=== PATIENT | male | born 1970 | race Caucasian/White ===

== ENCOUNTER 2020-03-07 17:42 | Inpatient (IN) | payer MEDICAID, SELFPAY ==
[2020-03-07] VITALS (11 sets, daily range): BP systolic 116–176; BP diastolic 60–116; PULSE 111–128; RESP 13–32; TEMP 36.3–36.9; O2SAT 90–100; BMI 32.5
--- NOTE | 2020-03-07 17:55 | ECG_ITS ---
Test Reason : ASTHMA Blood Pressure : / mmHG Vent. Rate : 113 BPM Atrial Rate : 113 BPM P-R Int : 152 ms QRS Dur : 086 ms QT Int : 358 ms P-R-T Axes : 067 079 066 degrees QTc Int : 491 ms Sinus tachycardia Otherwise normal ECG When compared with ECG of 06-NOV-2019 09:04, Heart rate has increased Referred By: Emily Damico Electronically Signed By:COLLIN GRIMES MD
[2020-03-07 17:58] LABS: Basophils Absolute Auto 0.1 X10*3/uL (0.0-0.2); Basophils Percent Auto 0.4 % (0-2); Eosinophils Absolute Auto 1.9 X10*3/uL (0.0-0.4); Eosinophils Percent Auto 14.1 % (0-4); Hematocrit 40.6 % (42-52); Hemoglobin 13.3 g/dl (14.0-18.0); Imm Gran Abs Auto 0.04 X10*3/uL (0.00-0.03); Imm Gran Pct Auto 0.3 % (0.0-0.4); Lymphocytes Percent Auto 14.6 % (20-40); MANUAL DIFF FLAG NO; Mean Corpuscular HGB Conc 32.8 g/dl (31.0-36.0); Mean Corpuscular Hemoglobin 31.9 pg (27.0-33.0); Mean Corpuscular Volume 97.4 fL (80-98); Mean Platelet Volume 9.5 fL (9.4-12.4); Monocytes Absolute Auto 1.2 X10*3/uL (0.1-1.2); Monocytes Percent Auto 8.9 % (2-11); Neutrophils Absolute Auto 8.4 X10*3/uL (2.0-8.3); Neutrophils Percent Auto 61.7 % (45-73); Platelet Count 237 X10*3/uL (160-400); Red Blood Count 4.17 X10*6/uL (4.60-5.80); Red Cell Distribution Width 12.5 % (11.0-16.0); White Blood Count 13.5 X10*3/uL (4.8-10.8)
--- NOTE | 2020-03-07 18:05 | ED_ITS ---
HPI - General Adult General Chief complaint: Asthma Stated complaint: STATUS ASTHMATICUS Time Seen by Provider: 03/07/20 17:55 Source: patient and EMS Mode of arrival: EMS Limitations: other ( shortness of breath) History of Present Illness HPI narrative: patient comes to the emergency room complaining of severe sh ortness of breath. Patient states he ran out of his medications couple of days ago, he bought [id number] epinephrine inhaler which he has been using over the last 24 hours. Patient states this afternoon he had severe onset of shortness of breath, called EMS, started on CPAP, given Solu-Medrol, magnesium, 0.3 mg IM of epinephrine. On arrival to the emergency room, patient was in severe respiratory distress, his oxygen saturation on CPAP was 90%. Patient was switched to our BiPAP, oxygen improved to 100% with 50 FiO2 MD complaint: asthma exacerbation Related Data Allergies Allergy/AdvReac Type Severity Reaction Status Date / Time codeine [CODEINE] Allergy Unknown STOMACH Unverified 01/15/20 17:25 UPSET ibuprofen [Motrin] Allergy Unknown Unknown Verified 03/07/20 19:28 From FLEXERIL Allergy Severe ALTERED Uncoded 01/15/20 17:25 MENTAL STATUS Flexeril Allergy Unknown Unknown Uncoded 03/07/20 19:28 Review of Systems Review of Systems: Constitutional : No Weight loss, No Fever, No Chills, No Night Sweats, No Fatigue, No Malaise ENT/Mouth : No Hearing loss, No Ear Pain, No Nasal Congestion, No Sinus Pain, No Hoarseness, No sore throat, No Rhinorrhea, No Swallowing Difficulty Eyes: No Eye Pain, No Swelling, No Redness, No Foreign Body, No Discharge, No Vision Changes Cardiovascular : No Chest Pain, No SOB, No Dyspnea on Exertion, No Orthopnea, No Edema, No Palpitations Respiratory : wheezing, severe shortness of breath Gastrointestinal : No Nausea, No Vomiting, No Diarrhea, No Constipation, No abdominal Pain, No Hematochezia, No Melena Genitourinary : no irregular bleeding, No Dysuria, No Urinary Frequency, No Hematuria, No Urinary Incontinence, No Urgency, No Flank Pain, No Urinary Flow Changes, No Hesitancy Musculoskeletal : No joint pain, No Myalgias, No Joint Swelling Skin : No Skin Lesions, No rash Neuro : No Weakness, No Numbness, No Paresthesias, No Loss of Consciousness, No Dizziness, No Headache Psych : No Anxiety/Panic, No Depression, No SI/HI/AH/VH, No Social Issues, Heme/Lymph: No Bruising, No Bleeding,No Lymphadenopathy Endocrine : No Polyuria, No Polydipsia, No Temperature Intolerance PMF Past Medical History Medical History Asthma HTN (hypertension) Surgical History H/O knee surgery Social History Social History Smoked in Last 30 Days: No Use of substances other than those prescribed or required for medical reasons: No Advance Directives: No Advance Directives Information Provided: Yes Physical Exam Vital Signs: Vital Signs: Last Vital Signs Temp 97.4 F 03/07/20 20:00 Pulse 111 H 03/07/20 20:00 Resp 22 H 03/07/20 20:00 BP 176/93 H 03/07/20 20:00 Pulse Ox 98 03/07/20 20:00 Body Mass Index 32.5 Appearance: Alert. Oriented X3. in moderate respiratory distress, diaphoretic Eyes: Pupils equal, round and reactive to light. ENT: Pharynx normal. Neck: Normal inspection. Neck supple. No lymph nodes noted. No crepitus CVS: Normal heart rate and rhythm. Pulses normal. Normal S1 and S2 Respiratory: bilateral minimal wheezing, poor air movement Abdomen: Soft and nontender. No rigidity. No distention. good BS x4 Skin: Skin warm and diaphoretic Extremities: No lower extremity edema. No lower extremity edema. No Laceration s. No Rash Neuro: Oriented X 3. No motor deficit. No sensory deficit. Moving all extermities. Course Course Course Narrative: patient was started on a 1 hour nebulization treatment, patient was put on our CPAP, within 5 minutes, patient started feeling much better, now speaking in full sentences, oxygen saturation 100%, patient states he feels much better. Patient seemed to have a panic attack while he was urinating, patient became very anxious, diaphoretic, he needed 2 mg of Ativan and was placed back on CPAP. His respiratory rate improved immediately. This happened twice, patient does well on a Ventimask, then all of a sudden patient gets a panic attack, gets worked up and needs to be put on CPAP. His oxygen saturation remains above 92%, airway clear, patient continues to wheeze but has fairly good air movement. At this time, patient remains on CPAP, patient will likely end up in the ICU if he has 1 of this panic attacks on the floor. Therefore, I discussed the patient with Dr. South, patient is being admitted to the intensive care unit. Medical Decision Making Lab Data Result diagrams: 03/07/20 17:52 03/07/20 17:52 Labs: Lab Results 03/07/20 03/07/20 03/07/20 Range/Units 17:52 17:52 17:52 WBC 13.5 H (4.8-10.8) X10*3/uL RBC 4.17 L (4.60-5.80) X10*6/uL Hgb 13.3 L (14.0-18.0) g/dl Hct 40.6 L (42-52) % MCV 97.4 (80-98) fL MCH 31.9 (27.0-33.0) pg MCHC 32.8 (31.0-36.0) g/dl RDW 12.5 (11.0-16.0) % Plt Count 237 (160-400) X10*3/uL MPV 9.5 (9.4-12.4) fL Immature Gran % (Auto) 0.3 (0.0-0.4) % Neut % (Auto) 61.7 (45-73) % Lymph % (Auto) 14.6 L (20-40) % [place] % (Auto) 8.9 (2-11) % Eos % (Auto) 14.1 H (0-4) % Baso % (Auto) 0.4 (0-2) % Lymph # (Auto) 2.0 (1.2-4.9) X10*3/uL [place] # (Auto) 1.2 (0.1-1.2) X10*3/uL Eos # (Auto) 1.9 H (0.0-0.4) X10*3/uL Baso # (Auto) 0.1 (0.0-0.2) X10*3/uL Abs Immat Gran (auto) 0.04 H (0.00-0.03) X10*3/uL Absolute Neuts (auto) 8.4 H (2.0-8.3) X10*3/uL Absolute Nucleated RBC 0.000 (0.0-0.012) X10*3/uL Nucleated RBC % (auto) 0.0 (0.0-0.2) /100WBC Hold Blue Top SEE NOTE Sodium (135-145) mmol/L Potassium (3.3-5.1) mmol/l Chloride (96-108) mmol/L Carbon Dioxide (22-29) mmol/L Anion Gap (12-20) BUN (9-16) mg/dL Creatinine (0.5-1.4) mg/dL Estim Creat Clear Calc Estimated GFR Random Glucose (60-115) mg/dL Calcium (8.4-10.2) mg/dL Total Bilirubin (0.0-1.0) mg/dL Direct Bilirubin (0.0-0.5) mg/dL AST (5-37) U/L ALT (0-40) U/L Alkaline Phosphatase (39-117) U/L Troponin I High Sens 8.1 (<3.5-35.0) ng/L Total Protein (6.5-8.0) g/dL Albumin (3.5-5.0) g/dL Lipase (8-78) U/L Coronavirus (PCR) (Negative) 03/07/20 03/07/20 03/07/20 Range/Units 17:52 18:01 19:35 WBC (4.8-10.8) X10*3/uL RBC (4.60-5.80) X10*6/uL Hgb (14.0-18.0) g/dl Hct (42-52) % MCV (80-98) fL MCH (27.0-33.0) pg MCHC (31.0-36.0) g/dl RDW (11.0-16.0) % Plt Count (160-400) X10*3/uL MPV (9.4-12.4) fL Immature Gran % (Auto) (0.0-0.4) % Neut % (Auto) (45-73) % Lymph % (Auto) (20-40) % [place] % (Auto) (2-11) % Eos % (Auto) (0-4) % Baso % (Auto) (0-2) % Lymph # (Auto) (1.2-4.9) X10*3/uL [place] # (Auto) (0.1-1.2) X10*3/uL Eos # (Auto) (0.0-0.4) X10*3/uL Baso # (Auto) (0.0-0.2) X10*3/uL Abs Immat Gran (auto) (0.00-0.03) X10*3/uL Absolute Neuts (auto) (2.0-8.3) X10*3/uL Absolute Nucleated RBC (0.0-0.012) X10*3/uL Nucleated RBC % (auto) (0.0-0.2) /100WBC Hold Blue Top Sodium 138 Cancelled (135-145) mmol/L Potassium 5.0 Cancelled (3.3-5.1) mmol/l Chloride 99 Cancelled (96-108) mmol/L Carbon Dioxide 25 Cancelled (22-29) mmol/L Anion Gap 19 Cancelled (12-20) BUN 33 H Cancelled (9-16) mg/dL Creatinine 1.75 H Cancelled (0.5-1.4) mg/dL Estim Creat Clear Calc 59.4 Cancelled Estimated GFR 42 Cancelled Random Glucose 119 H Cancelled (60-115) mg/dL Calcium 10.3 H Cancelled (8.4-10.2) mg/dL Total Bilirubin 0.4 Cancelled (0.0-1.0) mg/dL Direct Bilirubin 0.2 Cancelled (0.0-0.5) mg/dL AST 23 Cancelled (5-37) U/L ALT 19 Cancelled (0-40) U/L Alkaline Phosphatase 73 Cancelled (39-117) U/L Troponin I High Sens (<3.5-35.0) ng/L Total Protein 8.6 H Cancelled (6.5-8.0) g/dL Albumin 5.2 H Cancelled (3.5-5.0) g/dL Lipase 10 Cancelled (8-78) U/L Coronavirus (PCR) NEGATIVE (Negative) ECG Data Attestation: I personally reviewed and interpreted this ECG as follows: ( Sinus rhythm, heart rate 113, no ST segment depressions or elevations common with inversions.) Discharge Plan Discharge Clinical Impression: Asthma with acute exacerbation, Panic attack Patient Disposition: Admitted As Inpatient
[2020-03-07 18:21] LABS: Anion Gap 19 (12-20); Blood Urea Nitrogen 33 mg/dL (9-16); Calcium 10.3 mg/dL (8.4-10.2); Carbon Dioxide 25 mmol/L (22-29); Chloride 99 mmol/L (96-108); Creatinine Clr Calc Pharmacy 59.4; Estimated Glomerular Filt Rate 42; Glucose Random 119 mg/dL (60-115); Sodium 138 mmol/L (135-145)
[2020-03-07] MEDS: 0.9 % Sodium Chloride 1,000 ML 999 ML IVCONT ×2 (18:26→19:37)
[2020-03-07 18:28] LABS: Troponin-I High Sensitivity 8.1 ng/L (<3.5-35.0)
[2020-03-07] MEDS: Albuterol Sulfate (0.083%) 2.5 MG/3 ML VIAL.NEB 10 MG INHALE ×2 (18:39→19:21)
[2020-03-07 18:59] LABS: SARS COV2 PCR INHOUSE NEGATIVE (Negative)
--- NOTE | 2020-03-07 19:26 | PC.NURSE ---
PATIENT TAKEN OFF OF BIPAP WITH MD AND RESP THERAPIST. PLACED ON AN HOUR LONG BREATHING TREATMENT. LOOKING COMFORTABLE AND BREATHING WELL ON TREATMENT. NO DISTRESS NOTED AT THIS TIME.
--- NOTE | 2020-03-07 19:36 | XR_ITS ---
EXAMINATION: XR CHEST CLINICAL INFORMATION: Shortness of breath COMPARISON: 11/10/2019 TECHNIQUE: Frontal view of the chest was obtained. FINDINGS: No significant abnormality is noted involving the heart, lungs, mediastinum, bony thorax or soft tissues. Again noted is anterior cervical fixation. Mild degenerative changes in the spine. XR/XR chest 1V IMPRESSION: No acute intrathoracic disease.
[2020-03-07 19:49] LABS: Alanine Aminotransferase 19 U/L (0-40); Albumin Level 5.2 g/dL (3.5-5.0); Alkaline Phosphatase 73 U/L (39-117); Aspartate Amino Transferase 23 U/L (5-37); Bilirubin Direct 0.2 mg/dL (0.0-0.5); Bilirubin Total 0.4 mg/dL (0.0-1.0); Lipase 10 U/L (8-78); Total Protein 8.6 g/dL (6.5-8.0)
--- NOTE | 2020-03-07 20:16 | PC.NURSE ---
PATIENT STARTED TO HAVE A PANIC ATTACK, SCREAMING OUT THAT HE CAN'T BREATH, CONTINUES TO YELL IN FULL AND COMPLETE SENTENCES. MD AND NURSE AT BEDSIDE, VERBAL ORDERS FROM MD FOR ATIVAN 2MG IV STAT. PATIENT PLACED BACK ON CPAP FOR PATIENTS COMFORT. PATIENT STARTED TO PANIC WHEN BREATHING TREATMENT THAT HE WAS PREVIOUSLY ON WAS TURNED OFF. PATIENT THINKING THAT THAT O2 WAS BEING TURNED OFF ON THE CPAP AND STARTED TO HYPERVENTILATE, STATING I CAN'T BREATH, TURN IT ON EXPLAINING TO PATIENT THAT IT WAS A DIFFERENT TREATMENT THAT WAS TURNED OFF AND NOT WHAT HE WAS CURRENTLY ON. PATIENT BECOMING MORE COMFORTABLE AFTER MEDICATION ADMINISTRATION AND REASSURANCE.
[2020-03-07] MEDS: Albuterol Sulfate (0.083%) 2.5 MG/3 ML VIAL.NEB 5 MG INHALE (20:20)
[2020-03-07] MEDS: LORazepam 2 MG/ML VIAL IVPUSH (20:29)
--- NOTE | 2020-03-07 20:56 | PM.CCHP ---
History of Present Illness Date of Service: 03/07/20 <GAVIOTA Sharp - Last Filed: 03/08/20 06:20> Chief Complaint: asthma exacerbation <GAVIOTA Sharp - Last Filed: 03/08/20 06:20> 49-year-old male with a past medical history of asthma, anxiety, alcoholic pancreatitis and hypertension BIBA c/o sob. EMS gave 0.3mg epi, 125mg solumedrol and 2mg mag OUTPATIENT CLERK. ED records states the patient ran out of his medications a few days ago and has been using an [id number] inhaler for the past 24 hours, this afternoon his sob became worse. Upon arrival to the ED, his oxygen saturation on CPAP was 90%. Patient was switched to our BiPAP, oxygen improved to 100% with 50 FiO2. Bedside exam revealed pt diaphoretic, tremulous, RR at 25, satting at 96% with CPAP at 12cm and 40%. Pt revealed he hasn't taken his suboxone in 3-4 days, he usually takes 12mg/day, he is this is supposed to be split to be twice a day but he usually takes it once a day because he does not like the taste. states he has taken Suboxone for the last 4 years. patient states his last drink was prior to his admission in August for alcoholic pancreatitis. He tells me he ran out of albuterol inhaler so he bought Primatine mist OTC and has been using it for the last few days. He developed a cough he thinks is due to allergies, thought he was doing too much and suddenly became more short of breath. He states he used to take Advair but stopped as he didn't feel it was helping his breathing. CXR negative, labs unremarkable. Pt to be admitted to the ICU for asthma exaerbation and opioid withdrawal. Once in the ICU, after being asked multiple times (as pt was consistently tachy) he did admit to taking percocet on Sunday but denies drinking alcohol since August. <GAVIOTA Sharp - Last Filed: 03/08/20 06:20> Review of Systems Review of Systems: Constitutional: No Fever, No Chills ENT/Mouth: No Hoarseness, No sore throat, No Rhinorrhea Eyes: No Redness, No Discharge, No Vision Changes Cardiovascular: No Chest Pain, positive SOB, positive Dyspnea on Exertion, No Edema Respiratory: positive Cough, No Sputum, positive Wheezing, Gastrointestinal: No Nausea, No Vomiting, No Diarrhea, No abdominal Pain Genitourinary: No Dysuria, No Hematuria Musculoskeletal: No joint pain, No Myalgias Skin: No rash Neuro: No Weakness, No Numbness, No Headache Psych: +anxiety, depression <GAVIOTA Sharp - Last Filed: 03/08/20 06:20> Yes all other systems are reviewed and are negative <GAVIOTA Sharp - Last Filed: 03/08/20 06:20> [facility] Past Medical History Medical History: Medical History (Updated 03/08/20 @ 10:17 by Chance Kay MD) Asthma HTN (hypertension) <GAVIOTA Sharp - Last Filed: 03/08/20 06:20> Functional capacity: independent ambulation <GAVIOTA Sharp - Last Filed: 03/08/20 06:20> Surgical History Surgical History: Surgical History (Updated 03/07/20 @ 21:12 by GAVIOTA Sharp) H/O knee surgery H/O neck surgery <GAVIOTA Sharp - Last Filed: 03/08/20 06:20> Social History Social History: Social History (Updated 03/07/20 @ 22:43 by GAVIOTA Sharp) Household Members: Friend(s) Housing: Apartment Do you presently have visiting nurse or other home services: No Alcohol intake: former Year quit: 09/16 Smoking Status: Former smoker Tobacco Type: Cigarette Smoked in Last 30 Days: No Use of substances other than those prescribed or required for medical reasons: No Substance Use Type: Painkillers Last Used Substance Other:: 4 years ago, now on 12mg suboxone daily Currently Displaying Signs/Symptoms of Drug Intoxication Withdrawal: No Any prior treatment program specific to substance use: Yes Have you been hit, kicked, punched, or otherwise hurt by someone within the past year? If so, by whom?: No Do you feel safe in your current relationship?: No Is there a partner from a previous relationship who is making you feel unsafe now?: No Are you made to feel afraid or neglected: No Advance Directives: No Advance Directives Information Provided: Yes Advance Directives on File: No Do you have thoughts of harming others: None Do you have a plan to hurt others: No Plan Recently lost weight without trying: No service: No Current occupational status: unemployed <GAVIOTA Sharp Last Filed: 03/08/20 06:20> Meds Allergies/Adverse reactions: Allergies Allergy/AdvReac Type Severity Reaction Status Date / Time codeine [CODEINE] AdvReac Unknown STOMACH Verified 03/07/20 23:03 UPSET From FLEXERIL AdvReac Severe Confusion Uncoded 03/09/20 07:18 <GAVIOTA Sharp Last Filed: 03/08/20 06:20> Home medications: Home Medications Medication Instructions Recorded Confirmed Type acetaminophen [Tylenol] 650 mg PO Q6H PRN 03/07/20 03/07/20 History buprenorphine-naloxone [Suboxone] 1 film BUCCAL Q24H 03/07/20 03/07/20 History ibuprofen [Motrin] 600 mg PO Q8H PRN 03/07/20 03/07/20 History lisinopril 30 mg PO DAILY 03/07/20 03/07/20 History <GAVIOTA Sharp Last Filed: 03/08/20 06:20> Physical Exam Vital Signs: Vital Signs: Last Vital Signs Temp 97.4 F 03/07/20 20:00 Pulse 111 H 03/07/20 20:00 Resp 22 H 03/07/20 20:00 BP 176/93 H 03/07/20 20:00 Pulse Ox 98 03/07/20 20:00 Body Mass Index 32.5 <GAVIOTA Sharp Last Filed: 03/08/20 06:20> Const: General: cooperative, healthy appearing, in distress and anxious <GAVIOTA Sharp Last Filed: 03/08/20 06:20> Orientation/consciousness: patient oriented x3 <GAVIOTA Sharp Last Filed: 03/08/20 06:20> Limitations: no limitations <GAVIOTA Sharp Last Filed: 03/08/20 06:20> HENMT: Head: Yes normal to inspection <Abigail Cazares [facility] Last Filed: 03/08/20 06:20> Eyes: General: appearance normal, both eyes and all related structures <Abigail Cazares [facility] Last Filed: 03/08/20 06:20> Neck: Neck: Yes normal visual inspection and Yes full ROM <Abigail Cazares [facility] Last Filed: 03/08/20 06:20> Resp: Other: moderate air movement <Abigail Cazares [facility] Last Filed: 03/08/20 06:20> Effort & Inspection: not able to speak in complete sentences, no audible wheezes, no grunting, not labored, no nasal flaring, no pursed lip breathing, no retractions, no segmental paradox chest wall movement, tachypneic, no tripod positioning and uses accessory muscles <Abigail Cazares [facility] Last Filed: 03/08/20 06:20> Auscultation: wheezes expiratory wheezes and throughout <Abigail Cazares [facility] Last Filed: 03/08/20 06:20> Cardio: Rate: tachycardic (110-115) <Abigail Cazares [facility] Last Filed: 03/08/20 06:20> Rhythm: regular rhythm <Abigail Cazares [facility] Last Filed: 03/08/20 06:20> Heart sounds: normal S1 and S2 <Abigail Cazares [facility] Last Filed: 03/08/20 06:20> GI: Inspection: Yes normal to inspection <Abigail Cazares [facility] Last Filed: 03/08/20 06:20> Palpation (GI): Soft to palpation and nontender <Abigail Cazares [facility] Last Filed: 03/08/20 06:20> Skin: General skin exam: no rashes or lesions noted <Abigail Cazares [facility] Last Filed: 03/08/20 06:20> Neuro: General: patient oriented x3 <Abigail Cazaers [facility] Last Filed: 03/08/20 06:20> Extrem: General: Yes normal to inspection <Abigail Cazares PA - Last Filed: 03/08/20 06:20> Results Labs CBC and Chem 7: : 03/10/20 05:48 03/10/20 05:48 <GAVIOTA Sharp - Last Filed: 03/08/20 06:20> Labs: Laboratory Results - last 24 hr 03/07/20 03/07/20 03/07/20 17:52 17:52 17:52 MCV 97.4 MCH 31.9 MCHC 32.8 RDW 12.5 Plt Count 237 MPV 9.5 Immature Gran % (Auto) 0.3 Neut % (Auto) 61.7 Lymph % (Auto) 14.6 L [place] % (Auto) 8.9 Eos % (Auto) 14.1 H Baso % (Auto) 0.4 Lymph # (Auto) 2.0 Saline # (Auto) 1.2 Eos # (Auto) 1.9 H Baso # (Auto) 0.1 Abs Immat Gran (auto) 0.04 H Absolute Neuts (auto) 8.4 H Absolute Nucleated RBC 0.000 Nucleated RBC % (auto) 0.0 Hold Blue Top SEE NOTE Anion Gap Estim Creat Clear Calc Estimated GFR Random Glucose Calcium Total Bilirubin Direct Bilirubin AST ALT Alkaline Phosphatase Troponin I High Sens 8.1 Total Protein Albumin Lipase Coronavirus (PCR) 03/07/20 03/07/20 03/07/20 17:52 18:01 19:35 MCV MCH MCHC RDW Plt Count MPV Immature Gran % (Auto) Neut % (Auto) Lymph % (Auto) Saline % (Auto) Eos % (Auto) Baso % (Auto) Lymph # (Auto) Saline # (Auto) Eos # (Auto) Baso # (Auto) Abs Immat Gran (auto) Absolute Neuts (auto) Absolute Nucleated RBC Nucleated RBC % (auto) Hold Blue Top Anion Gap 19 Cancelled Estim Creat Clear Calc 59.4 Cancelled Estimated GFR 42 Cancelled Random Glucose 119 H Cancelled Calcium 10.3 H Cancelled Total Bilirubin 0.4 Cancelled Direct Bilirubin 0.2 Cancelled AST 23 Cancelled ALT 19 Cancelled Alkaline Phosphatase 73 Cancelled Troponin I High Sens Total Protein 8.6 H Cancelled Albumin 5.2 H Cancelled Lipase 10 Cancelled Coronavirus (PCR) NEGATIVE <GAVIOTA Sharp - Last Filed: 03/08/20 06:20> Imaging Radiologist's Impressions: Impressions Chest X-Ray 03/07/20 19:36 IMPRESSION: No acute intrathoracic disease. <GAVIOTA Sharp Last Filed: 03/08/20 06:20> Assessment and Plan (1) Asthma with acute exacerbation: Qualifiers: Asthma persistence: unspecified Asthma severity: unspecified severity Qualified Code(s): J45.901 - Unspecified asthma with (acute) exacerbation <GAVIOTA Sharp Last Filed: 03/08/20 06:20> Status: Acute <GAVIOTA Sharp Last Filed: 03/08/20 06:20> Continue CPAP, wean off overnight. Pt given 125mg solumedrol, epi and 2mg mag by EMS, will repeat solumedrol. Pt consistently tachy (110-130) since arrival to [facility], ddimer negative. <GAVIOTA Sharp Last Filed: 03/08/20 06:20> (2) Opioid withdrawal: Status: Acute <GAVIOTA Sharp Last Filed: 03/08/20 06:20> [place] text with Natalie Roldan, she advised okay to resume patient's normal it dose of Suboxone. Ordered 12mg sublingual suboxone now and continue daily starting tomorrow. she will come see the patient tomorrow if we need her to. 03/08 6am pt admits to using 15mg percocets, 5-6 per day for the last 10 days, hasn't been taking his suboxone, [place] Text to Natalie Roldan for guidance. I will cancel today's dose of suboxone until she calls back as she may change the dose... <GAVIOTA Sharp Last Filed: 03/08/20 06:20> (3) Panic attack: Status: Acute <GAVIOTA Sharp Last Filed: 03/08/20 06:20> Pt rec'd IV ativan in ED, monitor. Will give hydroxyzene as well for anxiety and antihistamine effect. Pt very restless overnight, tremulous, tachy, gave mult doses of IV lorazepam overnight <GAVIOTA Sharp - Last Filed: 03/08/20 06:20> (4) Anxiety: Status: Acute <GAVIOTA Sharp - Last Filed: 03/08/20 06:20> After multiple discussions the patient trying to find out why he is so fidgety, anxious and nervous (thinking it was withdrawal from something else despite being given ativan and suboxone), he states he is fidgety at his baseline and he finally admits that he takes 25 mg of Seroquel daily which is prescribed to him by his PCP at [facility]. I will restart him on this medication now. <GAVIOTA Sharp - Last Filed: 03/08/20 06:20>
[2020-03-07] MEDS: Buprenorphine/Naloxone 12/3 mg FILM 1 FILM SUBLINGUAL (21:16)
[2020-03-07] MEDS: Albuterol Sulfate (0.083%) 2.5 MG/3 ML VIAL.NEB INHALE (22:44)
[2020-03-07] MEDS: Ipratropium Bromide 0.5 MG/2.5 ML SOLUTION INHALE ×2 (23:40→23:54)
[2020-03-07] MEDS: hydrOXYzine HCL 25 MG TABLET PO (23:59)
[2020-03-08] VITALS (32 sets, daily range): BP systolic 61–211; BP diastolic 11–158; PULSE 88–132; RESP 20–34; TEMP 36.3–37.4; O2SAT 90–100; BMI 28.6; BMI 32.5
--- NOTE | 2020-03-08 | CT_ITS ---
EXAMINATION: CT HEAD WITHOUT CONTRAST CLINICAL INFORMATION: Altered mental status COMPARISON: None TECHNIQUE: Contiguous axial imaging was performed from the skull base to vertex without intravenous administration of contrast. Coronal and sagittal reformatted images are performed at CT scanner This CT examination was performed using dose optimization techniques as appropriate, variously including the following: *Automated exposure control *Adjustment of mA and/or kV according to patient size (this includes techniques or standardized protocols for targeted exams where dose is matched to indication/reason for exam; i.e. extremities or head) *Use of iterative reconstruction technique DLP: 985 mGy-cm FINDINGS: There is no evidence of acute intracranial hemorrhage or territorial infarction. No abnormal mass effect or midline shift is seen. Howard to white matter differentiation is well preserved. No extra-axial fluid collections are identified. The ventricles are normal in size. There is no abnormal attenuation within the brain parenchyma. The osseous structures and soft tissues are normal. The mastoid air cells and visualized portions of the paranasal sinuses are well aerated. CT/CT head/brain wo con IMPRESSION: No acute intracranial pathology.
[2020-03-08] MEDS: Ipratropium Bromide 0.5 MG/2.5 ML SOLUTION INHALE (00:19)
[2020-03-08] MEDS: methylPREDNISolone Sod Succ/PF 125 MG/2 ML VIAL IVPUSH (00:19)
[2020-03-08] MEDS: LORazepam 2 MG/ML VIAL IVPUSH ×2 (01:03→06:11)
[2020-03-08] MEDS: 0.9 % Sodium Chloride Flush 3 ML SYRINGE IVFLUSH ×3 (01:03→15:01)
--- NOTE | 2020-03-08 01:23 | PC.NURSE ---
admitted to icu approx 2200: pa and rt at bedside for assessment RR 30's-40's. Accessory muscle use, wheezing throughout. Satting high 80's on RA. 90's on 3L. PRN ativan, hydroxyzine, updrafts given with some effect. on/off cpap. Positive response to reassurance/redirection. Poor activity tolerance, becomes extremely dyspneic after stand/pivot to commode. patient repeatedly questioned re: drugs and etoh use. denied all. approx 0130, tremulous, diaphoretic, pale, hallucinating, disoriented. Again, questioned re: drugs and etoh. Patient admits taking percocet today prior to arrival in ed, where he was given suboxone. PA at bedside and aware of all.
[2020-03-08 01:33] LABS: D Dimer < 200 NG/ML
[2020-03-08] MEDS: Albuterol/Iprat 2.5/0.5MG 3 ML AMPUL.NEB INHALE ×5 (03:55→19:30)
[2020-03-08] MEDS: LORazepam 2 MG/ML VIAL 1 MG IVPUSH (04:11)
[2020-03-08] MEDS: QUEtiapine Fumarate 25 MG TABLET PO (05:06)
[2020-03-08] MEDS: methylPREDNISolone Sod Succ/PF 125 MG/2 ML VIAL 80 MG IVPUSH (06:19)
[2020-03-08] MEDS: Buprenorphine/Naloxone 8/2 mg FILM 1 FILM SUBLINGUAL (07:00)
--- NOTE | 2020-03-08 07:00 | PC.NURSE ---
Shift eval: 3a-
--- NOTE | 2020-03-08 07:15 | PC.NURSE ---
Shift eval 3a-7a: Patient alert and oriented, but talking to himself intermit, anxious. Persistent dry cough, shaking legs, diaphoretic, rolling in bed, getting up at side of bed. ST on monitor, 120's. Dyspnea on exertion, O2sat 91% on room air, increased to mid 90's on 3 liters. Patient frequently redirected to stay in bed, sit and keep monitor on for safety. Lungs - insp & exp wheezing throughout. After speaking to the patient multiple times, with Emilia MEEK, patient reported that he takes 15mg oxycodone, 5 times a day. He denied having this issue ever before regarding withdrawal. Patient denies drinking alcohol or using any other recreational drugs when asked. UA tox screen ordered and sent to lab. Emilia MEEK at bedside. Received IV ativan from prev RN. With increased agitation, Emilia MEEK ordered to give now doses of medications - 1mg IVP ativan given @ 0411, 25mg PO Seroquel given @ 0506, 2mg IVP ativan @ 0611. Updrafts also ordered and given by RT and 80mg IVP solumedrol ordered and given. Patient would sleep for 20 min at a time after receiving the medications, but then go right back to being anxious and rolling in bed. Emilia MEEK contacted pharmacy about what other medications the patient can get while on suboxone. Report given to Nesha Duenas RN, suboxone given to patient, with no effect. At 0715 Dr South came to floor and made aware of patient increasing agitation - orders given to day shift RN's - see continued documentation.
--- NOTE | 2020-03-08 07:21 | P.CDIC_ITS ---
CDI Concurrent Query Service Date: 03/08/20 Documentation Clarification: Please clarify if you are treating a proba ble/suspected/likely or confirmed: Acute respiratory failure POA, resolved Please specify if known Provider Response: Other (Acute respiratory failure present on admission) Other Diagnosis: acute respiratory failure present on admission PLEASE DO NOT DELETE/MODIFY EXISTING CONTENT Additional information is needed in order to code to the highest accuracy and appropriate Severity of Illness (SOI). Please clarify the information noted below in your progress notes and discharge summary. Risk Factors/Clinical Indicators/Treatments Severe respiratory distress, SOB, wheezing, asthma exacerbation placed on CPAP switched to BIPAP with respiratory rate improving. RR 27 30 34 HR 111 121 FI02 40+ 2 liters oxygen. CDS: Clarice Duval CCS, CDIS Contact Number: [phone] Please Review the information above and exercise your independent professional judgment in responding to the query. If you concur, pleas document in the PROGRESS NOTES and DISCHARGE SUMMARY. If you do not agree with the query, please document in the query above. THIS QUERY IS PART OF THE PERMANENT MEDICAL RECORD
[2020-03-08 07:28] LABS: Amphetamine Screen Urine Not Detected (Not Detect); Barbiturates, Urine Not Detected (Not Detect); Benzodiazepines Screen Urine Not Detected (Not Detect); Cannabinoid Screen Urine Not Detected (Not Detect); Cocaine Screen Urine Not Detected (Not Detect); Opiate Screen Urine POSITIVE (Not Detect); Phencyclidine Screen Urine Not Detected (Not Detect)
[2020-03-08] MEDS: HYDROmorphone HCl 1 MG/ML SYRINGE IVPUSH (07:41)
[2020-03-08] MEDS: dexmedeTOMIDidine HCL/NS 400 MCG/100 ML INFUS..BTL 37.42 MCG IVCONT (07:42)
--- NOTE | 2020-03-08 07:43 | PC.NURSE ---
Pt thrashing in the bed. He is yelling help me. Diaphoretic, severe agitation, unable to redirect, pulled off all wires. Dr South at the bedside at 0730, ordered precedex 50mcg ivp and drip strated at 1mcg/kg/hr. Pt continues to thrash and shout. At 0740 Dr Kay contacted. 1mg Dilaudid IVP admin without changes. Pt's restlessness and thrashing is worse. Natalie Jamar called but unable to get in contact in with her. 0750 Dr Kay at the bedside 2mg more Dilaudid admin. Pt continues to kick and trash in bed.
[2020-03-08] MEDS: HYDROmorphone HCl 2 MG/ML VIAL IVPUSH (07:54)
[2020-03-08] MEDS: propofoL 200 MG/20 ML VIAL 100 MG IVPUSH (08:04)
[2020-03-08] MEDS: Etomidate 20 MG/10 ML VIAL IVPUSH (08:04)
[2020-03-08] MEDS: propofoL 200 MG/20 ML VIAL 150 MG IVPUSH (08:10)
[2020-03-08] MEDS: propofoL 1,000 MG/100 ML VIAL 29.94 MG IVCONT ×5 (08:20→21:28)
[2020-03-08] MEDS: fentaNYL citrate/NS 1,000 MCG/100 ML PLAST..BAG 20 MCG IVCONT (08:20)
--- NOTE | 2020-03-08 08:22 | XR_ITS ---
EXAMINATION: XR CHEST CLINICAL INFORMATION: Check tube placement COMPARISON: Previous chest x-rays most recent from yesterday TECHNIQUE: AP portable view of the chest was obtained. FINDINGS: There is an endotracheal tube with tip 4 cm above the ventura. There is a nasogastric tube projects over the proximal stomach, the tip is not seen. The cardiac and mediastinal contours are stable. There is bilateral atelectasis or small infiltrates, greatest in the left upper lobe. There is no pleural effusion or pneumothorax. There are postsurgical changes to the cervical spine. XR/XR chest 1V IMPRESSION: Endotracheal tube 4 cm above the ventura. Nasogastric tube projects over the proximal stomach, tip not seen. Increasing bilateral atelectasis or small infiltrates.
--- NOTE | 2020-03-08 08:25 | W.PM.CCHP ---
Procedures Intubation Consent for Procedure: Emergent-no informed consent obtained Sedative: propofol Paralytic: rocuronium Laryngoscope: fiber optic video scope ET tube size: 8 ET tube uncuffed: No Tube placement confirmation: visualized tube passing through cords, equal breath sounds bilaterally and confirmation by capnometry Patient tolerated procedure: well Intubation complications: none
[2020-03-08] MEDS: Cisatracurium Besylate 20 MG/10 ML VIAL 10 MG IVPUSH (08:40)
[2020-03-08 09:30] LABS: Pt Ventilation O2% 40%
[2020-03-08 09:33] LABS: Base Excess ABG 1.9; HCO3 ABG 31 mmol/l (22-26); PO2 ABG 93 mmhg (83-108); pH ABG 7.26 (7.35-7.45)
[2020-03-08 09:34] LABS: Blood Gas Serial # 5414; Oxygen Saturation ABG 96.4 %
[2020-03-08 09:35] LABS: ABG PCO2 70 mmhg (32-45)
--- NOTE | 2020-03-08 09:39 | XR_ITS ---
EXAMINATION: XR CHEST CLINICAL INFORMATION: Endotracheal tube placement. Atelectasis or small infiltrates. Follow-up. COMPARISON: Portable chest 03/08/2020 at 0835 hours, portable chest 03/07/2020 1935 hours TECHNIQUE: Portable upright AP view of the chest is performed at 0950 hours. FINDINGS: ET tube is 3.9 cm above ventura. NG tube overlies proximal stomach and extends beyond the inferior film [id number]. There is subtle airspace opacity or atelectasis right upper lobe abutting the minor fissure. There is some coarsening of the bronchiolar markings bilateral suprahilar and right infrahilar region without airspace consolidation or groundglass opacity. The costophrenic sulci are clear. The vascularity is normal. The heart is normal in size. The hilar and mediastinal contours and bony structures are stable. XR/XR chest 1V IMPRESSION: 1. ET tube 3.9 cm above ventura. 2. NG tube in abdomen. 3. Subtle airspace opacity versus atelectasis right upper lobe adjacent to minor fissure. Coarsening central bronchiolar markings. Otherwise, no airspace consolidation or groundglass opacities. No effusion.
--- NOTE | 2020-03-08 09:46 | MHC.CLN ---
IF TF NEEDED; RECOMMEND JEVITY AT MAX GOAL RATE 45CC/HR TO PROVIDE 1145KCALS (1935KCALS WITH SEDATION; 23KCALS/KG), 48G PROTEIN (.6G/KG), 902CC FREE WATER FROM FORMULA
--- NOTE | 2020-03-08 10:14 | PM.CCPN ---
Subjective Subjective Date of Service: 03/08/20 Interval History: 49-year-old gentleman with underlying history of opioid dependence on Suboxone neck fusion asthma, anxiety alcohol abuse with underlying alcoholic pancreatitis, hypertension admitted on 03/07/2020 with acute hypoxic respiratory failure and opioid withdrawal Requiring intensive care monitoring. Overnight patient with progressive agitation poorly responsive to parenteral benzodiazepines and opioids eventually requiring intubation for airway protection at approximately 8:15 a.m. on 03/08/2020. Physical Exam Vital Signs: Vital Signs: Last Vital Signs Temp 97.9 F 03/08/20 09:55 Pulse 104 H 03/08/20 09:55 Resp 26 H 03/08/20 09:55 BP 211/97 H 03/08/20 09:55 Pulse Ox 93 03/08/20 09:55 Body Mass Index 32.5 Const: General: no acute distress and other ( sedated on the vent) Nutritional Appearance: obese and other Eyes: Sclerae: sclerae normal EOM: EOMs intact bilaterally Neck: Neck: Yes no lymphadenopathy, Yes trachea midline and Yes supple Resp: Auscultation: clear to auscultation bilaterally Cardio: Rate: tachycardic Rhythm: regular rhythm Heart sounds: no gallops, no murmurs and no rubs GI: Palpation (GI): Soft to palpation and Other GI palpation findings present ( Nontender) Auscultation: normal bowel sounds Extrem: General: Yes no pedal edema, No clubbing and No cyanosis Objective Data Labs CBC & Chem 7: 03/07/20 17:52 03/07/20 17:52 Labs: Laboratory Results - last 24 hr 03/07/20 03/07/20 03/07/20 17:52 17:52 17:52 WBC 13.5 H RBC 4.17 L Hgb 13.3 L Hct 40.6 L MCV 97.4 MCH 31.9 MCHC 32.8 RDW 12.5 Plt Count 237 MPV 9.5 Immature Gran % (Auto) 0.3 Neut % (Auto) 61.7 Lymph % (Auto) 14.6 L [place] % (Auto) 8.9 Eos % (Auto) 14.1 H Baso % (Auto) 0.4 Lymph # (Auto) 2.0 [place] # (Auto) 1.2 Eos # (Auto) 1.9 H Baso # (Auto) 0.1 Abs Immat Gran (auto) 0.04 H Absolute Neuts (auto) 8.4 H Absolute Nucleated RBC 0.000 Nucleated RBC % (auto) 0.0 D-Dimer Hold Blue Top SEE NOTE ABG pH ABG pCO2 ABG pO2 ABG HCO3 ABG O2 Saturation ABG Base Excess Oxygen Given Sodium Potassium Chloride Carbon Dioxide Anion Gap BUN Creatinine Estim Creat Clear Calc Estimated GFR Random Glucose Calcium Total Bilirubin Direct Bilirubin AST ALT Alkaline Phosphatase Troponin I High Sens 8.1 Total Protein Albumin Lipase Urine Opiates Screen Ur Barbiturates Screen Ur Phencyclidine Scrn Ur Amphetamines Screen U Benzodiazepines Scrn Urine Cocaine Screen U Marijuana (THC) Screen Coronavirus (PCR) 03/07/20 03/07/20 03/07/20 17:52 18:01 19:35 WBC RBC Hgb Hct MCV MCH MCHC RDW Plt Count MPV Immature Gran % (Auto) Neut % (Auto) Lymph % (Auto) [place] % (Auto) Eos % (Auto) Baso % (Auto) Lymph # (Auto) [place] # (Auto) Eos # (Auto) Baso # (Auto) Abs Immat Gran (auto) Absolute Neuts (auto) Absolute Nucleated RBC Nucleated RBC % (auto) D-Dimer Hold Blue Top ABG pH ABG pCO2 ABG pO2 ABG HCO3 ABG O2 Saturation ABG Base Excess Oxygen Given Sodium 138 Cancelled Potassium 5.0 Cancelled Chloride 99 Cancelled Carbon Dioxide 25 Cancelled Anion Gap 19 Cancelled BUN 33 H Cancelled Creatinine 1.75 H Cancelled Estim Creat Clear Calc 59.4 Cancelled Estimated GFR 42 Cancelled Random Glucose 119 H Cancelled Calcium 10.3 H Cancelled Total Bilirubin 0.4 Cancelled Direct Bilirubin 0.2 Cancelled AST 23 Cancelled ALT 19 Cancelled Alkaline Phosphatase 73 Cancelled Troponin I High Sens Total Protein 8.6 H Cancelled Albumin 5.2 H Cancelled Lipase 10 Cancelled Urine Opiates Screen Ur Barbiturates Screen Ur Phencyclidine Scrn Ur Amphetamines Screen U Benzodiazepines Scrn Urine Cocaine Screen U Marijuana (THC) Screen Coronavirus (PCR) NEGATIVE 03/08/20 03/08/20 03/08/20 01:04 06:37 09:21 WBC RBC Hgb Hct MCV MCH MCHC RDW Plt Count MPV Immature Gran % (Auto) Neut % (Auto) Lymph % (Auto) [place] % (Auto) Eos % (Auto) Baso % (Auto) Lymph # (Auto) [place] # (Auto) Eos # (Auto) Baso # (Auto) Abs Immat Gran (auto) Absolute Neuts (auto) Absolute Nucleated RBC Nucleated RBC % (auto) D-Dimer < 200 Hold Blue Top ABG pH 7.26 L ABG pCO2 70 H* ABG pO2 93 ABG HCO3 31 H ABG O2 Saturation 96.4 ABG Base Excess 1.9 Oxygen Given 40% Sodium Potassium Chloride Carbon Dioxide Anion Gap BUN Creatinine Estim Creat Clear Calc Estimated GFR Random Glucose Calcium Total Bilirubin Direct Bilirubin AST ALT Alkaline Phosphatase Troponin I High Sens Total Protein Albumin Lipase Urine Opiates Screen POSITIVE H Ur Barbiturates Screen Not Detected Ur Phencyclidine Scrn Not Detected Ur Amphetamines Screen Not Detected U Benzodiazepines Scrn Not Detected Urine Cocaine Screen Not Detected U Marijuana (THC) Screen Not Detected Coronavirus (PCR) Progress Note: A&P Assessment and plan (1) Acute respiratory failure with hypoxia: Status: Acute Assessment and Plan: Assessment: 49-year-old gentleman with underlying history of opioid dependence and asthma admitted with acute hypoxic respiratory failure and opioid withdrawal with increasing agitation component requiring intubation and ventilatory support. Plan: Neuro: Opioid withdrawal. Continue to titrate of sedative drips as tolerated. Cardiac: No acute issues. Pulmonary: Acute hypoxic respiratory failure secondary to a combination of high sedation requirements for underlying opioid withdrawal and asthmatic component requiring intubation and ventilatory support. Continue to titrate off ventilatory support as tolerated. Continue with nebulized bronchodilators. Renal: No acute issues. Endo: No acute issues. GI: No acute issues. ID: No acute issues Heme/Onc: No acute issues. Psych: No acute issues. Miscellaneous: No acute issues. Prophylaxis: Heparin, ppi Diet: nothing by mouth Critical care time spent: 90 minutes excluding separately billable procedures (2) Opioid withdrawal: Status: Acute Time Spent With Patient Time: Total time spent is greater than 50% in coordination of care (as documented) at patient's floor/unit and/or counseling patient: Total time spent with greater than 50% in coordination of care (as documented) at patient's floor/unit and/or counseling patient:: 0 Critical Care Time Critical Care Time (minutes): 90
[2020-03-08] MEDS: fentaNYL citrate/PF 100 MCG/2 ML VIAL IVPUSH (10:30)
[2020-03-08] MEDS: niCARdipine HCL 25 MG in 0.9 % Sodium Chloride 250 ML 52 MG IVCONT (11:07)
[2020-03-08] MEDS: Heparin Sodium,Porcine 5,000 UNIT/ML VIAL 5000 UNIT SUBCUT ×2 (11:09→17:17)
[2020-03-08 11:41] LABS: Pt Ventilation O2% 40%
[2020-03-08 11:49] LABS: ABG PCO2 54 mmhg (32-45); Base Excess ABG 3.7; Blood Gas Serial # 5396; HCO3 ABG 30 mmol/l (22-26); Oxygen Saturation ABG 96.5 %; PO2 ABG 86 mmhg (83-108); pH ABG 7.37 (7.35-7.45)
[2020-03-08] MEDS: fentaNYL citrate/NS 1,000 MCG/100 ML PLAST..BAG 30 MCG IVCONT ×4 (12:24→21:29)
[2020-03-08] MEDS: niCARdipine HCL 25 MG in 0.9 % Sodium Chloride 250 ML 62.4 MG IVCONT (14:11)
[2020-03-08] MEDS: Chlorhexidine Gluc Oral Rinse 15 ML MOUTHWASH BUCCAL ×2 (15:01→20:44)
--- NOTE | 2020-03-08 15:16 | MHC.CM.PN ---
Pt recently intubated and not able to participate in CM assessment: Information obtained from EMR and care team members. Message left for pt's mother to callback for assistance with assessment completion Unknown what pt's care needs will be at this time: CM to await callback from next of kin/contact to assist with d/c planning; of note, pt does not have a PCP on file.
[2020-03-08] MEDS: Lactated Ringers 1,000 ML 999 ML IVCONT (16:51)
--- NOTE | 2020-03-08 17:37 | PC.NURSE ---
Assumed care at 0700 from Duarte Hagan RN. Upon AM assessment patient very agitated, ? hallucinating, yelling make it stop , extremely restless, jumping in and out of bed. Medicated with Suboxone 8mg per Emilia PA. Patient continue to worsen - Dr Kay notified - medicated with Dilaudid 1mg IVP, Dilaudid 2mg IVP, and started on Precedex gtt - Patient had no improvement in symptoms - Propofol 100mg IVP administered by MD with no improvement - Patient intubated at 0815 - medicated with 150mg Propofol and 50mg Etomidate for intubation. ETT #8, 30cm at the lip - ?tube migration - repeat CXR done and tube placement is stable per MD. Vent settings AC 20, PEEP 5, TV 450, 40% FIO2. OGT and mejia placed - initial urine output 550cc. Patient started on propofol and fentanyl gtt - patient continued to ac vent, thrashing around in bed - Patient started on Nimbex gtt, patients train of four is four twitches at level 9. BP up to 217/116 - Cardene gtt ordered and titrated per EMAR. ABGs at 0920 7.26, 70, 93, 31 - vent setting adjusted by MD - AC rate increased to 26 - repeat ABGs at 1120 7.37, 54, 86, 30. 1545 BP 81/39 - Cardene gtt turned off - BP remained soft. 1L LR bolus ordered and administered. Propofol cut in half and Nimbex turned off per MD - BP improved - Patients extremities twitching, bucking vent - Md notified and at bedside. Total urine o/p throughout shift >2L. Patient to be re-sedated for STAT Brain CT. Patients next of kin updated with patients current status and plan of care by this RN and MD. Will continue to monitor.
[2020-03-08 18:09] LABS: Anion Gap 14 (12-20); Blood Urea Nitrogen 20 mg/dL (9-16); Calcium 9.1 mg/dL (8.4-10.2); Carbon Dioxide 28 mmol/L (22-29); Chloride 102 mmol/L (96-108); Estimated Glomerular Filt Rate > 60; Glucose Random 139 mg/dL (60-115); Potassium 4.5 mmol/l (3.3-5.1); Sodium 139 mmol/L (135-145)
[2020-03-08] MEDS: niCARdipine HCL 25 MG in 0.9 % Sodium Chloride 250 ML 78 MG IVCONT (20:35)
--- NOTE | 2020-03-08 23:12 | PC.NURSE ---
upon return from ct scan, pt found to be hypotensive sbp 50-60 mmhg. ecg displays sr with apical hr in the 90s bpm. nicardipine drip immediately terminated. jocelyn braun notified of hypotension 1. legs placed in an upright position, pt flat 2. despite policy for central line in regard to infusion of levophed, jocelyn braun wants to proceed [facility] #18 angio inserted right antecubital/excellent blood return encountered/low dose levophed infusion at 0.05mcg/kg/min implemented. once again concerns over peripheral iv voiced with jocelyn braun but i'm instructed there is a 24 hour period to run levophed prior to establishment of central line. at this time levophed at 0.07mcg/kg/min b/p 139/82
[2020-03-09] VITALS (35 sets, daily range): BP systolic 70–206; BP diastolic 34–118; PULSE 81–126; RESP 18–26; TEMP 36.5–37.2; O2SAT 90–98; BMI 29.2
[2020-03-09] MEDS: Albuterol/Iprat 2.5/0.5MG 3 ML AMPUL.NEB INHALE ×6 (00:04→19:38)
[2020-03-09] MEDS: fentaNYL citrate/NS 1,000 MCG/100 ML PLAST..BAG 30 MCG IVCONT ×2 (00:58→04:27)
[2020-03-09] MEDS: propofoL 1,000 MG/100 ML VIAL 29.94 MG IVCONT ×5 (00:59→21:23)
--- NOTE | 2020-03-09 01:49 | PC.NURSE ---
NIMBEX INFUSION WAS TURNED OFF TO EVALUATE UNDERLYING NEURO STATUS AFTER HEAD CT WHICH WAS NEGATIVE. UNFORTUNATELY, PT EXPERIENCED EMERGENCE WITH EXTREME AGITATION. PT FIGHTING VENTILATOR AND BITING ETT. PT THRASHING HEAD SIDE TO SIDE. ATTEMPTING TO DISLODGE LINES. DESPITE REASSURANCES, PT REMAINS AGITATED AND WILL NOT FOLLOW COMMAND. GAVIOTA MCCONNELL SPOKE TO DR MAYFIELD IN REGARD TO PRECEDEX DRIP BUT THE DECISION IS MADE TO RESTART NIMBEX INFUSION. INITIALLY NIMBEX INFUSION STARTED AT 2MCG/KG/MIN BUT WAS INEFFECTIVE IN VENTILATORY CONTROL. NIMBEX TITRATED UPWARD TO 10 MCG/KG/MIN WITH VENTILATORY HARMONY. 2 DOSES OF PROPOFOL 50 MG IVP GIVEN FOR SEDATION IN ADDITION TO CONTINOUS INFUSIONS OF FENTANYL AND PROPOFOL.
[2020-03-09] MEDS: propofoL 200 MG/20 ML VIAL 50 MG IVPUSH (02:09)
[2020-03-09] MEDS: 0.9 % Sodium Chloride Flush 3 ML SYRINGE IVFLUSH ×4 (02:10→23:55)
[2020-03-09] MEDS: Heparin Sodium,Porcine 5,000 UNIT/ML VIAL 5000 UNIT SUBCUT ×3 (03:03→17:36)
[2020-03-09] MEDS: niCARdipine HCL 25 MG in 0.9 % Sodium Chloride 250 ML 15.6 MG IVCONT (04:04)
[2020-03-09 05:42] LABS: Basophils Percent Auto 0.1 % (0-2); Eosinophils Percent Auto 0.1 % (0-4); Hematocrit 36.4 % (42-52); Hemoglobin 11.9 g/dl (14.0-18.0); Imm Gran Abs Auto 0.07 X10*3/uL (0.00-0.03); Imm Gran Pct Auto 0.4 % (0.0-0.4); Lymphocytes Absolute Auto 0.7 X10*3/uL (1.2-4.9); Lymphocytes Percent Auto 4.4 % (20-40); MANUAL DIFF FLAG SCAN; Mean Corpuscular HGB Conc 32.7 g/dl (31.0-36.0); Mean Corpuscular Volume 97.8 fL (80-98); Mean Platelet Volume 9.9 fL (9.4-12.4); Monocytes Absolute Auto 0.9 X10*3/uL (0.1-1.2); Monocytes Percent Auto 5.9 % (2-11); Neutrophils Percent Auto 89.1 % (45-73); Platelet Count 230 X10*3/uL (160-400); Red Blood Count 3.72 X10*6/uL (4.60-5.80); Red Cell Distribution Width 12.7 % (11.0-16.0); SCAN SMEAR FLAG 1; White Blood Count 15.7 X10*3/uL (4.8-10.8)
[2020-03-09 05:54] LABS: Base Excess VBG 4.2 mmol/L; HCO3 VBG 29 mmol/L; PCO2 VBG 44 mmhg; PO2 VBG 56 mmhg; pH VBG 7.44 (7.32-7.43)
--- NOTE | 2020-03-09 06:12 | PC.NURSE ---
pts b/p has been extremely labile and very sensitive to tx. levophed has been implemented for hypotension with immediate htn. nicardipine also has been running on several occasions for htn with ensuing hypotension. at this juncture low dose levophed is running at .03 mcg/kg/min(5.6 ml/hr) to maintain b/p guidelines. pt is sedated and under the influences of propofol max,fentanyl max dose and nimbex 1mcg/kg/min. with emergence from sedation, pt will thrash head side to side,kick legs and attempt to remove lines. d/t decreasing sao2<90% and etco2 rising into the 50s the following vent changes were made ac increased to 24 from 18 and fio2 50%. u/o 50-150 ml/hr.
[2020-03-09 06:22] LABS: Albumin Level 4.3 g/dL (3.5-5.0); Magnesium 2.3 mg/dL (1.6-2.6); Phosphorus 2.9 mg/dL (2.7-4.5)
[2020-03-09 06:23] LABS: SLIDE REVIEW VERIFIED
[2020-03-09] MEDS: fentaNYL citrate/NS 1,000 MCG/100 ML PLAST..BAG 40 MCG IVCONT (07:55)
[2020-03-09] MEDS: Chlorhexidine Gluc Oral Rinse 15 ML MOUTHWASH BUCCAL ×3 (08:04→20:32)
[2020-03-09] MEDS: methylPREDNISolone Sod Succ/PF 125 MG/2 ML VIAL 60 MG IVPUSH (08:05)
[2020-03-09] MEDS: propofoL 1,000 MG/100 ML VIAL 14.97 MG IVCONT (08:20)
--- NOTE | 2020-03-09 09:41 | MHC.CLN ---
SEDATION DECREASED IF TF NEEDED; RECOMMEND JEVITY AT MAX GOAL RATE 60CC/HR TO PROVIDE 1526KCALS (1921KCALS WITH SEDATION; 23KCALS/KG), 63G PROTEIN (.8G/KG), 1202CC FREE WATER FROM FORMULA MONITOR TOLERANCE, RESIDUALS AND LYTES
[2020-03-09] MEDS: fentaNYL citrate/NS 1,000 MCG/100 ML PLAST..BAG 27.5 MCG IVCONT (11:32)
--- NOTE | 2020-03-09 13:45 | MHC.CM.PN ---
Pt remains in ICU - now intubated and on pressor support. Call placed to next of contact, pt's mother Demi at [phone] to inquire on any advanced directives/HCP as well as information on pt's prior level of functioning. Will await call back from Demi or try pt's secondary contact.
[2020-03-09] MEDS: propofoL 1,000 MG/100 ML VIAL 26.94 MG IVCONT (14:57)
--- NOTE | 2020-03-09 15:24 | PM.CCPN ---
Subjective Subjective Date of Service: 03/09/20 Interval History: 49-year-old gentleman with underlying history of opioid dependence on Suboxone neck fusion asthma, anxiety alcohol abuse with underlying alcoholic pancreatitis, hypertension admitted on 03/07/2020 with acute hypoxic respiratory failure and opioid withdrawal Requiring intensive care monitoring. Hospital course complicated by progressive agitation poorly responsive to parenteral benzodiazepines and opioids eventually requiring intubation for airway protection at approximately 8:15 a.m. on 03/08/2020. Sedation vacation attempted - patient still significantly agitated continuing to require high-dose sedative drips. Physical Exam Vital Signs: Vital Signs: Last Vital Signs Temp 98.6 F 03/09/20 15:00 Pulse 89 03/09/20 15:00 Resp 24 H 03/09/20 15:00 BP 119/71 03/09/20 15:00 Pulse Ox 96 03/09/20 15:00 Body Mass Index 29.2 Const: General: no acute distress and other ( Sedated on the vent) Eyes: Sclerae: sclerae normal EOM: EOMs intact bilaterally Neck: Neck: Yes no lymphadenopathy, Yes trachea midline and Yes supple Resp: Effort & Inspection: normal respiratory effort and no respiratory distress Auscultation: clear to auscultation bilaterally Cardio: Rate: regular rate Rhythm: regular rhythm Heart sounds: no gallops, no murmurs and no rubs GI: Palpation (GI): Soft to palpation and Other GI palpation findings present ( Nontender) Auscultation: normal bowel sounds Extrem: General: Yes no pedal edema, No clubbing and No cyanosis Objective Data Labs CBC & Chem 7: 03/09/20 05:19 03/08/20 17:30 Labs: Laboratory Results - last 24 hr 03/08/20 03/09/20 03/09/20 17:30 05:19 05:19 WBC 15.7 H RBC 3.72 L Hgb 11.9 L Hct 36.4 L MCV 97.8 MCH 32.0 MCHC 32.7 RDW 12.7 Plt Count 230 MPV 9.9 Immature Gran % (Auto) 0.4 Neut % (Auto) 89.1 H Lymph % (Auto) 4.4 L [place] % (Auto) 5.9 Eos % (Auto) 0.1 Baso % (Auto) 0.1 Lymph # (Auto) 0.7 L [place] # (Auto) 0.9 Eos # (Auto) 0.0 Baso # (Auto) 0.0 Abs Immat Gran (auto) 0.07 H Absolute Neuts (auto) 14.0 H Absolute Nucleated RBC 0.000 Nucleated RBC % (auto) 0.0 Smear Tech's Comments VERIFIED VBG pH VBG pCO2 VBG Oxygen Liters/Min VBG pO2 VBG HCO3 VBG O2 Saturation VBG Base Excess Sodium 139 Potassium 4.5 Chloride 102 Carbon Dioxide 28 Anion Gap 14 BUN 20 H Creatinine 0.86 Estim Creat Clear Calc 121.0 Estimated GFR > 60 Random Glucose 139 H Calcium 9.1 D Phosphorus 2.9 Magnesium 2.3 Albumin 4.3 03/09/20 05:19 WBC RBC Hgb Hct MCV MCH MCHC RDW Plt Count MPV Immature Gran % (Auto) Neut % (Auto) Lymph % (Auto) [place] % (Auto) Eos % (Auto) Baso % (Auto) Lymph # (Auto) [place] # (Auto) Eos # (Auto) Baso # (Auto) Abs Immat Gran (auto) Absolute Neuts (auto) Absolute Nucleated RBC Nucleated RBC % (auto) Smear Tech's Comments VBG pH 7.44 H VBG pCO2 44 VBG Oxygen Liters/Min TNP VBG pO2 56 VBG HCO3 29 VBG O2 Saturation 90.0 VBG Base Excess 4.2 Sodium Potassium Chloride Carbon Dioxide Anion Gap BUN Creatinine Estim Creat Clear Calc Estimated GFR Random Glucose Calcium Phosphorus Magnesium Albumin Progress Note: A&P Assessment and plan (1) Acute respiratory failure with hypoxia: Status: Acute Assessment and Plan: Assessment: 49-year-old gentleman with underlying history of opioid dependence and asthma admitted with acute hypoxic respiratory failure and opioid withdrawal with increasing agitation component requiring intubation and ventilatory support. Plan: Neuro: Opioid withdrawal. Continue to titrate of sedative drips as tolerated. Cardiac: No acute issues. Pulmonary: Acute hypoxic respiratory failure secondary to a combination of high sedation requirements for underlying opioid withdrawal and asthmatic component requiring intubation and ventilatory support. Continue to titrate off ventilatory support as tolerated. Continue with nebulized bronchodilators. Renal: No acute issues. Endo: No acute issues. GI: No acute issues. ID: No acute issues Heme/Onc: No acute issues. Psych: No acute issues. Miscellaneous: No acute issues. Prophylaxis: Heparin, ppi Diet: nothing by mouth Critical care time spent: 60 minutes (2) Opioid withdrawal: Status: Acute Time Spent With Patient Time: Total time spent is greater than 50% in coordination of care (as documented) at patient's floor/unit and/or counseling patient: Total time spent with greater than 50% in coordination of care (as documented) at patient's floor/unit and/or counseling patient:: 0 Critical Care Time Critical Care Time (minutes): 60
[2020-03-09] MEDS: fentaNYL citrate/NS 1,000 MCG/100 ML PLAST..BAG 20 MCG IVCONT (15:47)
[2020-03-09 16:53] LABS: Anion Gap 16 (12-20); Blood Urea Nitrogen 33 mg/dL (9-16); Calcium 8.8 mg/dL (8.4-10.2); Carbon Dioxide 28 mmol/L (22-29); Chloride 100 mmol/L (96-108); Creatinine Clr Calc Pharmacy 82.5; Estimated Glomerular Filt Rate > 60; Glucose Random 138 mg/dL (60-115); Potassium 4.8 mmol/l (3.3-5.1); Sodium 139 mmol/L (135-145)
[2020-03-09] MEDS: Midazolam HCl/PF 2 MG/2 ML VIAL 4 MG IVPUSH (17:57)
--- NOTE | 2020-03-09 17:59 | PC.NURSE ---
p- pt remains sedate and intubated throughout day- goals to wean levophed as pt tolerates- pt starting to twitch and become hypertensive and tachycardic- 1744- nimbex shut off by dr carolina- levophed remains on hold- 4 mg iv versed given-propofol gtt remains infusing with fentanyl- d5lr ivf started [facility] [place]
[2020-03-09] MEDS: Dextrose 5 % and Lactated Ring 1,000 ML 100 ML IVCONT (18:01)
[2020-03-09] MEDS: fentaNYL citrate/NS 1,000 MCG/100 ML PLAST..BAG 25 MCG IVCONT (20:31)
[2020-03-10] VITALS (35 sets, daily range): BP systolic 92–206; BP diastolic 48–119; PULSE 73–132; RESP 22–28; TEMP 36.9–37.7; O2SAT 87–100
--- NOTE | 2020-03-10 | XR_ITS ---
EXAMINATION: CHEST 1 VIEW CLINICAL INFORMATION: Wheezing. COMPARISON: 03/08/2020. TECHNIQUE: An AP view of the chest is provided. FINDINGS: The tip of the endotracheal tube is approximately 4 cm above the ventura. There are left greater than right bilateral pleural effusions with associated airspace disease. The enteric tube is in unchanged position. The osseous structures are stable. XR/XR chest 1V IMPRESSION: Left greater than right bilateral pleural effusions with associated airspace disease. Endotracheal tube and enteric tube in place.
--- NOTE | 2020-03-10 | CT_ITS ---
EXAMINATION: CT CHEST WITHOUT CONTRAST CLINICAL INFORMATION: Hypoxia COMPARISON: Previous chest x-rays most recent from earlier the same day TECHNIQUE: Multidetector volumetric CT imaging of the chest was done. Axial MIP volume rendering provided. Sagittal and coronal reformatted images were obtained. This CT examination was performed using dose optimization techniques as appropriate, variously including the following: *Automated exposure control *Adjustment of mA and/or kV according to patient size (this includes techniques or standardized protocols for targeted exams where dose is matched to indication/reason for exam; i.e. extremities or head) *Use of iterative reconstruction technique DLP: 256 mGy-cm FINDINGS: [place] REPRESENTATIVE: Right basilar atelectasis/consolidation. Endotracheal and nasogastric tube. Postsurgical changes to the cervical spine. LUNGS: There is complete left lower lobe atelectasis/consolidation. There is complete right lower lobe atelectasis/consolidation. There is atelectasis and consolidation of the lateral segment of the right middle lobe. There are patchy areas of groundglass attenuation and peripheral infiltrates seen in the right upper and right middle lobe. There is scattered areas of faint increased attenuation seen in the left upper lobe. There is an endotracheal tube with tip 4.5 cm above the ventura. No endobronchial or endotracheal lesion is seen. MEDIASTINUM: There is a nasogastric tube with tip in the stomach. There are small mediastinal lymph nodes. The heart does not appear enlarged. There is minimal coronary artery calcification. There is no pericardial effusion. The thoracic aorta is normal in caliber. PLEURA: There is no pleural effusion. No pleural mass or thickening. AXILLA: No lymphadenopathy. UPPER ABDOMEN: Unremarkable. OSSEOUS STRUCTURES: There are degenerative changes of the thoracic spine. There are postsurgical changes of the lower cervical spine. CT/CT chest wo con IMPRESSION: Complete atelectasis and consolidation of the bilateral lower lobes and lateral segment of the right middle lobe. Patchy peripheral areas of groundglass attenuation and more solid infiltrates in the right upper and right middle lobes.
[2020-03-10] MEDS: propofoL 1,000 MG/100 ML VIAL 29.94 MG IVCONT ×7 (00:47→22:03)
[2020-03-10] MEDS: fentaNYL citrate/NS 1,000 MCG/100 ML PLAST..BAG 35 MCG IVCONT ×4 (00:48→09:37)
[2020-03-10] MEDS: niCARdipine HCL 25 MG in 0.9 % Sodium Chloride 250 ML 20.8 MG IVCONT (01:14)
[2020-03-10] MEDS: Heparin Sodium,Porcine 5,000 UNIT/ML VIAL 5000 UNIT SUBCUT ×3 (01:57→17:31)
--- NOTE | 2020-03-10 02:30 | PM.CCN ---
Critical Care Event Note Summary Code activated: No Narrative: Clinical Precedent to this date: Patient was admitted to the ICU on 03/08/2020 due to hypoxic respiratory failure and opioid withdrawal. Patient required intubation for airway protection. Patient has underlying history of opiate dependence on Suboxone, asthma, alcoholic pancreatitis, anxiety and hypertension. Today pt at 230 am he developed worsening hypoxia while on vent, sedation and paralytic agents. I was prompted by nursing personnel, patient developed hypoxia with O2 sat of 83% while on AC 20, TV 450, peep 5, FiO2 60. In addition, the patient's heart rate went up to 146 beats per minute. It is known that about 7:30 p.m. last night, the patient was hypotensive with blood pressure of 88/50 requiring Levophed. Later on around midnight, the patient developed hypertension in as sudden manner going from 151/97 at 2300 to 206/118 at 11:50 p.m. at that point Levophed was shut off and subsequently depletion was placed on nicardipine drip. Physical Exam VS: 183/90, heart rate 146 and regular, respiratory rate 32, O2 sat 83% while on the vent as described above General: Sedated and intubated Skin: Intact, no lesions or rash HEENT: Normocephalic, atraumatic, neck no lymphadenopathy. Buccal mucosa moist. 1+ JVD Cardiac: Tachycardic 146 beats per minute. No murmurs rubs or gallops. Pulmonary: Diffuse high pitch wheezing throughout the bilateral anterior and lateral welch, most prominent at the apex is with bibasilar crackles right more than left. No rhonchi. Abdomen: Protuberant, positive bowel sounds in all 4 quadrants. Soft Musculoskeletal: No leg asymmetry, no edema. Neurologic: As above, no focal deficits. Vascular: 2+ pulses upper and lower extremities distally. SIGNIFICANT LABORATORY DATA: Laboratories from today were reviewed. REVIEW OF IMAGES: Chest x-ray reviewed by me, shows bilateral pleural effusions and perhaps increased pulmonary markings, in comparison to an x-ray from 03/08 2020 these appear new changes. EKG REVIEW: On the monitor, the patient has sinus tachycardia ventricular rate of 146 beats per minute. ASSESSMENT AND PLAN: 1. Hypoxic respiratory failure and broncho spasticity in the setting of underlying opioid dependence and withdrawal 2. Severe bronchospastic [place] likely due to medication side effect (nimbex) in underlying asthma 3. New bilateral pleural effusion likely due to IV fluid administration and ? left CHF in the setting of uncontrolled HTN. Patient was suffering from significant broncho spasticity likely due to Nimbex side effect and his underlying asthma, DuoNeb was given, nicardipine was placed on hold as this can worsen tachycardia. Given the pleural effusions, Lasix 20 mg IV x1 was given, positive diuresis is noted. Patient received a 2nd dose of Cardizem and, vent settings were adjusted for bronchospastic requirements, currently AC of 28, VT 400, peep 8 (from 5) FiO2 of 100. Patient was placed on Cardizem drip to control the blood pressure as well as heart rate. After all the above-mentioned trials and medications, the patient responded well, currently his vital signs blood pressure 160/99, heart rate 130, respirations 28, O2 sat 92% on the above-mentioned ventilation settings. GI and DVT PROPHYLAXIS: Omeprazole and heparin. Critical care time used for critical evaluation of this patient, diagnosis, treatment and coordination of care, review her records and documentation TOTAL CRITICAL CARE TIME 90 MIN Patient's care was discussed in detail with Dr. Kay. He is aware of all the above as well as the plan of care for this patient. Total time spent with patient is greater 50% in coordination of care and mostly at patient's bedside, patient's floor in unit. Critical Care Time (minutes): 90
[2020-03-10] MEDS: Albuterol/Iprat 2.5/0.5MG 3 ML AMPUL.NEB INHALE ×6 (02:48→23:13)
[2020-03-10] MEDS: Furosemide 20 MG/2 ML VIAL IVPUSH (03:16)
[2020-03-10] MEDS: dilTIAZem HCL 50 MG/10 ML VIAL 10 MG IVPUSH ×2 (03:30→03:51)
[2020-03-10] MEDS: Albuterol/Iprat 2.5/0.5MG 3 ML AMPUL.NEB 12 ML INHALE (03:36)
[2020-03-10] MEDS: dilTIAZem HCL 125 MG in 0.9 % Sodium Chloride 100 ML IVCONT (03:40)
[2020-03-10] MEDS: Acetaminophen 325 MG TABLET 650 MG OG-TUBE (04:49)
[2020-03-10 06:02] LABS: Basophils Percent Auto 0.1 % (0-2); Hematocrit 42.9 % (42-52); Hemoglobin 13.9 g/dl (14.0-18.0); Imm Gran Abs Auto 0.13 X10*3/uL (0.00-0.03); Imm Gran Pct Auto 0.7 % (0.0-0.4); Lymphocytes Absolute Auto 0.5 X10*3/uL (1.2-4.9); Lymphocytes Percent Auto 2.7 % (20-40); MANUAL DIFF FLAG SCAN; Mean Corpuscular HGB Conc 32.4 g/dl (31.0-36.0); Mean Corpuscular Hemoglobin 31.7 pg (27.0-33.0); Mean Corpuscular Volume 97.9 fL (80-98); Mean Platelet Volume 9.7 fL (9.4-12.4); Monocytes Absolute Auto 1.7 X10*3/uL (0.1-1.2); Monocytes Percent Auto 9.2 % (2-11); Neutrophils Absolute Auto 16.6 X10*3/uL (2.0-8.3); Neutrophils Percent Auto 87.3 % (45-73); Platelet Count 289 X10*3/uL (160-400); Red Blood Count 4.38 X10*6/uL (4.60-5.80); Red Cell Distribution Width 12.6 % (11.0-16.0); SCAN SMEAR FLAG 1
[2020-03-10 06:28] LABS: PCO2 VBG 69 mmhg; PO2 VBG 59 mmhg
[2020-03-10 06:29] LABS: Base Excess VBG 5.1 mmol/L; HCO3 VBG 34 mmol/L; Oxygen Saturation VBG 85.9 %
[2020-03-10 06:39] LABS: Alanine Aminotransferase 19 U/L (0-40); Albumin Level 4.5 g/dL (3.5-5.0); Alkaline Phosphatase 74 U/L (39-117); Anion Gap 15 (12-20); Aspartate Amino Transferase 24 U/L (5-37); Bilirubin Total 0.5 mg/dL (0.0-1.0); Blood Urea Nitrogen 31 mg/dL (9-16); Calcium 8.7 mg/dL (8.4-10.2); Carbon Dioxide 30 mmol/L (22-29); Chloride 97 mmol/L (96-108); Creatinine Clr Calc Pharmacy 94.3; Estimated Glomerular Filt Rate > 60; Glucose Random 141 mg/dL (60-115); Magnesium 2.3 mg/dL (1.6-2.6); Potassium 4.3 mmol/l (3.3-5.1); Sodium 138 mmol/L (135-145); Total Protein 7.7 g/dL (6.5-8.0)
[2020-03-10 06:42] LABS: SLIDE REVIEW VERIFIED
--- NOTE | 2020-03-10 07:24 | PC.NURSE ---
SE 11-7: ASSUMED CARE OF PT AT 2300. PT TACHYCARDIC 120'S, SINUS. SBP 200-210. WAS ON LEVOPHED WHICH WAS D/C'D AND STARTED ON NICARDIPINE GTT WHICH WAS TITRATED UP TO 8MG/HR WITH NO VERY LITTLE EFFECT IN HR OR BP SO WAS D/C'D. CARDIZEM 10 MG IV GIVEN X2 AND DRIP STARTED AT 5 MG/HR AND TITRATED UP TO 15 MG/HR WITH GOOD EFFECT ON BP. SBP DOWN TO 130-140'S. HR IMPROVED BUT STILL TACHY 110-120. O2 SAT WAS DECREASING TO 87% AND LUNG SOUNDS VERY DIMINISHED. [place] ALLEN AT BEDSIDE WITH RESP THERAPIST AND VENT CHANGES MADE. HOUR LONG UPDRAFT TREATMENT GIVEN. PCXR DONE AND READ BY TIFFANY. LASIX 20MG IV GIVEN ORDERED WITH GOOD RESULTS, ABOUT 1000ML. IV OF D5LR D/C'D. TEMP LOW GRADE 99.7. TYLENOL GIVEN ORDERED.
[2020-03-10] MEDS: 0.9 % Sodium Chloride Flush 3 ML SYRINGE IVFLUSH ×2 (07:50→15:42)
[2020-03-10] MEDS: levoFLOXacin/D5W 750 MG/150 ML PIGGYBACK 100 MG IV (09:31)
[2020-03-10] MEDS: methylPREDNISolone Sod Succ/PF 125 MG/2 ML VIAL 60 MG IVPUSH (09:31)
[2020-03-10] MEDS: Chlorhexidine Gluc Oral Rinse 15 ML MOUTHWASH BUCCAL ×3 (09:31→20:57)
--- NOTE | 2020-03-10 11:24 | MHC.CLN ---
F/U PT POSSIBLY EXTUBATED TODAY IF TF NEEDED; RECOMMEND JEVITY AT MAX GOAL RATE 45CC/HR TO PROVIDE 1145KCALS (1935KCALS WITH SEDATION; 23KCALS/KG), 48G PROTEIN (.6G/KG), 902CC FREE WATER FROM FORMULA FOLLOWING
[2020-03-10] MEDS: dilTIAZem HCL 125 MG in 0.9 % Sodium Chloride 100 ML 12 MG IVCONT (11:57)
--- NOTE | 2020-03-10 11:58 | P.PNCC_ITS ---
Subjective Subjective Date of Service: 03/10/20 Interval History: 49-year-old gentleman with underlying history of opioid dependence on Suboxone neck fusion asthma, anxiety alcohol abuse with underlying alcoholic pancreatitis, hypertension admitted on 03/07/2020 with acute hypoxic respiratory failure and opioid withdrawal Requiring intensive care monitoring. Hospital course complicated by progressive agitation poorly responsive to parenteral benzodiazepines and opioids eventually requiring intubation for airway protection at approximately 8:15 a.m. on 03/08/2020. Patient with worsening hypoxemia overnight, chest x-ray with new bilateral basilar infiltrates. Also worsening leukocytosis. Likely an aspiration event. Started on Levaquin. Physical Exam Vital Signs: Vital Signs: Last Vital Signs Temp 99.0 F 03/10/20 10:00 Pulse 110 H 03/10/20 10:47 Resp 28 H 03/10/20 10:47 BP 157/92 H 03/10/20 10:47 Pulse Ox 96 03/10/20 10:47 Body Mass Index 30.0 Const: General: no acute distress and other ( Sedated on the vent) Eyes: Sclerae: sclerae normal EOM: EOMs intact bilaterally Neck: Neck: Yes no lymphadenopathy, Yes trachea midline and Yes supple Resp: Auscultation: crackles ( bibasilar) Cardio: Rate: regular rate Rhythm: regular rhythm Heart sounds: no gallops, no murmurs and no rubs GI: Palpation (GI): Soft to palpation and Other GI palpation findings present ( Nontender) Auscultation: normal bowel sounds Extrem: General: Yes no pedal edema, No clubbing and No cyanosis Objective Data Labs CBC & Chem 7: 03/10/20 05:48 03/10/20 05:48 Labs: Laboratory Results - last 24 hr 03/09/20 03/10/20 03/10/20 16:01 05:48 05:48 WBC 19.0 H RBC 4.38 L Hgb 13.9 L Hct 42.9 MCV 97.9 MCH 31.7 MCHC 32.4 RDW 12.6 Plt Count 289 D MPV 9.7 Immature Gran % (Auto) 0.7 H Neut % (Auto) 87.3 H Lymph % (Auto) 2.7 L [place] % (Auto) 9.2 Eos % (Auto) 0.0 Baso % (Auto) 0.1 Lymph # (Auto) 0.5 L [place] # (Auto) 1.7 H Eos # (Auto) 0.0 Baso # (Auto) 0.0 Abs Immat Gran (auto) 0.13 H Absolute Neuts (auto) 16.6 H Absolute Nucleated RBC 0.000 Nucleated RBC % (auto) 0.0 Smear Tech's Comments VERIFIED VBG pH VBG pCO2 VBG Oxygen Liters/Min VBG pO2 VBG HCO3 VBG O2 Saturation VBG Base Excess Sodium 139 138 Potassium 4.8 4.3 Chloride 100 97 Carbon Dioxide 28 30 H Anion Gap 16 15 BUN 33 H D 31 H Creatinine 1.20 1.05 Estim Creat Clear Calc 82.5 94.3 Estimated GFR > 60 > 60 Random Glucose 138 H 141 H Calcium 8.8 8.7 Phosphorus 4.0 Magnesium 2.3 Total Bilirubin 0.5 AST 24 ALT 19 Alkaline Phosphatase 74 Total Protein 7.7 Albumin 4.5 03/10/20 05:48 WBC RBC Hgb Hct MCV MCH MCHC RDW Plt Count MPV Immature Gran % (Auto) Neut % (Auto) Lymph % (Auto) [place] % (Auto) Eos % (Auto) Baso % (Auto) Lymph # (Auto) [place] # (Auto) Eos # (Auto) Baso # (Auto) Abs Immat Gran (auto) Absolute Neuts (auto) Absolute Nucleated RBC Nucleated RBC % (auto) Smear Tech's Comments VBG pH 7.30 L VBG pCO2 69 VBG Oxygen Liters/Min Not Reportable VBG pO2 59 VBG HCO3 34 VBG O2 Saturation 85.9 VBG Base Excess 5.1 Sodium Potassium Chloride Carbon Dioxide Anion Gap BUN Creatinine Estim Creat Clear Calc Estimated GFR Random Glucose Calcium Phosphorus Magnesium Total Bilirubin AST ALT Alkaline Phosphatase Total Protein Albumin Progress Note: A&P Assessment and plan (1) Acute respiratory failure with hypoxia: Status: Acute Assessment and Plan: Assessment: 49-year-old gentleman with underlying history of opioid dependence and asthma admitted with acute hypoxic respiratory failure and opioid withdrawal with increasing agitation component requiring intubation and ventilatory support. Plan: Neuro: Opioid withdrawal. Continue to titrate of sedative drips as tolerated. Cardiac: No acute issues. Pulmonary: Acute hypoxic respiratory failure secondary to a combination of high sedation requirements for underlying opioid withdrawal and asthmatic component requiring intubation and ventilatory support. Continue to titrate off ventilatory support as tolerated. Overnight with worsening hypoxemia - chest x-ray with suspicion for pleural effusion. CT chest with dense bibasilar infiltrates, but no significant effusion. Likely an aspiration event. Started on Levaquin. Renal: No acute issues. Endo: No acute issues. GI: No acute issues. ID: Aspiration pneumonitis, started on Levaquin. Heme/Onc: No acute issues. Psych: No acute issues. Miscellaneous: No acute issues. Prophylaxis: Heparin, ppi Diet: nothing by mouth Critical care time spent: 60 minutes (2) Opioid withdrawal: Status: Acute Time Spent With Patient Time: Total time spent is greater than 50% in coordination of care (as documented) at patient's floor/unit and/or counseling patient: Total time spent with greater than 50% in coordination of care (as documented) at patient's floor/unit and/or counseling patient:: 0 Critical Care Time Critical Care Time (minutes): 90
[2020-03-10] MEDS: fentaNYL citrate/NS 1,000 MCG/100 ML PLAST..BAG 30 MCG IVCONT ×4 (12:40→23:05)
[2020-03-10] MEDS: Dextrose 5 % and Lactated Ring 1,000 ML 50 ML IVCONT (14:09)
[2020-03-10] MEDS: dilTIAZem HCL 125 MG in 0.9 % Sodium Chloride 100 ML 10 MG IVCONT (20:56)
[2020-03-10] MEDS: Albuterol Sulfate (0.083%) 2.5 MG/3 ML VIAL.NEB 10 MG INHALE (23:43)
[2020-03-11] VITALS (29 sets, daily range): BP systolic 85–175; BP diastolic 37–101; PULSE 72–108; RESP 24–30; TEMP 36.9–37.9; O2SAT 89–96; BMI 31.1
[2020-03-11] MEDS: propofoL 1,000 MG/100 ML VIAL 29.94 MG IVCONT ×8 (01:04→22:58)
[2020-03-11] MEDS: fentaNYL citrate/NS 1,000 MCG/100 ML PLAST..BAG 30 MCG IVCONT ×2 (02:56→06:26)
[2020-03-11] MEDS: Heparin Sodium,Porcine 5,000 UNIT/ML VIAL 5000 UNIT SUBCUT ×3 (02:56→16:46)
[2020-03-11] MEDS: Albuterol/Iprat 2.5/0.5MG 3 ML AMPUL.NEB INHALE ×5 (04:18→19:46)
[2020-03-11 04:44] LABS: Influenza A PCR NEGATIVE (Negative); Influenza B PCR NEGATIVE (Negative); Resp Syncy Virus RNA Qual PCR NEGATIVE (Negative); SARS COV2 PCR INHOUSE NEGATIVE (Negative)
[2020-03-11 06:06] LABS: Basophils Percent Auto 0.1 % (0-2); Hematocrit 42.8 % (42-52); Hemoglobin 13.7 g/dl (14.0-18.0); Imm Gran Abs Auto 0.05 X10*3/uL (0.00-0.03); Imm Gran Pct Auto 0.3 % (0.0-0.4); Lymphocytes Absolute Auto 0.5 X10*3/uL (1.2-4.9); Lymphocytes Percent Auto 3.5 % (20-40); MANUAL DIFF FLAG SCAN; Mean Corpuscular Hemoglobin 31.9 pg (27.0-33.0); Mean Corpuscular Volume 99.8 fL (80-98); Mean Platelet Volume 9.8 fL (9.4-12.4); Monocytes Absolute Auto 1.2 X10*3/uL (0.1-1.2); Monocytes Percent Auto 7.8 % (2-11); Neutrophils Percent Auto 88.3 % (45-73); Platelet Count 221 X10*3/uL (160-400); Red Blood Count 4.29 X10*6/uL (4.60-5.80); Red Cell Distribution Width 12.3 % (11.0-16.0); SCAN SMEAR FLAG 1; White Blood Count 14.7 X10*3/uL (4.8-10.8)
[2020-03-11 06:30] LABS: SLIDE REVIEW VERIFIED
[2020-03-11 06:45] LABS: PCO2 VBG 51 mmhg; PO2 VBG 60 mmhg; pH VBG 7.41 (7.32-7.43)
[2020-03-11 06:46] LABS: Base Excess VBG 5.6 mmol/L; HCO3 VBG 32 mmol/L; Oxygen Saturation VBG 92.9 %
[2020-03-11 07:01] LABS: Alanine Aminotransferase 16 U/L (0-40); Alkaline Phosphatase 66 U/L (39-117); Anion Gap 17 (12-20); Aspartate Amino Transferase 17 U/L (5-37); Bilirubin Total 0.3 mg/dL (0.0-1.0); Blood Urea Nitrogen 25 mg/dL (9-16); Calcium 8.4 mg/dL (8.4-10.2); Carbon Dioxide 31 mmol/L (22-29); Chloride 99 mmol/L (96-108); Creatinine Clr Calc Pharmacy 132.3; Estimated Glomerular Filt Rate > 60; Glucose Random 148 mg/dL (60-115); Magnesium 2.7 mg/dL (1.6-2.6); Phosphorus 2.8 mg/dL (2.7-4.5); Potassium 4.8 mmol/l (3.3-5.1); Sodium 142 mmol/L (135-145); Total Protein 7.2 g/dL (6.5-8.0)
[2020-03-11] MEDS: Dextrose 5 % and Lactated Ring 1,000 ML 50 ML IVCONT (07:53)
[2020-03-11] MEDS: 0.9 % Sodium Chloride Flush 3 ML SYRINGE IVFLUSH ×3 (07:53→21:26)
[2020-03-11] MEDS: levoFLOXacin/D5W 750 MG/150 ML PIGGYBACK 100 MG IV (07:53)
[2020-03-11] MEDS: Chlorhexidine Gluc Oral Rinse 15 ML MOUTHWASH BUCCAL ×3 (07:53→21:23)
[2020-03-11] MEDS: methylPREDNISolone Sod Succ/PF 125 MG/2 ML VIAL 60 MG IVPUSH (07:53)
[2020-03-11] MEDS: Midazolam HCl/PF 2 MG/2 ML VIAL IVPUSH (09:55)
[2020-03-11] MEDS: fentaNYL citrate/NS 1,000 MCG/100 ML PLAST..BAG 25 MCG IVCONT ×4 (10:28→22:31)
[2020-03-11] MEDS: Phenylephrine HCL 20 MG in 0.9 % Sodium Chloride 250 ML 36.1 MG IVCONT ×2 (10:36→16:37)
--- NOTE | 2020-03-11 10:45 | P.PNCC_ITS ---
Subjective Subjective Date of Service: 03/11/20 Interval History: 49-year-old gentleman with underlying history of opioid dependence on Suboxone neck fusion asthma, anxiety alcohol abuse with underlying alcoholic pancreatitis, hypertension admitted on 03/07/2020 with acute hypoxic respiratory failure and opioid withdrawal Requiring intensive care monitoring. Hospital course complicated by progressive agitation poorly responsive to parenteral benzodiazepines and opioids eventually requiring intubation for airway protection at approximately 8:15 a.m. on 03/08/2020. No events overnight. More purposeful with sedation vacation today. Physical Exam Vital Signs: Vital Signs: Last Vital Signs Temp 98.8 F 03/11/20 10:00 Pulse 96 03/11/20 10:00 Resp 24 H 03/11/20 10:00 BP 85/37 L 03/11/20 10:00 Pulse Ox 89 L 03/11/20 10:00 Body Mass Index 31.1 Const: General: no acute distress and other ( Sedated on the vent) Eyes: Sclerae: sclerae normal EOM: EOMs intact bilaterally Neck: Neck: Yes no lymphadenopathy, Yes trachea midline and Yes supple Resp: Auscultation: crackles ( bibasilar) Cardio: Rate: regular rate Rhythm: regular rhythm Heart sounds: no gallops, no murmurs and no rubs GI: Palpation (GI): Soft to palpation and Other GI palpation findings present ( Nontender) Auscultation: normal bowel sounds Extrem: General: Yes no pedal edema, No clubbing and No cyanosis Objective Data Labs CBC & Chem 7: 03/11/20 05:25 03/11/20 05:25 Labs: Laboratory Results - last 24 hr 03/11/20 03/11/20 03/11/20 03:39 05:25 05:25 WBC 14.7 H RBC 4.29 L Hgb 13.7 L Hct 42.8 MCV 99.8 H MCH 31.9 MCHC 32.0 RDW 12.3 Plt Count 221 MPV 9.8 Immature Gran % (Auto) 0.3 Neut % (Auto) 88.3 H Lymph % (Auto) 3.5 L [place] % (Auto) 7.8 Eos % (Auto) 0.0 Baso % (Auto) 0.1 Lymph # (Auto) 0.5 L [place] # (Auto) 1.2 Eos # (Auto) 0.0 Baso # (Auto) 0.0 Abs Immat Gran (auto) 0.05 H Absolute Neuts (auto) 13.0 H Absolute Nucleated RBC 0.000 Nucleated RBC % (auto) 0.0 Smear Tech's Comments VERIFIED VBG pH VBG pCO2 VBG Oxygen Liters/Min VBG pO2 VBG HCO3 VBG O2 Saturation VBG Base Excess Sodium 142 Potassium 4.8 Chloride 99 Carbon Dioxide 31 H Anion Gap 17 BUN 25 H Creatinine 0.77 Estim Creat Clear Calc 132.3 Estimated GFR > 60 Random Glucose 148 H Calcium 8.4 Phosphorus 2.8 Magnesium 2.7 H Total Bilirubin 0.3 AST 17 ALT 16 Alkaline Phosphatase 66 Total Protein 7.2 Albumin 4.0 Coronavirus (PCR) NEGATIVE Influenza Type A (PCR) NEGATIVE Influenza Type B (PCR) NEGATIVE RSV RNA Qual (PCR) NEGATIVE 03/11/20 05:25 WBC RBC Hgb Hct MCV MCH MCHC RDW Plt Count MPV Immature Gran % (Auto) Neut % (Auto) Lymph % (Auto) [place] % (Auto) Eos % (Auto) Baso % (Auto) Lymph # (Auto) [place] # (Auto) Eos # (Auto) Baso # (Auto) Abs Immat Gran (auto) Absolute Neuts (auto) Absolute Nucleated RBC Nucleated RBC % (auto) Smear Tech's Comments VBG pH 7.41 VBG pCO2 51 VBG Oxygen Liters/Min Not Reportable VBG pO2 60 VBG HCO3 32 VBG O2 Saturation 92.9 VBG Base Excess 5.6 Sodium Potassium Chloride Carbon Dioxide Anion Gap BUN Creatinine Estim Creat Clear Calc Estimated GFR Random Glucose Calcium Phosphorus Magnesium Total Bilirubin AST ALT Alkaline Phosphatase Total Protein Albumin Coronavirus (PCR) Influenza Type A (PCR) Influenza Type B (PCR) RSV RNA Qual (PCR) Progress Note: A&P Assessment and plan (1) Acute respiratory failure with hypoxia: Status: Acute Assessment and Plan: Assessment: 49-year-old gentleman with underlying history of opioid dependence and asthma admitted with acute hypoxic respiratory failure and opioid withdrawal with increasing agitation component requiring intubation and ventilatory support, further complicated by aspiration pneumonia. Plan: Neuro: Opioid withdrawal. Continue to titrate of sedative drips as tolerated. Improving slowly. Cardiac: No acute issues. Pulmonary: Acute hypoxic respiratory failure secondary to a combination of high sedation requirements for underlying opioid withdrawal and asthmatic component requiring intubation and ventilatory support. Continue to titrate off ventilatory support as tolerated. Further complicated by aspiration pneumonia. Continue on Levaquin. Renal: No acute issues. Endo: No acute issues. GI: No acute issues. ID: Aspiration pneumonitis /pneumonia, continue on Levaquin. Heme/Onc: No acute issues. Psych: No acute issues. Miscellaneous: No acute issues. Prophylaxis: Heparin, ppi Diet: tube feeds Critical care time spent: 60 minutes (2) Aspiration pneumonia: Status: Acute Time Spent With Patient Time: Total time spent is greater than 50% in coordination of care (as documented) at patient's floor/unit and/or counseling patient: Total time spent with greater than 50% in coordination of care (as documented) at patient's floor/unit and/or counseling patient:: 0 Critical Care Time Critical Care Time (minutes): 60
[2020-03-11] MEDS: Midazolam HCl/NS 50 MG/50 ML PLAST..BAG IVCONT (11:42)
--- NOTE | 2020-03-11 14:45 | MHC.CM.PN ---
Pt remains in ICU on ventilatory support with asthma exacerbation and new aspiration pna. Call placed to pt's next of kin, mother Demi. She states pt was independent, drove, had no services lives with a room mate and was otherwise fine prior to admission. Discussed possible post acute needs including STR vs VNA. Informed Demi that CM will follow Jonathan and discuss d/c planning with him once he is medically able. Goal of d/c planning is for home without services: family to transport. CM to remain involved.
--- NOTE | 2020-03-11 18:37 | PC.NURSE ---
About 0900 Nimbex shut off. Around 09:30 patient thrashing his head, bitting ET tube, kicking his legs and opening his eyes but uncooperative. SBP above 190. MD notified and at bedside. Propofol increased to 50 mcg/kg/min. Patient still fighting the vent, thrashing head, and kicking feet. Administered ordered 2 mg IVP Versed with good effect. Patient became agitated again and was placed on Versed drip. Due to sedation medication, map low. Neosynephrine ordered and is on 0.5 mcg/kg/min. Patient has continued to by synchronous with vent and appears comfortable. Tube feed started at 20 ml/hr of [facility], currently at 30 ml/hr due to increase at 1999.
[2020-03-11] MEDS: Phenylephrine HCL 20 MG in 0.9 % Sodium Chloride 250 ML 108.3 MG IVCONT (21:24)
[2020-03-12] VITALS (29 sets, daily range): BP systolic 104–205; BP diastolic 52–108; PULSE 65–122; RESP 4–36; TEMP 37.2–38.8; O2SAT 90–99; BMI 32.1
[2020-03-12] MEDS: Albuterol/Iprat 2.5/0.5MG 3 ML AMPUL.NEB INHALE ×6 (00:13→19:33)
[2020-03-12] MEDS: Midazolam HCl/NS 50 MG/50 ML PLAST..BAG IVCONT (02:13)
[2020-03-12] MEDS: propofoL 1,000 MG/100 ML VIAL 29.94 MG IVCONT ×2 (02:13→05:56)
[2020-03-12] MEDS: fentaNYL citrate/NS 1,000 MCG/100 ML PLAST..BAG 25 MCG IVCONT ×2 (02:14→05:57)
[2020-03-12] MEDS: Heparin Sodium,Porcine 5,000 UNIT/ML VIAL 5000 UNIT SUBCUT ×3 (02:15→17:21)
[2020-03-12] MEDS: Phenylephrine HCL 20 MG in 0.9 % Sodium Chloride 250 ML 36.1 MG IVCONT (02:15)
[2020-03-12] MEDS: Dextrose 5 % and Lactated Ring 1,000 ML 50 ML IVCONT (02:16)
[2020-03-12 06:00] LABS: MANUAL DIFF FLAG NO
[2020-03-12 06:05] LABS: Basophils Percent Auto 0.1 % (0-2); Hematocrit 35.8 % (42-52); Hemoglobin 11.4 g/dl (14.0-18.0); Imm Gran Abs Auto 0.19 X10*3/uL (0.00-0.03); Imm Gran Pct Auto 1.3 % (0.0-0.4); Lymphocytes Absolute Auto 1.3 X10*3/uL (1.2-4.9); Lymphocytes Percent Auto 8.5 % (20-40); Mean Corpuscular HGB Conc 31.8 g/dl (31.0-36.0); Mean Corpuscular Hemoglobin 31.7 pg (27.0-33.0); Mean Corpuscular Volume 99.4 fL (80-98); Mean Platelet Volume 10.1 fL (9.4-12.4); Monocytes Absolute Auto 1.4 X10*3/uL (0.1-1.2); Monocytes Percent Auto 8.9 % (2-11); Neutrophils Absolute Auto 12.3 X10*3/uL (2.0-8.3); Neutrophils Percent Auto 81.2 % (45-73); Platelet Count 271 X10*3/uL (160-400); Red Cell Distribution Width 12.4 % (11.0-16.0); White Blood Count 15.2 X10*3/uL (4.8-10.8)
[2020-03-12 06:32] LABS: PCO2 VBG 51 mmhg; PO2 VBG 63 mmhg; pH VBG 7.44 (7.32-7.43)
[2020-03-12 06:33] LABS: Base Excess VBG 8.7 mmol/L; HCO3 VBG 34 mmol/L; Oxygen Saturation VBG 92.4 %
[2020-03-12 06:49] LABS: Alanine Aminotransferase 24 U/L (0-40); Albumin Level 3.4 g/dL (3.5-5.0); Alkaline Phosphatase 55 U/L (39-117); Anion Gap 9 (12-20); Aspartate Amino Transferase 22 U/L (5-37); Bilirubin Total 0.2 mg/dL (0.0-1.0); Blood Urea Nitrogen 32 mg/dL (9-16); Calcium 8.6 mg/dL (8.4-10.2); Carbon Dioxide 34 mmol/L (22-29); Chloride 104 mmol/L (96-108); Creatinine Clr Calc Pharmacy 143.6; Estimated Glomerular Filt Rate > 60; Glucose Random 141 mg/dL (60-115); Magnesium 2.7 mg/dL (1.6-2.6); Phosphorus 2.3 mg/dL (2.7-4.5); Potassium 4.4 mmol/l (3.3-5.1); Sodium 143 mmol/L (135-145)
[2020-03-12] MEDS: levoFLOXacin/D5W 750 MG/150 ML PIGGYBACK 100 MG IV (08:41)
[2020-03-12] MEDS: Chlorhexidine Gluc Oral Rinse 15 ML MOUTHWASH BUCCAL (08:41)
[2020-03-12] MEDS: methylPREDNISolone Sod Succ/PF 125 MG/2 ML VIAL 60 MG IVPUSH (08:42)
--- NOTE | 2020-03-12 10:06 | MHC.CLN ---
F/U PT EXTUBATED PREVIOUSLY RECEIVED TF JEVITY AT MAX GOAL 45CC/HR IF DIET TO ADVANCE; RECOMMEND REGULAR DIET- [employer] GATE EVAL IF NEEDED FOLLOWING
[2020-03-12] MEDS: Midazolam HCl/PF 2 MG/2 ML VIAL IVPUSH (10:44)
[2020-03-12] MEDS: HYDROmorphone HCl 2 MG/ML VIAL IVPUSH (10:44)
[2020-03-12] MEDS: diphenhydrAMINE HCL 50 MG/ML VIAL IVPUSH ×2 (10:45→13:05)
[2020-03-12] MEDS: Haloperidol Lactate 5 MG/ML VIAL 10 MG IVPUSH ×2 (10:45)
--- NOTE | 2020-03-12 11:44 | PC.NURSE ---
EXTUBATED THIS AM HE TO INITIALLY A NC, HOWEVER HIS O2 REQUIREMENT HAS INCREASED TO A NRM. HIS MENTATION AND ABILITY TO FOLLOWING COMMAND ARE IMPAIRED. HE IS AWAKE THRASHING HIS HEAD MOANING BUT NOT SPEAKING, NOT FOLLOWING COMMANDS. HE IS KICKING HIS FEET AND THROWING HIS LEGS OVER THE SIDES OF THE BED, SITTER AT BEDSIDE. HE HAS RECIEVED 30MG OF HALDOL, 50MG BENADRYL, 2MG VERSED. FENTANYL DRIP OFF. MOTHER UPDATED. PSYCHIATRY CONSULT CALLED.
[2020-03-12] MEDS: dexmedeTOMIDidine HCL/NS 400 MCG/100 ML INFUS..BTL 9.86 MCG IVCONT (12:33)
--- NOTE | 2020-03-12 14:17 | PM.CCPN ---
Subjective Subjective Date of Service: 03/12/20 Interval History: 49-year-old gentleman with underlying history of opioid dependence on Suboxone neck fusion asthma, anxiety alcohol abuse with underlying alcoholic pancreatitis, hypertension admitted on 03/07/2020 with acute hypoxic respiratory failure and opioid withdrawal Requiring intensive care monitoring. Hospital course complicated by progressive agitation poorly responsive to parenteral benzodiazepines and opioids eventually requiring intubation for airway protection at approximately 8:15 a.m. on 03/08/2020. No events overnight. Extubated this a.m.. Post extubation with significant agitation, appears to have a psychotic component. Physical Exam Vital Signs: Vital Signs: Last Vital Signs Temp 99.7 F 03/12/20 12:00 Pulse 106 H 03/12/20 13:59 Resp 30 H 03/12/20 13:59 BP 177/101 H 03/12/20 13:59 Pulse Ox 90 L 03/12/20 13:59 Body Mass Index 32.1 Const: General: anxious; No cooperative, alert or awake Eyes: Sclerae: sclerae normal EOM: EOMs intact bilaterally Neck: Neck: Yes no lymphadenopathy, Yes trachea midline and Yes supple Resp: Effort & Inspection: normal respiratory effort and no respiratory distress Auscultation: clear to auscultation bilaterally Cardio: Rate: tachycardic Rhythm: regular rhythm Heart sounds: no gallops, no murmurs and no rubs GI: Palpation (GI): Soft to palpation and Other GI palpation findings present ( Nontender) Auscultation: normal bowel sounds Extrem: General: Yes no pedal edema, No clubbing and No cyanosis Objective Data Labs CBC & Chem 7: 03/12/20 05:34 03/12/20 05:34 Labs: Laboratory Results - last 24 hr 03/12/20 03/12/20 03/12/20 05:34 05:34 05:34 WBC 15.2 H RBC 3.60 L Hgb 11.4 L Hct 35.8 L MCV 99.4 H MCH 31.7 MCHC 31.8 RDW 12.4 Plt Count 271 MPV 10.1 Immature Gran % (Auto) 1.3 H Neut % (Auto) 81.2 H Lymph % (Auto) 8.5 L [place] % (Auto) 8.9 Eos % (Auto) 0.0 Baso % (Auto) 0.1 Lymph # (Auto) 1.3 [place] # (Auto) 1.4 H Eos # (Auto) 0.0 Baso # (Auto) 0.0 Abs Immat Gran (auto) 0.19 H Absolute Neuts (auto) 12.3 H Absolute Nucleated RBC 0.000 Nucleated RBC % (auto) 0.0 VBG pH 7.44 H VBG pCO2 51 VBG Oxygen Liters/Min Not Reportable VBG pO2 63 VBG HCO3 34 VBG O2 Saturation 92.4 VBG Base Excess 8.7 Sodium 143 Potassium 4.4 Chloride 104 Carbon Dioxide 34 H Anion Gap 9 L BUN 32 H Creatinine 0.72 Estim Creat Clear Calc 143.6 Estimated GFR > 60 Random Glucose 141 H Calcium 8.6 Phosphorus 2.3 L Magnesium 2.7 H Total Bilirubin 0.2 AST 22 ALT 24 Alkaline Phosphatase 55 Total Protein 6.0 L Albumin 3.4 L Progress Note: A&P Assessment and plan (1) Acute respiratory failure with hypoxia: Status: Acute Assessment and Plan: Assessment: 49-year-old gentleman with underlying history of opioid dependence and asthma admitted with acute hypoxic respiratory failure and opioid withdrawal with increasing agitation component requiring intubation and ventilatory support, further complicated by aspiration pneumonia, and what appears to be an acute psychotic delirium. Plan: Neuro: Opioid withdrawal, improved. now with what appears to be an acute psychotic delirium. Psychiatry input requested. Cardiac: No acute issues. Pulmonary: Acute hypoxic respiratory failure secondary to a combination of high sedation requirements for underlying opioid withdrawal and asthmatic component requiring intubation and ventilatory support , and an acute aspiration pneumonitis. now significantly improved. Extubated this a.m.. Continue on Levaquin for total of 7 days. Renal: No acute issues. Endo: No acute issues. GI: No acute issues. ID: Aspiration pneumonitis /pneumonia, continue on Levaquin for a total of 7 days. Heme/Onc: No acute issues. Psych: appears to have an ongoing acute psychotic episode, psychiatry input requested. Miscellaneous: No acute issues. Prophylaxis: Heparin, ppi Diet: tube feeds Critical care time spent: 90 minutes (2) Aspiration pneumonitis: Status: Acute (3) Delirium due to another medical condition, acute, hyperactive: Status: Acute Time Spent With Patient Time: Total time spent is greater than 50% in coordination of care (as documented) at patient's floor/unit and/or counseling patient: Total time spent with greater than 50% in coordination of care (as documented) at patient's floor/unit and/or counseling patient:: 0 Critical Care Time Critical Care Time (minutes): 90
[2020-03-12] MEDS: dexmedeTOMIDidine HCL/NS 400 MCG/100 ML INFUS..BTL 34.51 MCG IVCONT (15:27)
--- NOTE | 2020-03-12 15:28 | P.CNPS_ITS ---
History of Present Illness Chief Complaint: Asthma Exacerbation on CPAP Reason for Consult: delirium Requesting physician: Chance Kay Discussed with referring provider: Yes Sources of Information: chart reviewed HPI Narrative: Patient is a 49 year old male withhistory of OUD currently medically admitted with asthma exacerbation and respiratory failure. Extubated this morning and has been thrashing all over the bed, unable to follow commands, moaning, constantly moving around. He was given a total of 30mg Haldol IV and 50mg Benadryl X2 as well as lorazepam with little effect. Also given dilaudid d/t concern of pain and no effect as well. When seen by this typewriter operator automatic, patient unable to stop moving, quite restless, rolling back and forth, moaning. RN reporting that movement has calmed very little--much more pronounced earlier in the day with his legs kicking in the air and over the bed, etc. Has not been violent or aggressive. Allowing for care to be performed by RN. Past Psychiatric History: Unknown Medical Evaluation Reviewed: Yes Review of Systems Review of Systems Yes Unobtainable due to mental status [facility] Medical History (Updated 03/12/20 @ 14:24 by Chance Kay MD) Asthma HTN (hypertension) Surgical History (Updated 03/07/20 @ 21:12 by GAVIOTA Sharp) H/O knee surgery H/O neck surgery Diagnostics Vital Signs (24Hr): Vital Signs - 24 hr 03/11/20 16:00 03/11/20 17:00 03/11/20 18:00 Temperature 99.9 F 99.9 F 100.2 F Pulse Rate 78 81 77 Respiratory Rate 24 H 24 H 25 H Blood Pressure 103/58 L 109/53 L 106/52 L Pulse Oximetry 93 92 92 03/11/20 19:00 03/11/20 20:00 03/11/20 21:00 Temperature 100.2 F 99.7 F Pulse Rate 75 75 Respiratory Rate 24 H 24 H Blood Pressure 128/72 128/73 Pulse Oximetry 94 93 03/11/20 22:00 03/11/20 23:00 03/12/20 00:00 Temperature 99.5 F Pulse Rate 72 72 69 Respiratory Rate 24 H 24 H 24 H Blood Pressure 112/61 115/60 108/55 L Pulse Oximetry 91 L 92 92 03/12/20 01:00 03/12/20 02:00 03/12/20 03:00 Temperature Pulse Rate 68 68 67 Respiratory Rate 4 L 24 H 24 H Blood Pressure 104/52 L 106/57 L 126/69 Pulse Oximetry 90 L 92 03/12/20 04:00 03/12/20 05:00 03/12/20 06:00 Temperature 99.1 F Pulse Rate 70 69 66 Respiratory Rate 24 H 24 H 24 H Blood Pressure 113/60 104/57 L 108/63 Pulse Oximetry 90 L 92 92 03/12/20 06:40 03/12/20 08:00 03/12/20 09:00 Temperature 99.1 F 99.1 F Pulse Rate 65 70 89 Respiratory Rate 24 H 25 H 18 Blood Pressure 109/79 127/67 113/61 Pulse Oximetry 92 91 L 91 L 03/12/20 10:00 03/12/20 11:00 03/12/20 12:00 Temperature 99.3 F 99.1 F 99.7 F Pulse Rate 109 H 116 H 122 H Respiratory Rate 24 H 26 H 28 H Blood Pressure 112/94 H 120/102 H 164/92 H Pulse Oximetry 92 93 90 L 03/12/20 13:00 03/12/20 13:59 Temperature Pulse Rate 117 H 106 H Respiratory Rate 36 H 30 H Blood Pressure 179/105 H 177/101 H Pulse Oximetry 90 L 90 L Body Mass Index 32.1 Labs Results: 03/12/20 05:34 03/12/20 05:34 Labs: Laboratory Results - last 48 hr 03/11/20 03/11/20 03/11/20 03:39 05:25 05:25 WBC 14.7 H RBC 4.29 L Hgb 13.7 L Hct 42.8 MCV 99.8 H MCH 31.9 MCHC 32.0 RDW 12.3 Plt Count 221 MPV 9.8 Immature Gran % (Auto) 0.3 Neut % (Auto) 88.3 H Lymph % (Auto) 3.5 L [place] % (Auto) 7.8 Eos % (Auto) 0.0 Baso % (Auto) 0.1 Lymph # (Auto) 0.5 L [place] # (Auto) 1.2 Eos # (Auto) 0.0 Baso # (Auto) 0.0 Abs Immat Gran (auto) 0.05 H Absolute Neuts (auto) 13.0 H Absolute Nucleated RBC 0.000 Nucleated RBC % (auto) 0.0 Smear Tech's Comments VERIFIED VBG pH VBG pCO2 VBG Oxygen Liters/Min VBG pO2 VBG HCO3 VBG O2 Saturation VBG Base Excess Sodium 142 Potassium 4.8 Chloride 99 Carbon Dioxide 31 H Anion Gap 17 BUN 25 H Creatinine 0.77 Estim Creat Clear Calc 132.3 Estimated GFR > 60 Random Glucose 148 H Calcium 8.4 Phosphorus 2.8 Magnesium 2.7 H Total Bilirubin 0.3 AST 17 ALT 16 Alkaline Phosphatase 66 Total Protein 7.2 Albumin 4.0 Coronavirus (PCR) NEGATIVE Influenza Type A (PCR) NEGATIVE Influenza Type B (PCR) NEGATIVE RSV RNA Qual (PCR) NEGATIVE 03/11/20 03/12/20 03/12/20 05:25 05:34 05:34 WBC 15.2 H RBC 3.60 L Hgb 11.4 L Hct 35.8 L MCV 99.4 H MCH 31.7 MCHC 31.8 RDW 12.4 Plt Count 271 MPV 10.1 Immature Gran % (Auto) 1.3 H Neut % (Auto) 81.2 H Lymph % (Auto) 8.5 L [place] % (Auto) 8.9 Eos % (Auto) 0.0 Baso % (Auto) 0.1 Lymph # (Auto) 1.3 [place] # (Auto) 1.4 H Eos # (Auto) 0.0 Baso # (Auto) 0.0 Abs Immat Gran (auto) 0.19 H Absolute Neuts (auto) 12.3 H Absolute Nucleated RBC 0.000 Nucleated RBC % (auto) 0.0 Smear Tech's Comments VBG pH 7.41 VBG pCO2 51 VBG Oxygen Liters/Min Not Reportable VBG pO2 60 VBG HCO3 32 VBG O2 Saturation 92.9 VBG Base Excess 5.6 Sodium 143 Potassium 4.4 Chloride 104 Carbon Dioxide 34 H Anion Gap 9 L BUN 32 H Creatinine 0.72 Estim Creat Clear Calc 143.6 Estimated GFR > 60 Random Glucose 141 H Calcium 8.6 Phosphorus 2.3 L Magnesium 2.7 H Total Bilirubin 0.2 AST 22 ALT 24 Alkaline Phosphatase 55 Total Protein 6.0 L Albumin 3.4 L Coronavirus (PCR) Influenza Type A (PCR) Influenza Type B (PCR) RSV RNA Qual (PCR) 03/12/20 05:34 WBC RBC Hgb Hct MCV MCH MCHC RDW Plt Count MPV Immature Gran % (Auto) Neut % (Auto) Lymph % (Auto) [place] % (Auto) Eos % (Auto) Baso % (Auto) Lymph # (Auto) [place] # (Auto) Eos # (Auto) Baso # (Auto) Abs Immat Gran (auto) Absolute Neuts (auto) Absolute Nucleated RBC Nucleated RBC % (auto) Smear Tech's Comments VBG pH 7.44 H VBG pCO2 51 VBG Oxygen Liters/Min Not Reportable VBG pO2 63 VBG HCO3 34 VBG O2 Saturation 92.4 VBG Base Excess 8.7 Sodium Potassium Chloride Carbon Dioxide Anion Gap BUN Creatinine Estim Creat Clear Calc Estimated GFR Random Glucose Calcium Phosphorus Magnesium Total Bilirubin AST ALT Alkaline Phosphatase Total Protein Albumin Coronavirus (PCR) Influenza Type A (PCR) Influenza Type B (PCR) RSV RNA Qual (PCR) Imaging Radiology Impressions: ITS Impressions Chest X-Ray 03/07/20 19:36 IMPRESSION: No acute intrathoracic disease. Head CT 03/08/20 00:00 IMPRESSION: No acute intracranial pathology. Chest X-Ray 03/08/20 08:22 IMPRESSION: Endotracheal tube 4 cm above the ventura. Nasogastric tube projects over the proximal stomach, tip not seen. Increasing bilateral atelectasis or small infiltrates. Chest X-Ray 03/08/20 09:39 IMPRESSION: 1. ET tube 3.9 cm above ventura. 2. NG tube in abdomen. 3. Subtle airspace opacity versus atelectasis right upper lobe adjacent to minor fissure. Coarsening central bronchiolar markings. Otherwise, no airspace consolidation or groundglass opacities. No effusion. Chest CT 03/10/20 00:00 IMPRESSION: Complete atelectasis and consolidation of the bilateral lower lobes and lateral segment of the right middle lobe. Patchy peripheral areas of groundglass attenuation and more solid infiltrates in the right upper and right middle lobes. Chest X-Ray 03/10/20 00:00 IMPRESSION: Left greater than right bilateral pleural effusions with associated airspace disease. Endotracheal tube and enteric tube in place. Mental Status Exam Mental Status Exam Level of Consciousness: Restless Patient Cognition Impaired: Yes Abnormal Motor Activity Signs and Symptoms: Hyperactivity Judgement: Poor Medications Medications Current Medications Generic Name Dose Route Start Last Admin Trade Name Freq PRN Reason Stop Dose Admin Acetaminophen 650 mg 03/10/20 03:49 03/10/20 04:49 Acetaminophen 325 Mg Tablet OG-TUBE 650 mg Q6H PRN Administration Fever Albuterol Sulfate 2.5 mg 03/07/20 20:48 03/07/20 22:44 Albuterol Sulfate (0.083%) 2.5 Mg/3 Ml Vial.Neb INHALE 2.5 mg Q2H PRN Administration Wheezing Albuterol Sulfate 2.5 mg 03/10/20 02:33 Albuterol Sulfate (0.083%) 2.5 Mg/3 Ml Vial.Neb INHALE RQ4H PRN Wheezing Albuterol/Ipratropium 3 ml 03/08/20 01:00 03/12/20 12:07 Albuterol/Iprat 2.5/0.5mg 3 Ml Ampul.Neb INHALE 3 ml RQ4H RUDY Administration Chlorhexidine Gluconate 15 ml 03/08/20 15:00 03/12/20 12:42 Chlorhexidine Gluc Oral Rinse 15 Ml Mouthwash BUCCAL Not Given TID RUDY Heparin Sodium (Porcine) 5,000 unit 03/08/20 10:15 03/12/20 10:48 Heparin Sodium,Porcine 5,000 Unit/Ml Vial SUBCUT 5,000 unit Q8H RUDY Administration Levofloxacin 750 mg in 150 mls @ 100 mls/hr 03/10/20 09:00 03/12/20 10:45 Levaquin IV Infused Q24H RUDY Infusion Dexmedetomidine HCl 400 mcg in 100 mls @ 0 mls/hr 03/12/20 12:00 03/12/20 13:00 Precedex IVCONT 1.4 mcg/kg/hr .Q0M RUDY 34.51 mls/hr Titration Protocol Per Protocol Omeprazole 40 mg 03/09/20 06:30 03/12/20 05:56 Omeprazole 20 Mg/10 Ml Susp.Recon PO 40 mg DAILY@0630 RUDY Administration Sodium Chloride 3 ml 03/08/20 00:00 03/12/20 08:42 0.9 % Sodium Chloride Flush 3 Ml Syringe IVFLUSH Not Given QSHIFT RUDY Allergies Allergies Allergy/AdvReac Type Severity Reaction Status Date / Time codeine [CODEINE] AdvReac Unknown STOMACH Verified 03/07/20 23:03 UPSET From FLEXERIL AdvReac Severe Confusion Uncoded 03/09/20 07:18 Assessment & Plan Assessment & Plan (1) Delirium due to another medical condition, acute, hyperactive: Status: Acute Code(s): F05 - Delirium due to known physiological condition Recommendations: * Unclear if other substances were taken prior to admission as provider reports it took several people to control him and intubate him due to level of agitation. UDS positive only for opiates at time of admission. If his sx are the result of any type of synthetic substances, then benzodiazepine and antipsychotics are the treatment for that. * may be experiencing akathesia from high doses of haldol; consider Diazepam or Propranolol BID to see if this provides some relief to motor restlessness. * Also, monitor for opioid withdrawal as patient previously on buprenorphine prior to admission Greater than 50% of the session was spent on counseling and/or coordination of care
[2020-03-12] MEDS: 0.9 % Sodium Chloride Flush 3 ML SYRINGE IVFLUSH ×2 (15:29→23:06)
[2020-03-12] MEDS: cloNIDine 0.1 MG PATCH.TDWK TRANSDERMA (17:14)
[2020-03-12] MEDS: dexmedeTOMIDidine HCL/NS 400 MCG/100 ML INFUS..BTL 36.98 MCG IVCONT ×2 (17:21→20:35)
[2020-03-12] MEDS: Acetaminophen Supp 650 MG SUPP.RECT PR (22:58)
[2020-03-12] MEDS: dexmedeTOMIDidine HCL/NS 400 MCG/100 ML INFUS..BTL 32.05 MCG IVCONT (23:20)
[2020-03-13] VITALS (25 sets, daily range): BP systolic 144–208; BP diastolic 73–120; PULSE 74–154; RESP 15–50; TEMP 38.1–38.9; O2SAT 91–98; BMI 30.1
[2020-03-13] MEDS: Albuterol/Iprat 2.5/0.5MG 3 ML AMPUL.NEB INHALE ×5 (00:01→19:28)
[2020-03-13] MEDS: diphenhydrAMINE HCL 50 MG/ML VIAL IVPUSH ×3 (00:32→22:53)
[2020-03-13] MEDS: dexmedeTOMIDidine HCL/NS 400 MCG/100 ML INFUS..BTL 36.98 MCG IVCONT ×3 (02:12→08:10)
[2020-03-13] MEDS: Heparin Sodium,Porcine 5,000 UNIT/ML VIAL 5000 UNIT SUBCUT ×3 (02:13→20:00)
[2020-03-13] MEDS: hydrALAZINE HCl 20 MG/ML VIAL 10 MG IVPUSH (03:40)
[2020-03-13 05:55] LABS: Basophils Percent Auto 0.2 % (0-2); Hematocrit 37.5 % (42-52); Hemoglobin 12.5 g/dl (14.0-18.0); Imm Gran Abs Auto 0.34 X10*3/uL (0.00-0.03); Imm Gran Pct Auto 2.5 % (0.0-0.4); Lymphocytes Absolute Auto 2.3 X10*3/uL (1.2-4.9); Lymphocytes Percent Auto 16.7 % (20-40); MANUAL DIFF FLAG SCAN; Mean Corpuscular HGB Conc 33.3 g/dl (31.0-36.0); Mean Corpuscular Hemoglobin 31.4 pg (27.0-33.0); Mean Corpuscular Volume 94.2 fL (80-98); Mean Platelet Volume 9.5 fL (9.4-12.4); Monocytes Absolute Auto 1.6 X10*3/uL (0.1-1.2); Monocytes Percent Auto 11.3 % (2-11); Neutrophils Absolute Auto 9.6 X10*3/uL (2.0-8.3); Neutrophils Percent Auto 69.3 % (45-73); Platelet Count 242 X10*3/uL (160-400); Red Blood Count 3.98 X10*6/uL (4.60-5.80); Red Cell Distribution Width 11.9 % (11.0-16.0); SCAN SMEAR FLAG 1; White Blood Count 13.8 X10*3/uL (4.8-10.8)
[2020-03-13 06:03] LABS: Base Excess VBG 3.2 mmol/L; HCO3 VBG 24 mmol/L; PCO2 VBG 26 mmhg; PO2 VBG 84 mmhg; pH VBG 7.58 (7.32-7.43)
[2020-03-13 06:14] LABS: SLIDE REVIEW VERIFIED
[2020-03-13 06:23] LABS: Alanine Aminotransferase 46 U/L (0-40); Albumin Level 3.9 g/dL (3.5-5.0); Alkaline Phosphatase 63 U/L (39-117); Anion Gap 17 (12-20); Aspartate Amino Transferase 38 U/L (5-37); Bilirubin Total 0.6 mg/dL (0.0-1.0); Blood Urea Nitrogen 43 mg/dL (9-16); Carbon Dioxide 25 mmol/L (22-29); Chloride 107 mmol/L (96-108); Creatinine Clr Calc Pharmacy 101.3; Estimated Glomerular Filt Rate > 60; Glucose Random 113 mg/dL (60-115); Magnesium 2.3 mg/dL (1.6-2.6); Phosphorus 2.3 mg/dL (2.7-4.5); Potassium 3.9 mmol/l (3.3-5.1); Sodium 145 mmol/L (135-145); Total Protein 6.9 g/dL (6.5-8.0)
[2020-03-13] MEDS: 0.9 % Sodium Chloride Flush 3 ML SYRINGE IVFLUSH ×2 (08:12→15:28)
[2020-03-13] MEDS: levoFLOXacin/D5W 750 MG/150 ML PIGGYBACK 100 MG IV (08:12)
--- NOTE | 2020-03-13 09:11 | PC.NURSE ---
Addendum entered by Aura Balderrama RN 03/13/20 16:05: IVF Benedryl given to patient. Precedex off. Pt's mentation significantly improving as he is able to converse appropriately but is not oriented to place or time. He is much less active with less moving around in the bed. HR trending down now 100. RR and BP trending down as well. up-to-date on patient's progress Addendum entered by Aura Balderrama RN 03/13/20 14:49: Pt now with increased sweating with viable beads of sweat on head. HR also increasing from 70s-80s to 1teens. These findings followed a decrease in his precedex drip. His mentation has however improved slightly with the ability to follow simple commands and state his name when asked. COWS score is now 14. aware of increased HR and diaphoresis. Orders to give Fentanyl patch and turn off precedex. Addendum entered by Aura Balderrama RN 03/13/20 13:18: Attenpted to wean pt from 50% venti mask to 4 liters NC. Unfortunately he is breathing from his mouth and on the NC sats dropped into the 80s. Venti mask placed back on patient and mouth care given. New #[id number] IV placed to his right AC. Addendum entered by Aura Balderrama RN 03/13/20 12:16: Weaning precedex as tolerated. Pt taken off of 100% NRB and placed on 50% venti mask. Sats mid 90s on the 50% venti mask. Original Note: Pt continues to moving around in the bed back and fourth. He is moaning and otherwise non-verbal. He does not follow direction but sometimes opens his eyes to verbal stimuli but is not tracking. He continues on precidex drip at max rate. COWS scale initiated as his last dose of opiate was 11am yesterday. Scoring 12 at this time. made aware of the concern for withdrawal. No new orders at this time other than to continue to monitor for s/s of opiate withdrawal.
[2020-03-13] MEDS: Potassium Phosphate 30 MMOL in 0.9 % Sodium Chloride 500 ML 85 MMOL IV (09:48)
--- NOTE | 2020-03-13 10:31 | PM.CCPN ---
Subjective Subjective Date of Service: 03/13/20 Interval History: 49-year-old gentleman with underlying history of opioid dependence on Suboxone neck fusion asthma, anxiety alcohol abuse with underlying alcoholic pancreatitis, hypertension admitted on 03/07/2020 with acute hypoxic respiratory failure and opioid withdrawal Requiring intensive care monitoring. Hospital course complicated by progressive agitation poorly responsive to parenteral benzodiazepines and opioids eventually requiring intubation for airway protection at approximately 8:15 a.m. on 03/08/2020. Extubated 03/12/2020. Post extubation still with significant agitation, though not combative, appears to have psychiatric component to his delirium. No events overnight. Agitation is somewhat improved. Physical Exam Vital Signs: Vital Signs: Last Vital Signs Temp 101.4 F H 03/13/20 08:00 Pulse 80 03/13/20 10:00 Resp 28 H 03/13/20 10:00 BP 169/106 H 03/13/20 10:00 Pulse Ox 96 03/13/20 10:00 Body Mass Index 30.1 Const: General: Physically active and confusion Orientation/consciousness: confusion Eyes: Sclerae: sclerae normal EOM: EOMs intact bilaterally Neck: Neck: Yes no lymphadenopathy, Yes trachea midline and Yes supple Resp: Effort & Inspection: normal respiratory effort and no respiratory distress Auscultation: clear to auscultation bilaterally Cardio: Rate: regular rate Rhythm: regular rhythm Heart sounds: no gallops, no murmurs and no rubs GI: Palpation (GI): Soft to palpation and Other GI palpation findings present ( Nontender) Auscultation: normal bowel sounds Neuro: General: confusion Extrem: General: Yes no pedal edema, No clubbing and No cyanosis Objective Data Labs CBC & Chem 7: 03/13/20 05:41 03/13/20 05:41 Labs: Laboratory Results - last 24 hr 03/13/20 03/13/20 03/13/20 05:41 05:41 05:41 WBC 13.8 H RBC 3.98 L Hgb 12.5 L Hct 37.5 L MCV 94.2 D MCH 31.4 MCHC 33.3 RDW 11.9 Plt Count 242 MPV 9.5 Immature Gran % (Auto) 2.5 H Neut % (Auto) 69.3 Lymph % (Auto) 16.7 L [place] % (Auto) 11.3 H Eos % (Auto) 0.0 Baso % (Auto) 0.2 Lymph # (Auto) 2.3 [place] # (Auto) 1.6 H Eos # (Auto) 0.0 Baso # (Auto) 0.0 Abs Immat Gran (auto) 0.34 H Absolute Neuts (auto) 9.6 H Absolute Nucleated RBC 0.000 Nucleated RBC % (auto) 0.0 Smear Tech's Comments VERIFIED VBG pH 7.58 H VBG pCO2 26 VBG Oxygen Liters/Min TNP VBG pO2 84 VBG HCO3 24 VBG O2 Saturation 97.0 VBG Base Excess 3.2 Sodium 145 Potassium 3.9 Chloride 107 Carbon Dioxide 25 Anion Gap 17 BUN 43 H Creatinine 0.99 Estim Creat Clear Calc 101.3 Estimated GFR > 60 Random Glucose 113 Calcium 9.0 Phosphorus 2.3 L Magnesium 2.3 Total Bilirubin 0.6 AST 38 H D ALT 46 H Alkaline Phosphatase 63 Total Protein 6.9 Albumin 3.9 Progress Note: A&P Assessment and plan (1) Delirium due to another medical condition, acute, hyperactive: Status: Acute Assessment and Plan: Assessment: 49-year-old gentleman with underlying history of opioid dependence and asthma admitted with acute hypoxic respiratory failure and opioid withdrawal with increasing agitation component requiring intubation and ventilatory support, further complicated by aspiration pneumonia, and what appears to be an acute psychotic delirium. Plan: Neuro: Opioid withdrawal, improved. Now with what appears to be an acute psychotic delirium. Psychiatry Service care appreciated. Continue to titrate of Precedex as tolerated. Cardiac: No acute issues. Pulmonary: Acute hypoxic respiratory failure secondary to a combination of high sedation requirements for underlying opioid withdrawal and asthmatic component requiring intubation and ventilatory support , and an acute aspiration pneumonitis. now significantly improved. Extubated 03/12/2020. Continue on Levaquin for total of 7 days. Renal: No acute issues. Endo: No acute issues. GI: No acute issues. ID: Aspiration pneumonitis /pneumonia, continue on Levaquin for a total of 7 days. Heme/Onc: No acute issues. Psych: appears to have an ongoing acute psychotic episode, psychiatry input appreciated. Miscellaneous: No acute issues. Prophylaxis: Heparin, ppi Diet: nothing by mouth Critical care time spent: 60 minutes (2) Aspiration pneumonitis: Status: Acute (3) Acute respiratory failure with hypoxia: Status: Acute Time Spent With Patient Time: Total time spent is greater than 50% in coordination of care (as documented) at patient's floor/unit and/or counseling patient: Total time spent with greater than 50% in coordination of care (as documented) at patient's floor/unit and/or counseling patient:: 0 Critical Care Time Critical Care Time (minutes): 60
[2020-03-13] MEDS: dexmedeTOMIDidine HCL/NS 400 MCG/100 ML INFUS..BTL 27.12 MCG IVCONT (10:53)
--- NOTE | 2020-03-13 14:37 | MHC.CM.PN ---
Patient remains in ICU. Currently on Ventimask at 50% FIO2. May need physical therapy eval for home safety when medically stable. Continue to monitor for d/c needs.
[2020-03-13] MEDS: dexmedeTOMIDidine HCL/NS 400 MCG/100 ML INFUS..BTL 24.65 MCG IVCONT (15:25)
[2020-03-13] MEDS: fentaNYL 100 MCG PATCH.TD72 TRANSDERMA (15:50)
[2020-03-13] MEDS: lamoTRIgine 25 MG TABLET PO (20:59)
[2020-03-14] VITALS (22 sets, daily range): BP systolic 112–191; BP diastolic 63–116; PULSE 90–146; RESP 20–52; TEMP 36.1–38.8; O2SAT 91–100; BMI 29.1
[2020-03-14] MEDS: 0.9 % Sodium Chloride Flush 3 ML SYRINGE IVFLUSH ×3 (00:05→21:39)
[2020-03-14] MEDS: Heparin Sodium,Porcine 5,000 UNIT/ML VIAL 5000 UNIT SUBCUT ×3 (02:51→17:54)
[2020-03-14] MEDS: Metoprolol Tartrate 5 MG/5 ML VIAL IVPUSH (02:57)
[2020-03-14] MEDS: Albuterol/Iprat 2.5/0.5MG 3 ML AMPUL.NEB INHALE ×5 (04:01→19:35)
[2020-03-14 05:29] LABS: Basophils Percent Auto 0.1 % (0-2); Hematocrit 43.4 % (42-52); Hemoglobin 14.6 g/dl (14.0-18.0); Imm Gran Abs Auto 0.28 X10*3/uL (0.00-0.03); Lymphocytes Percent Auto 14.4 % (20-40); MANUAL DIFF FLAG SCAN; Mean Corpuscular HGB Conc 33.6 g/dl (31.0-36.0); Mean Corpuscular Hemoglobin 31.3 pg (27.0-33.0); Mean Corpuscular Volume 92.9 fL (80-98); Mean Platelet Volume 9.6 fL (9.4-12.4); Monocytes Absolute Auto 1.9 X10*3/uL (0.1-1.2); Monocytes Percent Auto 13.8 % (2-11); NRBC Pct Auto 0.1 /100WBC (0.0-0.2); Neutrophils Absolute Auto 9.7 X10*3/uL (2.0-8.3); Neutrophils Percent Auto 69.7 % (45-73); Platelet Count 313 X10*3/uL (160-400); Red Blood Count 4.67 X10*6/uL (4.60-5.80); Red Cell Distribution Width 12.1 % (11.0-16.0); SCAN SMEAR FLAG 1; White Blood Count 13.9 X10*3/uL (4.8-10.8)
[2020-03-14 05:38] LABS: Base Excess VBG -0.2 mmol/L; HCO3 VBG 21 mmol/L; Oxygen Saturation VBG 95.7 %; PCO2 VBG 25 mmhg; PO2 VBG 75 mmhg; pH VBG 7.53 (7.32-7.43)
[2020-03-14 05:57] LABS: Alanine Aminotransferase 56 U/L (0-40); Albumin Level 4.5 g/dL (3.5-5.0); Alkaline Phosphatase 66 U/L (39-117); Anion Gap 21 (12-20); Aspartate Amino Transferase 39 U/L (5-37); Bilirubin Total 0.9 mg/dL (0.0-1.0); Blood Urea Nitrogen 50 mg/dL (9-16); Calcium 9.6 mg/dL (8.4-10.2); Carbon Dioxide 22 mmol/L (22-29); Chloride 114 mmol/L (96-108); Creatinine Clr Calc Pharmacy 74.9; Estimated Glomerular Filt Rate 57; Glucose Random 109 mg/dL (60-115); Magnesium 2.6 mg/dL (1.6-2.6); Phosphorus 5.1 mg/dL (2.7-4.5); Potassium 3.7 mmol/l (3.3-5.1); Sodium 153 mmol/L (135-145); Total Protein 7.7 g/dL (6.5-8.0)
[2020-03-14 05:58] LABS: SLIDE REVIEW VERIFIED
[2020-03-14] MEDS: amLODIPine Besylate 5 MG TABLET PO (06:48)
[2020-03-14] MEDS: levoFLOXacin/D5W 750 MG/150 ML PIGGYBACK 100 MG IV (10:25)
[2020-03-14] MEDS: lamoTRIgine 25 MG TABLET PO ×2 (10:26→21:38)
--- NOTE | 2020-03-14 10:28 | P.PNCC_ITS ---
Subjective Subjective Date of Service: 03/14/20 Interval History: 49-year-old gentleman with underlying history of opioid dependence on Suboxone neck fusion asthma, anxiety alcohol abuse with underlying alcoholic pancreatitis, hypertension admitted on 03/07/2020 with acute hypoxic respiratory failure and opioid withdrawal Requiring intensive care monitoring. Hospital course complicated by progressive agitation poorly responsive to parenteral benzodiazepines and opioids eventually requiring intubation for airway protection at approximately 8:15 a.m. on 03/08/2020. Extubated 2019. Post extubation still with significant agitation, though not combative, appears to have psychiatric component to his delirium. Agitation and delirium have improved significantly overnight, now cooperative. Physical Exam Vital Signs: Vital Signs: Last Vital Signs Temp 98.2 F 03/14/20 09:00 Pulse 119 H 03/14/20 09:57 Resp 32 H 03/14/20 09:57 BP 140/78 H 03/14/20 09:57 Pulse Ox 96 03/14/20 09:57 Body Mass Index 29.1 Const: General: no acute distress, alert and awake Eyes: Sclerae: sclerae normal EOM: EOMs intact bilaterally Neck: Neck: Yes no lymphadenopathy, Yes trachea midline and Yes supple Resp: Effort & Inspection: normal respiratory effort and no respiratory distress Auscultation: clear to auscultation bilaterally Cardio: Rate: regular rate Rhythm: regular rhythm Heart sounds: no gallops, no murmurs and no rubs GI: Palpation (GI): Soft to palpation and Other GI palpation findings present ( Nontender) Auscultation: normal bowel sounds Extrem: General: Yes no pedal edema, No clubbing and No cyanosis Objective Data Labs CBC & Chem 7: 03/14/20 05:09 03/14/20 05:09 Labs: Laboratory Results - last 24 hr 03/14/20 03/14/20 03/14/20 05:09 05:09 05:09 WBC 13.9 H RBC 4.67 Hgb 14.6 Hct 43.4 MCV 92.9 MCH 31.3 MCHC 33.6 RDW 12.1 Plt Count 313 D MPV 9.6 Immature Gran % (Auto) 2.0 H Neut % (Auto) 69.7 Lymph % (Auto) 14.4 L [place] % (Auto) 13.8 H Eos % (Auto) 0.0 Baso % (Auto) 0.1 Lymph # (Auto) 2.0 [place] # (Auto) 1.9 H Eos # (Auto) 0.0 Baso # (Auto) 0.0 Abs Immat Gran (auto) 0.28 H Absolute Neuts (auto) 9.7 H Absolute Nucleated RBC 0.020 H Nucleated RBC % (auto) 0.1 Smear Tech's Comments VERIFIED VBG pH 7.53 H VBG pCO2 25 VBG Oxygen Liters/Min TNP VBG pO2 75 VBG HCO3 21 VBG O2 Saturation 95.7 VBG Base Excess -0.2 Sodium 153 H Potassium 3.7 Chloride 114 H Carbon Dioxide 22 Anion Gap 21 H BUN 50 H Creatinine 1.34 Estim Creat Clear Calc 74.9 Estimated GFR 57 Random Glucose 109 Calcium 9.6 D Phosphorus 5.1 H Magnesium 2.6 Total Bilirubin 0.9 AST 39 H ALT 56 H Alkaline Phosphatase 66 Total Protein 7.7 Albumin 4.5 Progress Note: A&P Assessment and plan (1) Aspiration pneumonitis: Status: Acute Assessment and Plan: Assessment: 49-year-old gentleman with underlying history of opioid dependence and asthma admitted with acute hypoxic respiratory failure and opioid withdrawal with increasing agitation component requiring intubation and ventilatory supp ort, further complicated by aspiration pneumonia, and what appears to be an acute psychotic delirium. Plan: Neuro: Opioid withdrawal, improved. Now with what appears to be an acute psychotic delirium. Psychiatry Service care appreciated. Titrated off Precedex. improved significantly. Cardiac: No acute issues. Pulmonary: Acute hypoxic respiratory failure secondary to a combination of hi gh sedation requirements for underlying opioid withdrawal and asthmatic component requiring intubation and ventilatory support , and an acute aspiration pneumonitis. now significantly improved. Extubated 03/12/2020. Continue on Levaquin for total of 7 days. Renal: No acute issues. Endo: No acute issues. GI: No acute issues. ID: Aspiration pneumonitis /pneumonia, continue on Levaquin for a total of 7 days (through 03/16). Heme/Onc: No acute issues. Psych: Appears to have improving acute psychotic episode, psychiatry input appreciated. Continue on Lamictal. Miscellaneous: No acute issues. Prophylaxis: Heparin, does not require GI prophylaxis Diet: regular diet Critical care time spent: 45 minutes (2) Delirium due to another medical condition, acute, hyperactive: Status: Acute (3) Acute respiratory failure with hypoxia: Status: Acute Time Spent With Patient Time: Total time spent is greater than 50% in coordination of care (as documented) at patient's floor/unit and/or counseling patient: Total time spent with greater than 50% in coordination of care (as documented) at patient's floor/unit and/or counseling patient:: 0 Critical Care Time 45 minutes
--- NOTE | 2020-03-14 10:44 | MHC.CM.PN ---
Patient currently in ICU but will be transferring to [facility]. Patient is from home without services. Will need PT eval for home safety when medically stable. Continue to monitor for d/c needs.
[2020-03-14] MEDS: HYDROmorphone HCl 1 MG/ML SYRINGE IVPUSH (13:35)
[2020-03-14] MEDS: diphenhydrAMINE HCL 50 MG/ML VIAL IVPUSH ×3 (13:35→23:25)
--- NOTE | 2020-03-14 13:40 | PC.NURSE ---
lengthy discussion with pt who admitted to using like 10bags of heroin daily snorting it. he also stated he takes a lot of benadryl to try to sleep. he is adamant that he is going through withdrawl [place] to 130's extremely diaphoretic restless. excessively thirsty he has drank over 3 liters of fluid today. md aware. pt given iv doses of benadryl and dilaudid.
[2020-03-15] MEDS: Heparin Sodium,Porcine 5,000 UNIT/ML VIAL 5000 UNIT SUBCUT ×2 (01:11→09:40)
[2020-03-15] MEDS: Magnesium Hydrox/Alum Hydrox 30 ML ORAL.SUSP 15 ML PO ×2 (01:11→09:38)
[2020-03-15 03:41] VITALS: BP 112/74; PULSE 79; RESP 18; TEMP 36.1; O2SAT 96
[2020-03-15] MEDS: diphenhydrAMINE HCL 50 MG/ML VIAL IVPUSH (04:54)
[2020-03-15 06:00] VITALS: BMI 28.0
[2020-03-15 08:00] VITALS: BP 143/83; PULSE 92; RESP 18; TEMP 36.7; O2SAT 94
[2020-03-15] MEDS: levoFLOXacin/D5W 750 MG/150 ML PIGGYBACK 100 MG IV (09:39)
[2020-03-15] MEDS: lamoTRIgine 25 MG TABLET PO (09:39)
[2020-03-15] MEDS: 0.9 % Sodium Chloride Flush 3 ML SYRINGE IVFLUSH ×2 (09:39→15:16)
[2020-03-15] MEDS: amLODIPine Besylate 5 MG TABLET PO (09:39)
--- NOTE | 2020-03-15 10:19 | MHC.CLN ---
F/U PT EXTUBATED 03/12 PO INTAKE VARIABLE DIET RX: REGULAR-APPROPRIATE RECOMMEND 1900 CALORIES PER DAY TO PROMOTE SLOW WT LOSS FOLLOWING
[2020-03-15 11:31] VITALS: BP 105/70; PULSE 99; RESP 20; TEMP 36.8; O2SAT 98
--- NOTE | 2020-03-15 13:59 | HO.PM.IMPN ---
Subjective Subjective Date of Service: 03/15/20 Interval History: patient seen and examined at bedside patient was more calm today reported some trouble breathing Constitutional Constitutional: Reports weakness Cardiovascular Cardiovascular: Reports dyspnea Respiratory Respiratory: Reports dyspnea Gastrointestinal Gastrointestinal: Denies vomiting Neurologic Neurologic: Reports weakness Physical Exam Vital Signs: Vital Signs: Last Vital Signs Temp 98.3 F 03/15/20 11:31 Pulse 99 03/15/20 11:31 Resp 20 03/15/20 11:31 BP 105/70 03/15/20 11:31 Pulse Ox 98 03/15/20 11:31 Body Mass Index 28.0 Const: General: comfortable Resp: Auscultation: wheezes Cardio: Jugular venous distension: no JVD Objective Data Current Medications Generic Name Dose Route Start Last Admin Trade Name Freq PRN Reason Stop Dose Admin Acetaminophen 650 mg 03/12/20 22:32 03/12/20 22:58 Acetaminophen Supp 650 Mg Supp.Rect ID 650 mg Q6H PRN Administration fever Albuterol Sulfate 2.5 mg 03/07/20 20:48 03/07/20 22:44 Albuterol Sulfate (0.083%) 2.5 Mg/3 Ml Vial.Neb INHALE 2.5 mg Q2H PRN Administration Wheezing Amlodipine Besylate 5 mg 03/14/20 09:00 03/15/20 09:39 Amlodipine Besylate 5 Mg Tablet PO 5 mg DAILY RUDY Administration Protocol Diphenhydramine HCl 50 mg 03/14/20 13:27 03/15/20 04:54 Diphenhydramine Hcl 50 Mg/Ml Vial IVPUSH 50 mg Q4H PRN Administration Anxiety Fentanyl 100 mcg 03/13/20 15:00 03/13/20 15:50 Fentanyl 100 Mcg Patch.Td72 TRANSDERMA 100 mcg Q72H RUDY Administration Heparin Sodium (Porcine) 5,000 unit 03/08/20 10:15 03/15/20 09:40 Heparin Sodium,Porcine 5,000 Unit/Ml Vial SUBCUT 5,000 unit Q8H RUDY Administration Levofloxacin 750 mg in 150 mls @ 100 mls/hr 03/10/20 09:00 03/15/20 11:19 Levaquin IV Infused Q24H RUDY Infusion Lamotrigine 25 mg 03/12/20 21:00 03/15/20 09:39 Lamotrigine 25 Mg Tablet PO 25 mg BID RUDY Administration Sodium Chloride 3 ml 03/08/20 00:00 03/15/20 09:39 0.9 % Sodium Chloride Flush 3 Ml Syringe IVFLUSH 3 ml QSHIFT RUDY Administration Labs CBC & Chem 7: 03/14/20 05:09 03/14/20 05:09 Assessment and Plan (1) Delirium due to another medical condition, acute, hyperactive: Status: Acute (2) Aspiration pneumonitis: Status: Acute (3) Acute respiratory failure with hypoxia: Status: Acute (4) Opioid withdrawal: Status: Acute (5) Asthma with acute exacerbation: Status: Acute Assessment and Plan: Delirium likely multifactorial from drug withdrawal , hypoxic respiratory failure opioid dependence on suboxone agitation improving patient is more calm today started on fentanyl patch in ICU was on Suboxone at home Will get psych follow-up Acute hypoxic respiratory failure secondary to asthma exacerbationand aspiration pneumonitis patient was intubated on admission and was admitted to ICU , extubated currently on 3 L of oxygen weaned down oxygen as tolerated Aspiration pneumonitis received Levaquin will stop Levaquin given QTC on higher side Hypertension continue amlodipine DVT prophylaxis heparin subcu
--- NOTE | 2020-03-15 14:57 | MHC.CM.PN ---
per rounds dc plan is for,pt to be seen by psych /[facility] as he is medically stable
[2020-03-15 15:22] VITALS: BP 116/74; PULSE 95; RESP 18; TEMP 36.4; O2SAT 98
[2020-03-15 15:28] LABS: Anion Gap 20 (12-20); Blood Urea Nitrogen 40 mg/dL (9-16); Carbon Dioxide 25 mmol/L (22-29); Chloride 102 mmol/L (96-108); Estimated Glomerular Filt Rate > 60; Glucose Random 129 mg/dL (60-115); Potassium 3.8 mmol/l (3.3-5.1); Sodium 143 mmol/L (135-145)
--- NOTE | 2020-03-15 17:02 | P.DS_ITS ---
DS: Providers Provider Date of admission: 03/07/20 20:48 Primary care physician: Unknown Physician Consults: 03/12/20 10:41 Consult to Psychiatry Stat Consulting Provider: Psychiatry,[facility] Reason for consultation: Acute psychotic delirium Has provider been notified: No 03/15/20 11:34 Consult to Psychiatry Routine Consulting Provider: [facility] Reason for consultation: follow up on withdrawl and agitation DS: Diagnosis Discharge Diagnosis (1) Delirium due to another medical condition, acute, hyperactive: Status: Acute (2) Aspiration pneumonitis: Status: Acute (3) Acute respiratory failure with hypoxia: Status: Acute (4) Opioid withdrawal: Status: Acute (5) Asthma with acute exacerbation: Status: Acute DS: Medications Discharge Medications Home Medications: Home Medications Medication Instructions Recorded Confirmed acetaminophen [Tylenol] 650 mg PO Q6H PRN 03/07/20 03/07/20 buprenorphine-naloxone [Suboxone] 1 film BUCCAL Q24H 03/07/20 03/07/20 ibuprofen [Motrin] 600 mg PO Q8H PRN 03/07/20 03/07/20 lisinopril 30 mg PO DAILY 03/07/20 03/07/20 DS: Summary Hospital Course Hospital Course: 49-year-old male initially admitted to ICU with acute hypoxic respiratory failure and asthma exacerbation and drug withdrawal, patient was intubated started on IV steroids, patient was extubated, hospital course was complicated by delirium likely multifactorial from hypoxia and drug withdrawal, psychiatry was consulted patient was started on medication management, patient was seen by psych and per psych patient has capacity to make his decision, patient was still requiring oxygen, patient refused further treatment ,patient refused to stay in the hospital, explained to patient risk of leaving the hospital and not getting treatment including worsening of respiratory phase and , patient was alert and oriented x3, patient understands the risk but still refuses to stay and left against medical advice Time Spent with Patient Time attestation: Total time spent providing and/or coordinating discharge services: Physical Exam Vital Signs: Vital Signs: Last Vital Signs Temp 97.6 F 03/15/20 15:22 Pulse 95 03/15/20 15:22 Resp 18 03/15/20 15:22 BP 116/74 03/15/20 15:22 Pulse Ox 98 03/15/20 15:22 Body Mass Index 28.0 Resp: Effort & Inspection: normal respiratory effort Auscultation: rhonchi Cardio: Jugular venous distension: no JVD GI: Inspection: Yes normal to inspection DS: Data Data Completed and Pending Labs on day of discharge: 03/07/20 10:00 Rocuronium [place] [Zemuron] 50 mg .ROUTE .STK-MED ONE 03/07/20 17:52 BMP [Basic Metabolic Panel] Stat CBC W/AUTO DIFF [Complete Blood Count Auto Diff] Stat Hold Lt Blue - Possible Coag Stat Lipase Stat Liver Panel Stat Troponin-I High Sensitivity Stat 03/07/20 17:55 ECG 12 lead EKG Stat EKG Documentation DIRECTED 03/07/20 18:01 SARS COV2 PCR INHOUSE Stat 0.9 % Sodium Chloride [Ns] 1,000 ml IVCONT 999 mls/hr 03/07/20 18:04 Albuterol Sulfate (0.083%) [Ventolin (0.083%)] 10 mg INHALE ONCE ONE RT BiPAP/CPAP STAT 03/07/20 18:59 Albuterol Sulfate (0.083%) [Ventolin (0.083%)] 10 mg INHALE ONCE ONE 03/07/20 19:21 0.9 % Sodium Chloride [Ns] 1,000 ml IVCONT 999 mls/hr 03/07/20 19:22 EKG Documentation DIRECTED 03/07/20 19:36 XR chest 1V Stat 03/07/20 20:14 Albuterol Sulfate (0.083%) [Ventolin (0.083%)] 5 mg INHALE ONCE ONE 03/07/20 20:23 LORazepam [Ativan] 2 mg IVPUSH ONCE ONE 03/07/20 20:46 Buprenorphine/Naloxone 12/3 mg [Suboxone 12/3 mg] 1 film SUBLINGUAL ONCE ONE 03/07/20 20:48 Vital Signs Q1HR RT BiPAP/CPAP CONT 03/07/20 23:23 hydrOXYzine HCL [Atarax] 25 mg PO ONCE ONE 03/07/20 23:30 Ipratropium [place] [Atrovent] 0.5 mg INHALE Q20M 03/07/20 23:44 methylPREDNISolone Sod Succ/PF [SOLU-MedroL] 125 mg IVPUSH ONCE ONE 03/08/20 CT head/brain wo con Stat 03/08/20 00:42 LORazepam [Ativan] 2 mg IVPUSH ONCE ONE 03/08/20 01:00 Albuterol/Iprat 2.5/0.5MG 3 ML [Duoneb] 3 ml INHALE RQ4H 03/08/20 01:04 D Dimer Stat 03/08/20 03:52 LORazepam [Ativan] 1 mg IVPUSH ONCE ONE 03/08/20 04:35 QUEtiapine Fumarate [SEROquel] 25 mg PO DAILY ONE 03/08/20 06:00 methylPREDNISolone Sod Succ/PF [SOLU-MedroL] 80 mg IVPUSH Q6H 03/08/20 06:13 LORazepam [Ativan] 2 mg IVPUSH ONCE ONE 03/08/20 06:36 Buprenorphine/Naloxone 8/2 mg [Suboxone 8/2 mg] 1 film SUBLINGUAL ONCE ONE 03/08/20 06:37 Drug Screen Urine Routine 03/08/20 07:21 dexmedeTOMIDidine HCL [Precedex] 80 mcg .ROUTE .STK-MED ONE 03/08/20 07:30 dexmedeTOMIDidine HCL/NS [Precedex] 400 mcg in 100 ml IVCONT Per Protocol mcg/kg/hr 03/08/20 07:38 HYDROmorphone HCl [Dilaudid] 1 mg .ROUTE .STK-MED ONE HYDROmorphone HCl [Dilaudid] 1 mg IVPUSH ONCE ONE 03/08/20 07:48 HYDROmorphone HCl [Dilaudid] 1 mg .ROUTE .STK-MED ONE 03/08/20 07:50 HYDROmorphone HCl [Dilaudid] 2 mg IVPUSH ONCE ONE 03/08/20 07:53 propofoL [Diprivan] 200 mg IVPUSH .STK-MED ONE 03/08/20 07:56 propofoL [Diprivan] 100 mg IVPUSH ONCE ONE 03/08/20 07:58 Etomidate [Amidate] 20 mg IVPUSH .STK-MED ONE Etomidate [Amidate] 20 mg IVPUSH ONCE ONE 03/08/20 07:59 propofoL [Diprivan] 200 mg IVPUSH ONCE ONE 03/08/20 08:00 Albuterol/Iprat 2.5/0.5MG 3 ML [Duoneb] 3 ml INHALE RQ4H WHILE AWAKE 03/08/20 08:08 Rocuronium [place] [Zemuron] 50 mg IV NOW STA 03/08/20 08:10 propofoL [Diprivan] 150 mg IVPUSH ONCE ONE 03/08/20 08:12 fentaNYL citrate/NS [Sublimaze/NS] 1,000 mcg in 100 ml IVCONT As directed 03/08/20 08:15 fentaNYL citrate/NS [Sublimaze/NS] 1,000 mcg in 100 ml IVCONT Per Protocol mcg/hr propofoL [Diprivan] 1,000 mg in 100 ml IVCONT Per Protocol mcg/kg/min 03/08/20 08:22 XR chest 1V Stat 03/08/20 08:26 dexmedeTOMIDidine HCL [Precedex] 50 mcg IVPUSH ONCE ONE 03/08/20 08:30 Restraint - Non Violent 24 HOURS 03/08/20 08:35 Cisatracurium Besylate [Nimbex] 10 mg IVPUSH ONCE ONE 03/08/20 08:38 Cisatracurium Besylate [Nimbex] 10 mg IVCONT .STK-MED ONE 03/08/20 08:45 Cisatracurium Besylate [Nimbex] 10 mg IVCONT .STK-MED ONE Container,Empty 0 ml Cisatracurium Besylate [Nimbex] 100 mg IVCONT 2 mcg/kg/min 03/08/20 09:00 Buprenorphine/Naloxone 12/3 mg [Suboxone 12/3 mg] 1 film SUBLINGUAL DAILY lisinopriL [Zestril] 30 mg PO DAILY 03/08/20 09:21 Arterial Blood Gas Routine 03/08/20 09:30 Container,Empty 0 ml Cisatracurium Besylate [Nimbex] 100 mg IVCONT 2 mcg/kg/min 03/08/20 09:39 XR chest 1V Stat 03/08/20 Breakfast NPO Diet 0.9 % Sodium Chloride [Ns] 250 ml niCARdipine HCL [Cardene] 25 mg IVCONT Per Protocol mg/hr 03/08/20 10:08 fentaNYL citrate/PF [Sublimaze] 100 mcg IVPUSH ONCE ONE 03/08/20 10:59 niCARdipine HCL [Cardene] 25 mg IVCONT .STK-MED ONE 03/08/20 11:20 Arterial Blood Gas Routine 03/08/20 14:05 niCARdipine HCL [Cardene] 25 mg IVCONT .STK-MED ONE 03/08/20 15:00 Chlorhexidine Gluc Oral Rinse [Peridex] 15 ml BUCCAL TID 03/08/20 16:45 Lactated Ringers [Lr] 1,000 ml IVCONT 999 mls/hr 03/08/20 17:30 Basic Metabolic Panel Routine 03/08/20 20:31 niCARdipine HCL [Cardene] 25 mg IVCONT .STK-MED ONE 03/08/20 22:41 Norepinephrine Bitartrate/NS [Levophed] 8 mg in 250 ml IVCONT As directed 03/08/20 22:45 Norepinephrine Bitartrate/NS [Levophed] 8 mg in 250 ml IVCONT Per Protocol mcg/kg/min 03/09/20 01:20 propofoL [Diprivan] 50 mg IVPUSH ONCE ONE 03/09/20 01:36 Cisatracurium Besylate [Nimbex] 40 mg .ROUTE .STK-MED ONE 03/09/20 03:53 niCARdipine HCL [Cardene] 25 mg IVCONT .STK-MED ONE 03/09/20 05:19 Albumin Level Routine Complete Blood Count Auto Diff DAILY@0600 Magnesium DAILY Phosphorus DAILY SLIDE REVIEW Routine Venous Blood Gas DAILY 03/09/20 06:30 Omeprazole Oral Susp [PriLOSEC Oral Susp] 40 mg PO DAILY@0630 03/09/20 08:30 Restraint - Non Violent 24 HOURS 03/09/20 09:00 methylPREDNISolone Sod Succ/PF [SOLU-MedroL] 60 mg IVPUSH DAILY 03/09/20 16:01 Basic Metabolic Panel Routine 03/09/20 17:43 Midazolam HCl/PF [Versed] 2 mg IVPUSH .STK-MED ONE 03/09/20 17:49 Midazolam HCl/PF [Versed] 4 mg IVPUSH ONCE ONE 03/09/20 18:00 Dextrose 5 % and Lactated Ring [D5lr] 1,000 ml IVCONT 50 mls/hr 03/10/20 CT chest wo con Stat XR chest 1V Stat 03/10/20 02:33 Albuterol Sulfate (0.083%) [Ventolin (0.083%)] 2.5 mg INHALE RQ4H PRN dilTIAZem HCL [Cardizem] 10 mg IVPUSH ONCE ONE 03/10/20 02:38 Albuterol/Iprat 2.5/0.5MG 3 ML [Duoneb] 3 ml INHALE .STK-MED ONE 03/10/20 03:02 Furosemide [Lasix] 20 mg IVPUSH ONCE ONE 03/10/20 03:25 dilTIAZem HCL [Cardizem] 10 mg IVPUSH ONCE ONE 03/10/20 03:27 Albuterol/Iprat 2.5/0.5MG 3 ML [Duoneb] 12 ml INHALE ONCE ONE 03/10/20 03:30 0.9 % Sodium Chloride [Ns] 100 ml dilTIAZem HCL [Cardizem] 125 mg IVCONT Per Protocol mg/hr 03/10/20 03:36 dilTIAZem HCL [Cardizem] 50 mg IVPUSH .STK-MED ONE 03/10/20 03:49 Acetaminophen [Tylenol] 650 mg OG-TUBE Q6H PRN 03/10/20 05:48 Complete Blood Count Auto Diff DAILY@0600 Comprehensive Met. Panel DAILY@0600 Magnesium DAILY Phosphorus DAILY SLIDE REVIEW Routine Venous Blood Gas DAILY 03/10/20 09:00 levoFLOXacin/D5W [Levaquin] 750 mg in 150 ml IV Q24H 03/10/20 11:48 dilTIAZem HCL [Cardizem] 125 mg IVCONT .STK-MED ONE 03/10/20 20:00 NON-Behavioral Restraint Q24H 03/10/20 20:04 Non-behavioral order assessment ONCE 03/10/20 20:50 dilTIAZem HCL [Cardizem] 125 mg IVCONT .STK-MED ONE 03/10/20 23:34 Albuterol Sulfate (0.083%) [Ventolin (0.083%)] 10 mg INHALE ONCE ONE 03/11/20 03:39 SARS-CoV2/FLU/RSV Stat 03/11/20 05:25 Complete Blood Count Auto Diff DAILY@0600 Comprehensive Met. Panel DAILY@0600 Magnesium DAILY Phosphorus DAILY SLIDE REVIEW Routine Venous Blood Gas DAILY 03/11/20 09:52 Midazolam HCl/PF [Versed] 2 mg IVPUSH ONCE ONE 03/11/20 10:15 0.9 % Sodium Chloride [Ns] 250 ml Phenylephrine HCL 20 mg IVCONT Per Protocol mcg/kg/min Midazolam HCl/NS [Versed] 50 mg in 50 ml IVCONT 2 mg/hr 03/11/20 10:17 Phenylephrine HCL 10 mg .ROUTE .STK-MED ONE 03/11/20 10:19 Phenylephrine HCL 10 mg .ROUTE .[facility] [place]-MED ONE 03/11/20 Lunch Tube Feeding Diet 03/11/20 16:17 Phenylephrine HCL 10 mg .ROUTE .[facility] [place]-MED ONE 03/11/20 20:48 Phenylephrine HCL 10 mg .ROUTE .[facility] [place]-MED ONE 03/11/20 21:28 Non-behavioral order assessment ONCE 03/12/20 02:09 Phenylephrine HCL 10 mg .ROUTE .[facility] [place]-MED ONE 03/12/20 05:34 Complete Blood Count Auto Diff DAILY@0600 Comprehensive Met. Panel DAILY@0600 Magnesium DAILY Phosphorus DAILY Venous Blood Gas DAILY 03/12/20 09:11 Extubate NOW 03/12/20 09:32 Midazolam HCl/PF [Versed] 2 mg IVPUSH ONCE ONE 03/12/20 09:33 HYDROmorphone HCl [Dilaudid] 2 mg IVPUSH ONCE ONE 03/12/20 09:50 Haloperidol Lactate [Haldol] 5 mg .ROUTE .[facility] [place]-MED ONE 03/12/20 09:55 Haloperidol Lactate [Haldol] 10 mg IVPUSH STAT STA 03/12/20 10:07 Haloperidol Lactate [Haldol] 5 mg .ROUTE .[facility] ONE 03/12/20 10:12 diphenhydrAMINE HCL [Benadryl] 50 mg IVPUSH ONCE ONE 03/12/20 10:34 Haloperidol Lactate [Haldol] 10 mg IVPUSH STAT STA 03/12/20 12:00 dexmedeTOMIDidine HCL/NS [Precedex] 400 mcg in 100 ml IVCONT Per Protocol mcg/kg/hr 03/12/20 12:54 diphenhydrAMINE HCL [Benadryl] 50 mg IVPUSH ONCE ONE 03/12/20 16:52 cloNIDine [Catapres] 0.1 mg TRANSDERMA ONCE ONE 03/13/20 00:24 diphenhydrAMINE HCL [Benadryl] 50 mg IVPUSH ONCE ONE 03/13/20 03:41 hydrALAZINE HCl [Apresoline] 10 mg IVPUSH ONCE ONE 03/13/20 05:41 Complete Blood Count Auto Diff DAILY@0600 Comprehensive Met. Panel DAILY@0600 Magnesium DAILY Phosphorus DAILY SLIDE REVIEW Routine Venous Blood Gas DAILY 03/13/20 09:04 Potassium Phosphate [KPhos] 30 mmol 0.9 % Sodium Chloride [Ns] 500 ml IV ONCE 03/13/20 15:18 diphenhydrAMINE HCL [Benadryl] 50 mg IVPUSH ONCE ONE 03/13/20 22:39 diphenhydrAMINE HCL [Benadryl] 50 mg IVPUSH ONCE ONE 03/14/20 02:44 Metoprolol Tartrate [Lopressor] 5 mg IVPUSH ONCE ONE 03/14/20 05:09 Complete Blood Count Auto Diff DAILY@0600 Comprehensive Met. Panel DAILY@0600 Magnesium DAILY Phosphorus DAILY SLIDE REVIEW Routine Venous Blood Gas DAILY 03/14/20 06:50 0.9 % Sodium Chloride [Ns] 1,000 ml IVCONT 999 mls/hr 03/14/20 08:47 Transfer Order Routine 03/14/20 13:27 diphenhydrAMINE HCL [Benadryl] 50 mg IVPUSH Q4H PRN 03/14/20 13:29 HYDROmorphone HCl [Dilaudid] 1 mg IVPUSH ONCE ONE 03/15/20 01:04 Magnesium Hydrox/Alum Hydrox [Maalox] 15 ml PO ONCE ONE 03/15/20 06:37 Magnesium Hydrox/Alum Hydrox [Maalox] 15 ml PO ONCE ONE 03/15/20 14:49 Basic Metabolic Panel Routine Laboratory Last Values WBC 13.9 X10*3/uL (4.8-10.8) H 03/14/20 05:09 RBC 4.67 X10*6/uL (4.60-5.80) 03/14/20 05:09 Hgb 14.6 g/dl (14.0-18.0) 03/14/20 05:09 Hct 43.4 % (42-52) 03/14/20 05:09 MCV 92.9 fL (80-98) 03/14/20 05:09 MCH 31.3 pg (27.0-33.0) 03/14/20 05:09 MCHC 33.6 g/dl (31.0-36.0) 03/14/20 05:09 RDW 12.1 % (11.0-16.0) 03/14/20 05:09 Plt Count 313 X10*3/uL (160-400) D 03/14/20 05:09 MPV 9.6 fL (9.4-12.4) 03/14/20 05:09 Immature Gran % (Auto) 2.0 % (0.0-0.4) H 03/14/20 05:09 Neut % (Auto) 69.7 % (45-73) 03/14/20 05:09 Lymph % (Auto) 14.4 % (20-40) L 03/14/20 05:09 [place] % (Auto) 13.8 % (2-11) H 03/14/20 05:09 Eos % (Auto) 0.0 % (0-4) 03/14/20 05:09 Baso % (Auto) 0.1 % (0-2) 03/14/20 05:09 Lymph # (Auto) 2.0 X10*3/uL (1.2-4.9) 03/14/20 05:09 [place] # (Auto) 1.9 X10*3/uL (0.1-1.2) H 03/14/20 05:09 Eos # (Auto) 0.0 X10*3/uL (0.0-0.4) 03/14/20 05:09 Baso # (Auto) 0.0 X10*3/uL (0.0-0.2) 03/14/20 05:09 Abs Immat Gran (auto) 0.28 X10*3/uL (0.00-0.03) H 03/14/20 05:09 Absolute Neuts (auto) 9.7 X10*3/uL (2.0-8.3) H 03/14/20 05:09 Absolute Nucleated RBC 0.020 X10*3/uL (0.0-0.012) H 03/14/20 05:09 Nucleated RBC % (auto) 0.1 /100WBC (0.0-0.2) 03/14/20 05:09 Smear Tech's Comments VERIFIED 03/14/20 05:09 D-Dimer < 200 NG/ML 03/08/20 01:04 Hold Blue Top SEE NOTE 03/07/20 17:52 ABG pH 7.37 (7.35-7.45) 03/08/20 11:20 ABG pCO2 54 mmhg (32-45) H 03/08/20 11:20 ABG pO2 86 mmhg (83-108) 03/08/20 11:20 ABG HCO3 30 mmol/l (22-26) H 03/08/20 11:20 ABG O2 Saturation 96.5 % 03/08/20 11:20 ABG Base Excess 3.7 03/08/20 11:20 VBG pH 7.53 (7.32-7.43) H 03/14/20 05:09 VBG pCO2 25 mmhg 03/14/20 05:09 VBG Oxygen Liters/Min TNP 03/14/20 05:09 VBG pO2 75 mmhg 03/14/20 05:09 VBG HCO3 21 mmol/L 03/14/20 05:09 VBG O2 Saturation 95.7 % 03/14/20 05:09 VBG Base Excess -0.2 mmol/L 03/14/20 05:09 Oxygen Given 40% 03/08/20 11:20 Sodium 143 mmol/L (135-145) 03/15/20 14:49 Potassium 3.8 mmol/l (3.3-5.1) 03/15/20 14:49 Chloride 102 mmol/L (96-108) 03/15/20 14:49 Carbon Dioxide 25 mmol/L (22-29) 03/15/20 14:49 Anion Gap 20 (12-20) 03/15/20 14:49 BUN 40 mg/dL (9-16) H 03/15/20 14:49 Creatinine 1.08 mg/dL (0.5-1.4) 03/15/20 14:49 Estim Creat Clear Calc 90.0 03/15/20 14:49 Estimated GFR > 60 03/15/20 14:49 Random Glucose 129 mg/dL (60-115) H 03/15/20 14:49 Calcium 9.0 mg/dL (8.4-10.2) D 03/15/20 14:49 Phosphorus 5.1 mg/dL (2.7-4.5) H 03/14/20 05:09 Magnesium 2.6 mg/dL (1.6-2.6) 03/14/20 05:09 Total Bilirubin 0.9 mg/dL (0.0-1.0) 03/14/20 05:09 Direct Bilirubin Cancelled 03/07/20 19:35 AST 39 U/L (5-37) H 03/14/20 05:09 ALT 56 U/L (0-40) H 03/14/20 05:09 Alkaline Phosphatase 66 U/L (39-117) 03/14/20 05:09 Troponin I High Sens 8.1 ng/L (<3.5-35.0) 03/07/20 17:52 Total Protein 7.7 g/dL (6.5-8.0) 03/14/20 05:09 Albumin 4.5 g/dL (3.5-5.0) 03/14/20 05:09 Lipase Cancelled 03/07/20 19:35 Urine Opiates Screen POSITIVE (Not Detect) H 03/08/20 06:37 Ur Barbiturates Screen Not Detected (Not Detect) 03/08/20 06:37 Ur Phencyclidine Scrn Not Detected (Not Detect) 03/08/20 06:37 Ur Amphetamines Screen Not Detected (Not Detect) 03/08/20 06:37 U Benzodiazepines Scrn Not Detected (Not Detect) 03/08/20 06:37 Urine Cocaine Screen Not Detected (Not Detect) 03/08/20 06:37 U Marijuana (THC) Screen Not Detected (Not Detect) 03/08/20 06:37 Coronavirus (PCR) NEGATIVE (Negative) 03/11/20 03:39 Influenza Type A (PCR) NEGATIVE (Negative) 03/11/20 03:39 Influenza Type B (PCR) NEGATIVE (Negative) 03/11/20 03:39 RSV RNA Qual (PCR) NEGATIVE (Negative) 03/11/20 03:39 Discharge Plan Discharge Anticipated Discharge Date/Time: 03/15/20 18:47 Patient Disposition: Left Against Medical Advice Referrals: Physician,Unknown [Primary Care Provider] - Discharge Medications: No Action acetaminophen [Tylenol] 325 mg Tablet 650 mg PO Q6H PRN (Reason: Pain) RF: 0 lisinopril 30 mg Tablet 30 mg PO DAILY RF: 0 ibuprofen [Motrin] 600 mg Tablet 600 mg PO Q8H PRN (Reason: Pain) RF: 0 buprenorphine-naloxone [Suboxone] 12-3 mg Film 1 film [place]CCAL Q24H RF: 0 Discharge Orders: Discharge Order (Routine); Ordered 03/15/20 Ordered By: Long Souza Discharge Date/Time: 03/15/20 17:31 Care Plan Goals: left against medical advice Health Concerns: left against medical advice Plan of Treatment: left against medical advise
--- NOTE | 2020-03-15 17:07 | PC.NURSE ---
Addendum entered by Chloe Hahn RN 03/15/20 17:09: PATIENT EDUCATED ON SAFETY MEASURES AND STILL WANTING TO LEAVE AMA. Original Note: PATIENT DEMANDING TO LEAVE AMA, DR. DIAMOND AT BEDSIDE AND PATIENT SIGNED PAPERWORK TO LEAVE AMA. IV REMOVED AND TELE PACK REMOVED.
--- NOTE | 2020-03-15 20:34 | P.EN_ITS ---
Event Note Date of Service: 03/15/20 Event Note: Psychiatry and Addiction follow up: Pt seen on medical floor. Started on Fentanyl patch while in ICU. Asked to follow up reagrding plan to d/c this and restart suboxone Patient seen in room 444. Awake, alert, engaged in interview. Stating that he is ready to go home, no longer wants to be in the hospital and feels great . Discussed need for oxygen and risks associated with leaving AMA, pt verbalzied that he understands. Discussed risk of opioid withdrawal as fentanyl patch will be discontinued and he will likely experience withdrawal sx in the next day or so. Explained risk of precipitated withdrawal if he decided to take suboxone once he got home. Discu ssed preference to have patient stay in the hospital to transition from patch to buprenorphine. Pt reported that he is engaged in care at [facility] and he would like to go see them tomorrow to make a plan for when to restart subxone safely at home. Educated on risk of overdose if he decided to use opioids upon discharge. Pt insistent on going home. Appears to understand risks assoiciated with leave AMA, able to process and retain information provided. Encouraged to follow up with MAT provider [facility]
== END 2020-03-15 17:31 | disposition left against medical advice (07) | DRG 130 ==
LOC: HO.ED 20:23 → HO.ICU 21:19 → HO.IMC 03-14 21:14
PROVIDERS: Internal Medicine Pulmonary Disease; Physician Assistant; Physician Assistant Medical; Admitting Provider Anesthesiology; Emergency Provider Emergency Medicine; Visit Provider Internal Medicine
DX: J45.902 Unspecified asthma with status asthmaticus (principal); J69.0 Pneumonitis due to inhalation of food and vomit; F05 Delirium due to known physiological condition; J96.01 Acute respiratory failure with hypoxia; F11.23 Opioid dependence with withdrawal; I10 Essential (primary) hypertension; F41.9 Anxiety disorder, unspecified; Z20.828 Contact with and (suspected) exposure to other viral communicable diseases; Z88.5 Allergy status to narcotic agent; F10.10 Alcohol abuse, uncomplicated; Z79.1 Long term (current) use of non-steroidal anti-inflammatories (NSAID); Z79.899 Other long term (current) drug therapy
CPT/HCPCS: 0241U; 36415; 70450; 71045; 71250; 80048; 80053; 80076; 80307; 82040; 82803; 83690; 83735; 84100; 84484; 85025; 85379; 93005; 94002; 94003; 94640; 94644; 94645; 94660; 94799; 96360; 96361; 99285; J0574; J0575; J1170; J1200; J1940; J1956; J2060; J2250; J2370; J2930; J3010; U0003

== ENCOUNTER 2020-08-05 05:36 | Emergency (ER) | payer MEDICAID, SELFPAY ==
--- NOTE | ~2020-08-05 | CT_ITS ---
EXAMINATION: CT ABDOMEN AND PELVIS WITH CONTRAST CLINICAL INFORMATION: Epigastric pain. History pancreatitis. COMPARISON: CT chest noncontrast 03/10/2020, CT abdomen and pelvis noncontrast 09/01/2019 TECHNIQUE: Multidetector volumetric images were obtained from the superior aspect of the liver through the pubic symphysis following administration 85 mL of Omnipaque 350 intravenous contrast. Sagittal and coronal reformatted images were obtained on the technologist's workstation. Oral contrast: No This CT examination was performed using dose optimization techniques as appropriate, variously including the following: *Automated exposure control *Adjustment of mA and/or kV according to patient size (this includes techniques or standardized protocols for targeted exams where dose is matched to indication/reason for exam; i.e. extremities or head) *Use of iterative reconstruction technique DLP: 783 mGy-cm FINDINGS: LUNG BASES: No airspace consolidation or effusion. Small linear scar versus disc atelectasis left posterior lateral base. LIVER, GALLBLADDER, AND BILIARY TREE: The liver is normal in size and smooth in contour. There is diffuse hepatic steatosis. No focal hepatic parenchymal lesion or intrahepatic biliary ductal dilatation. The gallbladder is unremarkable with no evidence of radiopaque gallstones, gallbladder wall thickening, or obvious pericholecystic inflammatory changes. PANCREAS: Unremarkable. SPLEEN: Unremarkable. ADRENAL GLANDS: Unremarkable. KIDNEYS AND URETERS: The kidneys are normal in size, shape, and attenuation. No hydronephrosis, hydroureter, or calculi seen. No perinephric stranding. There is some blurring around the lower pole likely from respiratory motion artifact. BLADDER: Unremarkable. GASTROINTESTINAL TRACT: There is subtle induration in the mesentery around the mid cecum and proximal ascending colon. The terminal ileum and appendix are unremarkable. There is no paracolic fluid collection or proximal obstruction. No pneumatosis or free air. Remainder of the colon and the small bowel are unremarkable. No ascites. ABDOMINAL WALL: There is a small umbilical hernia under 2 cm with knuckle of small bowel at abdominal wall. No bowel wall thickening or proximal obstruction. LYMPH NODES: No retroperitoneal or pelvic lymphadenopathy. Small stable node medial left subphrenic space and small nodes left inguinal region again noted. VASCULAR: Unremarkable. PELVIC VISCERA: Unremarkable. OSSEOUS STRUCTURES: Unremarkable. CT/CT abdomen pelvis w con IMPRESSION: 1. Subtle inflammatory changes around mid cecum and proximal ascending colon. No paracolic fluid collection or proximal obstruction. Terminal ileum and appendix unremarkable. 2. Small umbilical hernia with knuckle small bowel at orifice. No bowel wall thickening or proximal obstruction. 3. Hepatic steatosis.
--- NOTE | ~2020-08-05 | US_ITS ---
EXAMINATION: US VENOUS ULTRASOUND WITH DOPPLER LOWER EXTREMITY, BILATERAL CLINICAL INFORMATION: Lower extremity edema. Evaluate for a deep vein thrombosis. COMPARISON: None TECHNIQUE: Ultrasound of the deep veins is performed from the hip to the calf with compression sonography and color and pulse Doppler assessment. Spectral analysis with color-flow imaging is performed. FINDINGS: RIGHT: There is normal venous compression and respiratory variation and augmented flow. The visualized common femoral vein, superficial femoral vein, profunda femoral vein, popliteal vein, and the trifurcation region shows no evidence of deep venous thrombosis. The right peroneal vein is not well seen. There is no significant popliteal fossa cyst. LEFT: There is normal venous compression and respiratory variation and augmented flow. The visualized common femoral vein, superficial femoral vein, profunda femoral vein, popliteal vein, and the trifurcation region shows no evidence of deep venous thrombosis. There is no significant popliteal fossa cyst. If the patient's symptoms persist, followup ultrasound in 5 days 7 days might be of value to exclude proximal propagation from a non-visualized calf vein. Bilateral inguinal lymph nodes with normal fatty marcos. Bilateral lower extremity subcutaneous edema. US/US venous duplex LE BI IMPRESSION: 1. No DVT demonstrated in the bilateral lower extremity. 2. Bilateral lower extremity subcutaneous edema.
[2020-08-05 05:41] VITALS: BP 204/118; PULSE 91; RESP 18; TEMP 36.5; O2SAT 94; BMI 31.7
--- NOTE | 2020-08-05 06:34 | ED.ABDPAIN ---
HPI - Abdominal Pain General Chief Complaint: Abdominal Pain Stated Complaint: leg/foot swelling and abdominal pain Time Seen by Provider: 08/05/20 06:32 Source: patient and old records reviewed Mode of arrival: ambulatory Limitations: no limitations History of Present Illness HPI narrative: 49 yo male with asthma, ETOH, HTN, alcoholic pancreatitis reports 2 days of bilateral LE swelling as well as pancreatitis pain x 2 days, no n/v/d. last drink this AM, took lisinopril this AM MD elicited complaint: abdominal pain Pertinent past history: other (pancreatitis) Onset (ago): day(s) (2) Pain Consistency: constant Location: epigastric Severity: moderate Quality: stabbing Radiation: none Migration to: no migration Exacerbating factors: movement Relieving factors: nothing Context: history of similar episodes and other (ETOH abuse) Associated symptoms: other (lower extremity swelling) Related Data Home Medications Medication Instructions Recorded Confirmed acetaminophen [Tylenol] 650 mg PO Q6H PRN 03/07/20 03/07/20 buprenorphine-naloxone [Suboxone] 1 film BUCCAL Q24H 03/07/20 03/07/20 ibuprofen [Motrin] 600 mg PO Q8H PRN 03/07/20 03/07/20 lisinopril 30 mg PO DAILY 03/07/20 03/07/20 Previous Rx's Medication Instructions Recorded amoxicillin-pot clavulanate 1 tab PO BID #14 tab 08/05/20 [Augmentin] chlordiazepoxide HCl 50 mg PO Q4H PRN #6 cap 08/05/20 furosemide [Lasix] 10 mg PO QAM 3 Days #2 tab 08/05/20 ondansetron 4 mg PO Q8H PRN #20 tab 08/05/20 Allergies Allergy/AdvReac Type Severity Reaction Status Date / Time codeine [CODEINE] AdvReac Unknown STOMACH Verified 03/07/20 23:03 UPSET From FLEXERIL AdvReac Severe Confusion Uncoded 03/09/20 07:18 Review of Systems Review of Systems Constitutional : No Weight loss, No Fever, No Chills ENT/Mouth : No sore throat, No Rhinorrhea Eyes: No Swelling, No Redness Cardiovascular : No Chest Pain, No SOB, pos lower ext Edema Respiratory : No Cough, No Sputum, No Wheezing Gastrointestinal : no Nausea, no Vomiting, no Diarrhea, positive abdominal Pain, No Hematochezia, No Melena Genitourinary : No Dysuria, No Urinary Frequency, No Hematuria, No Urgency Musculoskeletal : No joint pain, No Myalgias, No Joint Swelling Skin : No Skin Lesions, No rash Neuro : No Weakness, No Numbness, No Dizziness, No Headache Psych : No Anxiety/Panic, No Depression Heme/Lymph: No Bruising, No Lymphadenopathy Endocrine : No Polyuria, No Polydipsia All other systems reviewed and are negative. Physical Exam Vital Signs: Vital Signs: Last Vital Signs Temp 97.7 F 08/05/20 05:41 Pulse 90 08/05/20 08:50 Resp 18 08/05/20 10:00 BP 176/102 H 08/05/20 08:50 Pulse Ox 96 08/05/20 08:09 Body Mass Index 31.7 Appearance: Alert. Oriented X3. No acute distress. Eyes: Pupils equal, round and reactive to light. ENT: Pharynx normal. Neck: Normal inspection. Neck supple. CVS: Normal heart rate and rhythm. Pulses normal. Respiratory: No respiratory distress. Breath sounds normal. Abdomen: Soft and moderate epigastric ttp no rebound or guarding Skin: Skin warm and dry. Normal skin color. Normal skin turgor. Extremities: pos bilateral 1+ pitting lower extremity edema. No calf ttp Neuro: Oriented X 3. No motor deficit. No sensory deficit. Course Course Course Narrative: CT scan no acute findings, lipase and labs stable, small infl around intestines but no overt diarrhea asymptomatic HTN - no tachycardia no tremors no diaphoresis - no other signs consistent with ETOH withdrawal at this time MDM - Abdominal Pain MDM Narrative Medical decision making narrative: 49 yo male with asthma, ETOH, HTN, alcoholic pancreatitis reports 2 days of bilateral LE swelling as well as pancreatitis pain x 2 days, no n/v/d. last drink this AM, took lisinopril this AM at this time given complaints will need labs, CT scan of pancreas, DVT studies though LE edema likely due to liver or kidney dysfunction, IV ativan for ETOH associated anxiety, IV morphine for pain, dispo per results and findings. Lab Data Result diagrams: 08/05/20 07:59 08/05/20 07:59 Labs: Lab Results 08/05/20 08/05/20 08/05/20 Range/Units 07:59 07:59 07:59 WBC 10.3 (4.8-10.8) X10*3/uL RBC 4.40 L (4.60-5.80) X10*6/uL Hgb 14.0 (14.0-18.0) g/dl Hct 41.5 L (42-52) % MCV 94.3 (80-98) fL MCH 31.8 (27.0-33.0) pg MCHC 33.7 (31.0-36.0) g/dl RDW 12.6 (11.0-16.0) % Plt Count 210 D (160-400) X10*3/uL MPV 9.3 L (9.4-12.4) fL Immature Gran % (Auto) 0.4 (0.0-0.4) % Neut % (Auto) 72.8 (45-73) % Lymph % (Auto) 13.5 L (20-40) % [place] % (Auto) 9.7 (2-11) % Eos % (Auto) 3.3 (0-4) % Baso % (Auto) 0.3 (0-2) % Lymph # (Auto) 1.4 (1.2-4.9) X10*3/uL [place] # (Auto) 1.0 (0.1-1.2) X10*3/uL Eos # (Auto) 0.3 (0.0-0.4) X10*3/uL Baso # (Auto) 0.0 (0.0-0.2) X10*3/uL Abs Immat Gran (auto) 0.04 H (0.00-0.03) X10*3/uL Absolute Neuts (auto) 7.5 (2.0-8.3) X10*3/uL Absolute Nucleated RBC 0.000 (0.0-0.012) X10*3/uL Nucleated RBC % (auto) 0.0 (0.0-0.2) /100WBC PT (10.8-13.0) SEC INR (0.9-1.1) APTT (24.1-38.0) SEC Sodium 140 (135-145) mmol/L Potassium 4.4 (3.3-5.1) mmol/L Chloride 99 (96-108) mmol/L Carbon Dioxide 32 H (22-29) mmol/L Anion Gap 13 (12-20) BUN 12 D (9-16) mg/dL Creatinine 0.78 (0.5-1.4) mg/dL Estim Creat Clear Calc 131.9 Estimated GFR > 60 Random Glucose 112 (60-115) mg/dL Lactic Acid 1.0 (0.5-2.0) mmol/L Calcium 9.8 D (8.4-10.2) mg/dL Magnesium 2.2 (1.6-2.6) mg/dL Total Bilirubin < 0.2 (0.0-1.0) mg/dL Direct Bilirubin < 0.2 (0.0-0.5) mg/dL AST 27 (5-37) U/L ALT 28 (0-40) U/L Alkaline Phosphatase 89 D (39-117) U/L Troponin I High Sens (<3.5-35.0) ng/L B-Natriuretic Peptide (<100) pg/mL Total Protein 7.8 (6.5-8.0) g/dL Albumin 4.7 (3.5-5.0) g/dL Lipase 14 (8-78) U/L TSH 0.40 (0.32-4.0) uIU/mL Ethyl Alcohol mg/dL COVID-19 ([facility]I) (Negative) COVID-19 Clin Com 08/05/20 08/05/20 08/05/20 Range/Units 07:59 07:59 07:59 WBC (4.8-10.8) X10*3/uL RBC (4.60-5.80) X10*6/uL Hgb (14.0-18.0) g/dl Hct (42-52) % MCV (80-98) fL MCH (27.0-33.0) pg MCHC (31.0-36.0) g/dl RDW (11.0-16.0) % Plt Count (160-400) X10*3/uL MPV (9.4-12.4) fL Immature Gran % (Auto) (0.0-0.4) % Neut % (Auto) (45-73) % Lymph % (Auto) (20-40) % [place] % (Auto) (2-11) % Eos % (Auto) (0-4) % Baso % (Auto) (0-2) % Lymph # (Auto) (1.2-4.9) X10*3/uL [place] # (Auto) (0.1-1.2) X10*3/uL Eos # (Auto) (0.0-0.4) X10*3/uL Baso # (Auto) (0.0-0.2) X10*3/uL Abs Immat Gran (auto) (0.00-0.03) X10*3/uL Absolute Neuts (auto) (2.0-8.3) X10*3/uL Absolute Nucleated RBC (0.0-0.012) X10*3/uL Nucleated RBC % (auto) (0.0-0.2) /100WBC PT 11.7 (10.8-13.0) SEC INR 1.0 (0.9-1.1) APTT 36.4 (24.1-38.0) SEC Sodium (135-145) mmol/L Potassium (3.3-5.1) mmol/L Chloride (96-108) mmol/L Carbon Dioxide (22-29) mmol/L Anion Gap (12-20) BUN (9-16) mg/dL Creatinine (0.5-1.4) mg/dL Estim Creat Clear Calc Estimated GFR Random Glucose (60-115) mg/dL Lactic Acid (0.5-2.0) mmol/L Calcium (8.4-10.2) mg/dL Magnesium (1.6-2.6) mg/dL Total Bilirubin (0.0-1.0) mg/dL Direct Bilirubin (0.0-0.5) mg/dL AST (5-37) U/L ALT (0-40) U/L Alkaline Phosphatase (39-117) U/L Troponin I High Sens (<3.5-35.0) ng/L B-Natriuretic Peptide (<100) pg/mL Total Protein (6.5-8.0) g/dL Albumin (3.5-5.0) g/dL Lipase (8-78) U/L TSH (0.32-4.0) uIU/mL Ethyl Alcohol 51 mg/dL COVID-19 ([facility]I) Negative (Negative) COVID-19 Clin Com See Note 08/05/20 Range/Units 07:59 WBC (4.8-10.8) X10*3/uL RBC (4.60-5.80) X10*6/uL Hgb (14.0-18.0) g/dl Hct (42-52) % MCV (80-98) fL MCH (27.0-33.0) pg MCHC (31.0-36.0) g/dl RDW (11.0-16.0) % Plt Count (160-400) X10*3/uL MPV (9.4-12.4) fL Immature Gran % (Auto) (0.0-0.4) % Neut % (Auto) (45-73) % Lymph % (Auto) (20-40) % [place] % (Auto) (2-11) % Eos % (Auto) (0-4) % Baso % (Auto) (0-2) % Lymph # (Auto) (1.2-4.9) X10*3/uL [place] # (Auto) (0.1-1.2) X10*3/uL Eos # (Auto) (0.0-0.4) X10*3/uL Baso # (Auto) (0.0-0.2) X10*3/uL Abs Immat Gran (auto) (0.00-0.03) X10*3/uL Absolute Neuts (auto) (2.0-8.3) X10*3/uL Absolute Nucleated RBC (0.0-0.012) X10*3/uL Nucleated RBC % (auto) (0.0-0.2) /100WBC PT (10.8-13.0) SEC INR (0.9-1.1) APTT (24.1-38.0) SEC Sodium (135-145) mmol/L Potassium (3.3-5.1) mmol/L Chloride (96-108) mmol/L Carbon Dioxide (22-29) mmol/L Anion Gap (12-20) BUN (9-16) mg/dL Creatinine (0.5-1.4) mg/dL Estim Creat Clear Calc Estimated GFR Random Glucose (60-115) mg/dL Lactic Acid (0.5-2.0) mmol/L Calcium (8.4-10.2) mg/dL Magnesium (1.6-2.6) mg/dL Total Bilirubin (0.0-1.0) mg/dL Direct Bilirubin (0.0-0.5) mg/dL AST (5-37) U/L ALT (0-40) U/L Alkaline Phosphatase (39-117) U/L Troponin I High Sens 4.0 D (<3.5-35.0) ng/L B-Natriuretic Peptide 22 (<100) pg/mL Total Protein (6.5-8.0) g/dL Albumin (3.5-5.0) g/dL Lipase (8-78) U/L TSH (0.32-4.0) uIU/mL Ethyl Alcohol mg/dL COVID-19 (MAGALI) (Negative) COVID-19 Clin Com ECG Data Attestation: I personally reviewed and interpreted this ECG as follows: ECG interpretation date: 08/05/20 ECG interpretation time: 07:47 Interpretation: Rate: 82 Rhythm:NSR [place]: normal Normal P waves. Normal ALEJANDRA. Normal QRS complex. ST T wave : normal, no KENYON, t waves tall V3-V6 qTC: normal prior studies: no sig change but T waves are more prominent The study has been interpreted contemporaneously by me. . Discharge Plan Discharge Clinical Impression: Colitis, Pedal edema, Alcohol abuse Abdominal pain Qualifiers: Abdominal location: epigastric Qualified Code(s): R10.13 - Epigastric pain Patient Disposition: Home, Self-Care Instructions: Abuse of Alcohol (ED), Colitis (ED), Edema (ED) Additional Instructions: return to ED for any worsening symptoms or concerns Prescriptions: New ondansetron 4 mg tablet,disintegrating 4 mg PO Q8H PRN (Reason: nausea and vomiting) Qty: 20 RF: 0 amoxicillin-pot clavulanate [Augmentin] 875-125 mg tablet 1 tab PO BID Qty: 14 RF: 0 furosemide [Lasix] 20 mg tablet 10 mg PO QAM 3 Days Qty: 2 RF: 0 chlordiazepoxide HCl 25 mg capsule 50 mg PO Q4H PRN (Reason: alcohol withdrawal) Qty: 6 RF: 0 No Action acetaminophen [Tylenol] 325 mg Tablet 650 mg PO Q6H PRN (Reason: Pain) RF: 0 lisinopril 30 mg Tablet 30 mg PO DAILY RF: 0 ibuprofen [Motrin] 600 mg Tablet 600 mg PO Q8H PRN (Reason: Pain) RF: 0 buprenorphine-naloxone [Suboxone] 12-3 mg Film 1 film BUCCAL Q24H RF: 0 Referrals: [facility] [Primary Care Provider] - 2 days Stand Alone Forms: Work/School Release [facility] Past Medical History Attestation statement: The following information was validated with the patient. Medical History Alcohol abuse Asthma HTN (hypertension) Pancreatitis Surgical History (Updated 03/07/20 @ 21:12 by Abigail Darnell PA-C) H/O knee surgery H/O neck surgery Social History Social History (Updated 08/05/20 @ 06:47 by Autumn Rivas DO) Household Members: Friend(s) Housing: Apartment Alcohol intake: current Alcohol intake frequency: does not drink Smoking Status: Former smoker Tobacco Type: Cigarette Use of substances other than those prescribed or required for medical reasons: No Substance Use Type: Painkillers Advance Directives: No service: No Current occupational status: unemployed
--- NOTE | 2020-08-05 06:39 | ECG_ITS ---
Test Reason : LIMB SWELLING Blood Pressure : / mmHG Vent. Rate : 082 BPM Atrial Rate : 082 BPM P-R Int : 154 ms QRS Dur : 088 ms QT Int : 368 ms P-R-T Axes : 050 063 053 degrees QTc Int : 429 ms Normal sinus rhythm Normal ECG When compared with ECG of 07-MAR-2020 19:21, T wave amplitude has increased in Lateral leads Referred By: Autumn Rivas Electronically Signed By:PATRICK SINCLAIR
--- NOTE | 2020-08-05 07:32 | PC.NURSE ---
ultrasound at bedside.
[2020-08-05 08:07] VITALS: RESP 18
[2020-08-05] MEDS: ondansetron HCL 4 MG/2 ML VIAL IVPUSH (08:07)
[2020-08-05] MEDS: LORazepam 2 MG/ML VIAL 1 MG IVPUSH (08:07)
[2020-08-05] MEDS: Morphine Sulfate 4 MG/ML CARTRIDGE IVPUSH (08:07)
[2020-08-05 08:08] LABS: MANUAL DIFF FLAG NO
[2020-08-05 08:09] VITALS: PULSE 85; RESP 16; O2SAT 96
[2020-08-05 08:12] LABS: Basophils Percent Auto 0.3 % (0-2); Eosinophils Absolute Auto 0.3 X10*3/uL (0.0-0.4); Eosinophils Percent Auto 3.3 % (0-4); Hematocrit 41.5 % (42-52); Imm Gran Abs Auto 0.04 X10*3/uL (0.00-0.03); Imm Gran Pct Auto 0.4 % (0.0-0.4); Lymphocytes Absolute Auto 1.4 X10*3/uL (1.2-4.9); Lymphocytes Percent Auto 13.5 % (20-40); Mean Corpuscular HGB Conc 33.7 g/dl (31.0-36.0); Mean Corpuscular Hemoglobin 31.8 pg (27.0-33.0); Mean Corpuscular Volume 94.3 fL (80-98); Mean Platelet Volume 9.3 fL (9.4-12.4); Monocytes Percent Auto 9.7 % (2-11); Neutrophils Absolute Auto 7.5 X10*3/uL (2.0-8.3); Neutrophils Percent Auto 72.8 % (45-73); Platelet Count 210 X10*3/uL (160-400); Red Cell Distribution Width 12.6 % (11.0-16.0); White Blood Count 10.3 X10*3/uL (4.8-10.8)
[2020-08-05 08:19] LABS: Prothrombin Time 11.7 SEC (10.8-13.0)
[2020-08-05 08:21] LABS: Partial Thromboplastin Time 36.4 SEC (24.1-38.0)
[2020-08-05 08:23] LABS: COVID-19 Test Negative (Negative)
[2020-08-05 08:29] LABS: Ethanol 51 mg/dL
[2020-08-05 08:33] LABS: Alanine Aminotransferase 28 U/L (0-40); Albumin Level 4.7 g/dL (3.5-5.0); Alkaline Phosphatase 89 U/L (39-117); Anion Gap 13 (12-20); Aspartate Amino Transferase 27 U/L (5-37); Bilirubin Direct < 0.2 mg/dL (0.0-0.5); Bilirubin Total < 0.2 mg/dL (0.0-1.0); Blood Urea Nitrogen 12 mg/dL (9-16); Calcium 9.8 mg/dL (8.4-10.2); Carbon Dioxide 32 mmol/L (22-29); Chloride 99 mmol/L (96-108); Creatinine Clr Calc Pharmacy 131.9; Estimated Glomerular Filt Rate > 60; Glucose Random 112 mg/dL (60-115); Lipase 14 U/L (8-78); Magnesium 2.2 mg/dL (1.6-2.6); Potassium 4.4 mmol/L (3.3-5.1); Sodium 140 mmol/L (135-145); Total Protein 7.8 g/dL (6.5-8.0)
[2020-08-05 08:35] LABS: B Type Natriuretic Peptide 22 pg/mL (<100)
[2020-08-05 08:50] VITALS: BP 176/102; PULSE 90
[2020-08-05] MEDS: chlordiazePOXIDE HCl 25 MG CAPSULE 50 MG PO (08:59)
[2020-08-05 10:00] VITALS: RESP 18
[2020-08-05] MEDS: iohexoL 350 MG/ML 100 ML INFUS..BTL IV (10:37)
[2020-08-05 11:45] VITALS: BP 191/109; PULSE 88; RESP 18; O2SAT 96
== END 2020-08-05 11:59 | disposition home or self-care (01) ==
PROVIDERS: Emergency Provider Emergency Medicine
DX: F10.10 Alcohol abuse, uncomplicated (principal); Y90.2 Blood alcohol level of 40-59 mg/100 ml; K52.9 Noninfective gastroenteritis and colitis, unspecified; R60.0 Localized edema; Z20.822 Contact with and (suspected) exposure to COVID-19; R10.13 Epigastric pain; I10 Essential (primary) hypertension; F41.9 Anxiety disorder, unspecified
CPT/HCPCS: 36415; 74177; 80048; 80076; 80320; 83605; 83690; 83735; 83880; 84443; 84484; 85025; 85610; 85730; 87635; 93005; 93970; 96374; 96375; 99284; J2060; J2270; J2405; Q9967

== ENCOUNTER 2021-03-04 12:04 | Inpatient (IN) | payer MEDICAID, SELFPAY ==
[2021-03-04] VITALS (10 sets, daily range): BP systolic 168–204; BP diastolic 94–116; PULSE 95–121; RESP 18; TEMP 37.2–38.1; O2SAT 94–100; BMI 32.5
--- NOTE | ~2021-03-04 | US_ITS ---
EXAMINATION: US VENOUS ULTRASOUND WITH DOPPLER LOWER EXTREMITY, BILATERAL CLINICAL INFORMATION: Lower extremity edema. COMPARISON: None TECHNIQUE: Ultrasound of the deep veins is performed from the hip to the calf with compression sonography and color and pulse Doppler assessment. Spectral analysis with color-flow imaging is performed. FINDINGS: RIGHT: There is normal venous compression and respiratory variation and augmented flow. The visualized common femoral vein, superficial femoral vein, profunda femoral vein, popliteal vein, and the trifurcation region shows no evidence of deep venous thrombosis. The peroneal vein is not visualized. There is no significant popliteal fossa cyst. LEFT: There is normal venous compression and respiratory variation and augmented flow. The visualized common femoral vein, superficial femoral vein, profunda femoral vein, popliteal vein, and the trifurcation region shows no evidence of deep venous thrombosis. There is no significant popliteal fossa cyst. If the patient's symptoms persist, followup ultrasound in 5 days 7 days might be of value to exclude proximal propagation from a non-visualized calf vein. US/US venous duplex LE BI IMPRESSION: No DVT demonstrated in the bilateral lower extremity.
--- NOTE | ~2021-03-04 | XR_ITS ---
EXAMINATION: XR CHEST CLINICAL INFORMATION: Upper respiratory infection. COMPARISON: Most recent chest radiograph dated 03/10/2020. TECHNIQUE: Frontal view of the chest was obtained. FINDINGS: The lungs are clear. The cardiomediastinal silhouette is normal in size. There is no pleural effusion or pneumothorax. No acute osseous abnormality. XR/XR chest 1V IMPRESSION: No acute cardiopulmonary findings.
--- NOTE | ~2021-03-04 | CT_ITS ---
EXAMINATION: CT LOWER LEG WITHOUT CONTRAST, RIGHT CT LOWER LEG WITHOUT CONTRAST, LEFT CLINICAL INFORMATION: Leg pain, swelling, redness. Question necrotizing fasciitis. COMPARISON: Right and left tibia/fibula radiographs done earlier the same day. TECHNIQUE: Contiguous axial CT images of the right and left lower leg were obtained without contrast. Sagittal and coronal reformats were provided and reviewed. This CT examination was performed using dose optimization techniques as appropriate, variously including the following: *Automated exposure control *Adjustment of mA and/or kV according to patient size (this includes techniques or standardized protocols for targeted exams where dose is matched to indication/reason for exam; i.e. extremities or head) *Use of iterative reconstruction technique DOSE: 279 mGy-cm FINDINGS: There is bilateral circumferential subcutaneous edema and fat stranding, right slightly greater than left. No organized fluid collection or abscess formation. No soft tissue emphysema to suggest necrotizing fasciitis. The visualized vascular structures are unremarkable with normal contrast enhancement. No abnormal soft tissue mass or fluid collection. The visualized flexor and extensor muscles and tendons are grossly intact. No periosteal reaction. No cortical erosion or concerning lytic or blastic osseous lesion. No acute fracture or dislocation. Mild tricompartmental joint space narrowing with small marginal osteophytes within the right knee. Mild right knee medial and lateral compartment chondrocalcinosis. Trace right knee effusion. CT/CT lower leg LT w con IMPRESSION: Bilateral lower leg circumferential subcutaneous edema and fat stranding, right slightly greater than left. No abscess formation or soft tissue emphysema to suggest necrotizing fasciitis. No acute osseous abnormality. Mild tricompartmental osteoarthritis and trace joint effusion at the right knee.
--- NOTE | ~2021-03-04 | CT_ITS ---
EXAMINATION: CT LOWER LEG WITHOUT CONTRAST, RIGHT CT LOWER LEG WITHOUT CONTRAST, LEFT CLINICAL INFORMATION: Leg pain, swelling, redness. Question necrotizing fasciitis. COMPARISON: Right and left tibia/fibula radiographs done earlier the same day. TECHNIQUE: Contiguous axial CT images of the right and left lower leg were obtained without contrast. Sagittal and coronal reformats were provided and reviewed. This CT examination was performed using dose optimization techniques as appropriate, variously including the following: *Automated exposure control *Adjustment of mA and/or kV according to patient size (this includes techniques or standardized protocols for targeted exams where dose is matched to indication/reason for exam; i.e. extremities or head) *Use of iterative reconstruction technique DOSE: 279 mGy-cm FINDINGS: There is bilateral circumferential subcutaneous edema and fat stranding, right slightly greater than left. No organized fluid collection or abscess formation. No soft tissue emphysema to suggest necrotizing fasciitis. The visualized vascular structures are unremarkable with normal contrast enhancement. No abnormal soft tissue mass or fluid collection. The visualized flexor and extensor muscles and tendons are grossly intact. No periosteal reaction. No cortical erosion or concerning lytic or blastic osseous lesion. No acute fracture or dislocation. Mild tricompartmental joint space narrowing with small marginal osteophytes within the right knee. Mild right knee medial and lateral compartment chondrocalcinosis. Trace right knee effusion. CT/CT lower leg RT w con IMPRESSION: Bilateral lower leg circumferential subcutaneous edema and fat stranding, right slightly greater than left. No abscess formation or soft tissue emphysema to suggest necrotizing fasciitis. No acute osseous abnormality. Mild tricompartmental osteoarthritis and trace joint effusion at the right knee.
--- NOTE | ~2021-03-04 | XR_ITS ---
EXAMINATION: XR TIBIA/FIBULA, LEFT XR TIBIA/FIBULA, RIGHT CLINICAL INFORMATION: Swelling and redness COMPARISON: None TECHNIQUE: 2 views of the left tibia/fibula. 2 views of the right tibia/fibula. FINDINGS: Left tibia/fibula: No fracture or cortical disruption. No erosion. Appropriate alignment of the knee and ankle. The soft tissues are unremarkable. Right tibia/fibula: No fracture or cortical disruption. No erosion. Appropriate alignment of the knee and ankle. Diffuse soft tissue swelling. XR/XR tibia fibula RT 2V IMPRESSION: No osseous abnormality of either tibia/fibula. Right lower extremity soft tissue swelling.
--- NOTE | ~2021-03-04 | US_ITS ---
EXAMINATION: US RETROPERITONEAL LIMITED (RENAL ONLY) CLINICAL INFORMATION: Acute kidney injury. COMPARISON: CT abdomen pelvis 08/05/2020 TECHNIQUE: Grayscale and color Doppler imaging was obtained of both kidneys. FINDINGS: RIGHT KIDNEY: 10.4 x 7.1 x 6.1 cm (SAG x AP x TRV). The kidney is normal in size, contour, and echogenicity. Renal cortical thickness is normal. No calculi or focal parenchymal lesions. No hydronephrosis. LEFT KIDNEY: 11.1 x 7.3 x 5.8 cm (SAG x AP x TRV). The kidney is normal in size, contour, and echogenicity. Renal cortical thickness is normal. No calculi or focal parenchymal lesions. No hydronephrosis. US/US renal BI IMPRESSION: No renal calculi or hydronephrosis of either kidney.
--- NOTE | ~2021-03-04 | XR_ITS ---
EXAMINATION: XR TIBIA/FIBULA, LEFT XR TIBIA/FIBULA, RIGHT CLINICAL INFORMATION: Swelling and redness COMPARISON: None TECHNIQUE: 2 views of the left tibia/fibula. 2 views of the right tibia/fibula. FINDINGS: Left tibia/fibula: No fracture or cortical disruption. No erosion. Appropriate alignment of the knee and ankle. The soft tissues are unremarkable. Right tibia/fibula: No fracture or cortical disruption. No erosion. Appropriate alignment of the knee and ankle. Diffuse soft tissue swelling. XR/XR tibia fibula LT 2V IMPRESSION: No osseous abnormality of either tibia/fibula. Right lower extremity soft tissue swelling.
[2021-03-04 13:54] LABS: Basophils Percent Auto 0.2 % (0-2); Eosinophils Absolute Auto 0.2 X10*3/uL (0.0-0.4); Eosinophils Percent Auto 1.1 % (0-4); Hematocrit 36.3 % (42.0-52.0); Hemoglobin 12.2 g/dl (14.0-18.0); Imm Gran Abs Auto 0.06 X10*3/uL (0.00-0.03); Imm Gran Pct Auto 0.4 % (0.0-0.4); Lymphocytes Absolute Auto 0.8 X10*3/uL (1.2-4.9); Lymphocytes Percent Auto 5.2 % (20-40); MANUAL DIFF FLAG NO; Mean Corpuscular HGB Conc 33.6 g/dl (31.0-36.0); Mean Corpuscular Hemoglobin 32.7 pg (27.0-33.0); Mean Corpuscular Volume 97.3 fL (80.0-98.0); Mean Platelet Volume 9.4 fL (9.4-12.4); Monocytes Percent Auto 6.5 % (2-11); Neutrophils Absolute Auto 13.1 x10*3/uL (2.0-8.3); Neutrophils Percent Auto 86.6 % (45-73); Platelet Count 149 X10*3/uL (160-400); Red Blood Count 3.73 X10*6/uL (4.60-5.80); Red Cell Distribution Width 12.9 % (11.0-16.0); White Blood Count 15.2 X10*3/uL (4.8-10.8)
[2021-03-04 14:11] LABS: Alanine Aminotransferase 29 U/L (0-40); Albumin Level 4.6 g/dL (3.5-5.0); Alkaline Phosphatase 69 U/L (39-117); Anion Gap 12 (12-20); Aspartate Amino Transferase 25 U/L (5-37); Bilirubin Direct 0.2 mg/dL (0.0-0.5); Bilirubin Total 0.4 mg/dL (0.0-1.0); Blood Urea Nitrogen 17 mg/dL (9-16); Calcium 9.1 mg/dL (8.4-10.2); Carbon Dioxide 27 mmol/L (22-29); Chloride 104 mmol/L (96-108); Estimated Glomerular Filt Rate > 60; Glucose Random 125 mg/dL (60-115); Lipase 19 U/L (8-78); Potassium 4.3 mmol/L (3.3-5.1); Sodium 139 mmol/L (135-145); Total Protein 7.4 g/dL (6.5-8.0)
[2021-03-04 14:15] LABS: B Type Natriuretic Peptide 116 pg/mL (<100)
--- NOTE | 2021-03-04 14:33 | PC.NURSE ---
reddness and swelling and warmth right reynolds worse than right. started this am. pt unsure if he took htn meds this am
--- NOTE | 2021-03-04 14:52 | ECG_ITS ---
Test Reason : SOB Blood Pressure : / mmHG Vent. Rate : 107 BPM Atrial Rate : 107 BPM P-R Int : 156 ms QRS Dur : 086 ms QT Int : 338 ms P-R-T Axes : 046 057 039 degrees QTc Int : 451 ms Sinus tachycardia Otherwise normal ECG When compared with ECG of 05-AUG-2020 07:38, T wave amplitude has decreased in Lateral leads Heart rate has increased Referred By: Milo Freedman Electronically Signed By:COLLIN GRIMES MD
[2021-03-04] MEDS: Ketorolac Tromethamine 15 MG/ML VIAL 30 MG IVPUSH (15:08)
[2021-03-04 15:13] LABS: Prothrombin Time 11.1 SEC (9.9-13.0)
[2021-03-04 15:15] LABS: Lactic Acid 1.1 mmol/L (0.5-2.0); Partial Thromboplastin Time 36.3 SEC (24.1-38.0)
[2021-03-04 15:17] LABS: C Reactive Protein 14.41 mg/dL (< or = 0.50)
[2021-03-04] MEDS: Piperacillin Sodium/Tazobactam 3.375 GM in 0.9 % Sodium Chloride 50 ML IV (15:31)
[2021-03-04] MEDS: vancomycin HCL 1,250 MG in 0.9 % Sodium Chloride 250 ML 166.67 MG IV (16:05)
[2021-03-04] MEDS: Morphine Sulfate 4 MG/ML CARTRIDGE IVPUSH ×3 (16:05→21:10)
[2021-03-04 16:09] LABS: Erythrocyte Sedimentation Rate 20 MM/HR (0-15)
--- NOTE | 2021-03-04 16:43 | ED_ITS ---
HPI - Extremity Problem General Chief complaint: Extremity Problem Stated complaint: rt calf/foot swollen Time Seen by Provider: 03/04/21 13:40 Source: patient Mode of arrival: ambulatory Limitations: no limitations History of Present Illness HPI Narrative: PATIENT PRESENTS TO ED BILATERAL LOWER EXTREMITY SWELLING WITH REDNESS THAT BEGAN THIS MORNING. PATIENT STAYS RIGHT LOWER EXTREMITY SWELLING RAPIDLY WORSEN. PATIENT STATES YESTERDAY HIS LEGS WERE NORMAL. PATIENT DENIES ANY CHEST PAIN, SHORTNESS OF BREATH. PATIENT DOES STATES BODY ACHES, CHILLS, SUBJECTIVE FEVER. PATIENT DENIES ANY TRAUMA TO LOWER EXTREMITIES. PATIENT DENIES ANY IV DRUG USE OR INSECT BITE. PATIENT DENIES GOING TO THE [facility] RECENTLY. MD Complaint: extremity pain and extremity swelling Related Data Home Medications Medication Instructions Recorded Confirmed acetaminophen 325 mg tablet 650 mg PO Q6H PRN 03/07/20 03/07/20 (Tylenol) buprenorphine 12 mg-naloxone 3 mg 1 film BUCCAL Q24H 03/07/20 03/07/20 sublingual film (Suboxone) ibuprofen 600 mg tablet 600 mg PO Q8H PRN 03/07/20 03/07/20 lisinopril 30 mg tablet 30 mg PO DAILY 03/07/20 03/07/20 Previous Rx's Medication Instructions Recorded amoxicillin 875 mg-potassium 1 tab PO BID #14 tab 08/05/20 clavulanate 125 mg tablet (Augmentin) chlordiazepoxide HCl 25 mg capsule 50 mg PO Q4H PRN #6 cap 08/05/20 furosemide 20 mg tablet (Lasix) 10 mg PO QAM 3 Days #2 tab 08/05/20 ondansetron 4 mg disintegrating 4 mg PO Q8H PRN #20 tab 08/05/20 tablet cephalexin 500 mg capsule 500 mg PO QID #28 cap 03/04/21 doxycycline hyclate 100 mg capsule 100 mg PO BID 7 Days #14 cap 03/04/21 naproxen 500 mg tablet 500 mg PO BID PRN #20 tab 03/04/21 Allergies Allergy/AdvReac Type Severity Reaction Status Date / Time codeine [CODEINE] AdvReac Unknown STOMACH Verified 03/07/20 23:03 UPSET From FLEXERIL AdvReac Severe Confusion Uncoded 03/09/20 07:18 Review of Systems Review of Systems: Yes all other systems are reviewed and are negative Constitutional: Constitutional: Reports as per HPI and Reports no additional constitutional complaints Eyes: Eyes: Reports as per HPI and Reports no additional eye complaints ENT: Reports system reviewed and no additional complaints, except as documented and Reports as per HPI Cardiovascular: Cardiovascular: Reports as per HPI and Reports no additional cardiovascular complaints Respiratory: Respiratory: Reports as per HPI and Reports no additional respiratory complaints Gastrointestinal: Gastrointestinal: Reports as per HPI and Reports no additional gastrointestinal complaints Genitourinary: Genitourinary: Reports no additional male genitourinary complaints and Reports as per HPI Musculoskeletal: Musculoskeletal: Reports no additional musculoskeletal compl aints and Reports as per HPI Comments: BILATERAL LOWER EXTREMITY LEG SWELLING WITH ERYTHEMA AND TENDERNESS. Neurologic: Reports system reviewed and no additional complaints, except as documented and Reports as per HPI Psychiatric: Psychiatric: Reports no additional psychiatric complaints and Reports as per HPI [facility] Past Medical History Medical History Alcohol abuse Asthma HTN (hypertension) Pancreatitis Surgical History H/O knee surgery H/O neck surgery Social History Social History (Updated 08/05/20 @ 06:47 by Autumn Rivas DO) Household Members: Friend(s) Housing: Apartment Do you presently have visiting nurse or other home services: No Alcohol intake: current Alcohol intake frequency: does not drink Patient Tobacco Use Status: Current everyday Tobacco user Use of substances other than those prescribed or required for medical reasons: Yes Substance Use Type: Painkillers Advance Directives: No service: No Current occupational status: unemployed Physical Exam Vital Signs: Vital Signs: Last Vital Signs Temp 100.5 F H 03/04/21 18:42 Pulse 120 H 03/04/21 18:42 Resp 18 03/04/21 18:42 BP 181/114 H 03/04/21 18:42 Pulse Ox 94 03/04/21 18:42 Body Mass Index 32.5 Const: General: cooperative, healthy appearing, comfortable, no acute distress, well developed, alert, awake and Physically active Orientation/consciousness: patient oriented x3 HENMT: Head: Yes normal to inspection, Yes No palpable skull fracture present, Yes normocephalic, Yes atraumatic and No abrasion Eyes: General: appearance normal, both eyes and all related structures Neck: Neck: Yes normal visual inspection, Yes full ROM, Yes no lymphadenopathy, Yes no meningeal signs, Yes trachea midline, Yes supple and No tender Chest: Chest palpation & inspection: normal inspection of the chest and normal palpation of entire chest wall Resp: Effort & Inspection: normal respiratory effort and able to speak in complete sentences Auscultation: clear to auscultation bilaterally Cardio: Jugular venous distension: no JVD Heart sounds: S1 normal heart sound present and S2 normal heart sound present GI: Inspection: Yes normal to inspection and No abdominal wall ecchymosis Palpation (GI): Soft to palpation, not firm, nontender, no guarding and not rigid : General: No CVA tenderness and Yes no CVA tenderness Back/Spine/Pelvis: Back: no CVA tenderness, No CVA tenderness and No back tenderness Skin: General skin exam: no rashes or lesions noted and elasticity normal Neuro: General: patient oriented x3, gait normal, no meningeal signs and CN's II-XI intact bilaterally Cranial nerves: Yes CN's II-XII intact bilaterally Extrem: Other: POSITIVE FOR BILATERAL SWELLING AND REDNESS OF LOWER EXTREMITIES. LOSS REDNESS SIGNIFICANTLY AND RIGHT LOWER EXTREMITY. BOTH LOWER EXTREMITIES NEGATIVE FOR ANY WOUNDS OF THE FOOT. Bilateral lower extreities motor, neuro, and vascular exam is intact. General: Yes normal to inspection and Yes full ROM Psych: Appearance: grossly normal, well kempt and not disheveled Course Course Course Narrative: Will do blood work, x-ray, and ultrasound. Differential DVT versus cellulitis. Reevaluation(s) Reevaluation #1: X-ray negative for osteomyelitis. White count of 15,000. Patient tachycardic.. Patient hypertensive due to extreme pain. Bilateral ultrasound negative for blood clot. Will send for CT scan to rule out necrotizing fasciitis due to severity and quickness of erythema and swelling. Time: 17:04 Reevaluation #2: Patient is still tachycardic and severe pain after multiple rounds of narcotics an NSAID. CT scan negative for necrotizing fasciitis with patient still in pain and now is febrile. Discuss case with Dr. aponte for possible admission he recommended patient could be discharged for P0 trial antibiotics but then states he will signed out to night hospitallist for re- evaluation of patient to see patient to be admitted. Will sign out case to GAVIOTA rodriguez. Time: 18:50 MDM - Extremity (Nontraumatic) MDM Narrative Medical decision making narrative: Cellulitis bilateral legs. Lab Data Result diagrams: 03/04/21 13:47 03/04/21 13:47 Labs: Lab Results 03/04/21 03/04/21 03/04/21 Range/Units 13:47 13:47 13:47 WBC 15.2 H (4.8-10.8) X10*3/uL RBC 3.73 L (4.60-5.80) X10*6/uL Hgb 12.2 L (14.0-18.0) g/dl Hct 36.3 L (42.0-52.0) % MCV 97.3 (80.0-98.0) fL MCH 32.7 (27.0-33.0) pg MCHC 33.6 (31.0-36.0) g/dl RDW 12.9 (11.0-16.0) % Plt Count 149 L (160-400) X10*3/uL MPV 9.4 (9.4-12.4) fL Immature Gran % (Auto) 0.4 (0.0-0.4) % Neut % (Auto) 86.6 H (45-73) % Lymph % (Auto) 5.2 L (20-40) % [place] % (Auto) 6.5 (2-11) % Eos % (Auto) 1.1 (0-4) % Baso % (Auto) 0.2 (0-2) % Lymph # (Auto) 0.8 L (1.2-4.9) X10*3/uL [place] # (Auto) 1.0 (0.1-1.2) X10*3/uL Eos # (Auto) 0.2 (0.0-0.4) X10*3/uL Baso # (Auto) 0.0 (0.0-0.2) X10*3/uL Abs Immat Gran (auto) 0.06 H (0.00-0.03) X10*3/uL Absolute Neuts (auto) 13.1 H (2.0-8.3) x10*3/uL Absolute Nucleated RBC 0.000 (0.0-0.012) X10*3/uL Nucleated RBC % (auto) 0.0 (0.0-0.2) /100WBC ESR (0-15) MM/HR PT (9.9-13.0) SEC INR (0.9-1.1) APTT (24.1-38.0) SEC Sodium 139 (135-145) mmol/L Potassium 4.3 (3.3-5.1) mmol/L Chloride 104 (96-108) mmol/L Carbon Dioxide 27 (22-29) mmol/L Anion Gap 12 (12-20) BUN 17 H (9-16) mg/dL Creatinine 0.83 (0.5-1.4) mg/dL Estim Creat Clear Calc 124.0 Estimated GFR > 60 Random Glucose 125 H (60-115) mg/dL Lactic Acid (0.5-2.0) mmol/L Calcium 9.1 D (8.4-10.2) mg/dL Total Bilirubin 0.4 (0.0-1.0) mg/dL Direct Bilirubin 0.2 (0.0-0.5) mg/dL AST 25 (5-37) U/L ALT 29 (0-40) U/L Alkaline Phosphatase 69 D (39-117) U/L C-Reactive Protein (< or = 0.50) mg/dL B-Natriuretic Peptide 116 H (<100) pg/mL Total Protein 7.4 (6.5-8.0) g/dL Albumin 4.6 (3.5-5.0) g/dL Lipase 19 (8-78) U/L 03/04/21 03/04/21 03/04/21 Range/Units 15:00 15:00 15:00 WBC (4.8-10.8) X10*3/uL RBC (4.60-5.80) X10*6/uL Hgb (14.0-18.0) g/dl Hct (42.0-52.0) % MCV (80.0-98.0) fL MCH (27.0-33.0) pg MCHC (31.0-36.0) g/dl RDW (11.0-16.0) % Plt Count (160-400) X10*3/uL MPV (9.4-12.4) fL Immature Gran % (Auto) (0.0-0.4) % Neut % (Auto) (45-73) % Lymph % (Auto) (20-40) % [place] % (Auto) (2-11) % Eos % (Auto) (0-4) % Baso % (Auto) (0-2) % Lymph # (Auto) (1.2-4.9) X10*3/uL [place] # (Auto) (0.1-1.2) X10*3/uL Eos # (Auto) (0.0-0.4) X10*3/uL Baso # (Auto) (0.0-0.2) X10*3/uL Abs Immat Gran (auto) (0.00-0.03) X10*3/uL Absolute Neuts (auto) (2.0-8.3) x10*3/uL Absolute Nucleated RBC (0.0-0.012) X10*3/uL Nucleated RBC % (auto) (0.0-0.2) /100WBC ESR 20 H (0-15) MM/HR PT 11.1 (9.9-13.0) SEC INR 1.0 (0.9-1.1) APTT 36.3 (24.1-38.0) SEC Sodium (135-145) mmol/L Potassium (3.3-5.1) mmol/L Chloride (96-108) mmol/L Carbon Dioxide (22-29) mmol/L Anion Gap (12-20) BUN (9-16) mg/dL Creatinine (0.5-1.4) mg/dL Estim Creat Clear Calc Estimated GFR Random Glucose (60-115) mg/dL Lactic Acid 1.1 (0.5-2.0) mmol/L Calcium (8.4-10.2) mg/dL Total Bilirubin (0.0-1.0) mg/dL Direct Bilirubin (0.0-0.5) mg/dL AST (5-37) U/L ALT (0-40) U/L Alkaline Phosphatase (39-117) U/L C-Reactive Protein (< or = 0.50) mg/dL B-Natriuretic Peptide (<100) pg/mL Total Protein (6.5-8.0) g/dL Albumin (3.5-5.0) g/dL Lipase (8-78) U/L 03/04/21 Range/Units 15:00 WBC (4.8-10.8) X10*3/uL RBC (4.60-5.80) X10*6/uL Hgb (14.0-18.0) g/dl Hct (42.0-52.0) % MCV (80.0-98.0) fL MCH (27.0-33.0) pg MCHC (31.0-36.0) g/dl RDW (11.0-16.0) % Plt Count (160-400) X10*3/uL MPV (9.4-12.4) fL Immature Gran % (Auto) (0.0-0.4) % Neut % (Auto) (45-73) % Lymph % (Auto) (20-40) % [place] % (Auto) (2-11) % Eos % (Auto) (0-4) % Baso % (Auto) (0-2) % Lymph # (Auto) (1.2-4.9) X10*3/uL [place] # (Auto) (0.1-1.2) X10*3/uL Eos # (Auto) (0.0-0.4) X10*3/uL Baso # (Auto) (0.0-0.2) X10*3/uL Abs Immat Gran (auto) (0.00-0.03) X10*3/uL Absolute Neuts (auto) (2.0-8.3) x10*3/uL Absolute Nucleated RBC (0.0-0.012) X10*3/uL Nucleated RBC % (auto) (0.0-0.2) /100WBC ESR (0-15) MM/HR PT (9.9-13.0) SEC INR (0.9-1.1) APTT (24.1-38.0) SEC Sodium (135-145) mmol/L Potassium (3.3-5.1) mmol/L Chloride (96-108) mmol/L Carbon Dioxide (22-29) mmol/L Anion Gap (12-20) BUN (9-16) mg/dL Creatinine (0.5-1.4) mg/dL Estim Creat Clear Calc Estimated GFR Random Glucose (60-115) mg/dL Lactic Acid (0.5-2.0) mmol/L Calcium (8.4-10.2) mg/dL Total Bilirubin (0.0-1.0) mg/dL Direct Bilirubin (0.0-0.5) mg/dL AST (5-37) U/L ALT (0-40) U/L Alkaline Phosphatase (39-117) U/L C-Reactive Protein 14.41 H (< or = 0.50) mg/dL B-Natriuretic Peptide (<100) pg/mL Total Protein (6.5-8.0) g/dL Albumin (3.5-5.0) g/dL Lipase (8-78) U/L Discharge Plan Discharge Clinical Impression: Cellulitis Instructions: Cellulitis (ED) Additional Instructions: Return to ED for worsening redness, increased pain, chest pain, shortness of breath, intractable fever, weakness, dizziness, or any other concerning symptoms. Prescriptions: New cephalexin 500 mg capsule 500 mg PO QID Qty: 28 RF: 0 doxycycline hyclate 100 mg capsule 100 mg PO BID 7 Days Qty: 14 RF: 0 naproxen 500 mg tablet 500 mg PO BID PRN (Reason: pain) Qty: 20 RF: 0 No Action acetaminophen [Tylenol] 325 mg Tablet 650 mg PO Q6H PRN (Reason: Pain) RF: 0 lisinopril 30 mg Tablet 30 mg PO DAILY RF: 0 ibuprofen [Motrin] 600 mg Tablet 600 mg PO Q8H PRN (Reason: Pain) RF: 0 buprenorphine-naloxone [Suboxone] 12-3 mg Film 1 film BUCCAL Q24H RF: 0 ondansetron 4 mg tablet,disintegrating 4 mg PO Q8H PRN (Reason: nausea and vomiting) Qty: 20 RF: 0 amoxicillin-pot clavulanate [Augmentin] 875-125 mg tablet 1 tab PO BID Qty: 14 RF: 0 furosemide [Lasix] 20 mg tablet 10 mg PO QAM 3 Days Qty: 2 RF: 0 chlordiazepoxide HCl 25 mg capsule 50 mg PO Q4H PRN (Reason: alcohol withdrawal) Qty: 6 RF: 0
[2021-03-04] MEDS: iohexoL 350 MG/ML 100 ML INFUS..BTL IV (17:49)
[2021-03-04] MEDS: HYDROmorphone HCl 0.5 MG/0.5 ML SYRINGE IVPUSH (18:42)
[2021-03-04] MEDS: Acetaminophen 325 MG TABLET 650 MG PO (19:18)
--- NOTE | 2021-03-04 19:19 | PC.NURSE ---
pt awake and sitting up in stretcher, pt c/o pain to right lower leg. pt medicated with Tylenol PO for pain and fever. Pt awaiting for hospitalist for eval. Respirations easy, n/l. skin w/d. will continue to monitor pt.
--- NOTE | 2021-03-04 19:33 | PC.NURSE ---
hospitalist in room for eval.
--- NOTE | 2021-03-04 19:40 | PC.NURSE ---
covid swab obtained.
[2021-03-04 19:53] LABS: COVID-19 Test Negative (Negative)
--- NOTE | 2021-03-04 20:27 | PHA.MEDREC ---
Pharmacy Consult ? Medication Reconciliation Pharmacy has completed the medication reconciliation. Patient reports getting methadone from [facility]. RN will have to call in the AM to verify dose in the AM. Braydon OrellanaD
[2021-03-04] MEDS: cefTRIAXone sodium 1 GM in 0.9 % Sodium Chloride 50 ML IV (21:10)
[2021-03-04] MEDS: Enoxaparin Sodium 40 MG/0.4 ML SYRINGE SUBCUT (21:11)
--- NOTE | 2021-03-04 21:33 | P.HPHOSP_ITS ---
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 Patient describes the pain as 8/10, has swelling, he denies any nausea vomiting, no abdominal pain, no diarrhea or constipation, he has had upper respiratory congestion for the past 1 week with rhinorrhea, mild cough, no fever, no shortness of breath Temp of a 100.5?, heart rate of 120, respiratory rate of 18, blood pressure 181/114 Labs are significant for WBC of 13.8, hemoglobin of 11.6, ESR of 20, CRP of 14, BNP of 116 otherwise unremarkable COVID-19 negative, Chest x-ray showed no cardiopulmonary abnormality Venous duplex shows no DVT Lower extremity CT shows bilateral lower leg circumferential subcutaneous edema and fat stranding, right slightly greater than left, no abscess formation or soft tissue emphysema to suggest necrotizing fasciitis, no acute osseous abnormality Patient will be admitted further manage Review of Systems Review of Systems: Yes all other systems are reviewed and are negative [facility] Medical History Alcohol abuse Asthma HTN (hypertension) Pancreatitis Family History (Updated 03/05/21 @ 06:45 by William Stein MD) Other Parkinsons disease Pertinent family history: Father diagnosed with Parkinson's Surgical History H/O knee surgery H/O neck surgery Social History (Updated 03/05/21 @ 06:46 by William Stein MD) Household Members: Friend(s) Housing: Apartment Do you presently have visiting nurse or other home services: No Alcohol intake: current Patient Tobacco Use Status: Current everyday Tobacco user Use of substances other than those prescribed or required for medical reasons: Yes Substance Use Type: Painkillers Advance Directives: No service: No Current occupational status: unemployed Meds Allergies Allergy/AdvReac Type Severity Reaction Status Date / Time codeine [CODEINE] AdvReac Unknown STOMACH Verified 03/07/20 23:03 UPSET From FLEXERIL AdvReac Severe Confusion Uncoded 03/09/20 07:18 Active Medications: Current Medications Acetaminophen (Acetaminophen 325 Mg Tablet) 650 mg PO Q6H PRN PRN Reason: Pain, Mild (Pain Scale 1-3) Docusate Sodium (Docusate Sodium 100 Mg Capsule) 100 mg PO DAILY PRN PRN Reason: Constipation Enoxaparin Sodium (Enoxaparin Sodium 40 Mg/0.4 Ml Syringe) 40 mg SUBCUT Q24H [facility] Last Admin: 03/04/21 21:11 Dose: 40 mg Documented by: Folic Acid (Folic Acid 1 Mg Tablet) 1 mg PO DAILY [facility] Ceftriaxone Sodium 1 gm/ (Sodium Chloride) 50 mls @ 100 mls/hr IV Q24H [facility] Last Admin: 03/04/21 21:10 Dose: 100 mls/hr Documented by: Lisinopril (Lisinopril 10 Mg Tablet) 30 mg PO DAILY [facility]; Protocol Morphine Sulfate (Morphine Sulfate 4 Mg/Ml Cartridge) 4 mg IVPUSH Q4H PRN; Protocol PRN Reason: Pain, Severe (Pain Scale 7-10) Last Admin: 03/04/21 21:10 Dose: 4 mg Documented by: Multivitamins/Vitamin C (Multivitamin Tablet) 1 tab PO DAILY [facility] Ondansetron HCl (Ondansetron Hcl 4 Mg/2 Ml Vial) 4 mg IVPUSH Q8H PRN PRN Reason: Nausea and Vomiting Pharmacy Consult (Consult Rx Perform Med Rec) 1 each MISCELLANE ONCE PRN PRN Reason: Consult order Sodium Chloride (0.9 % Sodium Chloride Flush 3 Ml Syringe) 3 ml IVFLUSH QSHIFT [facility] Thiamine HCl (Thiamine Hcl 100 Mg Tablet) 100 mg PO DAILY [facility] Home Medications Medication Instructions Recorded Confirmed Last Taken Type lisinopril 30 mg tablet 30 mg PO DAILY 03/07/20 03/04/21 03/04/21 History acetaminophen 500 mg tablet 1,000 mg PO QID PRN 03/04/21 03/04/21 Unknown History folic acid 1 mg tablet 1 tab PO DAILY 03/04/21 03/04/21 03/04/21 History ibuprofen 800 mg tablet 800 mg PO Q6H PRN 03/04/21 03/04/21 Unknown History methadone 10 mg tablet mg PO DAILY 03/04/21 Unknown History [id number] 1 tab PO DAILY 03/04/21 03/04/21 03/04/21 History tablet ([employer]) thiamine HCl (vitamin B1) 100 mg 1 tab PO DAILY 03/04/21 03/04/21 03/04/21 History tablet Physical Exam Vital Signs and Narrative: Vital Signs: Last Vital Signs Temp 100.5 F H 03/04/21 18:42 Pulse 120 H 03/04/21 18:42 Resp 18 03/04/21 21:10 BP 181/114 H 03/04/21 18:42 Pulse Ox 94 03/04/21 18:42 Body Mass Index 32.5 Const: General: cooperative and no acute distress Orientation/consciousness: patient oriented x3 Eyes: General: appearance normal, both eyes and all related structures Resp: Effort & Inspection: normal respiratory effort Auscultation: clear to auscultation bilaterally Cardio: Rate: regular rate Rhythm: regular rhythm GI: Palpation (GI): Soft to palpation Auscultation: normal bowel sounds Skin: Other: Right lower extremity erythema, tenderness, warmth, and edema Neuro: General: patient oriented x3 Cognition (Neuro): normal cognition Extrem: Other: Edema and right lower extreme General: Yes normal to i nspection and Yes no pedal edema Results Labs CBC and Chem 7: 03/05/21 05:55 03/05/21 05:55 Labs: Laboratory Results - last 24 hr 03/04/21 03/04/21 03/04/21 13:47 13:47 13:47 MCV 97.3 MCH 32.7 MCHC 33.6 RDW 12.9 Plt Count 149 L MPV 9.4 Immature Gran % (Auto) 0.4 Neut % (Auto) 86.6 H Lymph % (Auto) 5.2 L [place] % (Auto) 6.5 Eos % (Auto) 1.1 Baso % (Auto) 0.2 Lymph # (Auto) 0.8 L [place] # (Auto) 1.0 Eos # (Auto) 0.2 Baso # (Auto) 0.0 Abs Immat Gran (auto) 0.06 H Absolute Neuts (auto) 13.1 H Absolute Nucleated RBC 0.000 Nucleated RBC % (auto) 0.0 ESR PT INR APTT Anion Gap 12 Estim Creat Clear Calc 124.0 Estimated GFR > 60 Random Glucose 125 H Lactic Acid Calcium 9.1 D Total Bilirubin 0.4 Direct Bilirubin 0.2 AST 25 ALT 29 Alkaline Phosphatase 69 D C-Reactive Protein B-Natriuretic Peptide 116 H Total Protein 7.4 Albumin 4.6 Lipase 19 COVID-19 ([facility]) COVID-19 Clin Com 03/04/21 03/04/21 03/04/21 15:00 15:00 15:00 MCV MCH MCHC RDW Plt Count MPV Immature Gran % (Auto) Neut % (Auto) Lymph % (Auto) [place] % (Auto) Eos % (Auto) Baso % (Auto) Lymph # (Auto) [place] # (Auto) Eos # (Auto) Baso # (Auto) Abs Immat Gran (auto) Absolute Neuts (auto) Absolute Nucleated RBC Nucleated RBC % (auto) ESR 20 H PT 11.1 INR 1.0 APTT 36.3 Anion Gap Estim Creat Clear Calc Estimated GFR Random Glucose Lactic Acid 1.1 Calcium Total Bilirubin Direct Bilirubin AST ALT Alkaline Phosphatase C-Reactive Protein B-Natriuretic Peptide Total Protein Albumin Lipase COVID-19 ([facility]) COVID-19 Clin Com 03/04/21 03/04/21 15:00 19:37 MCV MCH MCHC RDW Plt Count MPV Immature Gran % (Auto) Neut % (Auto) Lymph % (Auto) [place] % (Auto) Eos % (Auto) Baso % (Auto) Lymph # (Auto) [place] # (Auto) Eos # (Auto) Baso # (Auto) Abs Immat Gran (auto) Absolute Neuts (auto) Absolute Nucleated RBC Nucleated RBC % (auto) ESR PT INR APTT Anion Gap Estim Creat Clear Calc Estimated GFR Random Glucose Lactic Acid Calcium Total Bilirubin Direct Bilirubin AST ALT Alkaline Phosphatase C-Reactive Protein 14.41 H B-Natriuretic Peptide Total Protein Albumin Lipase COVID-19 ([facility]) Negative COVID-19 Clin Com See Note Imaging Radiologist's Impressions: Impressions Tibia/Fibula X-Ray 03/04/21 14:33 IMPRESSION: No osseous abnormality of either tibia/fibula. Right lower extremity soft tissue swelling. Tibia/Fibula X-Ray 03/04/21 14:33 IMPRESSION: No osseous abnormality of either tibia/fibula. Right lower extremity soft tissue swelling. Venous Duplex 03/04/21 14:33 IMPRESSION: No DVT demonstrated in the bilateral lower extremity. Lower Extremity CT 03/04/21 16:40 IMPRESSION: Bilateral lower leg circumferential subcutaneous edema and fat stranding, right slightly greater than left. No abscess formation or soft tissue emphysema to suggest necrotizing fasciitis. No acute osseous abnormality. Mild tricompartmental osteoarthritis and trace joint effusion at the right knee. Lower Extremity CT 03/04/21 16:40 IMPRESSION: Bilateral lower leg circumferential subcutaneous edema and fat stranding, right slightly greater than left. No abscess formation or soft tissue emphysema to suggest necrotizing fasciitis. No acute osseous abnormality. Mild tricompartmental osteoarthritis and trace joint effusion at the right knee. Chest X-Ray 03/04/21 19:37 IMPRESSION: No acute cardiopulmonary findings. Assessment and Plan (1) Cellulitis: Status: Acute (2) Alcohol abuse with withdrawal: Status: Acute (3) Sepsis: Status: Acute past medical history of hypertension as well as alcohol abuse presents to the hospital with left lower extremity cellulitis # sepsis - secondary to cellulitis - tachycardic, tachypneic which possibly is multifactorial secondary to alcohol withdrawal - has leukocytosis and is febrile - will start on IV and - follow culture # left lower extremity cellulitis - has erythema, tenderness, warmth and ED - start him on antibiotic - follow cultures # alcohol abuse with alcohol withdrawal - will start him on phenobarb protocol - continue thiamine and folic acid # hypertension - elevated most likely secondary to alcohol withdraw as well as pain - resume home medication DVT prophylaxis: Lovenox Quality Stroke Does the patient have a stroke diagnosis?: No VTE Prior VTE?: No VTE Risk Level:: Medical - moderate - high VTE Device Contraindication: Treatment Not Indicated VTE Drug Contraindication: N/A - Med Ordered
--- NOTE | 2021-03-04 23:02 | PC.NURSE ---
pt requesting food and given a sandwich and zain kim to eat. pt's b/p is 180/116. Hospitalist notified of pt's b/p and ordered b/p meds. pt remains on monitor with hr 108. Pt up to restroom without difficulty with steady even gait and returns to stretcher awaiting room assignment. CIWA obtained and Hospitalist aware. Pt denies any other complaints at this time.
[2021-03-04] MEDS: hydrALAZINE HCl 20 MG/ML VIAL 5 MG IVPUSH (23:30)
--- NOTE | 2021-03-04 23:35 | PC.NURSE ---
pt medicated as per emar for high b/p.
[2021-03-05] VITALS (11 sets, daily range): BP systolic 155–182; BP diastolic 78–99; PULSE 62–107; RESP 16–24; TEMP 36.1–36.9; O2SAT 95–98
[2021-03-05] MEDS: Morphine Sulfate 4 MG/ML CARTRIDGE IVPUSH ×2 (01:00→05:43)
--- NOTE | 2021-03-05 02:06 | PC.NURSE ---
PT IS RESTLESS, BREATHING RAPIDLY, HR 110-115. PT SHAKING SLIGHTLY, NO SWEATING. HOSPITALIST AWARE AND IS ORDERING MEDS TO RELAX PT. VS OBTAINED. PT UP TO RESTROOM WITHOUT DIFFICULTY. PT AWAITING FOR MEDICATION.
--- NOTE | 2021-03-05 02:16 | PC.NURSE ---
CIWI OBTAINED. DR. MIRZA AWARE AND ORDERING ATIVAN FOR WITHDRAWAL SYMPTOMS.
[2021-03-05] MEDS: 0.9 % Sodium Chloride Flush 3 ML SYRINGE IVFLUSH ×3 (02:23→16:44)
--- NOTE | 2021-03-05 02:44 | PC.NURSE ---
This RN contacting pharmacy regarding ordered Phenobarb. Per pharmacy, working on protocol.
[2021-03-05] MEDS: PHENobarbitaL sodium 130 MG/ML VIAL 285 MG IM (02:53)
[2021-03-05] MEDS: PHENobarbitaL sodium 130 MG/ML VIAL 213 MG IM ×2 (05:37→10:26)
[2021-03-05] MEDS: Acetaminophen 325 MG TABLET 650 MG PO (05:44)
--- NOTE | 2021-03-05 05:54 | PC.NURSE ---
PT MEDICATED FOR PAIN TO LEON LE RATING 10/10. PT FEELING SHAKY AND SWEATING. PT MEDICATED WITH PENTOBARBITAL PER EMAR. PT AWAITING FOR ROOM ASSIGNMENT.
[2021-03-05 06:02] LABS: MANUAL DIFF FLAG NO
[2021-03-05 06:05] LABS: Basophils Percent Auto 0.2 % (0-2); Eosinophils Absolute Auto 0.1 X10*3/uL (0.0-0.4); Eosinophils Percent Auto 0.4 % (0-4); Hematocrit 35.3 % (42.0-52.0); Hemoglobin 11.6 g/dl (14.0-18.0); Imm Gran Abs Auto 0.07 X10*3/uL (0.00-0.03); Imm Gran Pct Auto 0.5 % (0.0-0.4); Lymphocytes Absolute Auto 1.2 X10*3/uL (1.2-4.9); Lymphocytes Percent Auto 8.4 % (20-40); Mean Corpuscular HGB Conc 32.9 g/dl (31.0-36.0); Mean Corpuscular Volume 97.5 fL (80.0-98.0); Mean Platelet Volume 9.6 fL (9.4-12.4); Monocytes Absolute Auto 0.9 X10*3/uL (0.1-1.2); Monocytes Percent Auto 6.2 % (2-11); Neutrophils Absolute Auto 11.6 x10*3/uL (2.0-8.3); Neutrophils Percent Auto 84.3 % (45-73); Platelet Count 169 X10*3/uL (160-400); Red Blood Count 3.62 X10*6/uL (4.60-5.80); Red Cell Distribution Width 12.9 % (11.0-16.0); White Blood Count 13.8 X10*3/uL (4.8-10.8)
[2021-03-05 06:17] LABS: Anion Gap 14 (12-20); Blood Urea Nitrogen 12 mg/dL (9-16); Calcium 9.3 mg/dL (8.4-10.2); Carbon Dioxide 27 mmol/L (22-29); Chloride 101 mmol/L (96-108); Creatinine Clr Calc Pharmacy 125.5; Estimated Glomerular Filt Rate > 60; Glucose Random 105 mg/dL (60-115); Potassium 3.6 mmol/L (3.3-5.1); Sodium 138 mmol/L (135-145)
--- NOTE | 2021-03-05 06:36 | PC.NURSE ---
REPORT GIVEN TO FLOOR. PT TO FLOOR IN W/C.
[2021-03-05] MEDS: Multivitamin TABLET 1 TAB PO (08:24)
[2021-03-05] MEDS: Folic Acid 1 MG TABLET PO (08:24)
[2021-03-05] MEDS: lisinopriL 10 MG TABLET 30 MG PO (08:24)
[2021-03-05] MEDS: Thiamine HCL 100 MG TABLET PO (08:24)
--- NOTE | 2021-03-05 09:15 | MHC.CM.PN ---
PATIENT IS INDEPENDENT WITH ADLS. HE LIVES WITH SIGNIFICANT OTHER. NO DME OR VNA SERVICES. 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 CASE MANAGEMENT FOLLOWING
--- NOTE | 2021-03-05 10:04 | PHA.PROG ---
Admission Date/Time: March 04, 2021 20:32 Indication: skin/skin structure Weight in k.79 kg Adjusted body weight in Kg: Greer body weight in Kg: Obesity Dosing Indication % IBW: Serum Creatinine - Last 168 Hours 03/04/21 03/05/21 13:47 05:55 Creatinine 0.83 0.82 Estimated CrCl and GFR - Last 168 Hours 03/04/21 03/05/21 13:47 05:55 Estim Creat Clear Calc 124.0 125.5 Estimated GFR > 60 > 60 Vancomycin Loading Dose: 1250mg 1x given on 03/04 in ED Current Vancomycin Dosing Regimen: 1250MG Q12H Vancomycin Monitoring using AUC goal of 400 - 600 range with trough as surrogate marker: AUC 458, TROUGH 14.0 Date and Time for next Vancomycin Level to be drawn: 03/06/21 @2200 Pharmacist Comments on Vancomycin Plan: Vancomycin dosing will take advantage of [employer] as a clinical decision support tool that uses Bayesian modeling to calculate individual patient's pharmacokinetic parameters and forecast the patient's drug concentration time course with the target goal AUC 24 range of 400 - 600 mg/L/hr.
[2021-03-05] MEDS: Morphine Sulfate 2 MG/ML CARTRIDGE 6 MG IVPUSH (10:26)
[2021-03-05] MEDS: methADONE HCl 20 MG/2 ML ORAL.CONC 70 MG PO (10:27)
[2021-03-05] MEDS: Piperacillin Sodium/Tazobactam 4.5 GM in 0.9 % Sodium Chloride 100 ML IV ×3 (10:47→21:22)
--- NOTE | 2021-03-05 11:56 | HO.PM.IMPN ---
Subjective Subjective Date of Service: 03/05/21 Interval History: Pain control remained an issue overnight; given pulse dose morphine. Patient is not exhibiting drug-seeking behavior Review of Systems Denies chest pain Denies shortness of breath Denies nausea vomiting diarrhea Physical Exam Vital Signs: Vital Signs: Last Vital Signs Temp 98.1 F 03/05/21 11:05 Pulse 62 03/05/21 11:05 Resp 19 03/05/21 11:05 BP 180/92 H 03/05/21 11:05 Pulse Ox 96 03/05/21 11:05 Body Mass Index 32.5 Const: Other: Uncomfortable due to pain HENMT: Other: Membranes moist Resp: Other: Clear to auscultation bilaterally no rales rhonchi wheezes Cardio: Other: No S4; positive S1-S2; no S3 murmurs rubs or gallops GI: Other: Soft nontender nondistended with normoactive bowel sounds. There is no appreciable hepatosplenomegaly Skin: Other: Circumferential erythema right lower extremity; just distal to tibial plateau extending downward to malleoli. Painful to touch and warm Neuro: Other: Cranial nerves 2-12 grossly intact as tested; sensation intact all extremities; motor is 5/5 all extremities cognition appropriate Extrem: Other: No edema; as per skin exam Objective Data Active Medications Acetaminophen (Acetaminophen 325 Mg Tablet) 650 mg PO Q6H PRN PRN Reason: Pain, Mild (Pain Scale 1-3) Last Admin: 03/05/21 05:44 Dose: 650 mg Documented by: JOSE ALBERTO Docusate Sodium (Docusate Sodium 100 Mg Capsule) 100 mg PO DAILY PRN PRN Reason: Constipation Enoxaparin Sodium (Enoxaparin Sodium 40 Mg/0.4 Ml Syringe) 40 mg SUBCUT Q24H [facility] Last Admin: 03/04/21 21:11 Dose: 40 mg Documented by: JOSE ALBERTO Folic Acid (Folic Acid 1 Mg Tablet) 1 mg PO DAILY [facility] Last Admin: 03/05/21 08:24 Dose: 1 mg Documented by: ITALIA Piperacillin Sod/Tazobactam (Sod 4.5 gm/ Sodium Chloride) 100 mls @ 200 mls/hr IV Q6H [facility] Last Infusion: 03/05/21 11:43 Dose: 0 mls/hr Documented by: ITALIA Vancomycin HCl 1,250 mg/ (Sodium Chloride) 250 mls @ 166.667 mls/hr IV Q12H [facility] Lisinopril (Lisinopril 10 Mg Tablet) 30 mg PO DAILY [facility]; Protocol Last Admin: 03/05/21 08:24 Dose: 30 mg Documented by: ITALIA Medication (No Benzodiazepines) 1 each MISCELLANE DAILY [facility] Methadone HCl (Methadone Hcl 20 Mg/2 Ml Oral.Conc) 70 mg PO DAILY [facility] Last Admin: 03/05/21 10:27 Dose: 70 mg Documented by: ITALIA Multivitamins/Vitamin C (Multivitamin Tablet) 1 tab PO DAILY [facility] Last Admin: 03/05/21 08:24 Dose: 1 tab Documented by: ITALIA Ondansetron HCl (Ondansetron Hcl 4 Mg/2 Ml Vial) 4 mg IVPUSH Q8H PRN PRN Reason: Nausea and Vomiting Pharmacy Consult (Consult Rx Perform Med Rec) 1 each MISCELLANE ONCE PRN PRN Reason: Consult order Pharmacy Consult (Consult Rx Vancomycin Dosing) 1 each MISCELLANE DAILY PRN PRN Reason: Consult order Phenobarbital (Phenobarbital 15 Mg Tablet) 45 mg PO BID [facility]; Protocol Stop: 03/07/21 09:01 Phenobarbital (Phenobarbital 15 Mg Tablet) 15 mg PO BID [facility]; Protocol Stop: 03/09/21 09:01 Phenobarbital (Phenobarbital 15 Mg Tablet) 15 mg PO DAILY [facility]; Protocol Stop: 03/11/21 09:01 Sodium Chloride (0.9 % Sodium Chloride Flush 3 Ml Syringe) 3 ml IVFLUSH QSHIFT [facility] Last Admin: 03/05/21 08:24 Dose: 3 ml Documented by: ITALIA Thiamine HCl (Thiamine Hcl 100 Mg Tablet) 100 mg PO DAILY [facility] Last Admin: 03/05/21 08:24 Dose: 100 mg Documented by: ITALIA Labs CBC & Chem 7: 03/05/21 05:55 03/05/21 05:55 Labs: Laboratory Results - last 24 hr 03/04/21 03/04/21 03/04/21 13:47 13:47 13:47 MCV 97.3 MCH 32.7 MCHC 33.6 RDW 12.9 Plt Count 149 L MPV 9.4 Immature Gran % (Auto) 0.4 Neut % (Auto) 86.6 H Lymph % (Auto) 5.2 L [place] % (Auto) 6.5 Eos % (Auto) 1.1 Baso % (Auto) 0.2 Lymph # (Auto) 0.8 L [place] # (Auto) 1.0 Eos # (Auto) 0.2 Baso # (Auto) 0.0 Abs Immat Gran (auto) 0.06 H Absolute Neuts (auto) 13.1 H Absolute Nucleated RBC 0.000 Nucleated RBC % (auto) 0.0 ESR PT INR APTT Anion Gap 12 Estim Creat Clear Calc 124.0 Estimated GFR > 60 Random Glucose 125 H Lactic Acid Calcium 9.1 D Total Bilirubin 0.4 Direct Bilirubin 0.2 AST 25 ALT 29 Alkaline Phosphatase 69 D C-Reactive Protein B-Natriuretic Peptide 116 H Total Protein 7.4 Albumin 4.6 Lipase 19 COVID-19 (MAGALI) COVID-19 [employer] 03/04/21 03/04/21 03/04/21 15:00 15:00 15:00 MCV MCH MCHC RDW Plt Count MPV Immature Gran % (Auto) Neut % (Auto) Lymph % (Auto) [place] % (Auto) Eos % (Auto) Baso % (Auto) Lymph # (Auto) [place] # (Auto) Eos # (Auto) Baso # (Auto) Abs Immat Gran (auto) Absolute Neuts (auto) Absolute Nucleated RBC Nucleated RBC % (auto) ESR 20 H PT 11.1 INR 1.0 APTT 36.3 Anion Gap Estim Creat Clear Calc Estimated GFR Random Glucose Lactic Acid 1.1 Calcium Total Bilirubin Direct Bilirubin AST ALT Alkaline Phosphatase C-Reactive Protein B-Natriuretic Peptide Total Protein Albumin Lipase COVID-19 (MAGALI) COVID-19 [employer] 03/04/21 03/04/21 03/05/21 15:00 19:37 05:55 MCV 97.5 MCH 32.0 MCHC 32.9 RDW 12.9 Plt Count 169 MPV 9.6 Immature Gran % (Auto) 0.5 H Neut % (Auto) 84.3 H Lymph % (Auto) 8.4 L [place] % (Auto) 6.2 Eos % (Auto) 0.4 Baso % (Auto) 0.2 Lymph # (Auto) 1.2 [place] # (Auto) 0.9 Eos # (Auto) 0.1 Baso # (Auto) 0.0 Abs Immat Gran (auto) 0.07 H Absolute Neuts (auto) 11.6 H Absolute Nucleated RBC 0.000 Nucleated RBC % (auto) 0.0 ESR PT INR APTT Anion Gap Estim Creat Clear Calc Estimated GFR Random Glucose Lactic Acid Calcium Total Bilirubin Direct Bilirubin AST ALT Alkaline Phosphatase C-Reactive Protein 14.41 H B-Natriuretic Peptide Total Protein Albumin Lipase COVID-19 (MAGALI) Negative COVID-19 Clin Com See Note 03/05/21 05:55 MCV MCH MCHC RDW Plt Count MPV Immature Gran % (Auto) Neut % (Auto) Lymph % (Auto) [place] % (Auto) Eos % (Auto) Baso % (Auto) Lymph # (Auto) [place] # (Auto) Eos # (Auto) Baso # (Auto) Abs Immat Gran (auto) Absolute Neuts (auto) Absolute Nucleated RBC Nucleated RBC % (auto) ESR PT INR APTT Anion Gap 14 Estim Creat Clear Calc 125.5 Estimated GFR > 60 Random Glucose 105 Lactic Acid Calcium 9.3 Total Bilirubin Direct Bilirubin AST ALT Alkaline Phosphatase C-Reactive Protein B-Natriuretic Peptide Total Protein Albumin Lipase COVID-19 (MAGALI) COVID-19 Clin Com Assessment and Plan (1) Cellulitis: Status: Acute (2) Alcohol abuse with withdrawal: Status: Acute (3) Sepsis: Status: Acute Assessment and Plan: This is a 50-year-old male with past medical history of asthma, alcohol abuse, hypertension, as well as IV drug use on methadone presents to the hospital with complaints of right lower extremity erythema, as well as severe pain that started about 2 days ago.? Patient describes the pain as 8/10, has swelling, he denies any nausea vomiting, no abdominal pain, no diarrhea or constipation, he has had upper respiratory congestion for the past 1 week with rhinorrhea, mild cough, no fever, no shortness of breath Temp of a 100.5?, heart rate of 120, respiratory rate of 18, blood pressure 181/114 Labs are significant for WBC of 13.8, hemoglobin of 11.6, ESR of 20, CRP of 14, BNP of 116 otherwise unremarkable Given IV fluids in the emergency room with improvement in tachycardia. CT of the lower extremity failed to demonstrate any gaseous collections 1. Sepsis related to cellulitis Antibiotics switched to Zosyn and vancomycin; heart rate has normalized and temperature is flat at this time. Lactate was unremarkable. Will continue current therapies and follow-up clinical markers. Pain management remains an issue; patient on 70 mg of methadone. Given morphine with fair results. Will attempt to get ahead of the pain and utilize oral. At no time has patient demonstrated any drug-seeking behavior 2. Alcohol/polysubstance abuse Methadone dose verified at 70 mg a day. Will continue same. Patient gives a history of daily alcohol use without significant withdrawal history He denies seizures with past attempts to stop alcohol. Given such she be maintained on the phenobarb protocol/seizure precaution 3. Hypertension Continue lisinopril as per outpatient dosing. Adjust as indicated. May need addition of beta-adrian if heart rate unresponsive to phenobarb Full code/Lovenox Quality Stroke Does the patient have a stroke diagnosis?: No VTE Prior VTE?: No VTE Risk Level:: Medical - moderate - high VTE Device Contraindication: Treatment Not Indicated VTE Drug Contraindication: N/A - Med Ordered
[2021-03-05] MEDS: vancomycin HCL 1,250 MG in 0.9 % Sodium Chloride 250 ML 166.67 MG IV (12:16)
[2021-03-05] MEDS: Enoxaparin Sodium 40 MG/0.4 ML SYRINGE SUBCUT (21:21)
[2021-03-05] MEDS: PHENobarbitaL 15 MG TABLET 45 MG PO (21:22)
[2021-03-05] MEDS: vancomycin HCL 1,250 MG in 0.9 % Sodium Chloride 250 ML 166.66 MG IV (22:30)
[2021-03-06] MEDS: Acetaminophen 325 MG TABLET 650 MG PO (00:08)
[2021-03-06] MEDS: 0.9 % Sodium Chloride Flush 3 ML SYRINGE IVFLUSH ×3 (00:10→17:04)
[2021-03-06 01:16] VITALS: RESP 18
[2021-03-06] MEDS: Piperacillin Sodium/Tazobactam 4.5 GM in 0.9 % Sodium Chloride 100 ML IV ×4 (03:11→22:15)
[2021-03-06 03:58] VITALS: BP 177/80; PULSE 75; RESP 20; TEMP 36.8; O2SAT 97
[2021-03-06 05:46] LABS: MANUAL DIFF FLAG NO
[2021-03-06 05:52] LABS: Basophils Percent Auto 0.3 % (0-2); Eosinophils Absolute Auto 0.5 X10*3/uL (0.0-0.4); Eosinophils Percent Auto 5.5 % (0-4); Hematocrit 34.2 % (42.0-52.0); Hemoglobin 11.3 g/dl (14.0-18.0); Imm Gran Abs Auto 0.03 X10*3/uL (0.00-0.03); Imm Gran Pct Auto 0.3 % (0.0-0.4); Lymphocytes Absolute Auto 1.5 X10*3/uL (1.2-4.9); Lymphocytes Percent Auto 17.3 % (20-40); Mean Corpuscular Hemoglobin 31.8 pg (27.0-33.0); Mean Corpuscular Volume 96.3 fL (80.0-98.0); Mean Platelet Volume 9.8 fL (9.4-12.4); Monocytes Absolute Auto 0.8 X10*3/uL (0.1-1.2); Monocytes Percent Auto 8.5 % (2-11); Neutrophils Percent Auto 68.1 % (45-73); Platelet Count 181 X10*3/uL (160-400); Red Blood Count 3.55 X10*6/uL (4.60-5.80); Red Cell Distribution Width 12.2 % (11.0-16.0); White Blood Count 8.8 X10*3/uL (4.8-10.8)
[2021-03-06 06:21] LABS: Alanine Aminotransferase 21 U/L (0-40); Albumin Level 3.8 g/dL (3.5-5.0); Alkaline Phosphatase 54 U/L (39-117); Anion Gap 12 (12-20); Aspartate Amino Transferase 21 U/L (5-37); Bilirubin Total 0.6 mg/dL (0.0-1.0); Blood Urea Nitrogen 10 mg/dL (9-16); Calcium 8.3 mg/dL (8.4-10.2); Carbon Dioxide 31 mmol/L (22-29); Chloride 102 mmol/L (96-108); Estimated Glomerular Filt Rate > 60; Glucose Fasting 110 mg/dL (60-99); Potassium 3.8 mmol/L (3.3-5.1); Sodium 141 mmol/L (135-145); Total Protein 6.2 g/dL (6.5-8.0)
[2021-03-06 07:13] VITALS: BP 170/90; PULSE 79; RESP 21; TEMP 35.9; O2SAT 96
[2021-03-06] MEDS: Multivitamin TABLET 1 TAB PO (09:12)
[2021-03-06] MEDS: Folic Acid 1 MG TABLET PO (09:12)
[2021-03-06] MEDS: lisinopriL 10 MG TABLET 30 MG PO (09:12)
[2021-03-06] MEDS: PHENobarbitaL 15 MG TABLET 45 MG PO (09:12)
[2021-03-06] MEDS: methADONE HCl 20 MG/2 ML ORAL.CONC 70 MG PO (09:12)
[2021-03-06] MEDS: Thiamine HCL 100 MG TABLET PO (09:12)
[2021-03-06] MEDS: Morphine Sulfate 2 MG/ML CARTRIDGE 6 MG IVPUSH (10:12)
[2021-03-06] MEDS: vancomycin HCL 1,250 MG in 0.9 % Sodium Chloride 250 ML 166.66 MG IV ×2 (10:13→23:24)
--- NOTE | 2021-03-06 15:25 | HO.PM.IMPN ---
Subjective Subjective Date of Service: 03/06/21 Interval History: Leg feels somewhat better. Back bothersome from lying in bed. No was signs of alcohol withdrawal Review of Systems Denies chest pain Denies shortness of breath Denies nausea vomiting diarrhea Physical Exam Vital Signs: Vital Signs: Last Vital Signs Temp 96.6 F L 03/06/21 07:13 Pulse 79 03/06/21 07:13 Resp 21 H 03/06/21 07:13 BP 170/90 H 03/06/21 07:13 Pulse Ox 96 03/06/21 07:13 Body Mass Index 32.5 Const: Other: Uncomfortable due to pain HENMT: Other: Membranes moist Resp: Other: Clear to auscultation bilaterally no rales rhonchi wheezes Cardio: Other: No S4; positive S1-S2; no S3 murmurs rubs or gallops GI: Other: Soft nontender nondistended with normoactive bowel sounds. There is no appreciable hepatosplenomegaly Skin: Other: Circumferential erythema right lower extremity; just distal to tibial plateau extending downward to malleoli. Painful to touch and warm Neuro: Other: Cranial nerves 2-12 grossly intact as tested; sensation intact all extremities; motor is 5/5 all extremities cognition appropriate Extrem: Other: No edema; as per skin exam Objective Data Active Medications Acetaminophen (Acetaminophen 325 Mg Tablet) 650 mg PO Q6H PRN PRN Reason: Pain, Mild (Pain Scale 1-3) Last Admin: 03/06/21 00:08 Dose: 650 mg Documented by: SANDEEP Docusate Sodium (Docusate Sodium 100 Mg Capsule) 100 mg PO DAILY PRN PRN Reason: Constipation Enoxaparin Sodium (Enoxaparin Sodium 40 Mg/0.4 Ml Syringe) 40 mg SUBCUT Q24H [facility] Last Admin: 03/05/21 21:21 Dose: 40 mg Documented by: TARA Folic Acid (Folic Acid 1 Mg Tablet) 1 mg PO DAILY [facility] Last Admin: 03/06/21 09:12 Dose: 1 mg Documented by: ITALIA Piperacillin Sod/Tazobactam (Sod 4.5 gm/ Sodium Chloride) 100 mls @ 200 mls/hr IV Q6H [facility] Last Infusion: 03/06/21 10:13 Dose: 0 mls/hr Documented by: ITALIA Vancomycin HCl 1,250 mg/ (Sodium Chloride) 250 mls @ 166.667 mls/hr IV Q12H [facility] Last Infusion: 03/06/21 12:16 Dose: 0 mls/hr Documented by: ITALIA Lisinopril (Lisinopril 10 Mg Tablet) 30 mg PO DAILY [facility]; Protocol Last Admin: 03/06/21 09:12 Dose: 30 mg Documented by: ITALIA Methadone HCl (Methadone Hcl 20 Mg/2 Ml Oral.Conc) 70 mg PO DAILY [facility] Last Admin: 03/06/21 09:12 Dose: 70 mg Documented by: ITALIA Multivitamins/Vitamin C (Multivitamin Tablet) 1 tab PO DAILY [facility] Last Admin: 03/06/21 09:12 Dose: 1 tab Documented by: ITALIA Ondansetron HCl (Ondansetron Hcl 4 Mg/2 Ml Vial) 4 mg IVPUSH Q8H PRN PRN Reason: Nausea and Vomiting Pharmacy Consult (Consult Rx Perform Med Rec) 1 each MISCELLANE ONCE PRN PRN Reason: Consult order Pharmacy Consult (Consult Rx Vancomycin Dosing) 1 each MISCELLANE DAILY PRN PRN Reason: Consult order Sodium Chloride (0.9 % Sodium Chloride Flush 3 Ml Syringe) 3 ml IVFLUSH QSHIFT [facility] Last Admin: 03/06/21 09:13 Dose: 3 ml Documented by: ITALIA Thiamine HCl (Thiamine Hcl 100 Mg Tablet) 100 mg PO DAILY [facility] Last Admin: 03/06/21 09:12 Dose: 100 mg Documented by: ITALIA Labs CBC & Chem 7: 03/06/21 05:38 03/06/21 05:38 Labs: Laboratory Results - last 24 hr 03/06/21 03/06/21 05:38 05:38 MCV 96.3 MCH 31.8 MCHC 33.0 RDW 12.2 Plt Count 181 MPV 9.8 Immature Gran % (Auto) 0.3 Neut % (Auto) 68.1 Lymph % (Auto) 17.3 L Bailey % (Auto) 8.5 Eos % (Auto) 5.5 H Baso % (Auto) 0.3 Lymph # (Auto) 1.5 Bailey # (Auto) 0.8 Eos # (Auto) 0.5 H Baso # (Auto) 0.0 Abs Immat Gran (auto) 0.03 Absolute Neuts (auto) 6.0 Absolute Nucleated RBC 0.000 Nucleated RBC % (auto) 0.0 Anion Gap 12 Estim Creat Clear Calc 121.0 Estimated GFR > 60 Fasting Glucose 110 H Calcium 8.3 L D Total Bilirubin 0.6 AST 21 ALT 21 Alkaline Phosphatase 54 D Total Protein 6.2 L Albumin 3.8 Microbiology Microbiology Results: Microbiology 03/04/21 13:47 Blood Culture - Preliminary Blood - Venous No growth after 24 hours. 03/04/21 13:47 Blood Culture - Preliminary Blood - Venous No growth after 24 hours. Assessment and Plan (1) Cellulitis: Status: Acute Assessment and Plan: This is a 50-year-old male with past medical history of asthma, alcohol abuse, hypertension, as well as IV drug use on methadone presents to the hospital with complaints of right lower extremity erythema, as well as severe pain that started about 2 days ago.? Patient describes the pain as 8/10, has swelling, he denies any nausea vomiting, no abdominal pain, no diarrhea or constipation, he has had upper respiratory congestion for the past 1 week with rhinorrhea, mild cough, no fever, no shortness of breath Temp of a 100.5?, heart rate of 120, respiratory rate of 18, blood pressure 181/114 Labs are significant for WBC of 13.8, hemoglobin of 11.6, ESR of 20, CRP of 14, BNP of 116 otherwise unremarkable Given IV fluids in the emergency room with improvement in tachycardia. CT of the lower extremity failed to demonstrate any gaseous collections 1. Sepsis related to cellulitis Antibiotics switched to Zosyn and vancomycin; heart rate has normalized and temperature is flat at this time. Lactate was unremarkable. Will continue current therapies and follow-up clinical markers. Pain management remains an issue; patient on 70 mg of methadone. Given morphine with fair results. Continue current regimen; if improved significantly in a.m. can consider switching to p.o. antibiotics and completing therapies an outpatient 2. Alcohol/polysubstance abuse Methadone dose verified at 70 mg a day. When further questioned, he states he has 2-3 beers 3 to 4 times a week; sometimes more on the weekend. He stop several times in the past without issue Given the fact that he has been seizure-free and does not exhibit any signs of alcohol withdrawal, phenobarb will be discontinued. Will treat with oral opiates for breakthrough pain... Has never exhibited any signs of drug-seeking behavior during this admission 3. Hypertension Continue lisinopril as per outpatient dosing. Adjust as indicated. May need addition of beta-adrian if heart rate unresponsive to phenobarb Full code/Lovenox Quality Stroke Does the patient have a stroke diagnosis?: No VTE Prior VTE?: No VTE Risk Level:: Medical - moderate - high VTE Device Contraindication: Treatment Not Indicated VTE Drug Contraindication: N/A - Med Ordered
[2021-03-06 15:29] VITALS: BP 195/93; PULSE 80; RESP 18; TEMP 36.3; O2SAT 96
[2021-03-06] MEDS: oxyCODONE HCl Immed Release 5 MG TABLET 10 MG PO ×2 (17:04→22:15)
[2021-03-06] MEDS: Ketorolac Tromethamine 30 MG/ML VIAL IM ×2 (18:32→23:50)
[2021-03-06 19:33] VITALS: BP 175/90; PULSE 86; RESP 18; TEMP 36.6; O2SAT 94
[2021-03-06] MEDS: Enoxaparin Sodium 40 MG/0.4 ML SYRINGE SUBCUT (22:16)
[2021-03-06 22:33] LABS: Vancomycin Trough 11.3 mcg/mL (10.0-20.0)
[2021-03-07] VITALS: BP 177/96; PULSE 69; RESP 18; TEMP 36.8; O2SAT 99
[2021-03-07] MEDS: Piperacillin Sodium/Tazobactam 4.5 GM in 0.9 % Sodium Chloride 100 ML IV ×4 (03:43→21:30)
[2021-03-07 04:00] VITALS: BP 171/98; PULSE 70; RESP 17; TEMP 36.3; O2SAT 99
[2021-03-07] MEDS: oxyCODONE HCl Immed Release 5 MG TABLET 10 MG PO ×4 (04:04→21:40)
--- NOTE | 2021-03-07 05:20 | PC.NURSE ---
patient continues to have elevated blood pressures, MD made aware, no new orders at this time, continue to monitor
[2021-03-07] MEDS: Ketorolac Tromethamine 30 MG/ML VIAL IM (05:52)
[2021-03-07 06:15] LABS: MANUAL DIFF FLAG NO
[2021-03-07 06:45] LABS: Basophils Absolute Auto 0.1 X10*3/uL (0.0-0.2); Basophils Percent Auto 0.6 % (0-2); Eosinophils Absolute Auto 0.3 X10*3/uL (0.0-0.4); Eosinophils Percent Auto 2.9 % (0-4); Hematocrit 35.9 % (42.0-52.0); Hemoglobin 12.3 g/dl (14.0-18.0); Imm Gran Abs Auto 0.05 X10*3/uL (0.00-0.03); Imm Gran Pct Auto 0.6 % (0.0-0.4); Lymphocytes Absolute Auto 1.1 X10*3/uL (1.2-4.9); Lymphocytes Percent Auto 12.4 % (20-40); Mean Corpuscular HGB Conc 34.3 g/dl (31.0-36.0); Mean Corpuscular Hemoglobin 32.9 pg (27.0-33.0); Mean Platelet Volume 9.8 fL (9.4-12.4); Monocytes Percent Auto 11.5 % (2-11); Neutrophils Absolute Auto 6.5 x10*3/uL (2.0-8.3); Platelet Count 195 X10*3/uL (160-400); Red Blood Count 3.74 X10*6/uL (4.60-5.80); Red Cell Distribution Width 12.2 % (11.0-16.0)
[2021-03-07 06:50] LABS: Alanine Aminotransferase 27 U/L (0-40); Albumin Level 3.7 g/dL (3.5-5.0); Alkaline Phosphatase 52 U/L (39-117); Anion Gap 16 (12-20); Aspartate Amino Transferase 34 U/L (5-37); Bilirubin Total 0.6 mg/dL (0.0-1.0); Blood Urea Nitrogen 17 mg/dL (9-16); Calcium 8.2 mg/dL (8.4-10.2); Carbon Dioxide 27 mmol/L (22-29); Chloride 102 mmol/L (96-108); Creatinine Clr Calc Pharmacy 54.7; Estimated Glomerular Filt Rate 38; Glucose Fasting 102 mg/dL (60-99); Potassium 3.8 mmol/L (3.3-5.1); Sodium 141 mmol/L (135-145); Total Protein 6.3 g/dL (6.5-8.0)
[2021-03-07 07:50] VITALS: BP 184/92; PULSE 66; RESP 19; TEMP 36.6; O2SAT 98
[2021-03-07] MEDS: Doxycycline Hyclate 100 MG in 0.9 % Sodium Chloride 250 ML 166.67 MG IV ×2 (09:27→20:37)
[2021-03-07] MEDS: methADONE HCl 20 MG/2 ML ORAL.CONC 70 MG PO (09:28)
[2021-03-07] MEDS: 0.9 % Sodium Chloride Flush 3 ML SYRINGE IVFLUSH (09:28)
[2021-03-07] MEDS: Folic Acid 1 MG TABLET PO (09:28)
[2021-03-07] MEDS: Multivitamin TABLET 1 TAB PO (09:28)
[2021-03-07] MEDS: Thiamine HCL 100 MG TABLET PO (09:28)
[2021-03-07] MEDS: 0.9 % Sodium Chloride 1,000 ML 125 ML IVCONT ×2 (11:52→20:35)
[2021-03-07 12:00] VITALS: BP 181/92; PULSE 70; RESP 18; TEMP 36.4; O2SAT 100
--- NOTE | 2021-03-07 13:21 | MHC.CLN ---
NUTRITION CONSULT CONSULT FOR BILATERAL LEG CELLULITIS, NOT PRESSURE INJURY. PATIENT REPORTS THAT HE IS EATING WELL. PO 100% PER DOCUMENTATION. DIET=REGULAR. NO ADDITIONAL NUTRITION INTERVENTIONS.
--- NOTE | 2021-03-07 13:24 | P.PNIM_ITS ---
Subjective Subjective Date of Service: 03/07/21 Interval History: No fever Ongoing pain of RLE; no drainage; no boils No EtOH withdrawal symptoms SCr junior 0.85 to 1.88 Review of Systems Review of Systems: Yes all other systems are reviewed and are negative Physical Exam Vital Signs: Vital Signs: Last Vital Signs Temp 97.5 F 03/07/21 12:00 Pulse 70 03/07/21 12:00 Resp 18 03/07/21 12:00 BP 181/92 H 03/07/21 12:00 Pulse Ox 100 03/07/21 12:00 Body Mass Index 32.5 Gen: in no acute distress HEENT: sclera anicteric, moist mucus membranes Neck: supple Lungs: clear to auscultation bilaterally Heart: regular rate and rhythm, no murmurs Abd: soft, non-tender, non-distended Ext: no edema Skin: extensive RLE erythema below tibial plateau extending to ankle, circumferential; no fluctuance Neuro: alert and oriented x3, no focal findings Psych: appropriate affect Objective Data Active Medications Acetaminophen (Acetaminophen 325 Mg Tablet) 650 mg PO Q6H PRN PRN Reason: Pain, Mild (Pain Scale 1-3) Last Admin: 03/06/21 00:08 Dose: 650 mg Documented by: SANDEEP Docusate Sodium (Docusate Sodium 100 Mg Capsule) 100 mg PO DAILY PRN PRN Reason: Constipation Enoxaparin Sodium (Enoxaparin Sodium 40 Mg/0.4 Ml Syringe) 40 mg SUBCUT Q24H [facility] Last Admin: 03/06/21 22:16 Dose: 40 mg Documented by: KATELYNN Folic Acid (Folic Acid 1 Mg Tablet) 1 mg PO DAILY [facility] Last Admin: 03/07/21 09:28 Dose: 1 mg Documented by: BERNADETTE Piperacillin Sod/Tazobactam (Sod 4.5 gm/ Sodium Chloride) 100 mls @ 200 mls/hr IV Q6H [facility] Last Infusion: 03/07/21 12:02 Dose: 0 mls/hr Documented by: BERNADETTE Doxycycline Hyclate 100 mg/ (Sodium Chloride) 250 mls @ 166.67 mls/hr IV Q12H [facility] Last Infusion: 03/07/21 11:25 Dose: 0 mls/hr Documented by: BERNADETTE Sodium Chloride (Ns) 1,000 mls @ 125 mls/hr IVCONT .Q8H [facility] Last Admin: 03/07/21 11:52 Dose: 125 mls/hr Documented by: BERNADETTE Methadone HCl (Methadone Hcl 20 Mg/2 Ml Oral.Conc) 70 mg PO DAILY [facility] Last Admin: 03/07/21 09:28 Dose: 70 mg Documented by: BERNADETTE Multivitamins/Vitamin C (Multivitamin Tablet) 1 tab PO DAILY [facility] Last Admin: 03/07/21 09:28 Dose: 1 tab Documented by: BERNADETTE Ondansetron HCl (Ondansetron Hcl 4 Mg/2 Ml Vial) 4 mg IVPUSH Q8H PRN PRN Reason: Nausea and Vomiting Oxycodone HCl (Oxycodone Hcl Immed Release 5 Mg Tablet) 10 mg PO Q4H PRN PRN Reason: Pain, Moderate (Pain Scale 4-6 Last Admin: 03/07/21 09:46 Dose: 10 mg Documented by: BERNADETTE Pharmacy Consult (Consult Rx Perform Med Rec) 1 each MISCELLANE ONCE PRN PRN Reason: Consult order Pharmacy Consult (Consult Rx Vancomycin Dosing) 1 each MISCELLANE DAILY PRN PRN Reason: Consult order Sodium Chloride (0.9 % Sodium Chloride Flush 3 Ml Syringe) 3 ml IVFLUSH QSHIFT [facility] Last Admin: 03/07/21 09:28 Dose: 3 ml Documented by: BERNADETTE Thiamine HCl (Thiamine Hcl 100 Mg Tablet) 100 mg PO DAILY [facility] Last Admin: 03/07/21 09:28 Dose: 100 mg Documented by: BERNADETTE Labs CBC & Chem 7: 03/07/21 05:51 03/07/21 05:51 Labs: Laboratory Results - last 24 hr 03/06/21 03/07/21 03/07/21 21:49 05:51 05:51 MCV 96.0 MCH 32.9 MCHC 34.3 RDW 12.2 Plt Count 195 MPV 9.8 Immature Gran % (Auto) 0.6 H Neut % (Auto) 72.0 Lymph % (Auto) 12.4 L [place] % (Auto) 11.5 H Eos % (Auto) 2.9 Baso % (Auto) 0.6 Lymph # (Auto) 1.1 L [place] # (Auto) 1.0 Eos # (Auto) 0.3 Baso # (Auto) 0.1 Abs Immat Gran (auto) 0.05 H Absolute Neuts (auto) 6.5 Absolute Nucleated RBC 0.000 Nucleated RBC % (auto) 0.0 Anion Gap 16 Estim Creat Clear Calc 54.7 Estimated GFR 38 Fasting Glucose 102 H Calcium 8.2 L Total Bilirubin 0.6 AST 34 D ALT 27 Alkaline Phosphatase 52 Total Protein 6.3 L Albumin 3.7 Vancomycin Trough 11.3 Microbiology Microbiology Results: Microbiology 03/04/21 13:47 Blood Culture - Preliminary Blood - Venous No growth after 48 hours. 03/04/21 13:47 Blood Culture - Preliminary Blood - Venous No growth after 48 hours. Assessment and Plan (1) Cellulitis: Status: Acute Assessment and Plan: hospital d#4 50yo M with asthma, HTN, EtOH abuse, hx injection opioid abuse now on methadone maintenance presenting with acute RLE pain/erythema admitted for sepsis from nonpurulent cellulitis # cellulitis - pipercaillin/tazobactam + vancomycin d#4; change vancomycin to doxycycline given YEISON. BCx negative. - oxycodone for pain # sepsis - not severe; treat cellulitis as above # YEISON - check urine studies and give IV fluids. d/c ketorolac, lisinopril, and vancomycin. Nephrology consult. # HTN - hold lisinopril as above # opioid use disorder - continue methadone # EtOH abuse - 2-3 beers 3-4x a week; no hx of DTs or withdrawal; phenobarbital discontinued - continue vitamin supplementation- thiamine, folate, multivitamin # VTE ppx - LMWH Quality Stroke Does the patient have a stroke diagnosis?: No VTE Prior VTE?: No VTE Risk Level:: Medical - moderate - high VTE Device Contraindication: Treatment Not Indicated VTE Drug Contraindication: N/A - Med Ordered
--- NOTE | 2021-03-07 14:40 | MHC.CM.PN ---
EMR REVIEWED, PER HOSPITALIST PT WILL CONT IV FLUIDS AND VANCO CHANGED TO DOXY D/T KIDNEY FX, NO PLAN FOR D/C TODAY, ANTIC D/C IN 1-2 DAYS, CM WILL CONT TO FOLLOW D/C NEEDS.
[2021-03-07 15:20] VITALS: BP 182/103; PULSE 73; RESP 18; TEMP 36.1; O2SAT 99
[2021-03-07] MEDS: Morphine Sulfate 2 MG/ML CARTRIDGE IVPUSH ×4 (15:25→23:03)
--- NOTE | 2021-03-07 16:56 | CONS_ITS ---
DATE OF SERVICE: 03/07/2021 REASON FOR CONSULTATION: I was called to see this patient to assist in the management of acute kidney injury. HISTORY OF PRESENT ILLNESS: To summarize, Jonathan is a 50-year-old man with a history of asthma, alcohol abuse, hypertension, and essentially normal renal function. He comes in because of right lower extremity erythema and has been diagnosed with cellulitis. At the time of admission, serum creatinine was 0.8 mg/dL and was stable for 3 days. During this day, he received IV vancomycin 1250 mg. He also received a couple of doses of ketorolac. He was receiving lisinopril 30 mg for the control of blood pressure. The creatinine has bumped up to 1.8 and hence this consultation. The random vancomycin level was 11.3 as of yesterday. Vancomycin has been discontinued. PAST MEDICAL HISTORY: Ongoing medical problems include history of hypertension, asthma, alcohol abuse, and history of pancreatitis in the past. FAMILY HISTORY: Significant for Parkinson disease. PAST SURGICAL HISTORY: Includes knee surgery and neck surgery. SOCIAL HISTORY: History of IV drug abuse. He is on methadone. History of smoking. No history of taking any NSAIDs at home. He has history of alcohol abuse as well. ALLERGIES: HE IS ALLERGIC TO CODEINE AND FLEXERIL. HOME MEDICATIONS: Included lisinopril 30 mg, Tylenol, ibuprofen p.r.n., methadone, and thiamine. All the current medications were reviewed. REVIEW OF SYSTEMS: Positive for leg pain and swelling. No shortness of breath, nausea, or vomiting. No abdominal pain, diarrhea, or constipation. No polyuria or polydipsia. No fever. No rash. All other systems were reviewed. PHYSICAL EXAMINATION: GENERAL: Jonathan is a middle-aged man. He is obese, comfortable, not in any distress. NECK: Supple. No JVD. LUNGS: Air entry equal. No rales. HEART: S1, S2 heard. No gallop or rub. ABDOMEN: Soft, nontender. Bowel sounds heard. NEUROLOGIC: Alert and awake. No asterixis. EXTREMITIES: There is some edema on the right leg with erythema. Peripheral pulses felt. VITAL SIGNS: Blood pressure today was 184/92, pulse 66, temperature 97.8. LABORATORY DATA: Serum electrolytes were normal. BUN 17, creatinine 1.88, calcium 8.2. Hemoglobin 12.3, platelets 195. No urinalysis available. Renal ultrasonogram done this morning did not reveal any obstruction. IMPRESSION: Middle-aged man with hypertension and alcohol abuse, who was admitted with cellulitis, currently has acute kidney injury. The differential diagnosis of acute kidney injury would include tubular injury from high dose of vancomycin. He could have hypoperfusion from the combination of NSAIDs and LISBET inhibitor. There is no obstruction on ultrasonogram. No reason to believe he has any active glomerulonephritis or interstitial disease at this time. Nevertheless, we need to rule this out. RECOMMENDATION: My recommendation would be to obtain a spot urine for sodium, creatinine, and protein. In the meantime, avoid nephrotoxic agents including NSAIDs and vancomycin. I agree with IV hydration. Keep intake more than the output. We will follow the renal function in the next 24 to 48 hours. If renal function does not improve and worsens, we will proceed with further workup including serologies. I will follow him closely along with the team. Escobar Martinez MD BPA/MODL / [id number]
[2021-03-07 18:20] LABS: Appearance Urine CLEAR; Color Urine YELLOW; Glucose Urine UA NEG (NEG); Leukocyte Esterase Urine NEG (NEG); Nitrite Urine NEG (NEG); Specific Gravity - Urine 1.015 (1.005-1.025); Urine Blood NEG (NEG); Urine Ketones NEG (NEG); Urine Protein 2+ MG/DL (NEG-TRACE)
[2021-03-07 19:17] LABS: Bacteria Urine 1+ /LPF; RBC Urine 0-2 /HPF (0); Squamous Epithelial Cell Urine TRACE /LPF; WBC Urine 0-2 /HPF (0-4)
[2021-03-07 20:21] LABS: Creatinine Urine 144.21 mg/dL; Total Protein Urine Random 102 mg/dL (<12)
[2021-03-07] MEDS: Enoxaparin Sodium 40 MG/0.4 ML SYRINGE SUBCUT (20:37)
[2021-03-08] VITALS (7 sets, daily range): BP systolic 160–189; BP diastolic 83–101; PULSE 67–87; RESP 15–19; TEMP 36–36.7; O2SAT 96–100
[2021-03-08] MEDS: Morphine Sulfate 2 MG/ML CARTRIDGE IVPUSH ×4 (03:12→13:07)
[2021-03-08] MEDS: Piperacillin Sodium/Tazobactam 4.5 GM in 0.9 % Sodium Chloride 100 ML IV ×4 (03:12→22:04)
[2021-03-08] MEDS: oxyCODONE HCl Immed Release 5 MG TABLET 10 MG PO ×3 (04:17→17:29)
[2021-03-08 05:48] LABS: MANUAL DIFF FLAG NO
[2021-03-08 06:06] LABS: Basophils Percent Auto 0.2 % (0-2); Eosinophils Absolute Auto 0.1 X10*3/uL (0.0-0.4); Eosinophils Percent Auto 1.2 % (0-4); Hematocrit 33.1 % (42.0-52.0); Hemoglobin 11.2 g/dl (14.0-18.0); Imm Gran Abs Auto 0.04 X10*3/uL (0.00-0.03); Imm Gran Pct Auto 0.4 % (0.0-0.4); Lymphocytes Percent Auto 11.4 % (20-40); Mean Corpuscular HGB Conc 33.8 g/dl (31.0-36.0); Mean Corpuscular Hemoglobin 32.4 pg (27.0-33.0); Mean Corpuscular Volume 95.7 fL (80.0-98.0); Mean Platelet Volume 9.5 fL (9.4-12.4); Monocytes Percent Auto 11.1 % (2-11); Neutrophils Absolute Auto 6.8 x10*3/uL (2.0-8.3); Neutrophils Percent Auto 75.7 % (45-73); Platelet Count 184 X10*3/uL (160-400); Red Blood Count 3.46 X10*6/uL (4.60-5.80)
[2021-03-08 06:31] LABS: Alanine Aminotransferase 28 U/L (0-40); Albumin Level 3.6 g/dL (3.5-5.0); Alkaline Phosphatase 50 U/L (39-117); Anion Gap 12 (12-20); Aspartate Amino Transferase 27 U/L (5-37); Bilirubin Total 0.4 mg/dL (0.0-1.0); Blood Urea Nitrogen 20 mg/dL (9-16); C Reactive Protein 4.58 mg/dL (< or = 0.50); Calcium 7.9 mg/dL (8.4-10.2); Carbon Dioxide 28 mmol/L (22-29); Chloride 103 mmol/L (96-108); Creatinine Clr Calc Pharmacy 46.3; Estimated Glomerular Filt Rate 32; Glucose Fasting 112 mg/dL (60-99); Potassium 3.7 mmol/L (3.3-5.1); Sodium 139 mmol/L (135-145)
[2021-03-08] MEDS: amLODIPine Besylate 5 MG TABLET PO (08:27)
[2021-03-08] MEDS: Multivitamin TABLET 1 TAB PO (08:27)
[2021-03-08] MEDS: Folic Acid 1 MG TABLET PO (08:27)
[2021-03-08] MEDS: Thiamine HCL 100 MG TABLET PO (08:27)
[2021-03-08] MEDS: methADONE HCl 20 MG/2 ML ORAL.CONC 70 MG PO (08:28)
[2021-03-08] MEDS: Doxycycline Hyclate 100 MG in 0.9 % Sodium Chloride 250 ML 166.67 MG IV ×2 (08:30→19:50)
[2021-03-08] MEDS: 0.9 % Sodium Chloride 1,000 ML 999 ML IV (08:32)
[2021-03-08 08:50] LABS: Estimated Average Glucose 100 mg/dL; Hemoglobin A1c % 5.1 %
--- NOTE | 2021-03-08 09:50 | PM.PNNEP ---
Subjective Subjective Date of Service: 03/09/21 Interval history: Events noted Feeling OK Non oliguric Physical Exam Vital Signs: Vital Signs: Last Vital Signs Temp 98.0 F 03/08/21 07:27 Pulse 87 03/08/21 08:27 Resp 15 03/08/21 07:27 BP 189/87 H 03/08/21 08:27 Pulse Ox 96 03/08/21 07:27 Body Mass Index 32.5 Const: General: cooperative and comfortable Orientation/consciousness: oriented to person and oriented to place Eyes: General: appearance normal, both eyes and all related structures Neck: Neck: Yes no meningeal signs and Yes no JVD Resp: Effort & Inspection: normal respiratory effort Auscultation: clear to auscultation bilaterally and no rales Cardio: Jugular venous distension: no JVD Palpation: no palpable S4 Rate: not tachycardic GI: Inspection: Yes normal to inspection Palpation (GI): Soft to palpation Auscultation: normal bowel sounds : General: Yes no CVA tenderness Back/Spine/Pelvis: Back: no CVA tenderness Neuro: General: oriented to person, oriented to place and no meningeal signs Gait exam (Neuro): not ataxic Motor exam (neuro): no asterixis Objective Data Labs CBC & Chem 7: 03/08/21 05:36 03/09/21 05:57 Labs: Laboratory Results - last 24 hr 03/07/21 03/07/21 03/08/21 17:31 17:45 05:36 WBC 9.0 RBC 3.46 L Hgb 11.2 L Hct 33.1 L MCV 95.7 MCH 32.4 MCHC 33.8 RDW 12.0 Plt Count 184 MPV 9.5 Immature Gran % (Auto) 0.4 Neut % (Auto) 75.7 H Lymph % (Auto) 11.4 L [place] % (Auto) 11.1 H Eos % (Auto) 1.2 Baso % (Auto) 0.2 Lymph # (Auto) 1.0 L [place] # (Auto) 1.0 Eos # (Auto) 0.1 Baso # (Auto) 0.0 Abs Immat Gran (auto) 0.04 H Absolute Neuts (auto) 6.8 Absolute Nucleated RBC 0.000 Nucleated RBC % (auto) 0.0 Sodium Potassium Chloride Carbon Dioxide Anion Gap BUN Creatinine Estim Creat Clear Calc Estimated GFR Random Glucose Fasting Glucose Estimat Average Glucose Hemoglobin A1c % Calcium Total Bilirubin AST ALT Alkaline Phosphatase C-Reactive Protein Total Protein Albumin Urine Color YELLOW Urine Appearance CLEAR Urine pH 6.0 Ur Specific [place] 1.015 Urine Protein 2+ H Urine Glucose (UA) NEG Urine Ketones NEG Urine Blood NEG Urine Nitrite NEG Ur Leukocyte Esterase NEG Urine RBC 0-2 Urine WBC 0-2 Ur Squamous Epith Cells TRACE Urine Bacteria 1+ U Random Total Protein 102 H Ur Random Sodium 20.0 Urine Creatinine 144.21 03/08/21 03/08/21 05:36 05:36 WBC RBC Hgb Hct MCV MCH MCHC RDW Plt Count MPV Immature Gran % (Auto) Neut % (Auto) Lymph % (Auto) [place] % (Auto) Eos % (Auto) Baso % (Auto) Lymph # (Auto) [place] # (Auto) Eos # (Auto) Baso # (Auto) Abs Immat Gran (auto) Absolute Neuts (auto) Absolute Nucleated RBC Nucleated RBC % (auto) Sodium 139 Potassium 3.7 Chloride 103 Carbon Dioxide 28 Anion Gap 12 BUN 20 H Creatinine 2.22 H Estim Creat Clear Calc 46.3 Estimated GFR 32 Random Glucose TNP Fasting Glucose 112 H Estimat Average Glucose 100 Hemoglobin A1c % 5.1 Calcium 7.9 L Total Bilirubin 0.4 AST 27 ALT 28 Alkaline Phosphatase 50 C-Reactive Protein 4.58 H Total Protein 6.0 L Albumin 3.6 Urine Color Urine Appearance Urine pH Ur Specific [place] Urine Protein Urine Glucose (UA) Urine Ketones Urine Blood Urine Nitrite Ur Leukocyte Esterase Urine RBC Urine WBC Ur Squamous Epith Cells Urine Bacteria U Random Total Protein Ur Random Sodium Urine Creatinine Microbiology Microbiology Results: Microbiology 03/04/21 13:47 Blood - Venous Blood Culture - Preliminary No growth after 48 hours. 03/04/21 13:47 Blood - Venous Blood Culture - Preliminary No growth after 48 hours. Procedures Date of Service Date of Service: 03/08/21 Assessment & Plan Assessment and plan (1) YEISON (acute kidney injury): Status: Acute Assessment and Plan: YEISON DDX : Hypoperfusion ( low Urine Na) ; Probably progressed to ATN Possible tubular injury from Vanco AGN/AIN seems less likely NO evidence of obstruction Assessment and Plan: Keep I > O Continue to avoid nephrotoxins Optimize BP Ordered basic serology Time Spent With Patient Time: Total time spent is greater than 50% in coordination of care (as documented) at patient's floor/unit and/or counseling patient: Time with patient: 15 - 24 minutes Progress Note: Quality Stroke Does the patient have a stroke diagnosis?: No
[2021-03-08 10:36] LABS: Vancomycin Trough 7.4 mcg/mL (10.0-20.0)
[2021-03-08] MEDS: 0.9 % Sodium Chloride 1,000 ML 150 ML IVCONT ×2 (13:13→17:22)
--- NOTE | 2021-03-08 13:22 | HO.PM.IMPN ---
Subjective Subjective Date of Service: 03/08/21 Interval History: C/o severe back pain radiating down legs, L>R No saddle anesthesia and no leg weakness SCr worsening Cellulitis much improved Review of Systems Review of Systems: Yes all other systems are reviewed and are negative Physical Exam Vital Signs: Vital Signs: Last Vital Signs Temp 96.9 F 03/08/21 11:25 Pulse 67 03/08/21 11:25 Resp 16 03/08/21 11:25 BP 181/90 H 03/08/21 11:25 Pulse Ox 96 03/08/21 11:25 Body Mass Index 32.5 Gen: in no acute distress HEENT: sclera anicteric, moist mucus membranes Neck: supple Lungs: clear to auscultation bilaterally Heart: regular rate and rhythm, no murmurs Abd: soft, non-tender, non-distended Ext: no edema Back: positive SLR bilaterally Skin: RLE erythema below tibial plateau extending to ankle much improved Neuro: alert and oriented x3, no focal findings Psych: appropriate affect Objective Data Active Medications Acetaminophen (Acetaminophen 325 Mg Tablet) 650 mg PO Q6H PRN PRN Reason: Pain, Mild (Pain Scale 1-3) Last Admin: 03/06/21 00:08 Dose: 650 mg Documented by: SANDEEP Amlodipine Besylate (Amlodipine Besylate 5 Mg Tablet) 5 mg PO DAILY [facility]; Protocol Last Admin: 03/08/21 08:27 Dose: 5 mg Documented by: JORDAN Baclofen (Baclofen 10 Mg Tablet) 10 mg PO TID [facility] Docusate Sodium (Docusate Sodium 100 Mg Capsule) 100 mg PO DAILY PRN PRN Reason: Constipation Enoxaparin Sodium (Enoxaparin Sodium 40 Mg/0.4 Ml Syringe) 40 mg SUBCUT Q24H [facility] Last Admin: 03/07/21 20:37 Dose: 40 mg Documented by: SANJIV Folic Acid (Folic Acid 1 Mg Tablet) 1 mg PO DAILY [facility] Last Admin: 03/08/21 08:27 Dose: 1 mg Documented by: JORDAN Piperacillin Sod/Tazobactam (Sod 4.5 gm/ Sodium Chloride) 100 mls @ 200 mls/hr IV Q6H [facility] Last Infusion: 03/08/21 11:05 Dose: 0 mls/hr Documented by: BERNADETTE Doxycycline Hyclate 100 mg/ (Sodium Chloride) 250 mls @ 166.67 mls/hr IV Q12H [facility] Last Infusion: 03/08/21 10:17 Dose: 0 mls/hr Documented by: BERNADETTE Sodium Chloride (Ns) 1,000 mls @ 150 mls/hr IVCONT .Q6H40M [facility] Last Admin: 03/08/21 13:13 Dose: 150 mls/hr Documented by: BERNADETTE Methadone HCl (Methadone Hcl 20 Mg/2 Ml Oral.Conc) 70 mg PO DAILY [facility] Last Admin: 03/08/21 08:28 Dose: 70 mg Documented by: JORDAN Morphine Sulfate (Morphine Sulfate 2 Mg/Ml Cartridge) 4 mg IVPUSH Q2H PRN; Protocol PRN Reason: severe pain Multivitamins/Vitamin C (Multivitamin Tablet) 1 tab PO DAILY [facility] Last Admin: 03/08/21 08:27 Dose: 1 tab Documented by: JORDAN Ondansetron HCl (Ondansetron Hcl 4 Mg/2 Ml Vial) 4 mg IVPUSH Q8H PRN PRN Reason: Nausea and Vomiting Oxycodone HCl (Oxycodone Hcl Immed Release 5 Mg Tablet) 10 mg PO Q4H PRN PRN Reason: Pain, Moderate (Pain Scale 4-6 Last Admin: 03/08/21 11:04 Dose: 10 mg Documented by: JORDAN Pharmacy Consult (Consult Rx Perform Med Rec) 1 each MISCELLANE ONCE PRN PRN Reason: Consult order Pharmacy Consult (Consult Rx Vancomycin Dosing) 1 each MISCELLANE DAILY PRN PRN Reason: Consult order Sodium Chloride (0.9 % Sodium Chloride Flush 3 Ml Syringe) 3 ml IVFLUSH QSHIFT [facility] Last Admin: 03/08/21 08:33 Dose: Not Given Documented by: JORDAN Non-Admin Reason: IV Running Thiamine HCl (Thiamine Hcl 100 Mg Tablet) 100 mg PO DAILY [facility] Last Admin: 03/08/21 08:27 Dose: 100 mg Documented by: JORDAN Labs CBC & Chem 7: 03/08/21 05:36 03/08/21 05:36 Labs: Laboratory Results - last 24 hr 03/07/21 03/07/21 03/08/21 17:31 17:45 05:36 MCV 95.7 MCH 32.4 MCHC 33.8 RDW 12.0 Plt Count 184 MPV 9.5 Immature Gran % (Auto) 0.4 Neut % (Auto) 75.7 H Lymph % (Auto) 11.4 L [place] % (Auto) 11.1 H Eos % (Auto) 1.2 Baso % (Auto) 0.2 Lymph # (Auto) 1.0 L [place] # (Auto) 1.0 Eos # (Auto) 0.1 Baso # (Auto) 0.0 Abs Immat Gran (auto) 0.04 H Absolute Neuts (auto) 6.8 Absolute Nucleated RBC 0.000 Nucleated RBC % (auto) 0.0 Anion Gap Estim Creat Clear Calc Estimated GFR Random Glucose Fasting Glucose Estimat Average Glucose Hemoglobin A1c % Calcium Total Bilirubin AST ALT Alkaline Phosphatase C-Reactive Protein Total Protein Albumin Urine Color YELLOW Urine Appearance CLEAR Urine pH 6.0 Ur Specific [place] 1.015 Urine Protein 2+ H Urine Glucose (UA) NEG Urine Ketones NEG Urine Blood NEG Urine Nitrite NEG Ur Leukocyte Esterase NEG Urine RBC 0-2 Urine WBC 0-2 Ur Squamous Epith Cells TRACE Urine Bacteria 1+ U Random Total Protein 102 H Ur Random Sodium 20.0 Urine Creatinine 144.21 Vancomycin Trough 03/08/21 03/08/21 03/08/21 05:36 05:36 10:04 MCV MCH MCHC RDW Plt Count MPV Immature Gran % (Auto) Neut % (Auto) Lymph % (Auto) [place] % (Auto) Eos % (Auto) Baso % (Auto) Lymph # (Auto) [place] # (Auto) Eos # (Auto) Baso # (Auto) Abs Immat Gran (auto) Absolute Neuts (auto) Absolute Nucleated RBC Nucleated RBC % (auto) Anion Gap 12 Estim Creat Clear Calc 46.3 Estimated GFR 32 Random Glucose TNP Fasting Glucose 112 H Estimat Average Glucose 100 Hemoglobin A1c % 5.1 Calcium 7.9 L Total Bilirubin 0.4 AST 27 ALT 28 Alkaline Phosphatase 50 C-Reactive Protein 4.58 H Total Protein 6.0 L Albumin 3.6 Urine Color Urine Appearance Urine pH Ur Specific [place] Urine Protein Urine Glucose (UA) Urine Ketones Urine Blood Urine Nitrite Ur Leukocyte Esterase Urine RBC Urine WBC Ur Squamous Epith Cells Urine Bacteria U Random Total Protein Ur Random Sodium Urine Creatinine Vancomycin Trough 7.4 L Assessment and Plan (1) Cellulitis: Status: Acute Assessment and Plan: hospital d#5 50yo M with asthma, HTN, EtOH abuse, hx injection opioid abuse now on methadone maintenance presenting with acute RLE pain/erythema admitted for sepsis from nonpurulent cellulitis # cellulitis - pipercaillin/tazobactam d#5 + doxycycline d#2 after 4d of vancomycin [stopped due to YEISON]. BCx negaive # sepsis - not severe; treat cellulitis as above # YEISON - FENa 0.2%- give IV fluids. also has some proteinuria- Upr/Cr 0.7. d/c'ed ketorolac, lisinopril, and vancomycin. Nephrology following. # HTN - hold lisinopril as above. start amlodipine # sciatica - give oxycodone, morphine, baclofen # opioid use disorder - continue methadone # EtOH abuse - 2-3 beers 3-4x a week; no hx of DTs or withdrawal; phenobarbital discontinued - continue vitamin supplementation- thiamine, folate, multivitamin # VTE ppx - LMWH Quality Stroke Does the patient have a stroke diagnosis?: No VTE Prior VTE?: No VTE Risk Level:: Medical - moderate - high VTE Device Contraindication: Treatment Not Indicated VTE Drug Contraindication: N/A - Med Ordered
[2021-03-08] MEDS: Morphine Sulfate 2 MG/ML CARTRIDGE 4 MG IVPUSH ×3 (15:02→23:09)
[2021-03-08] MEDS: Baclofen 10 MG TABLET PO ×2 (15:02→19:50)
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
[2021-03-08] MEDS: Acetaminophen 325 MG TABLET 650 MG PO (17:29)
[2021-03-08] MEDS: Enoxaparin Sodium 40 MG/0.4 ML SYRINGE SUBCUT (19:50)
[2021-03-09] VITALS: BP 172/98; PULSE 81; RESP 18; TEMP 36; O2SAT 99
[2021-03-09] MEDS: Morphine Sulfate 2 MG/ML CARTRIDGE 4 MG IVPUSH ×5 (03:03→12:44)
[2021-03-09] MEDS: Piperacillin Sodium/Tazobactam 4.5 GM in 0.9 % Sodium Chloride 100 ML IV ×2 (03:04→10:12)
[2021-03-09] MEDS: 0.9 % Sodium Chloride 1,000 ML 150 ML IVCONT (03:04)
[2021-03-09 03:48] VITALS: BP 170/98; PULSE 65; RESP 18; TEMP 36.2; O2SAT 97
[2021-03-09 07:06] LABS: Anion Gap 12 (12-20); Blood Urea Nitrogen 18 mg/dL (9-16); Carbon Dioxide 25 mmol/L (22-29); Chloride 109 mmol/L (96-108); Estimated Glomerular Filt Rate 37; Glucose Random 97 mg/dL (60-115); Potassium 3.8 mmol/L (3.3-5.1); Sodium 142 mmol/L (135-145)
[2021-03-09] MEDS: methADONE HCl 20 MG/2 ML ORAL.CONC 70 MG PO (07:49)
[2021-03-09] MEDS: Multivitamin TABLET 1 TAB PO (07:50)
[2021-03-09] MEDS: Baclofen 10 MG TABLET PO (07:50)
[2021-03-09] MEDS: Folic Acid 1 MG TABLET PO (07:50)
[2021-03-09] MEDS: Doxycycline Hyclate 100 MG in 0.9 % Sodium Chloride 250 ML 166.66 MG IV (07:50)
[2021-03-09] MEDS: 0.9 % Sodium Chloride Flush 3 ML SYRINGE IVFLUSH (07:58)
[2021-03-09] MEDS: Thiamine HCL 100 MG TABLET PO (07:59)
[2021-03-09 08:00] VITALS: BP 181/92; PULSE 60; RESP 19; TEMP 36.2; O2SAT 97
[2021-03-09 09:33] LABS: HBsAGNum1 0.23 S/CO (0.00-0.99); Hepatitis B Surface Antigen Negative (Negative); ~HepC Num1 0.04 S/CO (0.00-0.79); ~Hepatitis B Surface Antibody NONREACTIVE (Nonreactive); ~Hepatitis C Antibody Nonreactive (Nonreactive)
[2021-03-09 09:45] LABS: HBc Num1 0.05 S/CO (0.00-0.79); Hepatitis B Core Antibody Nonreactive (Nonreactive)
--- NOTE | 2021-03-09 09:49 | PM.PNNEP ---
Subjective Subjective Date of Service: 03/09/21 Interval history: C/o severe back pain radiating down legs, L>R No saddle anesthesia and no leg weakness SCr worsening Cellulitis much improved Physical Exam Vital Signs: Vital Signs: Last Vital Signs Temp 97.2 F 03/09/21 08:00 Pulse 60 03/09/21 08:00 Resp 19 03/09/21 08:00 BP 181/92 H 03/09/21 08:00 Pulse Ox 97 03/09/21 08:00 Body Mass Index 32.5 Const: General: cooperative and comfortable Orientation/consciousness: oriented to person and oriented to place Eyes: General: appearance normal, both eyes and all related structures Neck: Neck: Yes no meningeal signs and Yes no JVD Resp: Effort & Inspection: normal respiratory effort Auscultation: clear to auscultation bilaterally and no rales Cardio: Jugular venous distension: no JVD Palpation: no palpable S4 Rate: not tachycardic GI: Inspection: Yes normal to inspection Palpation (GI): Soft to palpation Auscultation: normal bowel sounds : General: Yes no CVA tenderness Back/Spine/Pelvis: Back: no CVA tenderness Neuro: General: oriented to person, oriented to place and no meningeal signs Gait exam (Neuro): not ataxic Motor exam (neuro): no asterixis Objective Data Labs CBC & Chem 7: 03/08/21 05:36 03/09/21 05:57 Labs: Laboratory Results - last 24 hr 03/08/21 03/09/21 03/09/21 10:04 05:57 05:57 Sodium 142 Potassium 3.8 Chloride 109 H Carbon Dioxide 25 Anion Gap 12 BUN 18 H Creatinine 1.94 H Estim Creat Clear Calc 53.0 Estimated GFR 37 Random Glucose 97 Calcium 8.0 L Vancomycin Trough 7.4 L Hep Bs Antigen Negative Hep Bs Antibody NONREACTIVE Hepatitis C Ab (EIA) Nonreactive Microbiology Microbiology Results: Microbiology 03/04/21 13:47 Blood - Venous Blood Culture - Preliminary No growth after 48 hours. 03/04/21 13:47 Blood - Venous Blood Culture - Preliminary No growth after 48 hours. Procedures Date of Service Date of Service: 03/09/21 Assessment & Plan Assessment and plan (1) YEISON (acute kidney injury): Status: Acute Assessment and Plan: YEISON DDX : Hypoperfusion ( low Urine Na) ; Probably progressed to ATN Possible tubular injury from Vanco AGN/AIN seems less likely NO evidence of obstruction Creatinine is better today Assessment and Plan: Keep I > O Continue to avoid nephrotoxins Optimize BP Ordered basic serology If Cr is lower angelo 1.9 by 03/10/21, Can discharge Time Spent With Patient Time: Total time spent is greater than 50% in coordination of care (as documented) at patient's floor/unit and/or counseling patient: Time with patient: 15 - 24 minutes Progress Note: Quality Stroke Does the patient have a stroke diagnosis?: No
[2021-03-09] MEDS: amLODIPine Besylate 10 MG TABLET PO (09:56)
[2021-03-09 10:06] VITALS: BP 181/92; PULSE 60; O2SAT 97
--- NOTE | 2021-03-09 11:11 | MHC.CM.PN ---
PT DISCHARGOMG HOME SELF-CARE, PT DECLINING [facility] FOR METHADONE, PT WILL CALL TO ARRANGE TRANSPORT
[2021-03-09 12:00] VITALS: BP 184/92; PULSE 80; RESP 18; TEMP 36.1; O2SAT 98
--- NOTE | 2021-03-09 12:26 | PM.DS ---
DS: Providers Provider Date of Service: 03/09/21 Date of admission: 03/04/21 20:32 Primary care physician: [facility] Consults: 03/07/21 08:27 Consult to Nephrology Routine Consulting Provider: [facility] Reason for consultation: YEISON DS: Diagnosis Discharge Diagnosis (1) YEISON (acute kidney injury): Status: Acute (2) Cellulitis: Status: Acute (3) Sepsis: Status: Acute (4) Sciatica: Status: Acute (5) Alcohol abuse: Status: Acute (6) Tobacco abuse: Status: Acute DS: Summary Hospital Course Hospital Course: from admission H+P by admitting hospitalist William Stein MD, 03/04/21: This is a 50-year-old male with past medical history of asthma, alcohol abuse, hypertension, as well as IV drug use on methadone presents to the hospital with complaints of right lower extremity erythema, as well as severe pain that started about 2 days ago.? Patient describes the pain as 8/10, has swelling, he denies any nausea vomiting, no abdominal pain, no diarrhea or constipation, he has had upper respiratory congestion for the past 1 week with rhinorrhea, mild cough, no fever, no shortness of breath Temp of a 100.5?, heart rate of 120, respiratory rate of 18, blood pressure 181/114 Labs are significant for WBC of 13.8, hemoglobin of 11.6, ESR of 20, CRP of 14, BNP of 116 otherwise unremarkable COVID-19 negative, Chest x-ray showed no cardiopulmonary abnormality Venous duplex shows no DVT Lower extremity CT shows bilateral lower leg circumferential subcutaneous edema and fat stranding, right slightly greater than left, no abscess formation or soft tissue emphysema to suggest necrotizing fasciitis, no acute osseous abnormality This 50yo man with asthma, HTN, EtOH abuse, hx injection opioid abuse now on methadone maintenance presented with acute RLE pain/erythema and was admitted for sepsis from nonpurulent cellulitis. He improved on piperacillin/tazobactam and vancomycin but developed YEISON likely due to tubular toxicity. Vancomycin was changed to doxycycline and serum creatinine peaked at 2.2 and started trending downwards. Blood cultures were negative. Sepsis was not severe. He was given IV fluids and lisinopril was discontinued; amlodipine was started for management of hypertension. He was also treated with baclofen and oxycodone for exacerbation of sciatica. Methadone was continued. He had no signs of alcohol withdrawal and phenobarbital taper was discontinued without incident. He was discharged home with instructions to repeat labs [nonfasting BMP] in 5 days and to follow up with Nephrology and Primary Care in 1 week. He was referred to [facility] for outpatient sciatica treatment. Time Spent with Patient Time attestation: Total time spent providing and/or coordinating discharge services: Discharge coordination time: Greater than 30 minutes Quality: Stroke Does the patient have a stroke diagnosis?: No Physical Exam Vital Signs: Vital Signs: Last Vital Signs Temp 96.9 F 03/09/21 12:00 Pulse 80 03/09/21 12:00 Resp 18 03/09/21 12:00 BP 184/92 H 03/09/21 12:00 Pulse Ox 98 03/09/21 12:00 Body Mass Index 32.5 Gen: in no acute distress HEENT: sclera anicteric, moist mucus membranes Neck: supple Lungs: clear to auscultation bilaterally Heart: regular rate and rhythm, no murmurs Abd: soft, non-tender, non-distended Ext: no edema Back: positive SLR bilaterally Skin: no residual erythema of leg Neuro: alert and oriented x3, no focal findings Psych: appropriate affect DS: Data Data Completed and Pending Completed studies during hospitalization [Text1]: Laboratory Results WBC 9.0 X10*3/uL (4.8-10.8) 03/08/21 05:36 RBC 3.46 X10*6/uL (4.60-5.80) L 03/08/21 05:36 Hgb 11.2 g/dl (14.0-18.0) L 03/08/21 05:36 Hct 33.1 % (42.0-52.0) L 03/08/21 05:36 MCV 95.7 fL (80.0-98.0) 03/08/21 05:36 MCH 32.4 pg (27.0-33.0) 03/08/21 05:36 MCHC 33.8 g/dl (31.0-36.0) 03/08/21 05:36 RDW 12.0 % (11.0-16.0) 03/08/21 05:36 Plt Count 184 X10*3/uL (160-400) 03/08/21 05:36 MPV 9.5 fL (9.4-12.4) 03/08/21 05:36 Immature Gran % (Auto) 0.4 % (0.0-0.4) 03/08/21 05:36 Neut % (Auto) 75.7 % (45-73) H 03/08/21 05:36 Lymph % (Auto) 11.4 % (20-40) L 03/08/21 05:36 [place] % (Auto) 11.1 % (2-11) H 03/08/21 05:36 Eos % (Auto) 1.2 % (0-4) 03/08/21 05:36 Baso % (Auto) 0.2 % (0-2) 03/08/21 05:36 Lymph # (Auto) 1.0 X10*3/uL (1.2-4.9) L 03/08/21 05:36 [place] # (Auto) 1.0 X10*3/uL (0.1-1.2) 03/08/21 05:36 Eos # (Auto) 0.1 X10*3/uL (0.0-0.4) 03/08/21 05:36 Baso # (Auto) 0.0 X10*3/uL (0.0-0.2) 03/08/21 05:36 Abs Immat Gran (auto) 0.04 X10*3/uL (0.00-0.03) H 03/08/21 05:36 Absolute Neuts (auto) 6.8 x10*3/uL (2.0-8.3) 03/08/21 05:36 Absolute Nucleated RBC 0.000 X10*3/uL (0.0-0.012) 03/08/21 05:36 Nucleated RBC % (auto) 0.0 /100WBC (0.0-0.2) 03/08/21 05:36 ESR 20 MM/HR (0-15) H 03/04/21 15:00 PT 11.1 SEC (9.9-13.0) 03/04/21 15:00 INR 1.0 (0.9-1.1) 03/04/21 15:00 APTT 36.3 SEC (24.1-38.0) 03/04/21 15:00 Sodium 142 mmol/L (135-145) 03/09/21 05:57 Potassium 3.8 mmol/L (3.3-5.1) 03/09/21 05:57 Chloride 109 mmol/L (96-108) H 03/09/21 05:57 Carbon Dioxide 25 mmol/L (22-29) 03/09/21 05:57 Anion Gap 12 (12-20) 03/09/21 05:57 BUN 18 mg/dL (9-16) H 03/09/21 05:57 Creatinine 1.94 mg/dL (0.5-1.4) H 03/09/21 05:57 Estim Creat Clear Calc 53.0 03/09/21 05:57 Estimated GFR 37 03/09/21 05:57 Random Glucose 97 mg/dL (60-115) 03/09/21 05:57 Fasting Glucose 112 mg/dL (60-99) H 03/08/21 05:36 Estimat Average Glucose 100 mg/dL 03/08/21 05:36 Hemoglobin A1c % 5.1 % 03/08/21 05:36 Lactic Acid 1.1 mmol/L (0.5-2.0) 03/04/21 15:00 Calcium 8.0 mg/dL (8.4-10.2) L 03/09/21 05:57 Total Bilirubin 0.4 mg/dL (0.0-1.0) 03/08/21 05:36 Direct Bilirubin 0.2 mg/dL (0.0-0.5) 03/04/21 13:47 AST 27 U/L (5-37) 03/08/21 05:36 ALT 28 U/L (0-40) 03/08/21 05:36 Alkaline Phosphatase 50 U/L (39-117) 03/08/21 05:36 C-Reactive Protein 4.58 mg/dL (< or = 0.50) H 03/08/21 05:36 B-Natriuretic Peptide 116 pg/mL (<100) H 03/04/21 13:47 Total Protein 6.0 g/dL (6.5-8.0) L 03/08/21 05:36 Albumin 3.6 g/dL (3.5-5.0) 03/08/21 05:36 Lipase 19 U/L (8-78) 03/04/21 13:47 Urine Color YELLOW 03/07/21 17:31 Urine Appearance CLEAR 03/07/21 17:31 Urine pH 6.0 (5.0-8.0) 03/07/21 17:31 Ur Specific [place] 1.015 (1.005-1.025) 03/07/21 17:31 Urine Protein 2+ MG/DL (NEG-TRACE) H 03/07/21 17:31 Urine Glucose (UA) NEG MG/DL (NEG) 03/07/21 17:31 Urine Ketones NEG MG/DL (NEG) 03/07/21 17:31 Urine Blood NEG (NEG) 03/07/21 17:31 Urine Nitrite NEG (NEG) 03/07/21 17:31 Ur Leukocyte Esterase NEG (NEG) 03/07/21 17:31 Urine RBC 0-2 /HPF (0) 03/07/21 17:31 Urine WBC 0-2 /HPF (0-4) 03/07/21 17:31 Ur Squamous Epith Cells TRACE /LPF 03/07/21 17:31 Urine Bacteria 1+ /LPF 03/07/21 17:31 U Random Total Protein 102 mg/dL (<12) H 03/07/21 17:45 Ur Random Sodium 20.0 mmol/L 03/07/21 17:45 Urine Creatinine 144.21 mg/dL 03/07/21 17:45 Vancomycin Trough 7.4 mcg/mL (10.0-20.0) L 03/08/21 10:04 COVID-19 (MAGALI) Negative (Negative) 03/04/21 19:37 COVID-19 Clin Com See Note 03/04/21 19:37 Hep Bs Antigen Negative (Negative) 03/09/21 05:57 Hep Bs Antibody NONREACTIVE (Nonreactive) 03/09/21 05:57 Hep B Core Total Ab Nonreactive (Nonreactive) 03/09/21 05:57 Hepatitis C Ab (EIA) Nonreactive (Nonreactive) 03/09/21 05:57 Impressions Tibia/Fibula X-Ray 03/04/21 14:33 IMPRESSION: No osseous abnormality of either tibia/fibula. Right lower extremity soft tissue swelling. Venous Duplex 03/04/21 14:33 IMPRESSION: No DVT demonstrated in the bilateral lower extremity. Lower Extremity CT 03/04/21 16:40 IMPRESSION: Bilateral lower leg circumferential subcutaneous edema and fat stranding, right slightly greater than left. No abscess formation or soft tissue emphysema to suggest necrotizing fasciitis. No acute osseous abnormality. Mild tricompartmental osteoarthritis and trace joint effusion at the right knee. Chest X-Ray 03/04/21 19:37 IMPRESSION: No acute cardiopulmonary findings. Renal Ultrasound 03/07/21 09:42 IMPRESSION: No renal calculi or hydronephrosis of either kidney. Discharge Plan Discharge Patient Disposition: Home, Self-Care Discharge Diagnosis: cellulitis, alcohol abuse, acute kidney injury Referrals: Physical Therapy - [facility] [Outside] - 1 Week Physical Therapy - [facility] [Outside] - 1 Week [facility] [Primary Care Provider] - 1 Week Escobar Martinez MD [Physician] - 1 Week Discharge Medications: New baclofen 10 mg Tablet 10 mg PO TID PRN (Reason: back pain) Qty: 30 RF: 0 amlodipine 10 mg Tablet 10 mg PO DAILY Qty: 30 RF: 0 oxycodone 5 mg tablet 5 mg PO BID PRN (Reason: severe pain) Qty: 6 RF: 0 baclofen 10 mg tablet 10 mg PO TID PRN (Reason: back pain) Qty: 30 RF: 0 nicotine (polacrilex) 4 mg gum 4 mg buccal Q1H PRN (Reason: nicotine cravings) Qty: 100 RF: 0 doxycycline monohydrate 100 mg tablet 100 mg PO BID Qty: 4 RF: 0 amoxicillin-pot clavulanate 875-125 mg tablet 1 tab PO BID Qty: 4 RF: 0 Continued thiamine HCl (vitamin B1) 100 mg tablet 1 tab PO DAILY RF: 0 folic acid 1 mg tablet 1 tab PO DAILY RF: 0 Cerovite Senior Tablet 1 tab PO DAILY RF: 0 methadone 10 mg Tablet 70 mg PO DAILY RF: 0 Discontinued lisinopril 30 mg Tablet 30 mg PO DAILY RF: 0 ibuprofen 800 mg Tablet 800 mg PO Q6H PRN (Reason: Pain) RF: 0 acetaminophen 500 mg Tablet 1,000 mg PO QID PRN (Reason: Pain) RF: 0 Discharge Orders: Discharge Order (Routine); Ordered 03/09/21 Ordered By: Víctor Castro Diet: advance to usual diet Activity on Discharge: no smoking Stand Alone Forms: Patient Portal Discharge page Activity Restrictions/Additional Instructions: Return to ED for worsening redness, increased pain, chest pain, shortness of breath, intractable fever, weakness, dizziness, or any other concerning symptoms. Care Plan Goals: kidney health resolution of infection/cellulitis abstinence from alcohol quitting smoking management of sciatica pain Health Concerns: acute kidney injury, cellulitis, alcohol abuse, tobacco abuse, sciatica Plan of Treatment: AVOID ibuprofen + naproxen + other potential nephrotoxins repeat lab [basic metabolic panel- nonfasting]- on 03/14/21 and follow up with NEPHROLOGY CHANGE lisinopril to amlodipine take doxycycline and amoxicillin/clavulanate for 2 more days avoid alcohol stop smoking sciatica: outpatient PT, primary care follow-up, oxycodone for severe pain only Assessment: See Discharge Summary Patient Instructions: Cellulitis (ED)
[2021-03-10 12:02] LABS: Complement C3 145 mg/dL (82-185)
[2021-03-10 17:17] LABS: Anti Glomerular Basement Memb <1.0 AI
[2021-03-14 17:57] LABS: Prot Elec - Albumin 3.5 g/dL (3.8-4.8); Prot Elec - Alpha1 0.5 g/dL (0.2-0.3); Prot Elec - Beta 1 0.4 g/dL (0.4-0.6); Prot Elec - Beta 2 0.4 g/dL (0.2-0.5); Prot Elec - Gamma 0.8 g/dL (0.8-1.7); Prot Elec - Total Protein 6.5 g/dL (6.1-8.1)
== END 2021-03-09 14:05 | disposition home or self-care (01) | DRG 720 ==
LOC: HO.ED 15:22 → HO.EDOVER 20:38 → HO.S3 03-05 06:14
PROVIDERS: Hospitalist; Internal Medicine Hypertension Specialist; Physician Assistant; Admitting Provider Internal Medicine; Emergency Provider Emergency Medicine; PCP Internal Medicine; Visit Provider Family Medicine
DX: A41.9 Sepsis, unspecified organism (principal); N17.9 Acute kidney failure, unspecified; F11.20 Opioid dependence, uncomplicated; L03.116 Cellulitis of left lower limb; J45.909 Unspecified asthma, uncomplicated; M54.30 Sciatica, unspecified side; F10.10 Alcohol abuse, uncomplicated; I10 Essential (primary) hypertension; F17.210 Nicotine dependence, cigarettes, uncomplicated; Z71.6 Tobacco abuse counseling; Z20.822 Contact with and (suspected) exposure to COVID-19; Z88.5 Allergy status to narcotic agent; Z79.899 Other long term (current) drug therapy
CPT/HCPCS: 36415; 71045; 73590; 73701; 76775; 80048; 80053; 80076; 80202; 81001; 83036; 83520; 83605; 83690; 83880; 84156; 84165; 84300; 85025; 85610; 85652; 85730; 86140; 86160; 86704; 86706; 86803; 87040; 87340; 87635; 93005; 93970; 96365; 96367; 96375; 96376; 97161; 99285; J0696; J1170; J1650; J1885; J2270; J2543; J2560; J3370; Q9967

== ENCOUNTER 2021-03-20 23:25 | Emergency (ER) | payer MEDICAID, SELFPAY ==
--- NOTE | 2021-03-21 01:19 | ECG_ITS ---
Test Reason : leg edema Blood Pressure : / mmHG Vent. Rate : 085 BPM Atrial Rate : 085 BPM P-R Int : 156 ms QRS Dur : 084 ms QT Int : 374 ms P-R-T Axes : 044 044 040 degrees QTc Int : 445 ms Normal sinus rhythm Normal ECG When compared with ECG of 04-MAR-2021 14:55, Heart rate has decreased Referred By: Generic ED Physician Electronically Signed By:COLLIN GRIMES MD
[2021-03-21 01:47] VITALS: BP 207/102; PULSE 86; RESP 16; TEMP 35.9; O2SAT 98; BMI 34.0
[2021-03-21 02:04] LABS: MANUAL DIFF FLAG NO
[2021-03-21 02:05] LABS: Basophils Absolute Auto 0.1 X10*3/uL (0.0-0.2); Basophils Percent Auto 0.5 % (0-2); Eosinophils Absolute Auto 0.5 X10*3/uL (0.0-0.4); Eosinophils Percent Auto 5.2 % (0-4); Hematocrit 35.4 % (42.0-52.0); Hemoglobin 11.9 g/dl (14.0-18.0); Imm Gran Abs Auto 0.02 X10*3/uL (0.00-0.03); Imm Gran Pct Auto 0.2 % (0.0-0.4); Lymphocytes Absolute Auto 2.2 X10*3/uL (1.2-4.9); Lymphocytes Percent Auto 23.4 % (20-40); Mean Corpuscular HGB Conc 33.6 g/dl (31.0-36.0); Mean Corpuscular Hemoglobin 32.5 pg (27.0-33.0); Mean Corpuscular Volume 96.7 fL (80.0-98.0); Mean Platelet Volume 9.3 fL (9.4-12.4); Monocytes Absolute Auto 0.9 X10*3/uL (0.1-1.2); Monocytes Percent Auto 9.7 % (2-11); Neutrophils Absolute Auto 5.6 x10*3/uL (2.0-8.3); Platelet Count 258 X10*3/uL (160-400); Red Blood Count 3.66 X10*6/uL (4.60-5.80); Red Cell Distribution Width 12.2 % (11.0-16.0); White Blood Count 9.3 X10*3/uL (4.8-10.8)
[2021-03-21 02:26] LABS: Anion Gap 16 (12-20); Blood Urea Nitrogen 15 mg/dL (9-16); Calcium 10.2 mg/dL (8.4-10.2); Carbon Dioxide 30 mmol/L (22-29); Chloride 101 mmol/L (96-108); Creatinine Clr Calc Pharmacy 96.5; Estimated Glomerular Filt Rate > 60; Glucose Random 109 mg/dL (60-115); Potassium 3.7 mmol/L (3.3-5.1); Sodium 143 mmol/L (135-145)
[2021-03-21 02:27] LABS: B Type Natriuretic Peptide 57 pg/mL (<100); Troponin-I High Sensitivity 5.1 ng/L (<3.5-35.0)
--- NOTE | 2021-03-21 03:19 | ED_ITS ---
HPI - Extremity Problem General Chief complaint: Extremity Problem Stated complaint: swelling in both ankles Time Seen by Provider: 03/21/21 03:04 Source: patient Mode of arrival: ambulatory Limitations: no limitations History of Present Illness HPI Narrative: Patient comes emergency room complaining of lower extremity edema. Patient states it has been approximately a month since his legs have been swollen. Patient was evaluated on February, diagnosed with cellulitis. Patient was started on cephalexin and doxycycline. Also, lower extremity ultrasound was done, was negative for DVT, CT scan was done as well since there was a concern of redness, concern for necrotizing fasciitis, CT scan was negative. Patient was started amlodipine for high blood pressure. Patient states that the redness in his legs improved. However, they are very painful secondary to the skin stretching. Patient denies orthopnea, no shortness of breath, chest pain. Related Data Home Medications Medication Instructions Recorded Confirmed folic acid 1 mg tablet 1 tab PO DAILY 03/04/21 03/21/21 methadone 10 mg tablet 70 mg PO DAILY 03/04/21 03/21/21 [id number] 1 tab PO DAILY 03/04/21 03/21/21 tablet (Cerovite Senior) Previous Rx's Medication Instructions Recorded amlodipine 10 mg tablet 10 mg PO DAILY #30 tab 03/09/21 furosemide 40 mg tablet (Lasix) 40 mg PO DAILY #20 tab 03/21/21 Allergies Allergy/AdvReac Type Severity Reaction Status Date / Time codeine [CODEINE] AdvReac Unknown STOMACH Verified 03/07/20 23:03 UPSET From FLEXERIL AdvReac Severe Confusion Uncoded 03/09/20 07:18 Review of Systems Review of Systems: Constitutional : No Weight loss, No Fever, No Chills, No Night Sweats, No Fatigue, No Malaise ENT/Mouth : No Hearing loss, No Ear Pain, No Nasal Congestion, No Sinus Pain, No Hoarseness, No sore throat, No Rhinorrhea, No Swallowing Difficulty Eyes: No Eye Pain, No Swelling, No Redness, No Foreign Body, No Discharge, No Vision Changes Cardiovascular : No Chest Pain, No SOB, No Dyspnea on Exertion, No Orthopnea, No Edema, No Palpitations Respiratory : No Cough, No Sputum, No Wheezing, No Smoke Exposure, No Dyspnea Gastrointestinal : No Nausea, No Vomiting, No Diarrhea, No Constipation, No abdominal Pain, No Hematochezia, No Melena Genitourinary : no irregular bleeding, No Dysuria, No Urinary Frequency, No Hematuria, No Urinary Incontinence, No Urgency, No Flank Pain, No Urinary Flow Changes, No Hesitancy Musculoskeletal : Worsening lower extremity edema bilateral Skin : No Skin Lesions, No rash Neuro : No Weakness, No Numbness, No Paresthesias, No Loss of Consciousness, No Dizziness, No Headache Psych : No Anxiety/Panic, No Depression, No SI/HI/AH/VH, No Social Issues, Heme/Lymph: No Bruising, No Bleeding,No Lymphadenopathy Endocrine : No Polyuria, No Polydipsia, No Temperature Intolerance [facility] Past Medical History Medical History YEISON (acute kidney injury) Alcohol abuse Alcohol abuse with withdrawal Asthma HTN (hypertension) Pancreatitis Surgical History H/O knee surgery H/O neck surgery Family History Family History (Updated 03/05/21 @ 06:45 by William Stein MD) Other Parkinsons disease Social History Social History (Updated 03/05/21 @ 06:46 by William Stein MD) Household Members: Significant Other Housing: Apartment Do you presently have visiting nurse or other home services: No Alcohol intake: current Alcohol intake frequency: holidays/special occasions only Patient Tobacco Use Status: Current everyday Tobacco user Tobacco use type: Cigarette Cigarette Packs Per Day: 0.5 Cigarettes Per Day: 10.0 e-Cigarette/Vaping Use: Never Used Second Hand Smoke Exposure: No Use of substances other than those prescribed or required for medical reasons: No Substance Use Type: Prescription Drugs Advance Directives: No Advance Directives Information Provided: Yes service: No Current occupational status: employed Physical Exam Vital Signs: Vital Signs: Last Vital Signs Temp 98.0 F 03/21/21 03:49 Pulse 85 03/21/21 03:49 Resp 18 03/21/21 03:49 BP 158/83 H 03/21/21 03:49 Pulse Ox 95 03/21/21 03:49 Body Mass Index 34.0 Const: Other: Appearance: Alert. Oriented X3. No acute distress. Eyes: Pupils equal, round and reactive to light. ENT: Pharynx normal. Neck: Normal inspection. Neck supple. No lymph nodes noted. No crepitus CVS: Normal heart rate and rhythm. Pulses normal. Normal S1 and S2 Respiratory: No respiratory distress. Breath sounds normal. No Wheezing. No rales Abdomen: Soft and nontender. No rigidity. No distention. good BS x4 Skin: Skin warm and dry. Normal skin color. Normal skin turgor. Extremities: +4 pitting edema bilaterally, No Lacerations. No Rash Neuro: Oriented X 3. No motor deficit. No sensory deficit. Moving all extermities. No slurred speech. Course Course Course Narrative: I discussed labs with the patient, patient will likely benefit from diuresis. Also, I discussed with the patient that amlodipine can cause lower extremity edema. We will go ahead and discontinue the amlodipine, patient will be on Lasix. Patient instructed to have close follow-up with his primary care physician. Patient given 1 dose of tramadol for the pain. At this time, it is almost 330 in the morning. Patient states that he would prefer to wait until the morning to start a medication and diuresing. BNP negative. No crackles on physical exam. MDM - Extremity (Nontraumatic) Lab Data Result diagrams: 03/21/21 02:01 03/21/21 02:01 Labs: Lab Results 03/21/21 03/21/21 03/21/21 Range/Units 02:01 02:01 02:01 WBC 9.3 (4.8-10.8) X10*3/uL RBC 3.66 L (4.60-5.80) X10*6/uL Hgb 11.9 L (14.0-18.0) g/dl Hct 35.4 L (42.0-52.0) % MCV 96.7 (80.0-98.0) fL MCH 32.5 (27.0-33.0) pg MCHC 33.6 (31.0-36.0) g/dl RDW 12.2 (11.0-16.0) % Plt Count 258 D (160-400) X10*3/uL MPV 9.3 L (9.4-12.4) fL Immature Gran % (Auto) 0.2 (0.0-0.4) % Neut % (Auto) 61.0 (45-73) % Lymph % (Auto) 23.4 (20-40) % [place] % (Auto) 9.7 (2-11) % Eos % (Auto) 5.2 H (0-4) % Baso % (Auto) 0.5 (0-2) % Lymph # (Auto) 2.2 (1.2-4.9) X10*3/uL [place] # (Auto) 0.9 (0.1-1.2) X10*3/uL Eos # (Auto) 0.5 H (0.0-0.4) X10*3/uL Baso # (Auto) 0.1 (0.0-0.2) X10*3/uL Abs Immat Gran (auto) 0.02 (0.00-0.03) X10*3/uL Absolute Neuts (auto) 5.6 (2.0-8.3) x10*3/uL Absolute Nucleated RBC 0.000 (0.0-0.012) X10*3/uL Nucleated RBC % (auto) 0.0 (0.0-0.2) /100WBC Sodium 143 (135-145) mmol/L Potassium 3.7 (3.3-5.1) mmol/L Chloride 101 (96-108) mmol/L Carbon Dioxide 30 H (22-29) mmol/L Anion Gap 16 (12-20) BUN 15 (9-16) mg/dL Creatinine 1.09 (0.5-1.4) mg/dL Estim Creat Clear Calc 96.5 Estimated GFR > 60 Random Glucose 109 (60-115) mg/dL Calcium 10.2 D (8.4-10.2) mg/dL Troponin I High Sens 5.1 (<3.5-35.0) ng/L B-Natriuretic Peptide 57 (<100) pg/mL Discharge Plan Discharge Clinical Impression: Bilateral lower extremity edema Patient Disposition: Home, Self-Care Instructions: Leg Edema (ED) Additional Instructions: Please discontinue taking amlodipine, take Lasix instead. Try to sleep with her legs elevated, tried to [place] wrap her legs as well. Please have close follow-up with her primary care physician. Prescriptions: New furosemide [Lasix] 40 mg tablet 40 mg PO DAILY Qty: 20 RF: 0 No Action folic acid 1 mg tablet 1 tab PO DAILY RF: 0 Cerovite Senior Tablet 1 tab PO DAILY RF: 0 methadone 10 mg Tablet 70 mg PO DAILY RF: 0 amlodipine 10 mg Tablet 10 mg PO DAILY Qty: 30 RF: 0
[2021-03-21] MEDS: traMADoL HCL 50 MG TABLET PO (03:29)
[2021-03-21 03:49] VITALS: BP 158/83; PULSE 85; RESP 18; TEMP 36.7; O2SAT 95
== END 2021-03-21 04:04 | disposition home or self-care (01) ==
PROVIDERS: Emergency Provider Emergency Medicine
DX: R60.0 Localized edema (principal); R06.02 Shortness of breath; Z79.899 Other long term (current) drug therapy; F17.210 Nicotine dependence, cigarettes, uncomplicated; Z71.6 Tobacco abuse counseling
CPT/HCPCS: 36415; 80048; 83880; 84484; 85025; 93005; 99283; 99285

== ENCOUNTER 2022-04-06 19:58 | Inpatient (IN) | payer MEDICAID, SELFPAY ==
--- NOTE | ~2022-04-06 | CT_ITS ---
EXAMINATION: CT ABDOMEN AND PELVIS WITH CONTRAST CLINICAL INFORMATION: Abdominal pain COMPARISON: CT scan abdomen pelvis 08/05/2020 TECHNIQUE: Multidetector volumetric images were obtained from the superior aspect of the liver through the pubic symphysis following administration 85 mL of Omnipaque 350 intravenous contrast. Sagittal and coronal reformatted images were obtained on the technologist's workstation. Oral contrast: No This CT examination was performed using dose optimization techniques as appropriate, variously including the following: *Automated exposure control *Adjustment of mA and/or kV according to patient size (this includes techniques or standardized protocols for targeted exams where dose is matched to indication/reason for exam; i.e. extremities or head) *Use of iterative reconstruction technique DLP: 764 mGy-cm FINDINGS: LUNG BASES: The visualized lung bases are unremarkable. LIVER, GALLBLADDER, AND BILIARY TREE: Diffuse low attenuation of liver parenchyma due to fatty change. No focal liver lesion or intrahepatic bile duct dilatation. Gallbladder is contracted. There is no bile duct dilatation. No calcified stone seen in the gallbladder or bile ducts. PANCREAS: There is significant edema in the. Pancreatic fat with fluid extending along the right and left pararenal fascia through the root of mesentery consistent with a pancreatitis. Pancreas is normal enhancement with no evidence of necrosis. No pancreatic duct dilatation or calcification. SPLEEN: Unremarkable. ADRENAL GLANDS: Unremarkable. KIDNEYS AND URETERS: The kidneys are normal in size, shape, and attenuation. No hydronephrosis, hydroureter, or calculi seen. No perinephric stranding. BLADDER: Unremarkable. GASTROINTESTINAL TRACT: The small and large bowel are unremarkable. The appendix is unremarkable. ABDOMINAL WALL: Small fat-containing umbilical hernia LYMPH NODES: Normal. VASCULAR: Unremarkable. PELVIC VISCERA: Unremarkable. OSSEOUS STRUCTURES: Unremarkable. CT/CT abdomen pelvis w IV con IMPRESSION: 1. Significant Pancreatitis. 2. Diffuse fatty change of liver. Fleischner guidelines were followed.
--- NOTE | ~2022-04-06 | CT_ITS ---
EXAMINATION: CT ABDOMEN AND PELVIS WITH CONTRAST CLINICAL INFORMATION: Intractable abdominal pain and pancreatitis. Rule out necrosis. COMPARISON: Previous CT of the abdomen and pelvis 04/06/2022 TECHNIQUE: Multidetector volumetric images were obtained from the superior aspect of the liver through the pubic symphysis following administration 85 mL of Omnipaque 350 intravenous contrast. Sagittal and coronal reformatted images were obtained on the technologist's workstation. Oral contrast: Yes This CT examination was performed using dose optimization techniques as appropriate, variously including the following: *Automated exposure control *Adjustment of mA and/or kV according to patient size (this includes techniques or standardized protocols for targeted exams where dose is matched to indication/reason for exam; i.e. extremities or head) *Use of iterative reconstruction technique DLP: 750 mGy-cm FINDINGS: LUNG BASES: There is increasing subsegmental atelectasis at the lung bases. Small pericardial effusion. LIVER, GALLBLADDER, AND BILIARY TREE: The liver is low in attenuation suggestive of fatty infiltration. The liver is slightly enlarged. No focal liver lesion. High attenuation in the gallbladder. This may represent excreted contrast from previous leak administered IV contrast. No biliary duct dilatation. There is decreasing enhancement of the head, neck and body of the pancreas. Only the tail of the pancreas enhances normally. Appearance is a suggestive of possible pancreatic necrosis. There is increasing fat stranding and fluid seen surrounding the pancreas. There is increasing slightly high attenuation soft tissue seen in the lesser sac posterior to the stomach for example axial image 31 series 3. Hounsfield units following IV contrast measure 66. Appearance is questionable for hemorrhage as opposed to a simple fluid. There are other more inferior fluids collection measuring 4 cm for example axial image 39 series 3. There is small amount of fluid and fat stranding in the bilateral anterior pararenal fascia. There is increasing small amount of ascites adjacent to the liver in the left paracolic gutter. The splenic vein appears narrowed axial image 35 series 3 but is patent. The portal veins are patent. PANCREAS: Unremarkable. SPLEEN: Unremarkable. ADRENAL GLANDS: Unremarkable. KIDNEYS AND URETERS: The kidneys are normal in size, shape, and attenuation. No hydronephrosis, hydroureter, or calculi seen. No perinephric stranding. BLADDER: Unremarkable. GASTROINTESTINAL TRACT: The small and large bowel are unremarkable. The appendix is unremarkable. ABDOMINAL WALL: No significant hernia is appreciated. LYMPH NODES: Normal. VASCULAR: Unremarkable. PELVIC VISCERA: Unremarkable. OSSEOUS STRUCTURES: Degenerative changes of the spine. Bilateral femoral head AVN. CT/CT abdomen pelvis w IV con IMPRESSION: Worsening pancreatitis. There is decreased enhancement of the head neck and body the pancreas worrisome for pancreatic necrosis. There is increased fluid and soft tissue surrounding the pancreas. Some of this appears higher in attenuation than simple fluid and questionable for possible hemorrhage. Increasing small amount of ascites. Fatty liver. Increasing bibasilar subsegmental atelectasis. Findings will be communicated by the [place] work flow reel man. Fleischner guidelines were followed.
[2022-04-06 20:13] VITALS: BP 163/135; PULSE 95; RESP 18; O2SAT 98; BMI 31.0
[2022-04-06 20:17] VITALS: BP 154/128; BP 163/135; PULSE 96; PULSE 98; RESP 20; RESP 23; O2SAT 100
[2022-04-06 20:19] VITALS: PULSE 96
--- NOTE | 2022-04-06 20:25 | ED.CHESTPAIN ---
HPI - Chest Pain General Chief Complaint: Chest Pain Stated Complaint: chest pain Time Seen by Provider: 04/06/22 20:15 History of Present Illness HPI narrative: Patient is a 51-year-old male with a long history of alcohol abuse history of being on methadone history of pneumonia history of pancreatitis patient presented in extremis complaining of abdominal pain chest pain generalized malaise nausea vomiting. Patient just drank some alcohol and then the abdominal pain started again. 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 Had a CT scan done 2 years ago showed no evidence of dissection or aneurysm. Patient is a smoker. In extremis unable to give detailed history. Related Data Home Medications Medication Instructions Recorded Confirmed methadone 10 mg tablet 70 mg PO DAILY 03/04/21 03/21/21 lisinopril 30 mg tablet 1 tab PO DAILY 04/06/22 04/06/22 Allergies Allergy/AdvReac Type Severity Reaction Status Date / Time codeine [CODEINE] AdvReac Unknown STOMACH Verified 03/07/20 23:03 UPSET From FLEXERIL AdvReac Severe Confusion Uncoded 03/09/20 07:18 Review of Systems Review of Systems: Unable to obtain review systems secondary to patient's condition [facility] Past Medical History Attestation statement: The following information was validated with the patient. Medical History YEISON (acute kidney injury) Alcohol abuse Alcohol abuse with withdrawal Asthma HTN (hypertension) Pancreatitis Surgical History H/O knee surgery H/O neck surgery Family History Family History Other Parkinsons disease Social History Social History Household Members: Significant Other Housing: Apartment Do you presently have visiting nurse or other home services: No Alcohol intake: current Alcohol intake frequency: 3 or more drinks per day Alcohol type: hard liquor Patient Tobacco Use Status: Current everyday Tobacco user Tobacco use type: Cigarette Cigarette Packs Per Day: 0.5 Cigarettes Per Day: 10.0 Smoked in Last 30 Days: No e-Cigarette/Vaping Use: Never Used Second Hand Smoke Exposure: No Use of substances other than those prescribed or required for medical reasons: Yes Substance Use Type: Prescription Drugs Advance Directives: No Advance Directives Information Provided: Yes service: No Current occupational status: employed Physical Exam Vital Signs: Vital Signs: Last Vital Signs Pulse 99 04/06/22 21:51 Resp 19 04/06/22 21:51 BP 189/133 H 04/06/22 21:51 Pulse Ox 99 04/06/22 21:51 O2 Del Method 04/06/22 21:51 BMI result Body Mass Index 31.0 Appearance: Alert. Oriented X3. Sick appearing diaphoretic Eyes: Pupils equal, round and reactive to light. ENT: Mucous membranes dry. Neck: Normal inspection. Neck supple. No lymph nodes noted. No crepitus CVS: Normal heart rate and rhythm. Pulses normal. Normal S1 and S2 Respiratory: No respiratory distress. Breath sounds normal. No Wheezing. No rales Abdomen: Positive epigastric pain good BS x4 Skin: Skin warm and dry. Normal skin color. Normal skin turgor. Extremities: No lower extremity edema. Neurovascular intact to all extremities. No Lacerations. No Rash Neuro: Oriented X 3. No motor deficit. No sensory deficit. Moving all extermities. No slurred speech Medications Administered Discontinued Medications Generic Name Dose Route Start Last Admin Trade Name Freq PRN Reason Stop Dose Admin Hydromorphone HCl 1 mg 04/06/22 20:20 04/06/22 20:30 Hydromorphone Hcl 0.5 Mg/0.5 Ml Syringe IVPUSH 04/06/22 20:21 1 mg ONCE ONE Administration Protocol Hydromorphone HCl 1 mg 04/06/22 20:53 04/06/22 20:59 Hydromorphone Hcl 1 Mg/Ml Syringe IVPUSH 04/06/22 20:54 1 mg ONCE ONE Administration Protocol Hydromorphone HCl 1 mg 04/06/22 21:22 04/06/22 21:44 Hydromorphone Hcl 1 Mg/Ml Syringe IVPUSH 04/06/22 21:23 1 mg ONCE ONE Administration Protocol Sodium Chloride 1,000 mls @ 999 mls/hr 04/06/22 20:30 04/06/22 22:23 Ns IV 04/06/22 21:30 Infused .Q1H1M RUDY Infusion Sodium Chloride 1,000 mls @ 999 mls/hr 04/06/22 20:30 04/06/22 22:24 Ns IV 04/06/22 21:30 Infused .Q1H1M RUDY Infusion Iohexol 100 ml 04/06/22 22:10 04/06/22 22:11 Iohexol 350 Mg/Ml 100 Ml Infus..Btl IV 04/06/22 22:11 85 ml ONCE ONE Administration Ketorolac Tromethamine 30 mg 04/06/22 20:20 04/06/22 20:30 Ketorolac Tromethamine 30 Mg/Ml Vial IVPUSH 04/06/22 20:21 30 mg ONCE ONE Administration Lorazepam 2 mg 04/06/22 21:34 04/06/22 21:44 Lorazepam 2 Mg/Ml Vial IVPUSH 04/06/22 21:35 2 mg ONCE ONE Administration Ondansetron HCl 4 mg 04/06/22 20:20 04/06/22 20:30 Ondansetron Hcl 4 Mg/2 Ml Vial IVPUSH 04/06/22 20:21 4 mg ONCE ONE Administration Medical Decision Making Medical Decision Making MDM Narrative: Patient likely have pancreatitis. Will give IV fluids pain medication. Less likely to have dissection given a CT scan was done 2 years ago no evidence of AAA no evidence of dissection. We will go ahead and give pain medication. We will go ahead and get a repeat CT. CT scan of the abdomen pelvis consistent with pancreatitis. No obstruction no abscess no perforation. Alcohol is 100. Patient's labs consistent with having pancreatitis. Require admission because patient has pain out of control. Still nauseous. Differential Diagnoses: Differential diagnosis (Abdominal aortic aneurysm, perforation, obstruction) Consideration of admission/observation: Consideration of Admission/Observation (Intractable nausea vomiting) Lab Attestation: I reviewed the patient's lab results. (Alcohol positive LFTs are normal. Lipase so high it is still pending.) Tests considered but not performed: Tests Considered But Not Performed (CT angiogram) Chronic conditions affecting care (e.g., diabetes, HTN): Chronic conditions affecting care (e.g., diabetes, HTN) Care significantly affected by Social Determinants of Health (e.g., housing and economic circumstances, unemployment): Care affected by Social Determinants of Health Critical Care Time Critical Care Time Critical Care Time: Yes Total Critical Care Time: 40 Attestation: I have personally provided 40 minutes of critical care time exclusive of time spent on separately billable procedures. Time includes review of lab data, radiology results, discussion with consultants, and monitoring for potential decompensation. Interventions were performed as documented above Discharge Plan Discharge Clinical Impression: Acute pancreatitis Patient Disposition: Admitted As Inpatient Prescriptions: No Action methadone 10 mg Tablet 70 mg PO DAILY lisinopril 30 mg tablet 1 tab PO DAILY
[2022-04-06] MEDS: HYDROmorphone HCl 0.5 MG/0.5 ML SYRINGE 1 MG IVPUSH (20:30)
[2022-04-06] MEDS: ondansetron HCL 4 MG/2 ML VIAL IVPUSH ×2 (20:30→22:57)
[2022-04-06] MEDS: Ketorolac Tromethamine 30 MG/ML VIAL IVPUSH (20:30)
[2022-04-06] MEDS: 0.9 % Sodium Chloride 1,000 ML 999 ML IV ×3 (20:40→22:57)
[2022-04-06] MEDS: HYDROmorphone HCl 1 MG/ML SYRINGE IVPUSH ×2 (20:59→21:44)
--- NOTE | 2022-04-06 21:01 | PC.NURSE ---
pt yelling and moaning in pain, this rn has medicated pt per JUN. Dr. Lion is aware and there are no new orders at this time
[2022-04-06 21:25] LABS: MANUAL DIFF FLAG NO
--- NOTE | 2022-04-06 21:30 | PC.NURSE ---
Pt continues to yell out and moan in pain, continually asking for nurse to reposition. Pt is capable of self repositioning. Pt requesting ice chips and water, educated as to why he cannot have that at this time
[2022-04-06 21:31] LABS: Basophils Absolute Auto 0.1 X10*3/uL (0.0-0.2); Basophils Percent Auto 0.3 % (0-2); Eosinophils Percent Auto 0.1 % (0-4); Hematocrit 43.4 % (42.0-52.0); Hemoglobin 14.7 g/dl (14.0-18.0); Imm Gran Pct Auto 0.5 % (0.0-0.4); Lymphocytes Absolute Auto 2.6 X10*3/uL (1.2-4.9); Lymphocytes Percent Auto 12.1 % (20-40); Mean Corpuscular HGB Conc 33.9 g/dl (31.0-36.0); Mean Corpuscular Hemoglobin 32.1 pg (27.0-33.0); Mean Corpuscular Volume 94.8 fL (80.0-98.0); Mean Platelet Volume 9.4 fL (9.4-12.4); Monocytes Percent Auto 9.6 % (2-11); Neutrophils Absolute Auto 16.5 x10*3/uL (2.0-8.3); Neutrophils Percent Auto 77.4 % (45-73); Platelet Count 242 X10*3/uL (160-400); Red Blood Count 4.58 X10*6/uL (4.60-5.80); Red Cell Distribution Width 12.4 % (11.0-16.0); SCAN SMEAR FLAG 1; White Blood Count 21.3 X10*3/uL (4.8-10.8)
[2022-04-06 21:34] LABS: Calcium 9.8 mg/dL (8.4-10.2)
[2022-04-06 21:40] LABS: COVID-19 Test Negative (Negative)
[2022-04-06 21:43] LABS: Alanine Aminotransferase 164 U/L (0-40); Albumin Level 4.9 g/dL (3.5-5.0); Alkaline Phosphatase 85 U/L (39-117); Anion Gap 26 (12-20); Aspartate Amino Transferase 148 U/L (5-37); Bilirubin Direct 0.3 mg/dL (0.0-0.5); Blood Urea Nitrogen 22 mg/dL (9-16); Calcium 9.9 mg/dL (8.4-10.2); Carbon Dioxide 20 mmol/L (22-29); Chloride 97 mmol/L (96-108); Estimated Glomerular Filt Rate 48; Ethanol 105 mg/dL; Glucose Random 125 mg/dL (60-115); Magnesium 1.9 mg/dL (1.6-2.6); Potassium 2.9 mmol/L (3.3-5.1); Sodium 140 mmol/L (135-145); Total Protein 8.3 g/dL (6.5-8.0)
[2022-04-06] MEDS: LORazepam 2 MG/ML VIAL IVPUSH (21:44)
[2022-04-06 21:51] VITALS: BP 189/133; PULSE 99; RESP 19; O2SAT 99
--- NOTE | 2022-04-06 22:02 | PHA.MEDREC ---
Pharmacy Consult ? Medication Reconciliation Pharmacy has completed the medication reconciliation. Patient was in excruciating pain and wants to be put to sleep therefore he did not want to talk much. Reported only lisinopril and methadone. Methadone will need to be confirmed with [facility] in the morning by an RN. Sania Mojica, PharmD
[2022-04-06] MEDS: iohexoL 350 MG/ML 100 ML INFUS..BTL IV (22:11)
--- NOTE | 2022-04-06 22:22 | PC.NURSE ---
Pt brought back from CT continuing to baltazar/MD matt aware
[2022-04-06] MEDS: Potassium Chloride/H20 10 MEQ/100 ML PIGGYBACK 100 MEQ IV (22:57)
[2022-04-06 23:05] LABS: Bilirubin Total 0.5 mg/dL (0.0-1.0)
[2022-04-06 23:18] VITALS: BP 189/133; PULSE 105; RESP 14; O2SAT 99
[2022-04-06 23:26] VITALS: BP 164/120; PULSE 105; RESP 18; TEMP 37; O2SAT 96
--- NOTE | 2022-04-06 23:30 | PC.NURSE ---
Pt continues to yell/moan for this RN very frequently (every 1-2 minutes). Pt reminded to use callbell when he needs something. pt states his pain is still 10/10. MD aware, no new orders. Pt has been reminded multiple times to stay in bed and not slide to the end of the bed
[2022-04-06 23:34] LABS: Appearance Urine Clear; Color Urine Yellow; Glucose Urine UA Negative (Negative); Leukocyte Esterase Urine Negative (Negative); Nitrite Urine Negative (Negative); Specific Gravity - Urine >= 1.030 (1.005-1.025); UMIC TRIGGER UACC YES; Urine Blood Negative (Negative); Urine Ketones 15 mg/dL (Negative); Urine Protein 30 (1+) mg/dL (Neg-Trace)
[2022-04-06 23:48] LABS: Amphetamine Screen Urine Not Detected (Not Detect); Bacteria Urine None Seen (None Seen); Barbiturates, Urine Not Detected (Not Detect); Benzodiazepines Screen Urine Not Detected (Not Detect); Cannabinoid Screen Urine Not Detected (Not Detect); Cocaine Screen Urine Not Detected (Not Detect); Fentanyl, urine Not Detected (Not Detect); Opiate Screen Urine POSITIVE (Not Detect); Phencyclidine Screen Urine Not Detected (Not Detect); RBC Urine 0-2 /HPF (0-2); Squamous Epithelial Cell Urine 0-2 /HPF (0-2); WBC Urine 0-5 /HPF (0-5)
[2022-04-06 23:57] LABS: Lipase 2887 U/L (8-78)
[2022-04-07] VITALS (12 sets, daily range): BP systolic 153–226; BP diastolic 85–124; PULSE 96–112; RESP 17–20; TEMP 36.5–37.3; O2SAT 96–98; BMI 34.8
--- NOTE | 2022-04-07 00:06 | P.HPHOSP_ITS ---
History of Present Illness Date of Service: 04/07/22 Chief Complaint: Abdominal Pain This is a 51-year-old with pertinent history of alcohol use disorder with history of alcoholic pancreatitis, essential hypertension, opioid use disorder on methadone, tobacco use disorder presents to the emergency department for e valuation of abdominal pain. Patient states abdominal pain is in the epigastric region, sharp, progressive, nonradiating and without any relieving factors. It started after he drank vodka. Patient has been unable to tolerate p.o. intake and has had multiple episodes of nausea and nonbloody emesis. No fever but endorses chills. Patient denies chest discomfort, palpitations, shortness of breath, changes in urinary or bowel habits. In the emergency department, imaging was concerning for pancreatitis Review of Systems Constitutional: Constitutional: Reports chills Cardiovascular: Cardiovascular: Reports no additional cardiovascular complaints Respiratory: Respiratory: Reports no additional respiratory complaints Gastrointestinal: Gastrointestinal: Reports abdominal pain, Reports nausea and Reports vomiting Genitourinary: Genitourinary: Reports no additional male genitourinary complaints [facility] Medical History (Updated 04/07/22 @ 00:13 by Klaus Murray MD) YEISON (acute kidney injury) Alcohol abuse Alcohol abuse with withdrawal Asthma HTN (hypertension) Pancreatitis Family History Other Parkinsons disease Surgical History H/O knee surgery H/O neck surgery Social History Household Members: Significant Other Housing: Apartment Do you presently have visiting nurse or other home services: No Alcohol intake: current Alcohol intake frequency: 3 or more drinks per day Alcohol type: hard liquor Patient Tobacco Use Status: Current everyday Tobacco user Tobacco use type: Cigarette Cigarette Packs Per Day: 0.5 Cigarettes Per Day: 10.0 Smoked in Last 30 Days: No e-Cigarette/Vaping Use: Never Used Second Hand Smoke Exposure: No Use of substances other than those prescribed or required for medical reasons: Yes Substance Use Type: Prescription Drugs Advance Directives: No Advance Directives Information Provided: Yes service: No Current occupational status: employed Meds Allergies Allergy/AdvReac Type Severity Reaction Status Date / Time codeine [CODEINE] AdvReac Unknown STOMACH Verified 03/07/20 23:03 UPSET From FLEXERIL AdvReac Severe Confusion Uncoded 03/09/20 07:18 Active Medications: Current Medications Acetaminophen (Acetaminophen 325 Mg Tablet) 650 mg PO Q6H PRN PRN Reason: Pain, Mild (Pain Scale 1-3) Potassium Chloride (Potassium Chloride/H20) 10 meq in 100 mls @ 100 mls/hr IV Q1H RUDY Stop: 04/07/22 00:44 Last Infusion: 04/07/22 00:05 Dose: Infused Sodium Chloride (Ns) 1,000 mls @ 125 mls/hr IVCONT .Q8H RUDY Melatonin (Melatonin 3 Mg Tablet) 6 mg PO BEDTIME PRN PRN Reason: Insomnia Morphine Sulfate (Morphine Sulfate 4 Mg/Ml Cartridge) 4 mg IVPUSH Q4H PRN; Pr otocol PRN Reason: Pain, Severe (Pain Scale 7-10) Ondansetron HCl (Ondansetron Hcl 4 Mg/2 Ml Vial) 4 mg IVPUSH Q8H PRN PRN Reason: Nausea and Vomiting Pharmacy Consult (Consult Rx Perform Med Rec) 1 each MISCELLANE ONCE PRN PRN Reason: Consult order Pharmacy Consult (Consult Rx Etoh Phenob Im/Po) 1 each MISCELLANE ONCE PRN; Protocol PRN Reason: Consult order Pharmacy Consult (Consult Rx Perform Med Rec) 1 each MISCELLANE ONCE PRN PRN Reason: Consult order Sodium Chloride (0.9 % Sodium Chloride Flush 3 Ml Syringe) 3 ml IVFLUSH QSHIFT COUNTS INCLUDE 234 BEDS AT THE [facility] Home Medications Medication Instructions Recorded Confirmed Last Taken Type methadone 10 mg tablet 70 mg PO DAILY 03/04/21 03/21/21 03/04/21 History 70 mg lisinopril 30 mg tablet 1 tab PO DAILY 04/06/22 04/06/22 Unknown History Physical Exam Vital Signs and Narrative: Vital Signs: Last Vital Signs Temp 98.6 F 04/06/22 23:26 Pulse 105 H 04/06/22 23:26 Resp 18 04/06/22 23:26 BP 164/120 H 04/06/22 23:26 Pulse Ox 96 04/06/22 23:26 O2 Del Method 04/06/22 23:26 BMI result Body Mass Index 31.0 Middle-aged male lying in bed in distress Neck supple, no JVD Tachycardic with regular rhythm, S1-S2 heard Regular breath sounds bilaterally, no wheezing or crackles appreciated Abdomen with significant tenderness to mild palpation in the epigastric region, no guarding, no rigidity Patient is awake, alert and oriented to self, place, time and person ; no focal motor deficit Psych: Normal mood No pedal edema Results Labs CBC and Chem 7: 04/06/22 21:20 04/06/22 21:20 Labs: Laboratory Results - last 24 hr 04/06/22 04/06/22 04/06/22 21:20 21:20 21:20 MCV 94.8 MCH 32.1 MCHC 33.9 RDW 12.4 Plt Count 242 MPV 9.4 Immature Gran % (Auto) 0.5 H Neut % (Auto) 77.4 H Lymph % (Auto) 12.1 L [place] % (Auto) 9.6 Eos % (Auto) 0.1 Baso % (Auto) 0.3 Lymph # (Auto) 2.6 [place] # (Auto) 2.0 H Eos # (Auto) 0.0 Baso # (Auto) 0.1 Abs Immat Gran (auto) 0.10 H Absolute Neuts (auto) 16.5 H Absolute Nucleated RBC 0.000 Nucleated RBC % (auto) 0.0 Anion Gap 26 H Estim Creat Clear Calc 65.0 Estimated GFR 48 Random Glucose 125 H Calcium 9.9 Magnesium 1.9 Total Bilirubin 0.5 Direct Bilirubin 0.3 AST 148 H ALT 164 H Alkaline Phosphatase 85 D Troponin I High Sens 5.0 Total Protein 8.3 H D Albumin 4.9 D Lipase 2887 H Urine Color Urine Appearance Urine pH Ur Specific [place] Urine Protein Urine Glucose (UA) Urine Ketones Urine Blood Urine Nitrite Ur Leukocyte Esterase Urine RBC Urine WBC Ur Squamous Epith Cells Urine Bacteria Hyaline Casts Urine Opiates Screen Urine Fentanyl Screen Ur Barbiturates Screen Ur Phencyclidine Scrn Ur Amphetamines Screen U Benzodiazepines Scrn Urine Cocaine Screen U Marijuana (THC) Screen Ethyl Alcohol 105 COVID-19 ([facility]I) COVID-19 Clin Com 04/06/22 04/06/22 04/06/22 21:20 21:21 23:17 MCV MCH MCHC RDW Plt Count MPV Immature Gran % (Auto) Neut % (Auto) Lymph % (Auto) [place] % (Auto) Eos % (Auto) Baso % (Auto) Lymph # (Auto) [place] # (Auto) Eos # (Auto) Baso # (Auto) Abs Immat Gran (auto) Absolute Neuts (auto) Absolute Nucleated RBC Nucleated RBC % (auto) Anion Gap Estim Creat Clear Calc Estimated GFR Random Glucose Calcium 9.8 Magnesium Total Bilirubin Direct Bilirubin AST ALT Alkaline Phosphatase Troponin I High Sens Total Protein Albumin Lipase Urine Color Yellow Urine Appearance Clear Urine pH 5.0 Ur Specific [place] >= 1.030 H Urine Protein 30 (1+) H Urine Glucose (UA) Negative Urine Ketones 15 Urine Blood Negative Urine Nitrite Negative Ur Leukocyte Esterase Negative Urine RBC 0-2 Urine WBC 0-5 Ur Squamous Epith Cells 0-2 Urine Bacteria None Seen Hyaline Casts 6-10 Urine Opiates Screen Urine Fentanyl Screen Ur Barbiturates Screen Ur Phencyclidine Scrn Ur Amphetamines Screen U Benzodiazepines Scrn Urine Cocaine Screen U Marijuana (THC) Screen Ethyl Alcohol COVID-19 ([facility]ALI) Negative COVID-19 [facility] Com See Note 04/06/22 23:17 MCV MCH MCHC RDW Plt Count MPV Immature Gran % (Auto) Neut % (Auto) Lymph % (Auto) [place] % (Auto) Eos % (Auto) Baso % (Auto) Lymph # (Auto) [place] # (Auto) Eos # (Auto) Baso # (Auto) Abs Immat Gran (auto) Absolute Neuts (auto) Absolute Nucleated RBC Nucleated RBC % (auto) Anion Gap Estim Creat Clear Calc Estimated GFR Random Glucose Calcium Magnesium Total Bilirubin Direct Bilirubin AST ALT Alkaline Phosphatase Troponin I High Sens Total Protein Albumin Lipase Urine Color Urine Appearance Urine pH Ur Specific [place] Urine Protein Urine Glucose (UA) Urine Ketones Urine Blood Urine Nitrite Ur Leukocyte Esterase Urine RBC Urine WBC Ur Squamous Epith Cells Urine Bacteria Hyaline Casts Urine Opiates Screen POSITIVE H Urine Fentanyl Screen Not Detected Ur Barbiturates Screen Not Detected Ur Phencyclidine Scrn Not Detected Ur Amphetamines Screen Not Detected U Benzodiazepines Scrn Not Detected Urine Cocaine Screen Not Detected U Marijuana (THC) Screen Not Detected Ethyl Alcohol COVID-19 ([facility]I) COVID-19 Clin Com Imaging Radiologist's Impressions: Impressions Abdomen/Pelvis CT 04/06/22 22:14 IMPRESSION: 1. Significant Pancreatitis. 2. Diffuse fatty change of liver. Fleischner guidelines were followed. Assessment and Plan (1) Acute pancreatitis: Status: Acute (2) Tobacco abuse: Status: Acute (3) Alcohol abuse: Status: Acute (4) Anxiety: Status: Acute (5) HTN (hypertension): Status: Acute Plan This is a 51-year-old with pertinent history of alcohol use disorder with history of alcoholic pancreatitis, essential hypertension, opioid use disorder on methadone, tobacco use disorder presents to the emergency department for evaluation of abdominal pain. #. Acute alcoholic pancreatitis: Will admit patient and continue resuscitation with IV crystalloids. Pain control with opioids p.r.n. Will keep NPO for bowel rest. Advance diet as tolerated. #. Reactive leukocytosis: No concern for bacterial superinfection, defer antibiotics #. Hypokalemia: Due to GI losses. Repleted #. Acute alcoholic intoxication: Will initiate thiamine and folic acid. CARE team and addiction team consulted. Monitor CIWA. High risk for withdrawal, initiating phenobarb protocol #. Acute kidney injury, stage I: Prerenal due to intravascular volume depletion. Monitor with fluid resuscitation. Avoid nephrotoxins #. Essential hypertension: Hold lisinopril in the setting of YEISON #. Opioid use disorder: On methadone #. Transaminitis: Due to alcoholic fatty liver DVT prophylaxis: Lovenox 40 mg daily NPO Full code Admit as inpatient and will require two night minimum hospital stay for IV fluid resuscitation and and close monitoring in a patient with acute pancreatitis Quality Stroke Does the patient have a stroke diagnosis?: No VTE Prior VTE?: No VTE Risk Level:: Medical - low VTE Device Contraindication: Treatment Not Indicated VTE Drug Contraindication: N/A - Med Ordered
[2022-04-07] MEDS: Potassium Chloride/H20 10 MEQ/100 ML PIGGYBACK 100 MEQ IV ×5 (00:27→05:23)
[2022-04-07] MEDS: 0.9 % Sodium Chloride Flush 3 ML SYRINGE IVFLUSH (00:28)
[2022-04-07] MEDS: 0.9 % Sodium Chloride 1,000 ML 125 ML IVCONT ×4 (00:29→20:25)
[2022-04-07] MEDS: PHENobarbitaL sodium 130 MG/ML IM ONCE IM (00:44)
[2022-04-07] MEDS: Morphine Sulfate 4 MG/ML CARTRIDGE IVPUSH ×3 (00:44→06:39)
--- NOTE | 2022-04-07 01:00 | PC.NURSE ---
Pt continues to yell/moan in pain. MD Murray aware, PRN Morphine has been given per the MAR. Pt also has been making sexually innaproprite comments towards this RN such as come on baby girl, help daddy . Pt also began to stroke this RNs hand when connecting his IV. Pt reminded that that behavior is inappropriate and will not be tolerated. Pt states he understands
[2022-04-07] MEDS: Enoxaparin Sodium 40 MG/0.4 ML SYRINGE SUBCUT (01:36)
[2022-04-07] MEDS: Thiamine HCL 100 MG in 0.9 % Sodium Chloride 100 ML 202 MG IV ×2 (01:37→08:53)
[2022-04-07] MEDS: OLANZapine 10 MG VIAL 5 MG IM (01:47)
[2022-04-07] MEDS: PHENobarbitaL sodium 130 MG/ML IM ONCE 39 MG IM (03:32)
[2022-04-07] MEDS: PHENobarbitaL sodium 130 MG/ML VIAL IM Q3Hx2 IM ×2 (03:33→05:25)
--- NOTE | 2022-04-07 03:53 | MHC.PIE ---
p; pt arrived from ed at 0250 with pain 02/06 to abd. note prn morphine 4mg iv given in at 0044 i; dr caro notified ; give early dose now e; will cont to [facility]
[2022-04-07] MEDS: Famotidine/PF 20 MG/2 ML VIAL IVPUSH (05:23)
[2022-04-07 06:35] LABS: MANUAL DIFF FLAG NO
[2022-04-07 06:42] LABS: Basophils Percent Auto 0.1 % (0-2); Hematocrit 41.1 % (42.0-52.0); Hemoglobin 13.9 g/dl (14.0-18.0); Imm Gran Abs Auto 0.07 X10*3/uL (0.00-0.03); Imm Gran Pct Auto 0.6 % (0.0-0.4); Lymphocytes Absolute Auto 0.3 X10*3/uL (1.2-4.9); Lymphocytes Percent Auto 2.8 % (20-40); Mean Corpuscular HGB Conc 33.8 g/dl (31.0-36.0); Mean Corpuscular Volume 94.7 fL (80.0-98.0); Mean Platelet Volume 10.3 fL (9.4-12.4); Monocytes Absolute Auto 0.9 X10*3/uL (0.1-1.2); Monocytes Percent Auto 7.9 % (2-11); Neutrophils Absolute Auto 10.3 x10*3/uL (2.0-8.3); Neutrophils Percent Auto 88.6 % (45-73); Platelet Count 200 X10*3/uL (160-400); Red Blood Count 4.34 X10*6/uL (4.60-5.80); Red Cell Distribution Width 12.9 % (11.0-16.0); White Blood Count 11.6 X10*3/uL (4.8-10.8)
--- NOTE | 2022-04-07 07:23 | MHC.PIE ---
p; pt refusing bed alarm or camera, pt making many complaints from pain , anxiety, wanting tums/pepcids and ect. pt comming out of room multiple times by self, and pulled out iv i; dr caro notified; new order iv pepcid. new iv site placed, pt educated on safty. e; will cont to monitor
[2022-04-07 07:48] LABS: Anion Gap 17 (12-20); Blood Urea Nitrogen 21 mg/dL (9-16); Calcium 8.9 mg/dL (8.4-10.2); Carbon Dioxide 23 mmol/L (22-29); Chloride 101 mmol/L (96-108); Estimated Glomerular Filt Rate 58; Glucose Random 232 mg/dL (60-115); Potassium 4.2 mmol/L (3.3-5.1); Sodium 137 mmol/L (135-145)
--- NOTE | 2022-04-07 08:00 | PC.NURSE ---
Patient refusing to wear telemetry monitor. Patient educated on risks of not wearing a telemetry monitor. Nesha MEEK made aware.
--- NOTE | 2022-04-07 08:23 | PC.NURSE ---
[facility] [address] called by this RN to verify patients methadone dose. Per assistant clinical nurse manager patient took 105mg yesterday, 04/06 at 11:18am. Methadone verification form sent to pharmacy and Nesha MEEK made aware.
--- NOTE | 2022-04-07 08:27 | HE.PHANOTE ---
RE: methadone Received methadone verification form from [facility] last dose 105mg last taken 04/06/22
--- NOTE | 2022-04-07 08:40 | MHC.CM.PN ---
PATIENT EXPERIENCING DIFFICULTY PARTICIPATING IN CONVERSATION. HE IS HOLDING HIS LOWER ABDOMEN AND YELLING OUT FOR RN. T/W EXPLAINED THAT RN IS WITH ANOTHER PATIENT AND WILL ADDRESS HIS NEEDS WHEN SHE IS AVAILABLE TO DO SO. PATIENT DOES STATE THAT HIS PCP IS AT [facility] BUT HE IS UNABLE TO RECALL NAME. CM AVAILABLE FOR DC NEEDS.
[2022-04-07] MEDS: HYDROmorphone HCl 1 MG/ML SYRINGE IVPUSH ×5 (08:53→22:48)
[2022-04-07] MEDS: lisinopriL 10 MG TABLET 30 MG PO (08:56)
[2022-04-07] MEDS: Folic Acid 1 MG TABLET PO (08:57)
[2022-04-07] MEDS: Acetaminophen 325 MG TABLET 650 MG PO ×2 (09:04→15:17)
[2022-04-07] MEDS: PHENobarbitaL 15 MG TABLET 45 MG PO ×2 (09:05→20:25)
[2022-04-07] MEDS: methADONE HCl 20 MG/2 ML ORAL.CONC 105 MG PO (10:40)
[2022-04-07] MEDS: ondansetron HCL 4 MG/2 ML VIAL IVPUSH ×2 (10:56→18:42)
--- NOTE | 2022-04-07 11:19 | MHC.RECOVRN ---
Briefly met with pt in 376 to discuss substance use. Pt sitting in chair, awake, alert, easily engages in conversation. Pt visibly uncomfortable, holding abdomen. Pt reports 3 IVs have fallen out, pt encouraged to be more cautious as this is how he will receive most of his medications. Pt reports being a part of [email or web address] x 1 year, states I love it there, it's going well. Denies opiate use, states It's been a long time. Pt reports currently drinking a pint of liquor daily x approx 1 month. Prior to that, pt had a couple months in recovery. Pt states I'm not blaming the package stores but they are everywhere. Pt is not currently employed and has safe housing. Pt uncomfortable and not able to continue with conversation, will return at a later time.
--- NOTE | 2022-04-07 12:48 | PC.NURSE ---
Addendum entered by Elena King RN 04/07/22 13:50: New IV access placed- 20G left lower arm wrapped with gauze. camera placed in room. Original Note: at 10:30am this RN went into patients room and patient had accidentally pulled out IV access. New IV access placed at around 11am. Patient rang call meraz at [phone] asking for pain medications. This RN went into room now and patient accidentally pulled out IV access again. Will replace IV access.
--- NOTE | 2022-04-07 13:20 | ECG_ITS ---
Test Reason : CHEST PAIN Blood Pressure : / mmHG Vent. Rate : 099 BPM Atrial Rate : 099 BPM P-R Int : 104 ms QRS Dur : 104 ms QT Int : 424 ms P-R-T Axes : 014 071 070 degrees QTc Int : 544 ms Sinus rhythm with short MT Prolonged QT Abnormal ECG When compared with ECG of 21-MAR-2021 01:52, MT interval has decreased QT has lengthened Referred By: Macarena Lion Electronically Signed By:NICHOLAS ESTEBAN MD
--- NOTE | 2022-04-07 13:29 | P.PNIM_ITS ---
Subjective Subjective Date of Service: 04/07/22 Interval History: Seen in follow up for acute alcoholic hepatitis, alcohol dependence/withdrawal Interval History: Patient admitted last night. Reporting 10/10 abdominal pain. Pain has been poorly controlled with dilaudid and morphine, also on methadone. Ongoing nausea, anxiety. Vomiting x 1 this morning. No hematemesis, melena, hematochezia Review of Systems General: No fevers, malaise, unintentional weight loss Cardiovascular: No chest pain, palpitations, or leg edema Respiratory: No shortness of breath, wheezing, cough GI: +abd pain, +nausea, +vomiting. No diarrhea, constipation, melena, hematochezia : No dysuria, hematuria, increased urinary frequency, decreased urinary output Neuro: No headaches, weakness, paresthesias Skin: No rashes or lesions Physical Exam Vital Signs: Vital Signs: Last Vital Signs Temp 98 F 04/07/22 11:16 Pulse 96 04/07/22 11:16 Resp 19 04/07/22 13:06 BP 190/92 H 04/07/22 11:16 Pulse Ox 98 04/07/22 11:16 O2 Del Method 04/07/22 11:16 O2 Flow Rate 2 04/07/22 02:53 BMI result Body Mass Index 34.8 Constitutional - Awake and Alert, mildly diaphoretic sitting up in bed bouncing legs, anxious appearing, in moderate discomfort Eyes - PERRLA, EOMI Cardiovascular - S1S2, RRR, No edema Respiratory - Normal lung expansion, Normal respiratory effort, No respiratory distress, CTA bilaterally Gastrointestinal - Moderate abdominal distension, diffuse ttp with voluntary guarding, +bowel sounds Extremities - no calf tenderness bilaterally, no swelling Musculoskeletal - Normal inspection, normal ROM Skin - Warm/Dry Neurological - Alert & oriented x3, CN II-XII in tact, 5/5 strength BUE and BLE Psychological - Appropriate affect Objective Data Active Medications Acetaminophen (Acetaminophen 325 Mg Tablet) 650 mg PO Q6H PRN PRN Reason: Pain, Mild (Pain Scale 1-3) Last Admin: 04/07/22 09:04 Dose: 650 mg Documented By: MANNIE Enoxaparin Sodium (Enoxaparin Sodium 40 Mg/0.4 Ml Syringe) 40 mg SUBCUT Q24H RUDY Last Admin: 04/07/22 01:36 Dose: 40 mg Documented By: LISSET Folic Acid (Folic Acid 1 Mg Tablet) 1 mg PO DAILY [facility] Last Admin: 04/07/22 08:57 Dose: 1 mg Documented By: COTEMA Hydromorphone HCl (Hydromorphone Hcl 1 Mg/Ml Syringe) 0.5 mg IVPUSH Q3H PRN; Protocol PRN Reason: Pain, Severe (Pain Scale 7-10) Sodium Chloride (Ns) 1,000 mls @ 125 mls/hr IVCONT .Q8H [facility] Last Admin: 04/07/22 13:07 Dose: 125 mls/hr Documented By: COTEMA Thiamine HCl 100 mg/ Sodium (Chloride) 101 mls @ 202 mls/hr IV DAILY [facility] Last Infusion: 04/07/22 09:27 Dose: 0 mls/hr Documented By: COTEMA Lisinopril (Lisinopril 10 Mg Tablet) 30 mg PO DAILY [facility]; Protocol Last Admin: 04/07/22 08:56 Dose: 30 mg Documented By: COTEMA Melatonin (Melatonin 3 Mg Tablet) 6 mg PO BEDTIME PRN PRN Reason: Insomnia Methadone HCl (Methadone Hcl 20 Mg/2 Ml Oral.Conc) 105 mg PO DAILY [facility] Last Admin: 04/07/22 10:40 Dose: 105 mg Documented By: COTEMA Nicotine (Nicotine 14 Mg Patch.Td24) 14 mg TRANSDERMA DAILY [facility] Last Admin: 04/07/22 08:57 Dose: Not Given Documented By: COTEMA Non-Admin Reason: Patient Refused Ondansetron HCl (Ondansetron Hcl 4 Mg/2 Ml Vial) 4 mg IVPUSH Q8H PRN PRN Reason: Nausea and Vomiting Last Admin: 04/07/22 10:56 Dose: 4 mg Documented By: COTEMA Oxycodone HCl (Oxycodone Hcl Immed Release 5 Mg Tablet) 5 mg PO Q6H PRN PRN Reason: Pain, Moderate (Pain Scale 4-6 Pharmacy Consult (Consult Rx Perform Med Rec) 1 each MISCELLANE ONCE PRN PRN Reason: Consult order Pharmacy Consult (Consult Rx Etoh Phenob Im/Po) 1 each MISCELLANE ONCE PRN; Protocol PRN Reason: Consult order Pharmacy Consult (Consult Rx Perform Med Rec) 1 each MISCELLANE ONCE PRN PRN Reason: Consult order Phenobarbital (Phenobarbital 15 Mg Tablet) 45 mg PO BID [facility]; Protocol Stop: 04/08/22 21:01 Last Admin: 04/07/22 09:05 Dose: 45 mg Documented By: COTMARIE Phenobarbital (Phenobarbital 30 Mg Tablet) 30 mg PO BID [facility]; Protocol Stop: 04/10/22 21:01 Phenobarbital (Phenobarbital 30 Mg Tablet) 30 mg PO DAILY [facility]; Protocol Stop: 04/12/22 09:01 Sodium Chloride (0.9 % Sodium Chloride Flush 3 Ml Syringe) 3 ml IVFLUSH QSHIFT [facility] Last Admin: 04/07/22 07:56 Dose: Not Given Documented By: MANNIE Non-Admin Reason: IV Running Labs CBC & Chem 7: 04/07/22 05:44 04/07/22 05:44 Labs: Laboratory Results - last 24 hr 04/06/22 04/06/22 04/06/22 21:20 21:20 21:20 MCV 94.8 MCH 32.1 MCHC 33.9 RDW 12.4 Plt Count 242 MPV 9.4 Immature Gran % (Auto) 0.5 H Neut % (Auto) 77.4 H Lymph % (Auto) 12.1 L [place] % (Auto) 9.6 Eos % (Auto) 0.1 Baso % (Auto) 0.3 Lymph # (Auto) 2.6 [place] # (Auto) 2.0 H Eos # (Auto) 0.0 Baso # (Auto) 0.1 Abs Immat Gran (auto) 0.10 H Absolute Neuts (auto) 16.5 H Absolute Nucleated RBC 0.000 Nucleated RBC % (auto) 0.0 Anion Gap 26 H Estim Creat Clear Calc 65.0 Estimated GFR 48 Random Glucose 125 H Calcium 9.9 Magnesium 1.9 Total Bilirubin 0.5 Direct Bilirubin 0.3 AST 148 H ALT 164 H Alkaline Phosphatase 85 D Troponin I High Sens 5.0 Total Protein 8.3 H D Albumin 4.9 D Lipase 2887 H Urine Color Urine Appearance Urine pH Ur Specific [place] Urine Protein Urine Glucose (UA) Urine Ketones Urine Blood Urine Nitrite Ur Leukocyte Esterase Urine RBC Urine WBC Ur Squamous Epith Cells Urine Bacteria Hyaline Casts Urine Opiates Screen Urine Fentanyl Screen Ur Barbiturates Screen Ur Phencyclidine Scrn Ur Amphetamines Screen U Benzodiazepines Scrn Urine Cocaine Screen U Marijuana (THC) Screen Ethyl Alcohol 105 COVID-19 (MAGALI) COVID-19 Clin Com 04/06/22 04/06/22 04/06/22 21:20 21:21 23:17 MCV MCH MCHC RDW Plt Count MPV Immature Gran % (Auto) Neut % (Auto) Lymph % (Auto) [place] % (Auto) Eos % (Auto) Baso % (Auto) Lymph # (Auto) [place] # (Auto) Eos # (Auto) Baso # (Auto) Abs Immat Gran (auto) Absolute Neuts (auto) Absolute Nucleated RBC Nucleated RBC % (auto) Anion Gap Estim Creat Clear Calc Estimated GFR Random Glucose Calcium 9.8 Magnesium Total Bilirubin Direct Bilirubin AST ALT Alkaline Phosphatase Troponin I High Sens Total Protein Albumin Lipase Urine Color Yellow Urine Appearance Clear Urine pH 5.0 Ur Specific [place] >= 1.030 H Urine Protein 30 (1+) H Urine Glucose (UA) Negative Urine Ketones 15 Urine Blood Negative Urine Nitrite Negative Ur Leukocyte Esterase Negative Urine RBC 0-2 Urine WBC 0-5 Ur Squamous Epith Cells 0-2 Urine Bacteria None Seen Hyaline Casts 6-10 Urine Opiates Screen Urine Fentanyl Screen Ur Barbiturates Screen Ur Phencyclidine Scrn Ur Amphetamines Screen U Benzodiazepines Scrn Urine Cocaine Screen U Marijuana (THC) Screen Ethyl Alcohol COVID-19 (MAGALI) Negative COVID-19 Clin Com See Note 04/06/22 04/07/22 04/07/22 23:17 05:44 05:44 MCV 94.7 MCH 32.0 MCHC 33.8 RDW 12.9 Plt Count 200 MPV 10.3 Immature Gran % (Auto) 0.6 H Neut % (Auto) 88.6 H Lymph % (Auto) 2.8 L [place] % (Auto) 7.9 Eos % (Auto) 0.0 Baso % (Auto) 0.1 Lymph # (Auto) 0.3 L [place] # (Auto) 0.9 Eos # (Auto) 0.0 Baso # (Auto) 0.0 Abs Immat Gran (auto) 0.07 H Absolute Neuts (auto) 10.3 H Absolute Nucleated RBC 0.000 Nucleated RBC % (auto) 0.0 Anion Gap 17 Estim Creat Clear Calc 81.0 Estimated GFR 58 Random Glucose 232 H Calcium 8.9 D Magnesium Total Bilirubin Direct Bilirubin AST ALT Alkaline Phosphatase Troponin I High Sens Total Protein Albumin Lipase Urine Color Urine Appearance Urine pH Ur Specific [place] Urine Protein Urine Glucose (UA) Urine Ketones Urine Blood Urine Nitrite Ur Leukocyte Esterase Urine RBC Urine WBC Ur Squamous Epith Cells Urine Bacteria Hyaline Casts Urine Opiates Screen POSITIVE H Urine Fentanyl Screen Not Detected Ur Barbiturates Screen Not Detected Ur Phencyclidine Scrn Not Detected Ur Amphetamines Screen Not Detected U Benzodiazepines Scrn Not Detected Urine Cocaine Screen Not Detected U Marijuana (THC) Screen Not Detected Ethyl Alcohol COVID-19 ([facility]I) COVID-19 Clin Com Assessment and Plan (1) Acute pancreatitis: Status: Acute (2) Alcohol abuse: Status: Acute Plan This is a 51-year-old with pertinent history of alcohol use disorder with history of alcoholic pancreatitis, essential hypertension, opioid use disorder on methadone, tobacco use disorder presents to the emergency department for e valuation of abdominal pain. #.? Acute alcoholic pancreatitis -Continue NPO, advance diet as tolerated -Pain control using pain scale. Pt pain levels uncontrolled. On 105mg methadone daily as well -Continue aggressive resuscitation with IV crystalloids #Reactive leukocytosis -No concern for bacterial superinfection, defer antibiotics #Hypokalemia- 2/2 GI losses, resolved following repletion -Follow BMP #.Alcohol withdrawal -Continue phenobarb per protocol -Monitor CIWA -Continue thiamine and folic acid -Addiction med consulted #YEISON- prerenal due to intravascular volume depletion -Continue IVF -Monitor BMP -Avoid nephrotoxins #.? Essential hypertension- uncontrolled r/t uncontrolled pain levels -Hold lisinopril in the setting of YEISON -Amlodipine 10mg added #.? Opioid use disorder -Continue methadone #.? Transaminitis:? Due to alcoholic fatty liver DVT prophylaxis:? Lovenox 40 mg daily NPO Full code Admit as inpatient and will require two night minimum hospital stay for IV fluid resuscitation and and close monitoring in a patient with acute pancreatitis Quality Stroke Does the patient have a stroke diagnosis?: No VTE Prior VTE?: No VTE Risk Level:: Medical - low VTE Device Contraindication: Treatment Not Indicated VTE Drug Contraindication: N/A - Med Ordered
[2022-04-07] MEDS: amLODIPine Besylate 10 MG TABLET PO (15:17)
[2022-04-07] MEDS: oxyCODONE HCl Immed Release 5 MG TABLET PO (15:17)
--- NOTE | 2022-04-07 15:23 | SUR.OPER ---
Patient is a high fall risk due to severe alcohol withdrawal. Patient refuses bed and chair alarm. Patient educated on safety risks and verbalized understanding. Telesitter in room. Patient encouraged to use call meraz for assistance.
[2022-04-07] MEDS: HYDROmorphone HCl 1 MG/ML SYRINGE 0.5 MG IVPUSH (16:41)
[2022-04-07] MEDS: hydrALAZINE HCl 20 MG/ML VIAL 10 MG IVPUSH ×2 (16:59→22:49)
[2022-04-07] MEDS: HYDROmorphone HCl 0.5 MG/0.5 ML SYRINGE IVPUSH (17:00)
[2022-04-07] MEDS: Famotidine 20 MG TABLET PO (18:05)
--- NOTE | 2022-04-07 18:15 | PM.EVENT ---
Event Note Date of Service: 04/07/22 Event Note: Addiction consult: Please see Recovery Support RN note Will follow up in AM Time Spent With Patient Time: Total time managing care of this patient today ____ minutes.
[2022-04-07] MEDS: Sucralfate Oral Suspension 1 GM/10 ML ORAL.SUSP PO (20:25)
[2022-04-08] MEDS: oxyCODONE HCl Immed Release 5 MG TABLET PO ×3 (00:14→20:12)
[2022-04-08] MEDS: Melatonin 3 MG TABLET 6 MG PO ×2 (00:14→23:54)
[2022-04-08] MEDS: Enoxaparin Sodium 40 MG/0.4 ML SYRINGE SUBCUT ×2 (00:14→23:55)
[2022-04-08 01:14] VITALS: BP 184/101
[2022-04-08] MEDS: HYDROmorphone HCl 1 MG/ML SYRINGE IVPUSH ×8 (01:18→23:55)
--- NOTE | 2022-04-08 03:08 | PC.NURSE ---
pt is uncooperative he took tele pack off his chest he will not were it . educated on importance of monitoring his heart. pt also refused vs after hydralazine iv given . per policy bps are to be monitor but pt. refused. notified.
[2022-04-08 03:52] VITALS: BP 195/107; PULSE 115; RESP 20; TEMP 37.1; O2SAT 95
[2022-04-08] MEDS: 0.9 % Sodium Chloride 1,000 ML 125 ML IVCONT ×3 (04:06→19:55)
[2022-04-08] MEDS: ondansetron HCL 4 MG/2 ML VIAL IVPUSH (04:47)
[2022-04-08] MEDS: hydrALAZINE HCl 20 MG/ML VIAL 10 MG IVPUSH (04:50)
[2022-04-08 05:30] VITALS: BP 138/86
[2022-04-08] MEDS: Sucralfate Oral Suspension 1 GM/10 ML ORAL.SUSP PO ×4 (06:49→20:12)
[2022-04-08 08:00] VITALS: BP 170/100; PULSE 106; RESP 18; TEMP 36.6; O2SAT 92
[2022-04-08] MEDS: PHENobarbitaL 15 MG TABLET 45 MG PO ×2 (08:12→20:11)
[2022-04-08] MEDS: amLODIPine Besylate 10 MG TABLET PO (08:13)
[2022-04-08] MEDS: Thiamine HCL 100 MG in 0.9 % Sodium Chloride 100 ML 202 MG IV (08:14)
[2022-04-08] MEDS: Folic Acid 1 MG TABLET PO (08:14)
[2022-04-08] MEDS: methADONE HCl 20 MG/2 ML ORAL.CONC 105 MG PO (08:15)
[2022-04-08] MEDS: 0.9 % Sodium Chloride Flush 3 ML SYRINGE IVFLUSH ×2 (08:16→16:31)
[2022-04-08 08:28] LABS: Lipase 515 U/L (8-78)
--- NOTE | 2022-04-08 10:10 | HO.PM.IMPN ---
Subjective Subjective Date of Service: 04/08/22 Interval History: Seen in follow up for acute alcoholic hepatitis, alcohol dependence/withdrawal Interval History: Reporting 10 abdominal pain. Pain has been poorly controlled with dilaudid 1mg q2h and oxycodone 5mg q4h, also on methadone. Ongoing nausea, anxiety. Reports bilious vomiting with PO intake. No hematemesis, melena, hematochezia On recheck, patient sleeping in bed Review of Systems General: No fevers, malaise, unintentional weight loss Cardiovascular: No chest pain, palpitations, or leg edema Respiratory: No shortness of breath, wheezing, cough GI: +abd pain, +nausea, +vomiting. No diarrhea, constipation, melena, hematochezia : No dysuria, hematuria, increased urinary frequency, decreased urinary output Neuro: No headaches, weakness, paresthesias Skin: No rashes or lesions Physical Exam Vital Signs: Vital Signs: Last Vital Signs Temp 97.9 F 04/08/22 08:00 Pulse 106 H 04/08/22 08:00 Resp 18 04/08/22 08:00 BP 170/100 H 04/08/22 08:00 Pulse Ox 92 04/08/22 08:00 O2 Del Method 04/08/22 08:00 O2 Flow Rate 2 04/07/22 02:53 BMI result Body Mass Index 34.8 Constitutional - Awake and Alert, Sitting up side of bed uncomfortable appearing, rocking Eyes - PERRLA, EOMI Cardiovascular - S1S2, RRR, No edema Respiratory - Normal lung expansion, Normal respiratory effort, No respiratory distress, CTA bilaterally Gastrointestinal - Moderately distended upper abd with ttp with involuntary/voluntary gaurding, +BS Extremities - no calf tenderness bilaterally, no swelling Skin - Warm/Dry Neurological - Alert & oriented x3 Psychological - Appropriate affect Objective Data Active Medications Acetaminophen (Acetaminophen 325 Mg Tablet) 650 mg PO Q6H PRN PRN Reason: Pain, Mild (Pain Scale 1-3) Last Admin: 04/07/22 15:17 Dose: 650 mg Documented By: MANNIE Amlodipine Besylate (Amlodipine Besylate 10 Mg Tablet) 10 mg PO DAILY [facility]; Protocol Last Admin: 04/08/22 08:13 Dose: 10 mg Documented By: EDNA Enoxaparin Sodium (Enoxaparin Sodium 40 Mg/0.4 Ml Syringe) 40 mg SUBCUT Q24H RUDY Last Admin: 04/08/22 00:14 Dose: 40 mg Documented By: SANJIV Folic Acid (Folic Acid 1 Mg Tablet) 1 mg PO DAILY RUDY Last Admin: 04/08/22 08:14 Dose: 1 mg Documented By: EDNA Hydralazine HCl (Hydralazine Hcl 20 Mg/Ml Vial) 10 mg IVPUSH Q6H PRN; Protocol PRN Reason: SBP > 160 Last Admin: 04/08/22 04:50 Dose: 10 mg Documented By: SANJIV Hydromorphone HCl (Hydromorphone Hcl 1 Mg/Ml Syringe) 1 mg IVPUSH Q2H PRN; Protocol PRN Reason: Pain, Severe (Pain Scale 7-10) Last Admin: 04/08/22 05:37 Dose: 1 mg Documented By: SANJIV Sodium Chloride (Ns) 1,000 mls @ 125 mls/hr IVCONT .Q8H [facility] Last Admin: 04/08/22 04:06 Dose: 125 mls/hr Documented By: SANJIV Thiamine HCl 100 mg/ Sodium (Chloride) 101 mls @ 202 mls/hr IV DAILY [facility] Last Infusion: 04/08/22 08:55 Dose: 0 mls/hr Documented By: EDNA Lisinopril (Lisinopril 10 Mg Tablet) 30 mg PO DAILY [facility]; Protocol Last Admin: 04/07/22 08:56 Dose: 30 mg Documented By: MANNIE Melatonin (Melatonin 3 Mg Tablet) 6 mg PO BEDTIME PRN PRN Reason: Insomnia Last Admin: 04/08/22 00:14 Dose: 6 mg Documented By: SANJIV Methadone HCl (Methadone Hcl 20 Mg/2 Ml Oral.Conc) 105 mg PO DAILY [facility] Last Admin: 04/08/22 08:15 Dose: 105 mg Documented By: EDNA Naloxone HCl (Naloxone Hcl 0.4 Mg/Ml Vial) 0.1 mg IVPUSH Q5M PRN PRN Reason: Respiratory Rate < 10 Nicotine (Nicotine 14 Mg Patch.Td24) 14 mg TRANSDERMA DAILY [facility] Last Admin: 04/08/22 08:16 Dose: Not Given Documented By: EDNA Non-Admin Reason: Patient Refused Ondansetron HCl (Ondansetron Hcl 4 Mg/2 Ml Vial) 4 mg IVPUSH Q8H PRN PRN Reason: Nausea and Vomiting Last Admin: 04/08/22 04:47 Dose: 4 mg Documented By: SANJIV Oxycodone HCl (Oxycodone Hcl Immed Release 5 Mg Tablet) 5 mg PO Q6H PRN PRN Reason: Pain, Moderate (Pain Scale 4-6 Last Admin: 04/08/22 06:49 Dose: 5 mg Documented By: SANJIV Pharmacy Consult (Consult Rx Perform Med Rec) 1 each MISCELLANE ONCE PRN PRN Reason: Consult order Pharmacy Consult (Consult Rx Etoh Phenob Im/Po) 1 each MISCELLANE ONCE PRN; Protocol PRN Reason: Consult order Pharmacy Consult (Consult Rx Perform Med Rec) 1 each MISCELLANE ONCE PRN PRN Reason: Consult order Phenobarbital (Phenobarbital 15 Mg Tablet) 45 mg PO BID [facility]; Protocol Stop: 04/08/22 21:01 Last Admin: 04/08/22 08:12 Dose: 45 mg Documented By: EDNA Phenobarbital (Phenobarbital 30 Mg Tablet) 30 mg PO BID [facility]; Protocol Stop: 04/10/22 21:01 Phenobarbital (Phenobarbital 30 Mg Tablet) 30 mg PO DAILY [facility]; Protocol Stop: 04/12/22 09:01 Sodium Chloride (0.9 % Sodium Chloride Flush 3 Ml Syringe) 3 ml IVFLUSH [facility] Last Admin: 04/08/22 08:16 Dose: 3 ml Documented By: EDNA Sucralfate (Sucralfate Oral Suspension 1 Gm/10 Ml Oral.Susp) 1 gm PO QIDACHS [facility] Last Admin: 04/08/22 06:49 Dose: 1 gm Documented By: SANJIV Labs CBC & Chem 7: 04/08/22 10:49 04/08/22 10:49 Labs: Laboratory Results - last 24 hr 04/08/22 07:47 Lipase 515 H Assessment and Plan (1) Acute pancreatitis: Status: Acute (2) Alcohol abuse: Status: Acute Plan This is a 51-year-old with pertinent history of alcohol use disorder with history of alcoholic pancreatitis, essential hypertension, opioid use disorder on methadone, tobacco use disorder presents to the emergency department for evaluation of abdominal pain. #.? Acute alcoholic pancreatitis -Clear liquids, advance as tolerated -Ondansetron prn -Pain control using pain scale with oxycodone 5mg q4h, dilaudid 1mg q2h, on methadone 105mg at home. Pt pain levels uncontrolled, however on reassessment, sleeping comfortably in bed. -Continue aggressive resuscitation with IV crystalloids -Lipase trending down #Reactive leukocytosis -No concern for bacterial superinfection, defer antibiotics #Hypokalemia- 2/2 GI losses, resolved following repletion -Follow BMP #Alcohol withdrawal -Continue phenobarb per protocol -Monitor CIWA -Continue thiamine and folic acid -Addiction med consulted #YEISON- prerenal due to intravascular volume depletion- resolved -Monitor BMP #.? Essential hypertension- uncontrolled r/t uncontrolled pain levels -Hold lisinopril in the setting of YEISON -Amlodipine 10mg -Hydralazine 10mg prn SBP >160 #.? Opioid use disorder -Continue methadone #.? Transaminitis:? Due to alcoholic fatty liver -LFs trending down DVT prophylaxis:? Lovenox 40 mg daily Clears Full code Pt requires ongoing inpt hospital stay for IV fluid resuscitation, diet advancement, IV pain control, and and close monitoring in a patient with acute pancreatitis Time Spent With Patient Time: Total time managing care of this patient today 25 minutes. Quality Stroke Does the patient have a stroke diagnosis?: No VTE Prior VTE?: No VTE Risk Level:: Medical - low VTE Device Contraindication: Treatment Not Indicated VTE Drug Contraindication: N/A - Med Ordered
[2022-04-08 10:59] LABS: Hematocrit 39.5 % (42.0-52.0); Hemoglobin 13.4 g/dl (14.0-18.0); Mean Corpuscular HGB Conc 33.9 g/dl (31.0-36.0); Mean Corpuscular Hemoglobin 32.5 pg (27.0-33.0); Mean Corpuscular Volume 95.9 fL (80.0-98.0); Mean Platelet Volume 9.7 fL (9.4-12.4); Red Blood Count 4.12 X10*6/uL (4.60-5.80); Red Cell Distribution Width 13.2 % (11.0-16.0)
[2022-04-08 11:04] LABS: WBC ABN SCTR FOR CBC 1
[2022-04-08 11:24] LABS: Alanine Aminotransferase 76 U/L (0-40); Albumin Level 4.3 g/dL (3.5-5.0); Alkaline Phosphatase 63 U/L (39-117); Anion Gap 13 (12-20); Aspartate Amino Transferase 72 U/L (5-37); Bilirubin Total 1.4 mg/dL (0.0-1.0); Blood Urea Nitrogen 14 mg/dL (9-16); Calcium 8.5 mg/dL (8.4-10.2); Carbon Dioxide 29 mmol/L (22-29); Chloride 99 mmol/L (96-108); Creatinine Clr Calc Pharmacy 119.7; Estimated Glomerular Filt Rate > 60; Glucose Random 166 mg/dL (60-115); Potassium 4.2 mmol/L (3.3-5.1); Sodium 137 mmol/L (135-145); Total Protein 7.2 g/dL (6.5-8.0)
[2022-04-08 12:04] LABS: Band Neutrophils Percent 10 % (3-5); Lymphocytes Percent Manual 4 % (20-40); Monocytes Percent Manual 5 % (2-11); Neutrophils Percent Manual 81 % (45-73)
[2022-04-08 12:08] LABS: Platelet Estimate SLIGHTLY DECREASED (NORMAL); Platelet Morphology Comment NORMAL; RBC Morphology NORMAL; Toxic Vacuolation PRESENT
[2022-04-08 14:59] LABS: Lymphocytes Absolute Manual 0.7 X10*3/uL (1.2-4.9); Monocytes Absolute Manual 0.9 X10*3/uL (0.1-1.2); Neutrophils Absolute Manual 16.5 X10*3/uL (2.0-8.3); Platelet Count 148 X10*3/uL (160-400); White Blood Count 18.1 X10*3/uL (4.8-10.8)
[2022-04-08 15:46] VITALS: BP 172/110; PULSE 116; RESP 20; TEMP 36.8; O2SAT 94
--- NOTE | 2022-04-08 17:31 | MHC.RECOVSUP ---
Recovery Support note: This marine underwriter met with patient to discuss alcohol use and recovery supports. Patient reports over the last month he drank increasingly due to boredom. Discussed the negative health consequences of this pattern of drinking and patient acknowledged. Patient reports significant periods of sobriety, stating that he does well with his recovery when he stays busy. Discussed ways for patient to fill his time including hobbies and going to meetings. Patient is looking forward to hunting and ice fishing this season. Patient reports he plans to attend AA meetings as well. Patient has a Sizer Hand, [place], and is able to access additional supports through his medication clinic. Discussed relapse prevention and reviewed recovery supports. Discussed case with Natalie Roldan NP.
[2022-04-08 19:45] VITALS: BP 189/111; PULSE 120; RESP 20; TEMP 36.7; O2SAT 93
[2022-04-08] MEDS: Acetaminophen 325 MG TABLET 650 MG PO (20:12)
[2022-04-08] MEDS: Cyclobenzaprine HCl 10 MG TABLET PO (23:44)
[2022-04-09] MEDS: Magnesium Hydrox/Alum Hydrox 30 ML ORAL.SUSP PO (01:44)
[2022-04-09] MEDS: HYDROmorphone HCl 1 MG/ML SYRINGE IVPUSH ×7 (01:45→23:56)
[2022-04-09] MEDS: Acetaminophen 325 MG TABLET 650 MG PO (01:50)
[2022-04-09] MEDS: oxyCODONE HCl Immed Release 5 MG TABLET PO ×2 (01:51→20:51)
[2022-04-09 04:00] VITALS: BP 185/97; PULSE 113; RESP 17; TEMP 37.2; O2SAT 93
[2022-04-09 06:23] LABS: MANUAL DIFF FLAG NO
[2022-04-09 06:41] LABS: Basophils Percent Auto 0.2 % (0-2); Hematocrit 37.2 % (42.0-52.0); Hemoglobin 12.4 g/dl (14.0-18.0); Imm Gran Abs Auto 0.15 X10*3/uL (0.00-0.03); Imm Gran Pct Auto 1.1 % (0.0-0.4); Lymphocytes Absolute Auto 0.9 X10*3/uL (1.2-4.9); Lymphocytes Percent Auto 6.3 % (20-40); Mean Corpuscular HGB Conc 33.3 g/dl (31.0-36.0); Mean Corpuscular Hemoglobin 32.6 pg (27.0-33.0); Mean Corpuscular Volume 97.9 fL (80.0-98.0); Mean Platelet Volume 10.3 fL (9.4-12.4); Monocytes Absolute Auto 1.3 X10*3/uL (0.1-1.2); Monocytes Percent Auto 9.9 % (2-11); Neutrophils Absolute Auto 11.2 x10*3/uL (2.0-8.3); Neutrophils Percent Auto 82.5 % (45-73); Platelet Count 111 X10*3/uL (160-400); Red Cell Distribution Width 12.8 % (11.0-16.0); White Blood Count 13.6 X10*3/uL (4.8-10.8)
[2022-04-09 06:46] LABS: Alanine Aminotransferase 60 U/L (0-40); Albumin Level 4.1 g/dL (3.5-5.0); Alkaline Phosphatase 69 U/L (39-117); Anion Gap 15 (12-20); Aspartate Amino Transferase 55 U/L (5-37); Bilirubin Total 2.5 mg/dL (0.0-1.0); Blood Urea Nitrogen 11 mg/dL (9-16); Calcium 8.5 mg/dL (8.4-10.2); Carbon Dioxide 30 mmol/L (22-29); Chloride 96 mmol/L (96-108); Creatinine Clr Calc Pharmacy 142.3; Estimated Glomerular Filt Rate > 60; Glucose Random 168 mg/dL (60-115); Potassium 4.5 mmol/L (3.3-5.1); Sodium 136 mmol/L (135-145); Total Protein 6.9 g/dL (6.5-8.0)
[2022-04-09 08:00] VITALS: BP 182/111; PULSE 114; RESP 18; TEMP 37.6; O2SAT 95
[2022-04-09] MEDS: Folic Acid 1 MG TABLET PO (08:47)
[2022-04-09] MEDS: methADONE HCl 20 MG/2 ML ORAL.CONC 105 MG PO (08:47)
[2022-04-09] MEDS: PHENobarbitaL 30 MG TABLET PO ×2 (08:47→20:28)
[2022-04-09] MEDS: TiZANidine HCL 4 MG TABLET PO ×3 (08:48→20:28)
[2022-04-09] MEDS: lisinopriL 10 MG TABLET 30 MG PO (08:48)
[2022-04-09] MEDS: amLODIPine Besylate 10 MG TABLET PO (08:48)
[2022-04-09] MEDS: 0.9 % Sodium Chloride Flush 3 ML SYRINGE IVFLUSH ×2 (08:49→20:28)
[2022-04-09] MEDS: Sucralfate Oral Suspension 1 GM/10 ML ORAL.SUSP PO ×4 (08:49→20:28)
[2022-04-09] MEDS: Thiamine HCL 100 MG in 0.9 % Sodium Chloride 100 ML 202 MG IV (08:56)
--- NOTE | 2022-04-09 09:32 | P.PNIM_ITS ---
Subjective Subjective Date of Service: 04/09/22 Interval History: Seen in follow up for acute alcoholic hepatitis, alcohol dependence/withdrawal Interval History: Reporting 1010 abdominal pain and bilateral low back spasm. Pain has been poorly controlled with dilaudid 1mg q2h and oxycodone 5mg q4h, also on methadone. States he was able to sleep for a short period when one time dose cyclobenzaprine added. Ongoing nausea, anxiety. Unable to tolerate clears still. Reports increase flatulance, belching, bloating. Review of Systems General: No fevers, malaise, unintentional weight loss Cardiovascular: No chest pain, palpitations, or leg edema Respiratory: No shortness of breath, wheezing, cough GI: +abd pain, +nausea, +vomiting, +bloating. No diarrhea, constipation, melena, hematochezia : No dysuria, hematuria, increased urinary frequency, decreased urinary output MSK: +back pain Neuro: No headaches, weakness, paresthesias Skin: No rashes or lesions Physical Exam Vital Signs: Vital Signs: Last Vital Signs Temp 99.7 F 04/09/22 08:00 Pulse 114 H 04/09/22 08:00 Resp 18 04/09/22 08:00 BP 182/111 H 04/09/22 08:00 Pulse Ox 95 04/09/22 08:00 O2 Del Method 04/09/22 08:00 O2 Flow Rate 2 04/09/22 04:00 BMI result Body Mass Index 34.8 Constitutional - Awake and Alert, Sitting up side of bed uncomfortable appearing Eyes - PERRLA Cardiovascular - S1S2, RRR, No edema Respiratory - Normal lung expansion, Normal respiratory effort, No respiratory distress, CTA bilaterally Gastrointestinal - Moderately distended upper abd with ttp with involuntary/voluntary guarding, +BS Extremities - no calf tenderness bilaterally, no swelling Back: No midline ttp, bilateral lumbar paraspinal spasm Skin - Warm/Dry Neurological - Alert & oriented x3 Psychological - Appropriate affect Objective Data Active Medications Acetaminophen (Acetaminophen 325 Mg Tablet) 650 mg PO Q6H PRN PRN Reason: Pain, Mild (Pain Scale 1-3) Last Admin: 04/09/22 01:50 Dose: 650 mg Documented By: SANJIV Al Hydroxide/Mg Hydroxide (Magnesium Hydrox/Alum Hydrox 30 Ml Oral.Susp) 30 ml PO Q6H PRN PRN Reason: dyspepsia/gas/bloating Amlodipine Besylate (Amlodipine Besylate 10 Mg Tablet) 10 mg PO DAILY [facility]; Protocol Last Admin: 04/09/22 08:48 Dose: 10 mg Documented By: EDNA Enoxaparin Sodium (Enoxaparin Sodium 40 Mg/0.4 Ml Syringe) 40 mg SUBCUT Q24H [facility] Last Admin: 04/08/22 23:55 Dose: 40 mg Documented By: SANJIV Folic Acid (Folic Acid 1 Mg Tablet) 1 mg PO DAILY [facility] Last Admin: 04/09/22 08:47 Dose: 1 mg Documented By: EDNA Hydralazine HCl (Hydralazine Hcl 20 Mg/Ml Vial) 10 mg IVPUSH Q6H PRN; Protocol PRN Reason: SBP > 160 Last Admin: 04/08/22 04:50 Dose: 10 mg Documented By: SANJIV Hydromorphone HCl (Hydromorphone Hcl 1 Mg/Ml Syringe) 1 mg IVPUSH Q2H PRN; Protocol PRN Reason: Pain, Severe (Pain Scale 7-10) Thiamine HCl 100 mg/ Sodium (Chloride) 101 mls @ 202 mls/hr IV DAILY [facility] Last Admin: 04/09/22 08:56 Dose: 202 mls/hr Documented By: EDNA Lisinopril (Lisinopril 10 Mg Tablet) 30 mg PO DAILY [facility]; Protocol Last Admin: 04/09/22 08:48 Dose: 30 mg Documented By: EDNA Melatonin (Melatonin 3 Mg Tablet) 6 mg PO BEDTIME PRN PRN Reason: Insomnia Last Admin: 04/08/22 23:54 Dose: 6 mg Documented By: SANJIV Methadone HCl (Methadone Hcl 20 Mg/2 Ml Oral.Conc) 105 mg PO DAILY [facility] Last Admin: 04/09/22 08:47 Dose: 105 mg Documented By: EDNA Naloxone HCl (Naloxone Hcl 0.4 Mg/Ml Vial) 0.1 mg IVPUSH Q5M PRN PRN Reason: Respiratory Rate < 10 Nicotine (Nicotine 14 Mg Patch.Td24) 14 mg TRANSDERMA DAILY [facility] Last Admin: 04/09/22 08:50 Dose: Not Given Documented By: EDNA Non-Admin Reason: Patient Refused Ondansetron HCl (Ondansetron Hcl 4 Mg/2 Ml Vial) 4 mg IVPUSH Q8H PRN PRN Reason: Nausea and Vomiting Last Admin: 04/08/22 04:47 Dose: 4 mg Documented By: SANJIV Oxycodone HCl (Oxycodone Hcl Immed Release 5 Mg Tablet) 5 mg PO Q6H PRN PRN Reason: Pain, Moderate (Pain Scale 4-6 Last Admin: 04/09/22 01:51 Dose: 5 mg Documented By: SANJIV Pharmacy Consult (Consult Rx Perform Med Rec) 1 each MISCELLANE ONCE PRN PRN Reason: Consult order Pharmacy Consult (Consult Rx Etoh Phenob Im/Po) 1 each MISCELLANE ONCE PRN; Protocol PRN Reason: Consult order Pharmacy Consult (Consult Rx Perform Med Rec) 1 each MISCELLANE ONCE PRN PRN Reason: Consult order Phenobarbital (Phenobarbital 30 Mg Tablet) 30 mg PO BID [facility]; Protocol Stop: 04/10/22 21:01 Last Admin: 04/09/22 08:47 Dose: 30 mg Documented By: EDNA Phenobarbital (Phenobarbital 30 Mg Tablet) 30 mg PO DAILY [facility]; Protocol Stop: 04/12/22 09:01 Sodium Chloride (0.9 % Sodium Chloride Flush 3 Ml Syringe) 3 ml IVFLUSH [facility] Last Admin: 04/09/22 08:49 Dose: 3 ml Documented By: EDNA Sucralfate (Sucralfate Oral Suspension 1 Gm/10 Ml Oral.Susp) 1 gm PO QIDACHS [facility] Last Admin: 04/09/22 08:49 Dose: 1 gm Documented By: EDNA Tizanidine HCl (Tizanidine Hcl 4 Mg Tablet) 4 mg PO TID [facility] Last Admin: 04/09/22 08:48 Dose: 4 mg Documented By: EDNA Labs CBC & Chem 7: 04/09/22 06:09 04/09/22 06:09 Labs: Laboratory Results - last 24 hr 04/08/22 04/08/22 04/09/22 10:49 10:49 06:09 MCV 95.9 97.9 MCH 32.5 32.6 MCHC 33.9 33.3 RDW 13.2 12.8 Plt Count 148 L D 111 L MPV 9.7 10.3 Immature Gran % (Auto) Cancelled 1.1 H Neut % (Auto) Cancelled 82.5 H Lymph % (Auto) Cancelled 6.3 L [place] % (Auto) Cancelled 9.9 Eos % (Auto) Cancelled 0.0 Baso % (Auto) Cancelled 0.2 Lymph # (Auto) Cancelled 0.9 L [place] # (Auto) Cancelled 1.3 H Eos # (Auto) Cancelled 0.0 Baso # (Auto) Cancelled 0.0 Abs Immat Gran (auto) Cancelled 0.15 H Absolute Neuts (auto) Cancelled 11.2 H Absolute Nucleated RBC 0.000 0.000 Nucleated RBC % (auto) 0.0 0.0 Neutrophils % (Manual) 81 H Band Neutrophils % 10 H Lymphocytes % (Manual) 4 L Monocytes % (Manual) 5 Abs Neuts (Manual) 16.5 H Lymphocytes # (Manual) 0.7 L Monocytes # (Manual) 0.9 Toxic Vacuolation PRESENT Platelet Estimate SLIGHTLY DECREASED Plt Morphology Comment NORMAL RBC Morphology NORMAL Anion Gap 13 Estim Creat Clear Calc 119.7 Estimated GFR > 60 Random Glucose 166 H Calcium 8.5 Total Bilirubin 1.4 H AST 72 H ALT 76 H Alkaline Phosphatase 63 Total Protein 7.2 Albumin 4.3 04/09/22 06:09 MCV MCH MCHC RDW Plt Count MPV Immature Gran % (Auto) Neut % (Auto) Lymph % (Auto) [place] % (Auto) Eos % (Auto) Baso % (Auto) Lymph # (Auto) [place] # (Auto) Eos # (Auto) Baso # (Auto) Abs Immat Gran (auto) Absolute Neuts (auto) Absolute Nucleated RBC Nucleated RBC % (auto) Neutrophils % (Manual) Band Neutrophils % Lymphocytes % (Manual) Monocytes % (Manual) Abs Neuts (Manual) Lymphocytes # (Manual) Monocytes # (Manual) Toxic Vacuolation Platelet Estimate Plt Morphology Comment RBC Morphology Anion Gap 15 Estim Creat Clear Calc 142.3 Estimated GFR > 60 Random Glucose 168 H Calcium 8.5 Total Bilirubin 2.5 H AST 55 H ALT 60 H Alkaline Phosphatase 69 Total Protein 6.9 Albumin 4.1 Assessment and Plan (1) Acute pancreatitis: Status: Acute (2) Alcohol abuse: Status: Acute Plan This is a 51-year-old with pertinent history of alcohol use disorder with history of alcoholic pancreatitis, essential hypertension, opioid use disorder on methadone, tobacco use disorder presents to the emergency department for evaluation of abdominal pain. Still with severe abdominal pain and low back spasm which he atributes to dry heaves, vomiting. Not tolerating clears still #.? Acute alcoholic pancreatitis -Clear liquids, advance as tolerated -Ondansetron prn -Pain control using pain scale with oxycodone 5mg q4h, dilaudid 1mg q2h, on methadone 105mg at home. Add -Continue aggressive resuscitation with IV crystalloids -Lipase trending down -Pain uncontrolled, not tolerating clears still despite aggressive IVF. Bili elevated from 1.4 to 2.[address] and/pelvis to rule out necrosis/obstruction #Reactive leukocytosis -WBC trending down, tachycardia 2/2 uncontrolled pain/anxiety, No concern for bacterial superinfection/sepsis at this time, defer antibiotics #Hypokalemia- 2/2 GI losses, resolved following repletion -Follow BMP #Alcohol withdrawal -Continue phenobarb per protocol -Monitor CIWA -Continue thiamine and folic acid -Addiction med consulted #YEISON- prerenal due to intravascular volume depletion- resolved -Monitor BMP #.? Essential hypertension- uncontrolled r/t uncontrolled pain levels -Hold lisinopril in the setting of YEISON -Amlodipine 10mg -Hydralazine 10mg prn SBP >160 #.? Opioid use disorder -Continue methadone #.? Transaminitis:? Due to alcoholic fatty liver -trending down DVT prophylaxis:? Lovenox 40 mg daily Clears Full code Pt requires ongoing inpt hospital stay for IV fluid resuscitation, diet advancement, IV pain control, and and close monitoring in a patient with acute pancreatitis Time Spent With Patient Time: Total time managing care of this patient today ____ minutes. Quality Stroke Does the patient have a stroke diagnosis?: No VTE Prior VTE?: No VTE Risk Level:: Medical - low VTE Device Contraindication: Treatment Not Indicated VTE Drug Contraindication: N/A - Med Ordered
[2022-04-09] MEDS: iohexoL 350 MG/ML 100 ML INFUS..BTL 85 ML IV (10:55)
[2022-04-09] MEDS: Labetalol HCL 100 MG/20 ML VIAL 10 MG IVPUSH (13:36)
[2022-04-09] MEDS: Lactated Ringers 1,000 ML 125 ML IVCONT ×2 (13:37→23:56)
--- NOTE | 2022-04-09 15:32 | MHC.CM.PN ---
Addendum entered by Thalia Barnard 04/09/22 16:24: PATIENT NEEDS ALS TRANSPORT PER MEDICAL, DEFERRED TO PT NURSE MACHELLE. KADEEM MEEK AWARE. Original Note: THIS CM WAS ASKED TO BOOK [facility]. BLS TRANSPORT BOOKED VIA [facility] FOR 4 PM.
[2022-04-09 15:42] VITALS: BP 118/74; PULSE 75; RESP 17; TEMP 37.3; O2SAT 92
--- NOTE | 2022-04-09 15:54 | PM.DS ---
DS: Providers Provider Date of Service: 04/09/22 Date of admission: 04/06/22 23:57 Date of discharge: 04/09/22 Primary care physician: Ernie Guy MD Admitting clinician: Klaus Murray Attending physician on admission: Klaus Murray Consults: 04/07/22 00:02 Addiction Medicine Routine Consulting Provider: Addiction Covering Reason for consultation: alcohol use disorder Consult to Care Team Routine Comment: Reason for consultation: alcohol use disorder Attending physician on discharge: Hesham Mlnyu [facility] Discharging clinician: Nesha Bell DS: Transfer Hospital Acceptance Reason for Transfer: Acute alcoholic pancreatitis with possible necrosis and hemorrhage Name of Facility: [facility] Accepting Provider: Dr. Ozzy Lopez Telemetry unit DS: Diagnosis Discharge Diagnosis (1) Acute pancreatitis: Status: Acute (2) Alcohol abuse: Status: Acute DS: Summary Hospital Course Hospital Course: HPI on admission by Dr. Murray 04/07/22: This is a 51-year-old with pertinent history of alcohol use disorder with history of alcoholic pancreatitis, essential hypertension, opioid use disorder on methadone, tobacco use disorder presents to the emergency department for evaluation of abdominal pain.? Patient states abdominal pain is in the epigastric region, sharp, progressive, nonradiating and without any relieving factors.? It started after he drank vodka.? Patient has been unable to tolerate p.o. intake and has had multiple episodes of nausea and nonbloody emesis.? No fever but endorses chills.? Patient denies chest discomfort, palpitations, shortness of breath, changes in urinary or bowel habits. In the emergency department, imaging was concerning for pancreatitis Hospital Course: This is a 51-year-old with pertinent history of alcohol use disorder with history of alcoholic pancreatitis, essential hypertension, opioid use disorder on methadone, tobacco use disorder admitted for acute alcoholic pancreatitis and alcohol abuse disorder/withdrawal. Despite aggressive resuscitation with IV fluids and pain management, patient remains with intractable abdominal pain and has been unable to advance diet with repeat CT abdomen/pelvis with IV contrast showing worsening pancreatitis with possible necrosis and hemorrhage. Patient is hemodynamically stable low blood pressures have been elevated to 180/111 with mild tachcyardia to 114 2/2 uncontrolled pain. Improved to 118/74, HR 84 on discharge following IV push 10mg labetolol. Patient to be transferred to tertiary care facility, [facility], for further management. #.? Acute alcoholic pancreatitis -Clear liquids, advance as tolerated -Ondansetron prn -Pain control using pain scale with oxycodone 5mg q4h, dilaudid 1mg q2h, on methadone 105mg at home. Tizanidine 4mg TID added given lumbar spasm -Continue aggressive resuscitation with IV crystalloids -Lipase trending down -Pain uncontrolled, not tolerating clears still despite aggressive IVF. Bili elevated from 1.4 to 2[address] abdomen/pelvis with IV contrast showing worsening pancreatitis with possible necrosis and hemorrhage -transfer to tertiary care facility for further management #Reactive leukocytosis -WBC trending down, tachycardia 2/2 uncontrolled pain/anxiety, No concern for bacterial superinfection/sepsis at this time, defer antibiotics #Hypokalemia- 2/2 GI losses, resolved following repletion -Follow BMP #Alcohol withdrawal -Continue phenobarb per protocol -Monitor CIWA- score 7 -Continue thiamine and folic acid -Addiction med consulted -Counseled on abstinence #YEISON- prerenal due to intravascular volume depletion- resolved -Monitor BMP #.? Essential hypertension- uncontrolled r/t uncontrolled pain levels -Lisinopril resumed upon resolution of YEISON -Amlodipine 10mg -Hydralazine 10mg prn SBP >160 #.? Opioid use disorder -Continue methadone #.? Transaminitis:? Due to alcoholic fatty liver -trending down DVT prophylaxis:? Lovenox 40 mg daily Full code Time spent discussing smoking cessation with patient: more than 10 minutes Status at Discharge Functional status at discharge: independent ambulation Overall status at discharge: patient is back to baseline Time Spent with Patient Time attestation: Total time managing care of this patient today 50 minutes. Discharge coordination time: Greater than 30 minutes Quality: Safe Use of Opioids Does Pt have an Active Cancer Diagnosis on the Problem List?: No Quality: Stroke Does the patient have a stroke diagnosis?: No Physical Exam Vital Signs: Vital Signs: Last Vital Signs Temp 99.1 F 04/09/22 15:42 Pulse 75 04/09/22 15:42 Resp 17 04/09/22 15:42 BP 118/74 04/09/22 15:42 Pulse Ox 92 04/09/22 15:42 O2 Del Method 04/09/22 15:42 O2 Flow Rate 2 04/09/22 04:00 BMI result Body Mass Index 34.8 Constitutional - Awake and Alert, Sitting up side of bed uncomfortable appearing, rocking Eyes - PERRLA, EOMI Cardiovascular - S1S2, RRR, No edema Respiratory - Normal lung expansion, Normal respiratory effort, No respiratory distress, CTA bilaterally Gastrointestinal - Moderately distended upper abd with ttp with involuntary/voluntary gaurding, +BS Extremities - no calf tenderness bilaterally, no swelling Back: No midline tenderness. Bilateral paraspinal tenderness to palpation with palpable spasm Skin - Warm/Dry Neurological - Alert & oriented x3 Psychological - Appropriate affect DS: Data Data Completed and Pending Completed studies during hospitalization [Text1]: Procedures Detoxification Services for Substance Abuse Treatment (03/04/21) Insertion of Endotracheal Airway into Trachea, Via Natural or Artificial Opening Endoscopic (03/07/20) Respiratory Ventilation, Greater than 96 Consecutive Hours (03/07/20) Labs on day of discharge: Laboratory Results - last 24 hr 04/09/22 04/09/22 06:09 06:09 WBC 13.6 H RBC 3.80 L Hgb 12.4 L Hct 37.2 L MCV 97.9 MCH 32.6 MCHC 33.3 RDW 12.8 Plt Count 111 L MPV 10.3 Immature Gran % (Auto) 1.1 H Neut % (Auto) 82.5 H Lymph % (Auto) 6.3 L [place] % (Auto) 9.9 Eos % (Auto) 0.0 Baso % (Auto) 0.2 Lymph # (Auto) 0.9 L [place] # (Auto) 1.3 H Eos # (Auto) 0.0 Baso # (Auto) 0.0 Abs Immat Gran (auto) 0.15 H Absolute Neuts (auto) 11.2 H Absolute Nucleated RBC 0.000 Nucleated RBC % (auto) 0.0 Sodium 136 Potassium 4.5 Chloride 96 Carbon Dioxide 30 H Anion Gap 15 BUN 11 Creatinine 0.74 Estim Creat Clear Calc 142.3 Estimated GFR > 60 Random Glucose 168 H Calcium 8.5 Total Bilirubin 2.5 H AST 55 H ALT 60 H Alkaline Phosphatase 69 Total Protein 6.9 Albumin 4.1 Discharge Plan Discharge Anticipated Discharge Date/Time: 04/09/22 15:35 Patient Disposition: Xfer Acute Care Hospital Discharge Diagnosis: Acute alcoholic hepatitis, alcohol abuse disorder, alcohol withdrawal Referrals: Ernie Guy MD [Primary Care Provider] - 1 Week Discharge Medications: New acetaminophen 325 mg Tablet 650 mg PO Q6H PRN (Reason: Pain, Mild (Pain Scale 1-3)) Qty: 1 0RF nicotine 14 mg/24 hr Patch 24 Hour 14 mg transdermal DAILY Qty: 1 0RF tizanidine 4 mg Tablet 4 mg PO TID Qty: 1 0RF naloxone 0.4 mg/mL Solution 0.1 mg IVPUSH Q5M PRN (Reason: Respiratory Rate < 10) Qty: 1 0RF hydralazine 20 mg/mL Solution 10 mg IVPUSH Q6H PRN (Reason: Sbp > 160) Qty: 1 0RF Protocol: Hold for SBP< HOLD for SBP < : 90 amlodipine 10 mg Tablet 10 mg PO DAILY Qty: 1 0RF Protocol: Hold for SBP< HOLD for SBP < : 90 lisinopril 10 mg Tablet 30 mg PO DAILY Qty: 1 0RF Protocol: Hold for SBP< HOLD for SBP < : 90 phenobarbital 30 mg Tablet 30 mg PO BID Qty: 1 0RF phenobarbital 30 mg Tablet 30 mg PO DAILY Qty: 1 0RF methadone [Methadose] 10 mg/mL Concentrate 105 mg PO DAILY Qty: 10.5 0RF Rx Instructions: Partial Fill upon patient request. oxycodone 5 mg Tablet 5 mg PO Q6H PRN (Reason: Pain, Moderate (Pain Scale 4-6) Qty: 1 0RF Rx Instructions: Partial Fill upon patient request. enoxaparin 40 mg/0.4 mL Syringe 40 mg subcut Q24H Qty: 1 0RF hydromorphone 1 mg/mL Syringe 1 mg IVPUSH Q2H PRN (Reason: Pain, Severe (Pain Scale 7-10)) Qty: 1 0RF Protocol: Hold for RR < HOLD and contact provider for RR < (bpm): 12 Rx Instructions: Partial Fill upon patient request. lactated Ringers Parenteral Solution See Rx Instructions .ROUTE .COMPLEX Qty: 1000 0RF Rx Instructions: 125ml/hr sucralfate 100 mg/mL Suspension 1 g PO QIDACHS Qty: 1 0RF melatonin 3 mg Tablet 6 mg PO BEDTIME PRN (Reason: Insomnia) Qty: 1 0RF folic acid 1 mg Tablet 1 mg PO DAILY Qty: 1 0RF sodium chloride 0.9 % (flush) [BD PosiFlush Normal Saline 0.9] Syringe 3 ml IVFLUSH QSHIFT Qty: 1 0RF MAG-AL 200-200 mg/5 mL Suspension 30 ml PO Q6H PRN (Reason: dyspepsia/gas/bloating) Qty: 1 0RF ondansetron HCl (PF) 4 mg/2 mL Solution 4 mg IVPUSH Q8H PRN (Reason: Nausea And Vomiting) Qty: 1 0RF thiamine HCl (vitamin B1) 100 mg/mL solution 100 mg IV DAILY Qty: 1 0RF Discontinued lisinopril 30 mg tablet 1 tab PO DAILY methadone 10 mg/mL Concentrate 105 mg PO DAILY Discharge Orders: Discharge Order (Routine); Ordered 04/09/22 Ordered By: Nesha Bell Diet: clear liquid diet Activity on Discharge: As tolerated Stand Alone Forms: Patient Portal Discharge page Care Plan Goals: Treat pancreatitis- advance diet, manage pain Abstain from alcohol Health Concerns: Acute alcoholic pancreatitis with possible necrosis and hemorrhage Alcohol abuse disorder Plan of Treatment: Transfer to tertiary care facility for further management of acute alcoholic pancreatitis with possible necrosis and hemorrhage. Continue aggressive IV hydration with lactated Ringer solution. Advanced diet as tolerated. Continue with pain management with IV Dilaudid, oxycodone, and methadone. Can also continue taking tizanidine for lumbar spasm. Treat uncontrolled hypertension secondary to uncontrolled pain levels with IV hydralazine or labetalol p.r.n. continue treating alcohol withdrawal with phenobarbital per protocol and monitor withdrawal symptoms on CIWA scale. Abstain from alcohol on discharge. Assessment: As above
[2022-04-09 20:00] VITALS: BP 160/78; PULSE 90; RESP 17; TEMP 37.4; O2SAT 93
--- NOTE | 2022-04-09 20:01 | PC.NURSE ---
The patient has been referred to [facility] for further treatment, phone number [phone]. The patient is awaiting to be transported tomorrow 04/09 morning.
[2022-04-09] MEDS: Enoxaparin Sodium 40 MG/0.4 ML SYRINGE SUBCUT (23:55)
[2022-04-10] MEDS: Magnesium Hydrox/Alum Hydrox 30 ML ORAL.SUSP PO (00:25)
[2022-04-10] MEDS: HYDROmorphone HCl 1 MG/ML SYRINGE IVPUSH ×2 (02:14→06:25)
[2022-04-10] MEDS: Cyclobenzaprine HCl 10 MG TABLET PO (02:54)
[2022-04-10 03:03] VITALS: BP 174/80; PULSE 91; RESP 16; TEMP 37.4; O2SAT 93
[2022-04-10] MEDS: Morphine Sulfate 4 MG/ML CARTRIDGE IVPUSH (03:25)
[2022-04-10] MEDS: oxyCODONE HCl Immed Release 5 MG TABLET PO (03:30)
[2022-04-10] MEDS: HYDROmorphone HCl 2 MG/ML VIAL IVPUSH (04:05)
[2022-04-10 06:37] LABS: MANUAL DIFF FLAG NO
[2022-04-10 06:56] LABS: Basophils Percent Auto 0.1 % (0-2); Eosinophils Percent Auto 0.1 % (0-4); Hematocrit 34.8 % (42.0-52.0); Hemoglobin 11.7 g/dl (14.0-18.0); Imm Gran Abs Auto 0.07 X10*3/uL (0.00-0.03); Imm Gran Pct Auto 0.7 % (0.0-0.4); Lymphocytes Percent Auto 9.2 % (20-40); Mean Corpuscular HGB Conc 33.6 g/dl (31.0-36.0); Mean Corpuscular Hemoglobin 32.3 pg (27.0-33.0); Mean Corpuscular Volume 96.1 fL (80.0-98.0); Mean Platelet Volume 10.7 fL (9.4-12.4); Monocytes Absolute Auto 1.3 X10*3/uL (0.1-1.2); Monocytes Percent Auto 11.6 % (2-11); Neutrophils Absolute Auto 8.4 x10*3/uL (2.0-8.3); Neutrophils Percent Auto 78.3 % (45-73); Platelet Count 105 X10*3/uL (160-400); Red Blood Count 3.62 X10*6/uL (4.60-5.80); Red Cell Distribution Width 12.6 % (11.0-16.0); White Blood Count 10.8 X10*3/uL (4.8-10.8)
[2022-04-10 07:08] VITALS: BP 170/90; PULSE 101; RESP 19; TEMP 37.1
[2022-04-10 07:24] LABS: Alanine Aminotransferase 45 U/L (0-40); Albumin Level 3.8 g/dL (3.5-5.0); Alkaline Phosphatase 70 U/L (39-117); Anion Gap 15 (12-20); Aspartate Amino Transferase 34 U/L (5-37); Bilirubin Total 1.8 mg/dL (0.0-1.0); Blood Urea Nitrogen 15 mg/dL (9-16); Calcium 8.2 mg/dL (8.4-10.2); Carbon Dioxide 30 mmol/L (22-29); Chloride 96 mmol/L (96-108); Creatinine Clr Calc Pharmacy 146.3; Estimated Glomerular Filt Rate > 60; Glucose Random 154 mg/dL (60-115); Potassium 4.2 mmol/L (3.3-5.1); Sodium 137 mmol/L (135-145); Total Protein 6.6 g/dL (6.5-8.0)
[2022-04-10] MEDS: PHENobarbitaL 30 MG TABLET PO (07:49)
[2022-04-10] MEDS: TiZANidine HCL 4 MG TABLET PO (07:49)
[2022-04-10] MEDS: Sucralfate Oral Suspension 1 GM/10 ML ORAL.SUSP PO (07:49)
[2022-04-10] MEDS: amLODIPine Besylate 10 MG TABLET PO (07:50)
[2022-04-10] MEDS: lisinopriL 10 MG TABLET 30 MG PO (07:51)
[2022-04-10] MEDS: methADONE HCl 20 MG/2 ML ORAL.CONC 105 MG PO (07:51)
[2022-04-10] MEDS: Folic Acid 1 MG TABLET PO (07:52)
--- NOTE | 2022-04-10 08:06 | MHC.CM.PN ---
PATIENT WAS ACUTE CARE TRANSFER TRANSPORT ARRANGED PRIOR TO SHIFT. NO CM INTERVENTION NEEDED
== END 2022-04-10 08:06 | disposition short-term general hospital (02) | DRG 282 ==
LOC: HO.ED 22:47 → HO.EDOVER 04-07 00:08 → HO.S3 04-07 01:58
PROVIDERS: Admitting Provider Student in an Organized Health Care Education/Training Program; Emergency Provider Emergency Medicine Emergency Medical Services; PCP Internal Medicine; Visit Provider Physician Assistant
DX: K85.20 Alcohol induced acute pancreatitis without necrosis or infection (principal); N17.9 Acute kidney failure, unspecified; K70.0 Alcoholic fatty liver; D72.829 Elevated white blood cell count, unspecified; F11.20 Opioid dependence, uncomplicated; I10 Essential (primary) hypertension; Y90.5 Blood alcohol level of 100-119 mg/100 ml; Z20.822 Contact with and (suspected) exposure to COVID-19; E87.6 Hypokalemia; F10.229 Alcohol dependence with intoxication, unspecified; F10.239 Alcohol dependence with withdrawal, unspecified; Z87.891 Personal history of nicotine dependence; Z88.5 Allergy status to narcotic agent; Z79.899 Other long term (current) drug therapy
CPT/HCPCS: 36415; 74177; 80048; 80053; 80076; 80307; 81001; 82077; 82310; 83690; 83735; 84484; 85007; 85025; 85027; 87635; 93005; 99285; J1170; J1650; J1885; J2060; J2185; J2270; J2405; J2560; J3411; Q9967

== ENCOUNTER 2022-06-18 11:23 | Emergency (ER) | payer MEDICAID, SELFPAY ==
--- NOTE | ~2022-06-18 | CT_ITS ---
EXAMINATION: CT ABDOMEN AND PELVIS WITH CONTRAST CLINICAL INFORMATION: Abdominal pain. History of pancreatitis. Rule out appendicitis/perforation. COMPARISON: April 09, 2022 TECHNIQUE: Multidetector volumetric images were obtained from the superior aspect of the liver through the pubic symphysis following administration 85 mL of Omnipaque 350 intravenous contrast. Sagittal and coronal reformatted images were obtained on the technologist's workstation. Oral contrast: No This CT examination was performed using dose optimization techniques as appropriate, variously including the following: *Automated exposure control *Adjustment of mA and/or kV according to patient size (this includes techniques or standardized protocols for targeted exams where dose is matched to indication/reason for exam; i.e. extremities or head) *Use of iterative reconstruction technique DLP: 741 mGy-cm FINDINGS: LUNG BASES: Heart normal size. No pleural or pericardial effusion. LIVER, GALLBLADDER, AND BILIARY TREE: The liver appears to be of diminished density consistent with fatty infiltration. No focal hepatic lesion or biliary ductal dilatation is present. The gallbladder is unremarkable with no evidence of radiopaque gallstones, gallbladder wall thickening, or obvious pericholecystic inflammatory changes. PANCREAS: Please see description under gastrointestinal tract. SPLEEN: Unremarkable. ADRENAL GLANDS: Unremarkable. KIDNEYS AND URETERS: The kidneys are normal in size, shape, and attenuation. No hydronephrosis or hydroureter seen. No perinephric stranding. There is a 2 mm nonobstructive calculus seen in the lower pole of the left kidney. BLADDER: Unremarkable. GASTROINTESTINAL TRACT: No dilated loops of large or small bowel are evident. There is a small amount of ascites present within the abdomen and extending down into the pelvis. This has increased since previous study of April 09, 2022. There is a small hiatal hernia.. The colon appears unremarkable. The appendix is not identified. The head and body of the pancreas are not seen to enhance well and are suspicious for pancreatic necrosis. The heterogeneous collection around the pancreas is larger in size now measuring approximately 8.4 x 9.4 x 8.4 cm in size no gas within the pancreatic collection is seen. There appears to be a small amount of enhancement about the periphery of the collection which may represent some degree of developing a capsule around the collection. The tail of the pancreas enhances. The celiac artery branches are now encased within the pancreatic collection and there has been an increase in narrowing of the splenic vein and extrahepatic portal vein regions of involvement since study of April 09, 2022. With development of some portal varices I'm suspicious for regions of splenic vein occlusion. ABDOMINAL WALL: No significant hernia is appreciated. LYMPH NODES: No lymphadenopathy appreciated. VASCULAR: The aorta appears unremarkable. Hepatic veins are patent. There are some regions of narrowing about the portal and splenic veins in regions adjacent to pancreatitis. The intrahepatic portal vein is patent. Its difficult to tell if there may be occlusion of the splenic vein however there probably is as patient has developed a few varices since previous study.. PELVIC VISCERA: No pelvic mass appreciated. OSSEOUS STRUCTURES: No suspicious destructive bony lesions identified. Grade [address]hesis L4-L5. 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 Small amount of ascites is present which has increased since previous study of April 09, 2022. Some increase in narrowing of the intrahepatic portal vein and splenic vein with question segmental occlusion of the splenic vein with development of varices. Fleischner guidelines were followed.
[2022-06-18 11:37] VITALS: BP 138/93; PULSE 107; RESP 24; TEMP 36.7; O2SAT 97; BMI 33.2
[2022-06-18 12:00] LABS: MANUAL DIFF FLAG NO
[2022-06-18 12:05] LABS: Basophils Absolute Auto 0.1 X10*3/uL (0.0-0.2); Basophils Percent Auto 0.5 % (0-2); Eosinophils Absolute Auto 0.7 X10*3/uL (0.0-0.4); Eosinophils Percent Auto 5.5 % (0-4); Hematocrit 39.3 % (42.0-52.0); Hemoglobin 12.8 g/dl (14.0-18.0); Imm Gran Abs Auto 0.05 X10*3/uL (0.00-0.03); Imm Gran Pct Auto 0.4 % (0.0-0.4); Lymphocytes Absolute Auto 2.4 X10*3/uL (1.2-4.9); Lymphocytes Percent Auto 18.3 % (20-40); Mean Corpuscular HGB Conc 32.6 g/dl (31.0-36.0); Mean Corpuscular Hemoglobin 29.3 pg (27.0-33.0); Mean Corpuscular Volume 89.9 fL (80.0-98.0); Mean Platelet Volume 9.3 fL (9.4-12.4); Monocytes Absolute Auto 0.8 X10*3/uL (0.1-1.2); Monocytes Percent Auto 6.3 % (2-11); Platelet Count 242 X10*3/uL (160-400); Red Blood Count 4.37 X10*6/uL (4.60-5.80)
[2022-06-18 12:35] LABS: Alanine Aminotransferase 15 U/L (0-40); Albumin Level 4.1 g/dL (3.5-5.0); Alkaline Phosphatase 117 U/L (39-117); Anion Gap 17 (12-20); Aspartate Amino Transferase 21 U/L (5-37); Bilirubin Total 0.9 mg/dL (0.0-1.0); Blood Urea Nitrogen 13 mg/dL (9-16); Calcium 9.9 mg/dL (8.4-10.2); Carbon Dioxide 25 mmol/L (22-29); Chloride 102 mmol/L (96-108); Creatinine Clr Calc Pharmacy 86.4; Estimated Glomerular Filt Rate > 60; Glucose Random 162 mg/dL (60-115); Lipase 89 U/L (8-78); Potassium 4.4 mmol/L (3.3-5.1); Sodium 140 mmol/L (135-145); Total Protein 7.6 g/dL (6.5-8.0)
[2022-06-18] MEDS: Morphine Sulfate 10 MG/ML CARTRIDGE 8 MG IVPUSH ×2 (13:10→13:49)
[2022-06-18] MEDS: 0.9 % Sodium Chloride 1,000 ML 999 ML IVCONT (13:15)
[2022-06-18] MEDS: iohexoL 350 MG/ML 100 ML INFUS..BTL IV (13:35)
[2022-06-18 13:52] VITALS: BP 155/91; PULSE 92; RESP 20; TEMP 36.7; O2SAT 99
[2022-06-18] MEDS: Morphine Sulfate 4 MG/ML CARTRIDGE IVPUSH ×3 (14:57→19:20)
[2022-06-18 15:09] VITALS: BP 158/106; PULSE 90; RESP 20; TEMP 36.8; O2SAT 100
[2022-06-18] MEDS: HYDROmorphone HCl 1 MG/ML SYRINGE IVPUSH ×2 (15:32→15:52)
[2022-06-18 16:04] LABS: COVID-19 Test Negative (Negative); IDNOW Serial# 55D5AD1C
--- NOTE | 2022-06-18 17:04 | PM.CNGS ---
History of Present Illness Consult details Consult date: 06/18/22 Narrative: 51-year-old male referred for acute pancreatitis. He has al long history of alcohol abuse along with alcoholic pancreatitis. He has had multiple admissions in the past for these problems. On his last admission in March,, he had to be transferred to a different institution because of worsening pancreatitis. He says that they were considering pancreatic surgery at that time but they were able to hold off on this. He says that for the past week he has been having epigastric pain but this seemed to have worsened today. He therefore the emergency room. He describes significant nausea as well. He claims that he has been sober for 3 months. Review of Systems Constitutional: Constitutional: Denies chills and Denies fever(s) Cardiovascular: Cardiovascular: Denies chest pain, Denies dyspnea and Denies dyspnea on exertion Respiratory: Respiratory: Denies cough, Denies dyspnea and Denies dyspnea on exertion Gastrointestinal: Gastrointestinal: Denies hematochezia and Denies change in bowel habits Genitourinary: Genitourinary: Denies hematuria and Denies difficulty urinating Musculoskeletal: Musculoskeletal: Denies back pain and Denies limited range of motion Neurologic: Denies focal weakness and Denies convulsions Psychiatric: Psychiatric: Denies depression and Denies mood swings PMFSH Past Medical History Medical History YEISON (acute kidney injury) Alcohol abuse Alcohol abuse with withdrawal Asthma HTN (hypertension) Pancreatitis Family History Family History Other Parkinsons disease Surgical History Surgical History H/O knee surgery H/O neck surgery Social History Social History Household Members: Significant Other Housing: House Do you presently have visiting nurse or other home services: No Alcohol intake: current Alcohol intake frequency: 3 or more drinks per day Alcohol type: hard liquor Patient Tobacco Use Status: Former Tobacco user Tobacco use type: Cigarette Cigarette Packs Per Day: 0.5 Cigarettes Per Day: 10.0 e-Cigarette/Vaping Use: Never Used Second Hand Smoke Exposure: No Substance Use Type: Prescription Drugs Advance Directives: Yes Advance Directives Information Provided: Yes Advance Directives on File: No service: No Current occupational status: employed Meds Allergies Allergy/AdvReac Type Severity Reaction Status Date / Time codeine [CODEINE] AdvReac Unknown STOMACH Verified 03/07/20 23:03 UPSET From FLEXERIL AdvReac Severe Confusion Uncoded 03/09/20 07:18 Physical Exam Vital Signs: Vital Signs: Last Vital Signs Temp 98.3 F 06/18/22 15:09 Pulse 90 06/18/22 15:09 Resp 20 06/18/22 15:09 BP 158/106 H 06/18/22 15:09 Pulse Ox 100 06/18/22 15:09 O2 Del Method 06/18/22 15:09 BMI result Body Mass Index 33.2 Const: Other: Appears uncomfortable and complaining of epigastric pain Orientation/consciousness: patient oriented x3 Neck: Neck: Yes no lymphadenopathy Resp: Auscultation: clear to auscultation bilaterally Cardio: Rhythm: regular rhythm GI: Palpation (GI): Soft to palpation, Tenderness to palpation present (GI) ( on epigastric area and upper abdomen some voluntary guarding) and Guarding due to palpation present (GI) Neuro: General: patient oriented x3 Results Labs 06/18/22 11:55 06/18/22 11:55 Labs: Abnormal lab results 06/18/22 06/18/22 Range/Units 11:55 11:55 WBC 13.0 H (4.8-10.8) X10*3/uL RBC 4.37 L D (4.60-5.80) X10*6/uL Hgb 12.8 L (14.0-18.0) g/dl Hct 39.3 L (42.0-52.0) % MPV 9.3 L (9.4-12.4) fL Lymph % (Auto) 18.3 L (20-40) % Eos % (Auto) 5.5 H (0-4) % Eos # (Auto) 0.7 H (0.0-0.4) X10*3/uL Abs Immat Gran (auto) 0.05 H (0.00-0.03) X10*3/uL Absolute Neuts (auto) 9.0 H (2.0-8.3) x10*3/uL Random Glucose 162 H (60-115) mg/dL Lipase 89 H (8-78) U/L Short CBC 06/18/22 Range/Units 11:55 WBC 13.0 H (4.8-10.8) X10*3/uL Hgb 12.8 L (14.0-18.0) g/dl Hct 39.3 L (42.0-52.0) % Plt Count 242 D (160-400) X10*3/uL BMP 06/18/22 11:55 Sodium 140 Potassium 4.4 Chloride 102 Carbon Dioxide 25 BUN 13 Creatinine 1.19 Calcium 9.9 D Liver Function 06/18/22 Range/Units 11:55 Total Bilirubin 0.9 (0.0-1.0) mg/dL AST 21 (5-37) U/L ALT 15 (0-40) U/L Alkaline Phosphatase 117 (39-117) U/L Albumin 4.1 (3.5-5.0) g/dL All other labs normal. Laboratory Results WBC 13.0 X10*3/uL (4.8-10.8) H 06/18/22 11:55 RBC 4.37 X10*6/uL (4.60-5.80) L D 06/18/22 11:55 Hgb 12.8 g/dl (14.0-18.0) L 06/18/22 11:55 Hct 39.3 % (42.0-52.0) L 06/18/22 11:55 MCV 89.9 fL (80.0-98.0) 06/18/22 11:55 MCH 29.3 pg (27.0-33.0) 06/18/22 11:55 MCHC 32.6 g/dl (31.0-36.0) 06/18/22 11:55 RDW 13.0 % (11.0-16.0) 06/18/22 11:55 Plt Count 242 X10*3/uL (160-400) D 06/18/22 11:55 MPV 9.3 fL (9.4-12.4) L 06/18/22 11:55 Immature Gran % (Auto) 0.4 % (0.0-0.4) 06/18/22 11:55 Neut % (Auto) 69.0 % (45-73) 06/18/22 11:55 Lymph % (Auto) 18.3 % (20-40) L 06/18/22 11:55 [place] % (Auto) 6.3 % (2-11) 06/18/22 11:55 Eos % (Auto) 5.5 % (0-4) H 06/18/22 11:55 Baso % (Auto) 0.5 % (0-2) 06/18/22 11:55 Lymph # (Auto) 2.4 X10*3/uL (1.2-4.9) 06/18/22 11:55 [place] # (Auto) 0.8 X10*3/uL (0.1-1.2) 06/18/22 11:55 Eos # (Auto) 0.7 X10*3/uL (0.0-0.4) H 06/18/22 11:55 Baso # (Auto) 0.1 X10*3/uL (0.0-0.2) 06/18/22 11:55 Abs Immat Gran (auto) 0.05 X10*3/uL (0.00-0.03) H 06/18/22 11:55 Absolute Neuts (auto) 9.0 x10*3/uL (2.0-8.3) H 06/18/22 11:55 Absolute Nucleated RBC 0.000 X10*3/uL (0.0-0.012) 06/18/22 11:55 Nucleated RBC % (auto) 0.0 /100WBC (0.0-0.2) 06/18/22 11:55 Sodium 140 mmol/L (135-145) 06/18/22 11:55 Potassium 4.4 mmol/L (3.3-5.1) 06/18/22 11:55 Chloride 102 mmol/L (96-108) 06/18/22 11:55 Carbon Dioxide 25 mmol/L (22-29) 06/18/22 11:55 Anion Gap 17 (12-20) 06/18/22 11:55 BUN 13 mg/dL (9-16) 06/18/22 11:55 Creatinine 1.19 mg/dL (0.5-1.4) 06/18/22 11:55 Estim Creat Clear Calc 86.4 06/18/22 11:55 Estimated GFR > 60 06/18/22 11:55 Random Glucose 162 mg/dL (60-115) H 06/18/22 11:55 Calcium 9.9 mg/dL (8.4-10.2) D 06/18/22 11:55 Total Bilirubin 0.9 mg/dL (0.0-1.0) 06/18/22 11:55 AST 21 U/L (5-37) 06/18/22 11:55 ALT 15 U/L (0-40) 06/18/22 11:55 Alkaline Phosphatase 117 U/L (39-117) 06/18/22 11:55 Total Protein 7.6 g/dL (6.5-8.0) 06/18/22 11:55 Albumin 4.1 g/dL (3.5-5.0) 06/18/22 11:55 Lipase 89 U/L (8-78) H 06/18/22 11:55 COVID-19 (MAGALI) Negative (Negative) 06/18/22 15:34 COVID-19 Clin Com See Note 06/18/22 15:34 Impressions Abdomen/Pelvis CT 06/18/22 13:36 IMPRESSION: Enlargement of heterogeneous collection involving the pancreas consistent with 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 Small amount of ascites is present which has increased since previous study of April 09, 2022. Some increase in narrowing of the intrahepatic portal vein and splenic vein with question segmental occlusion of the splenic vein with development of varices. Fleischner guidelines were followed. Assessment and Plan (1) Acute pancreatitis: Status: Acute He has a long history of alcohol abuse with pancreatitis, and comes in with upper abdominal pain. His CAT scan does show acute pancreatitis with evolving necrotizing process in the head. I have recommended to the ER staff that he should be managed in a tertiary institution because of these necrotizing pancreatitis. He may require pancreatic debridement if this does not stabilize. I explained this to the patient as well. He understands the plan. He does state that he has been sober for 3 months but his CAT scan does show significant inflammatory changes in the pancreas. It appears that he also has worsening ascites as well as development of Portal hypertension. Time Spent With Patient Time: Total time managing care of this patient today ____ minutes. Procedures Date of Service Date of Service: 06/18/22
--- NOTE | 2022-06-18 17:38 | ED.ABDPAIN ---
HPI - Abdominal Pain General Chief Complaint: Abdominal Pain Stated Complaint: ? appendicitis Time Seen by Provider: 06/18/22 12:52 History of Present Illness HPI narrative: Patient here today for abdominal pain which has worsened over the last 24 hours and is now severe, pain is all over his abdomen, earlier he thought it was on the right side but now it is all over the abdomen worst in the middle radiating to his back, there is no fever no vomiting no diarrhea no blood in the stool no black tarry stool no chest pain no shortness of breath Patient has long history of alcohol abuse but says he has stopped drinking over the last 3 months He was in [facility] in early March for pancreatitis, and was then transferred to [facility] in [place] for worsening pancreatitis but at that time did not get any surgical treatment Related Data Previous Rx's Medication Instructions Recorded acetaminophen 325 mg tablet 650 mg PO Q6H PRN Pain, Mild (Pain 04/09/22 Scale 1-3) #1 tab aluminum-magnesium hydroxide 200 30 ml PO Q6H PRN 04/09/22 mg-200 mg/5 mL oral suspension dyspepsia/gas/bloating #1 mL (MAG-AL) amlodipine 10 mg tablet 10 mg PO DAILY #1 tab 04/09/22 enoxaparin 40 mg/0.4 mL 40 mg (0.4 mL) subcut Q24H #1 mL 04/09/22 subcutaneous syringe folic acid 1 mg tablet 1 mg PO DAILY #1 tab 04/09/22 hydralazine 20 mg/mL injection 10 mg IVPUSH Q6H PRN Sbp > 160 #1 04/09/22 solution mL hydromorphone 1 mg/mL injection 1 mg IVPUSH Q2H PRN Pain, Severe 04/09/22 syringe (Pain Scale 7-10) #1 mL lactated Ringers See Rx Instructions .Route 04/09/22 .COMPLEX #1,000 mL lisinopril 10 mg tablet 30 mg PO DAILY #1 tab 04/09/22 melatonin 3 mg tablet 6 mg PO BEDTIME PRN Insomnia #1 tab 04/09/22 methadone 10 mg/mL oral 105 mg (10.5 mL) PO DAILY #10.5 mL 04/09/22 concentrate (Methadose) naloxone 0.4 mg/mL injection 0.1 mg (0.25 mL) IVPUSH Q5M PRN 12/11/22 solution Respiratory Rate < 10 #1 mL nicotine 14 mg/24 hr daily 14 mg transdermal DAILY #1 ea 04/09/22 transdermal patch ondansetron HCl (PF) 4 mg/2 mL 4 mg (2 mL) IVPUSH Q8H PRN Nausea 04/09/22 injection solution And Vomiting #1 mL oxycodone 5 mg tablet 5 mg PO Q6H PRN Pain, Moderate 04/09/22 (Pain Scale 4-6 #1 tab phenobarbital 30 mg tablet 30 mg PO BID #1 tab 04/09/22 phenobarbital 30 mg tablet 30 mg PO DAILY #1 tab 04/09/22 sodium chloride 0.9 % (flush) (BD 3 ml IVFLUSH QSHIFT #1 mL 04/09/22 PosiFlush Normal Saline 0.9 % injection syringe) sucralfate 100 mg/mL oral 1 g (10 mL) PO QIDACHS #1 mL 04/09/22 suspension thiamine HCl (vitamin B1) 100 100 mg IV DAILY #1 mL 04/09/22 mg/mL injection solution tizanidine 4 mg tablet 4 mg PO TID #1 tab 04/09/22 Allergies Allergy/AdvReac Type Severity Reaction Status Date / Time codeine [CODEINE] AdvReac Unknown STOMACH Verified 03/07/20 23:03 UPSET From FLEXERIL AdvReac Severe Confusion Uncoded 03/09/20 07:18 PMFSH Past Medical History Source: nursing notes reviewed Medical History YEISON (acute kidney injury) Alcohol abuse Alcohol abuse with withdrawal Asthma HTN (hypertension) Pancreatitis Surgical History H/O knee surgery H/O neck surgery Family History Family History Other Parkinsons disease Social History Social History Household Members: Significant Other Housing: House Do you presently have visiting nurse or other home services: No Alcohol intake: current Alcohol intake frequency: 3 or more drinks per day Alcohol type: hard liquor Patient Tobacco Use Status: Former Tobacco user Tobacco use type: Cigarette Cigarette Packs Per Day: 0.5 Cigarettes Per Day: 10.0 e-Cigarette/Vaping Use: Never Used Second Hand Smoke Exposure: No Substance Use Type: Prescription Drugs Advance Directives: Yes Advance Directives Information Provided: Yes Advance Directives on File: No service: No Current occupational status: employed Physical Exam ED Vital Signs: Vital Signs - 24 hr 06/18/22 11:37 06/18/22 13:52 06/18/22 15:09 Temperature 98.0 F 98.1 F 98.3 F Pulse Rate 107 H 92 90 Respiratory Rate 24 H 20 20 Blood Pressure 138/93 H 155/91 H 158/106 H Pulse Oximetry 97 99 100 Oxygen Delivery Method Room Air Room Air Room Air BMI result Body Mass Index 33.2 Vitals are stable, afebrile, blood pressure 158/106, pulse 90, respiratory rate 18, O2 saturation 100% General appearance very uncomfortable groaning in pain The eyes are anicteric no pallor The pharynx is clear no redness swelling or exudate, membranes are moist Neck is supple The chest is clear to auscultation bilateral Heart no murmur auscultated The abdomen had diffuse tenderness and guarding, no rebound, there was no focal tenderness tenderness was diffuse across the central abdomen Extremities full range of motion x4 Skin no rash Neuro no focal deficits Course Course Course Narrative: Patient's pain was treated with narcotics with some reduction in pain, but patient does take methadone and does have a tolerance for narcotic pain medication, back pain was relieved to a more moderate level He was given a L of fluids Lipase was 89, white count was 13 CT did show evolving necrotic process in the pancreas head with 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 Stephens is surgery consulted on this patient and believed he needed to be transferred to a tertiary institution in the event that he needed pancreas surgery I contacted [facility] and spoke with surgery Dr. Olsen who did except the patient Patient remained stable throughout ER visit and was transferred to [facility] to go to the emergency department Medical Decision Making Lab Data MDM Lab Attestation statement: I reviewed the patient's lab results. 06/18/22 11:55 06/18/22 11:55 Labs: Lab Results 06/18/22 06/18/22 06/18/22 Range/Units 11:55 11:55 15:34 WBC 13.0 H (4.8-10.8) X10*3/uL RBC 4.37 L D (4.60-5.80) X10*6/uL Hgb 12.8 L (14.0-18.0) g/dl Hct 39.3 L (42.0-52.0) % MCV 89.9 (80.0-98.0) fL MCH 29.3 (27.0-33.0) pg MCHC 32.6 (31.0-36.0) g/dl RDW 13.0 (11.0-16.0) % Plt Count 242 D (160-400) X10*3/uL MPV 9.3 L (9.4-12.4) fL Immature Gran % (Auto) 0.4 (0.0-0.4) % Neut % (Auto) 69.0 (45-73) % Lymph % (Auto) 18.3 L (20-40) % [place] % (Auto) 6.3 (2-11) % Eos % (Auto) 5.5 H (0-4) % Baso % (Auto) 0.5 (0-2) % Lymph # (Auto) 2.4 (1.2-4.9) X10*3/uL [place] # (Auto) 0.8 (0.1-1.2) X10*3/uL Eos # (Auto) 0.7 H (0.0-0.4) X10*3/uL Baso # (Auto) 0.1 (0.0-0.2) X10*3/uL Abs Immat Gran (auto) 0.05 H (0.00-0.03) X10*3/uL Absolute Neuts (auto) 9.0 H (2.0-8.3) x10*3/uL Absolute Nucleated RBC 0.000 (0.0-0.012) X10*3/uL Nucleated RBC % (auto) 0.0 (0.0-0.2) /100WBC Sodium 140 (135-145) mmol/L Potassium 4.4 (3.3-5.1) mmol/L Chloride 102 (96-108) mmol/L Carbon Dioxide 25 (22-29) mmol/L Anion Gap 17 (12-20) BUN 13 (9-16) mg/dL Creatinine 1.19 (0.5-1.4) mg/dL Estim Creat Clear Calc 86.4 Estimated GFR > 60 Random Glucose 162 H (60-115) mg/dL Calcium 9.9 D (8.4-10.2) mg/dL Total Bilirubin 0.9 (0.0-1.0) mg/dL AST 21 (5-37) U/L ALT 15 (0-40) U/L Alkaline Phosphatase 117 (39-117) U/L Total Protein 7.6 (6.5-8.0) g/dL Albumin 4.1 (3.5-5.0) g/dL Lipase 89 H (8-78) U/L COVID-19 (MAGALI) Negative (Negative) COVID-19 Clin Com See Note Medications Administered Discontinued Medications Generic Name Dose Route Start Last Admin Trade Name Freq PRN Reason Stop Dose Admin Hydromorphone HCl 1 mg 06/18/22 15:22 06/18/22 15:32 Hydromorphone Hcl 1 Mg/Ml Syringe IVPUSH 06/18/22 15:23 1 mg ONCE ONE Administration Protocol Hydromorphone HCl 1 mg 06/18/22 15:47 06/18/22 15:52 Hydromorphone Hcl 1 Mg/Ml Syringe IVPUSH 06/18/22 15:48 1 mg ONCE ONE Administration Protocol Sodium Chloride 1,000 mls @ 999 mls/hr 06/18/22 13:15 06/18/22 14:59 Ns IVCONT 06/18/22 14:15 Infused .Q1H1M RUDY Infusion Iohexol 100 ml 06/18/22 13:27 06/18/22 13:35 Iohexol 350 Mg/Ml 100 Ml Infus..Btl IV 06/18/22 13:28 85 ml ONCE ONE Administration Morphine Sulfate 8 mg 06/18/22 12:58 06/18/22 13:10 Morphine Sulfate 10 Mg/Ml Cartridge IVPUSH 06/18/22 12:59 8 mg ONCE ONE Administration Protocol Morphine Sulfate 8 mg 06/18/22 13:36 06/18/22 13:49 Morphine Sulfate 10 Mg/Ml Cartridge IVPUSH 06/18/22 13:37 8 mg ONCE ONE Administration Protocol Morphine Sulfate 4 mg 06/18/22 14:39 06/18/22 14:57 Morphine Sulfate 4 Mg/Ml Cartridge IVPUSH 06/18/22 14:40 4 mg ONCE ONE Administration Protocol Ondansetron HCl 4 mg 06/18/22 12:52 06/18/22 13:10 Ondansetron Odt 4 Mg Tab.Rapdis TRANSLINGU 06/18/22 12:53 Not Given ONCE ONE Discharge Plan Discharge Clinical Impression: Acute pancreatitis Patient Disposition: [facility] Transfer Details: To go to [facility] Emergency Room, Case excepted by surgeon Dr. Olsen for pancreatitis Additional Instructions: Your seen by surgery Dr. Laurent here in [place] [facility] who felt with the worsening of pancreatic necrosis that you should be seen in a hospital capable of providing surgical treatment if necessary I spoke with surgeon Dr. Olsen at [facility] who accepted the transfer and he will go through the emergency department at [facility] Prescriptions: No Action acetaminophen 325 mg Tablet 650 mg PO Q6H PRN (Reason: Pain, Mild (Pain Scale 1-3)) Qty: 1 0RF nicotine 14 mg/24 hr Patch 24 Hour 14 mg transdermal DAILY Qty: 1 0RF tizanidine 4 mg Tablet 4 mg PO TID Qty: 1 0RF naloxone 0.4 mg/mL Solution 0.1 mg IVPUSH Q5M PRN (Reason: Respiratory Rate < 10) Qty: 1 0RF hydralazine 20 mg/mL Solution 10 mg IVPUSH Q6H PRN (Reason: Sbp > 160) Qty: 1 0RF Protocol: Hold for SBP< HOLD for SBP < : 90 amlodipine 10 mg Tablet 10 mg PO DAILY Qty: 1 0RF Protocol: Hold for SBP< HOLD for SBP < : 90 lisinopril 10 mg Tablet 30 mg PO DAILY Qty: 1 0RF Protocol: Hold for SBP< HOLD for SBP < : 90 phenobarbital 30 mg Tablet 30 mg PO BID Qty: 1 0RF phenobarbital 30 mg Tablet 30 mg PO DAILY Qty: 1 0RF methadone [Methadose] 10 mg/mL Concentrate 105 mg PO DAILY Qty: 10.5 0RF Rx Instructions: Partial Fill upon patient request. oxycodone 5 mg Tablet 5 mg PO Q6H PRN (Reason: Pain, Moderate (Pain Scale 4-6) Qty: 1 0RF Rx Instructions: Partial Fill upon patient request. enoxaparin 40 mg/0.4 mL Syringe 40 mg subcut Q24H Qty: 1 0RF hydromorphone 1 mg/mL Syringe 1 mg IVPUSH Q2H PRN (Reason: Pain, Severe (Pain Scale 7-10)) Qty: 1 0RF Protocol: Hold for RR < HOLD and contact provider for RR < (bpm): 12 Rx Instructions: Partial Fill upon patient request. lactated Ringers Parenteral Solution See Rx Instructions .ROUTE .COMPLEX Qty: 1000 0RF Rx Instructions: 125ml/hr sucralfate 100 mg/mL Suspension 1 g PO QIDACHS Qty: 1 0RF melatonin 3 mg Tablet 6 mg PO BEDTIME PRN (Reason: Insomnia) Qty: 1 0RF folic acid 1 mg Tablet 1 mg PO DAILY Qty: 1 0RF sodium chloride 0.9 % (flush) [BD PosiFlush Normal Saline 0.9] Syringe 3 ml IVFLUSH QSHIFT Qty: 1 0RF MAG-AL 200-200 mg/5 mL Suspension 30 ml PO Q6H PRN (Reason: dyspepsia/gas/bloating) Qty: 1 0RF ondansetron HCl (PF) 4 mg/2 mL Solution 4 mg IVPUSH Q8H PRN (Reason: Nausea And Vomiting) Qty: 1 0RF thiamine HCl (vitamin B1) 100 mg/mL solution 100 mg IV DAILY Qty: 1 0RF
[2022-06-18 18:53] VITALS: BP 145/85; PULSE 89; RESP 20; TEMP 37.7; O2SAT 98
--- NOTE | 2022-06-18 19:44 | PC.NURSE ---
called reprot to makayla L[facility] ER
== END 2022-06-18 19:56 | disposition short-term general hospital (02) ==
PROVIDERS: Emergency Provider Emergency Medicine; PCP Internal Medicine
DX: K85.90 Acute pancreatitis without necrosis or infection, unspecified (principal); Z79.899 Other long term (current) drug therapy
CPT/HCPCS: 36415; 74177; 80053; 83690; 85025; 87635; 96361; 96374; 96375; 96376; 99285; J1170; J2270; Q9967

== ENCOUNTER 2023-12-13 21:08 | Inpatient (IN) | payer MEDICAID, SELFPAY ==
[2023-12-13 21:13] VITALS: BP 113/63; PULSE 65; RESP 16; TEMP 36.5; O2SAT 96; BMI 28.1
[2023-12-13 22:00] VITALS: BP 112/48; PULSE 65; RESP 18; TEMP 37; O2SAT 96
--- NOTE | 2023-12-13 22:13 | ED_ITS ---
HPI - Skin/Abscess/Foreign Bdy General Chief complaint: Skin/Abscess/Foreign Body Stated complaint: boil on face/left buttocks, and left leg Time Seen by Provider: 12/13/23 22:03 Source: patient and other (partner) Mode of arrival: ambulatory Limitations: no limitations History of Present Illness ED Provider: Winston WILLIS HPI narrative: 53 year old male with pmh of addiction on methadone, HTN, anxiety, diabetes and narcotizing pancreatitis presenting with concerns of three boils present over last 3 days, one on right cheek, left buttocks and testicle. Patient states he has had a much smaller boil in the past on his left calf that spontaneously resolved after several weeks. Pt states current boils are much more severe (severity 9/10 on movement - 6/10 at rest). He has been experiencing chills, denies any fevers, nausea/vomiting. 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 Previous Rx's ?Medication ?Instructions ?Recorded acetaminophen 325 mg tablet 650 mg (2 x 325 mg) PO Q6H PRN 04/09/22 Pain, Mild (Pain Scale 1-3) #1 tab aluminum-magnesium hydroxide 200 30 ml PO Q6H PRN 04/09/22 mg-200 mg/5 mL oral suspension dyspepsia/gas/bloating #1 mL (MAG-AL) amlodipine 10 mg tablet 10 mg PO DAILY #1 tab 04/09/22 enoxaparin 40 mg/0.4 mL 40 mg (0.4 mL) subcut Q24H #1 mL 04/09/22 subcutaneous syringe folic acid 1 mg tablet 1 mg PO DAILY #1 tab 04/09/22 hydralazine 20 mg/mL injection 10 mg IVPUSH Q6H PRN Sbp > 160 #1 04/09/22 solution mL hydromorphone 1 mg/mL injection 1 mg IVPUSH Q2H PRN Pain, Severe 04/09/22 syringe (Pain Scale 7-10) #1 mL lactated Ringers See Rx Instructions .Route 04/09/22 .COMPLEX #1,000 mL lisinopril 10 mg tablet 30 mg PO DAILY #1 tab 04/09/22 melatonin 3 mg tablet 6 mg (2 x 3 mg) PO BEDTIME PRN 04/09/22 Insomnia #1 tab methadone 10 mg/mL oral 105 mg (10.5 mL) PO DAILY #10.5 mL 04/09/22 concentrate (Methadose) naloxone 0.4 mg/mL injection 0.1 mg (0.25 mL) IVPUSH Q5M PRN 04/09/22 solution Respiratory Rate < 10 #1 mL nicotine 14 mg/24 hr daily 14 mg transdermal DAILY #1 ea 04/09/22 transdermal patch ondansetron HCl (PF) 4 mg/2 mL 4 mg (2 mL) IVPUSH Q8H PRN Nausea 04/09/22 injection solution And Vomiting #1 mL oxycodone 5 mg tablet 5 mg PO Q6H PRN Pain, Moderate 04/09/22 (Pain Scale 4-6 #1 tab phenobarbital 30 mg tablet 30 mg PO BID #1 tab 04/09/22 phenobarbital 30 mg tablet 30 mg PO DAILY #1 tab 04/09/22 sodium chloride 0.9 % (flush) (BD 3 ml IVFLUSH QSHIFT #1 mL 04/09/22 PosiFlush Normal Saline 0.9 % injection syringe) sucralfate 100 mg/mL oral 1 g (10 mL) PO QIDACHS #1 mL 04/09/22 suspension thiamine HCl (vitamin B1) 100 100 mg IV DAILY #1 mL 04/09/22 mg/mL injection solution tizanidine 4 mg tablet 4 mg PO TID #1 tab 04/09/22 Allergies Allergy/AdvReac Type Severity Reaction Status Date / Time codeine [CODEINE] AdvReac Unknown STOMACH Verified 12/13/23 21:18 UPSET From FLEXERIL AdvReac Severe Confusion Uncoded 03/09/20 07:18 Review of Systems 2 Review of Systems: Yes all other systems are reviewed and are negative PMFSH Past Medical History Source: old records reviewed and nursing notes reviewed Medical History YEISON (acute kidney injury) Alcohol abuse Alcohol abuse with withdrawal Asthma HTN (hypertension) Pancreatitis Surgical History H/O knee surgery H/O neck surgery Family History Family History Other Parkinsons disease Social History Social History Household Members: Significant Other Housing: House Do you presently have visiting nurse or other home services: No Alcohol intake: former Comment: PT REfused bed alarm Patient Tobacco Use Status: Former Tobacco user Tobacco use type: Cigarette Cigarette Packs Per Day: 0.5 Cigarettes Per Day: 10.0 e-Cigarette/Vaping Use: Never Used Second Hand Smoke Exposure: No Substance Use Type: Prescription Drugs Advance Directives: No Advance Directives Information Provided: No service: No Current occupational status: employed Physical Exam 2 Vital Signs: Vital Signs: Last Vital Signs Temp 98.6 F 12/13/23 22:00 Pulse 65 12/13/23 22:00 Resp 18 12/13/23 22:00 BP 112/48 L 12/13/23 22:00 Pulse Ox 96 12/13/23 22:00 O2 Del Method Room Air 12/13/23 22:00 BMI result Body Mass Index 28.1 VSS Appearance: Alert.? Oriented X3.? No acute distress.? Head: Normocephalic, atraumatic, no step-offs or deformities Eyes: Pupils equal, round and reactive to light.?No EOM pain upon movement, normal EOM. Neck: Normal inspection.? Neck supple.? CVS: Normal heart rate and rhythm.? Pulses normal.? Respiratory: No respiratory distress.? Breath sounds normal.? Abdomen: Soft and nontender.? Skin: Skin warm and dry.? Normal skin color.? Normal skin turgor.?+ 3 boils (right eye/cheek, left buttocks, testicle); erythematous, swollen, warm Extremities: No lower extremity edema.? No calf ttp. 5/5 strength to bilateral upper and lower extremities Back: No midline tenderness, no C-spine tenderness, full range of motion, no CVA tenderness bilaterally Neuro: Oriented X 3.? No motor deficit.? No sensory deficit. CN 2-12 intact Course Reevaluation(s) Reevaluation #1: CBC no acute findings requiring intervention normocytic anemia noted. Low platelets at baseline. Chemistry pending. I did have my attending evaluate patient who reports this is likely staph infection. No indication for imaging. He would like patient admitted to the hospital. Recommends vanco. Will add Zosyn for additional coverage. Plan hospital admission Time: 23:34 Medical Decision Making Medical Decision Making MDM Narrative: 53 year old male with concerns of three boils present over last 3 days, one on right cheek, left buttocks and testicle. PE - 3 boils present - one on right cheek/eye, left buttocks, testicle Hx and pe concerning for abscess/boils likely secondary to staph infection versus MRSA.. Unlikely gangrene, acne, poor hygeine. I do not suspect Fourniers, acute necrotizing infection. I do not suspect acute orbital cellulitis or periorbital cellulitis. Likely cellulitis surrounding boils. Plan- labs, imaging Differential Diagnosis Differential Diagnoses: The differential diagnosis associated with the presentation includes Hx and pe concerning for abscess/boils likely secondary to staph infection versus MRSA.. Unlikely gangrene, acne, poor hygeine. I do not suspect Fourniers, acute necrotizing infection. I do not suspect acute orbital cellulitis or periorbital cellulitis. Likely cellulitis surrounding boils. Admission/Observation Consideration of admission/observation: Escalation of care including admission/observation considered Lab Data MDM Lab Attestation statement: I reviewed the patient's lab results. 12/13/23 23:09 12/13/23 23:09 Labs: Lab Results 12/13/23 Range/Units 23:09 WBC 7.2 (4.8-10.8) X10*3/uL RBC 3.22 L D (4.60-5.80) X10*6/uL Hgb 10.0 L D (14.0-18.0) g/dl Hct 29.0 L D (42.0-52.0) % MCV 90.1 (80.0-98.0) fL MCH 31.1 (27.0-33.0) pg MCHC 34.5 (31.0-36.0) g/dl RDW 13.6 (11.0-16.0) % Plt Count 154 L D (160-400) X10*3/uL MPV 9.1 L (9.4-12.4) fL Immature Gran % (Auto) 0.3 (0.0-0.4) % Neut % (Auto) 80.6 H (45-73) % Lymph % (Auto) 9.6 L (20-40) % [place] % (Auto) 8.5 (2-11) % Eos % (Auto) 0.7 (0-4) % Baso % (Auto) 0.3 (0-2) % Lymph # (Auto) 0.7 L (1.2-4.9) X10*3/uL [place] # (Auto) 0.6 (0.1-1.2) X10*3/uL Eos # (Auto) 0.1 (0.0-0.4) X10*3/uL Baso # (Auto) 0.0 (0.0-0.2) X10*3/uL Abs Immat Gran (auto) 0.02 (0.00-0.03) X10*3/uL Absolute Neuts (auto) 5.8 (2.0-8.3) x10*3/uL Absolute Nucleated RBC 0.000 (0.0-0.012) X10*3/uL Nucleated RBC % (auto) 0.0 (0.0-0.2) /100WBC External Record Review External record reviewed: Inpatient record, Office record, Outpatient record, Prior outpatient labs, Prior outpatient radiology, Primary care record and Outside ED record Tests considered The following testing was considered but not selected: Discussed obtaining imaging with my attending doctor Ag pastrana also evaluated the patient. Feels like there is no need for it. Critical Care Time Critical Care Time Critical Care Time: Yes Total Critical Care Time: 35 Attestation: I attest to this time spent taking care of the patient, obtaining history, physical, reviewing labs, imaging, speaking to my attending, specialist or hospitalist. Discharge Plan Discharge Clinical Impression: Staph skin infection Patient Disposition: Still a Patient Prescriptions: No Action acetaminophen 325 mg Tablet 650 mg PO Q6H PRN (Reason: Pain, Mild (Pain Scale 1-3)) Qty: 1 0RF nicotine 14 mg/24 hr Patch 24 Hour 14 mg transdermal DAILY Qty: 1 0RF tizanidine 4 mg Tablet 4 mg PO TID Qty: 1 0RF naloxone 0.4 mg/mL Solution 0.1 mg IVPUSH Q5M PRN (Reason: Respiratory Rate < 10) Qty: 1 0RF hydralazine 20 mg/mL Solution 10 mg IVPUSH Q6H PRN (Reason: Sbp > 160) Qty: 1 0RF Protocol: Hold for SBP< HOLD for SBP < : 90 amlodipine 10 mg Tablet 10 mg PO DAILY Qty: 1 0RF Protocol: Hold for SBP< HOLD for SBP < : 90 lisinopril 10 mg Tablet 30 mg PO DAILY Qty: 1 0RF Protocol: Hold for SBP< HOLD for SBP < : 90 phenobarbital 30 mg Tablet 30 mg PO BID Qty: 1 0RF phenobarbital 30 mg Tablet 30 mg PO DAILY Qty: 1 0RF methadone [Methadose] 10 mg/mL Concentrate 105 mg PO DAILY Qty: 10.5 0RF Rx Instructions: Partial Fill upon patient request. oxycodone 5 mg Tablet 5 mg PO Q6H PRN (Reason: Pain, Moderate (Pain Scale 4-6) Qty: 1 0RF Rx Instructions: Partial Fill upon patient request. enoxaparin 40 mg/0.4 mL Syringe 40 mg subcut Q24H Qty: 1 0RF hydromorphone 1 mg/mL Syringe 1 mg IVPUSH Q2H PRN (Reason: Pain, Severe (Pain Scale 7-10)) Qty: 1 0RF Protocol: Hold for RR < HOLD and contact provider for RR < (bpm): 12 Rx Instructions: Partial Fill upon patient request. lactated Ringers Parenteral Solution See Rx Instructions .ROUTE .COMPLEX Qty: 1000 0RF Rx Instructions: 125ml/hr sucralfate 100 mg/mL Suspension 1 g PO QIDACHS Qty: 1 0RF melatonin 3 mg Tablet 6 mg PO BEDTIME PRN (Reason: Insomnia) Qty: 1 0RF folic acid 1 mg Tablet 1 mg PO DAILY Qty: 1 0RF sodium chloride 0.9 % (flush) [BD PosiFlush Normal Saline 0.9] Syringe 3 ml IVFLUSH QSHIFT Qty: 1 0RF MAG-AL 200-200 mg/5 mL Suspension 30 ml PO Q6H PRN (Reason: dyspepsia/gas/bloating) Qty: 1 0RF ondansetron HCl (PF) 4 mg/2 mL Solution 4 mg IVPUSH Q8H PRN (Reason: Nausea And Vomiting) Qty: 1 0RF thiamine HCl (vitamin B1) 100 mg/mL solution 100 mg IV DAILY Qty: 1 0RF Print Language: Filipino
[2023-12-13 23:14] LABS: MANUAL DIFF FLAG NO
[2023-12-13 23:15] LABS: Basophils Percent Auto 0.3 % (0-2); Eosinophils Absolute Auto 0.1 X10*3/uL (0.0-0.4); Eosinophils Percent Auto 0.7 % (0-4); Imm Gran Abs Auto 0.02 X10*3/uL (0.00-0.03); Imm Gran Pct Auto 0.3 % (0.0-0.4); Lymphocytes Absolute Auto 0.7 X10*3/uL (1.2-4.9); Lymphocytes Percent Auto 9.6 % (20-40); Mean Corpuscular HGB Conc 34.5 g/dl (31.0-36.0); Mean Corpuscular Hemoglobin 31.1 pg (27.0-33.0); Mean Corpuscular Volume 90.1 fL (80.0-98.0); Mean Platelet Volume 9.1 fL (9.4-12.4); Monocytes Absolute Auto 0.6 X10*3/uL (0.1-1.2); Monocytes Percent Auto 8.5 % (2-11); Neutrophils Absolute Auto 5.8 x10*3/uL (2.0-8.3); Neutrophils Percent Auto 80.6 % (45-73); Platelet Count 154 X10*3/uL (160-400); Red Blood Count 3.22 X10*6/uL (4.60-5.80); Red Cell Distribution Width 13.6 % (11.0-16.0); White Blood Count 7.2 X10*3/uL (4.8-10.8)
[2023-12-13 23:35] LABS: Alanine Aminotransferase 9 U/L (0-40); Albumin Level 3.8 g/dL (3.5-5.0); Alkaline Phosphatase 82 U/L (39-117); Anion Gap 13 (12-20); Aspartate Amino Transferase 12 U/L (5-37); Bilirubin Total 0.3 mg/dL (0.0-1.0); Blood Urea Nitrogen 17 mg/dL (9-16); Calcium 9.2 mg/dL (8.4-10.2); Carbon Dioxide 27 mmol/L (22-29); Chloride 94 mmol/L (96-108); Creatinine Clr Calc Pharmacy 54.6; Estimated Glomerular Filt Rate 42; Glucose Random 557 mg/dL (60-115); Potassium 4.5 mmol/L (3.3-5.1); Sodium 129 mmol/L (135-145); Total Protein 7.3 g/dL (6.5-8.0)
[2023-12-13 23:53] LABS: Erythrocyte Sedimentation Rate 63 MM/HR (0-15)
[2023-12-14] MEDS: Piperacillin Sodium/Tazobactam 3.375 GM in 0.9 % Sodium Chloride 50 ML IV (00:34)
[2023-12-14] MEDS: Acetaminophen 325 MG TABLET 975 MG PO (00:34)
--- NOTE | 2023-12-14 00:34 | P.HPHOSP_ITS ---
History of Present Illness Date of Service: 12/14/23 Chief Complaint: Skin infection This is a 53-year-old male with pertinent history of chronic pancreatic insufficiency, alcohol use disorder, hypertension, opioid use disorder on methadone, [id number] diabetes mellitus who presents to the emergency department for evaluation of skin infection. Patient states he noticed boils on his right cheek, left buttock and testicle 3 days prior to presentation. They have been progressive in size, erythema and pain. Did have a history of a smaller bowel on his left calf several weeks ago which self-resolved. No history of MRSA skin infection that the patient knows of. Patient works at a [employer]. Admits chills but no documented fever. Denies nausea, vomiting or diarrhea. States he was recently diagnosed with diabetes and started on Jardiance. No chest pain, palpitations, shortness of breath, abdominal pain, changes in urinary or bowel habits. In the emergency department, creatinine and blood glucose were found to be elevated Review of Systems 2 Constitutional: Constitutional: Reports chills Cardiovascular: Cardiovascular: Reports no additional cardiovascular complaints Respiratory: Respiratory: Reports no additional respiratory complaints Gastrointestinal: Gastrointestinal: Reports no additional gastrointestinal complaints Genitourinary: Genitourinary: Reports no additional male genitourinary complaints [facility], [facility] Medical History YEISON (acute kidney injury) Alcohol abuse with withdrawal Alcohol abuse Pancreatitis Asthma HTN (hypertension) Family History Other Parkinsons disease Surgical History H/O neck surgery H/O knee surgery Social History Household Members: Significant Other Housing: House Do you presently have visiting nurse or other home services: No Alcohol intake: former Comment: PT REfused bed alarm Patient Tobacco Use Status: Former Tobacco user Tobacco use type: Cigarette Cigarette Packs Per Day: 0.5 Cigarettes Per Day: 10.0 e-Cigarette/Vaping Use: Never Used Second Hand Smoke Exposure: No Substance Use Type: Prescription Drugs Advance Directives: No Advance Directives Information Provided: No service: No Current occupational status: employed Meds Allergies Allergy/AdvReac Type Severity Reaction Status Date / Time codeine [CODEINE] AdvReac Unknown STOMACH Verified 12/13/23 21:18 UPSET From FLEXERIL AdvReac Severe Confusion Uncoded 03/09/20 07:18 Active Medications: Current Medications Vancomycin HCl 2,000 mg/ (Sodium Chloride) 500 mls @ 250 mls/hr IV ONCE ONE Stop: 12/14/23 01:27 Sodium Chloride (Ns) 1,000 mls @ 999 mls/hr IV .Q1H1M RUDY Stop: 12/14/23 00:45 Sodium Chloride (Ns) 500 mls @ 500 mls/hr IV .Q1H RUDY Stop: 12/14/23 00:44 Pharmacy Consult (Consult Rx Vancomycin Dosing) 1 each MISCELLANE DAILY PRN PRN Reason: Consult order Physical Exam 2 Vital Signs and Narrative: Vital Signs: Last Vital Signs Temp 98.6 F 12/13/23 22:00 Pulse 65 12/13/23 22:00 Resp 18 12/13/23 22:00 BP 112/48 L 12/13/23 22:00 Pulse Ox 96 12/13/23 22:00 O2 Del Method Room Air 12/13/23 22:00 BMI result Body Mass Index 28.1 Middle-aged male lying in bed in no distress Neck supple, no JVD Regular rate and rhythm, S1-S2 heard Regular breath sounds bilaterally, no wheezing or crackles appreciated Abdomen soft nontender, no guarding, no rigidity Patient is awake, alert and oriented to self, place, time and person ; no focal motor deficit Psych: Normal mood Skin: Carbuncle with erythema, pain, swelling and tenderness over right cheek, left buttock and testicle Results Labs 12/13/23 23:09 12/13/23 23:09 Labs: Laboratory Results - last 24 hr 12/13/23 23:09 MCV 90.1 MCH 31.1 MCHC 34.5 RDW 13.6 Plt Count 154 L D MPV 9.1 L Immature Gran % (Auto) 0.3 Neut % (Auto) 80.6 H Lymph % (Auto) 9.6 L [place] % (Auto) 8.5 Eos % (Auto) 0.7 Baso % (Auto) 0.3 Lymph # (Auto) 0.7 L [place] # (Auto) 0.6 Eos # (Auto) 0.1 Baso # (Auto) 0.0 Abs Immat Gran (auto) 0.02 Absolute Neuts (auto) 5.8 Absolute Nucleated RBC 0.000 Nucleated RBC % (auto) 0.0 ESR 63 H Anion Gap 13 Estim Creat Clear Calc 54.6 Estimated GFR 42 Random Glucose 557 H* Calcium 9.2 D Total Bilirubin 0.3 AST 12 ALT 9 Alkaline Phosphatase 82 Total Creatine Kinase 61 C-Reactive Protein 14.30 H Total Protein 7.3 Albumin 3.8 Assessment and Plan (1) YEISON (acute kidney injury): Status: Acute (2) Carbuncle: Status: Acute Plan This is a 53-year-old male with pertinent history of chronic pancreatic insufficiency, alcohol use disorder, hypertension, opioid use disorder on methadone, zbb-teewtlv-rsqylphwr diabetes mellitus who presents to the emergency department for evaluation of skin infection. #. Acute kidney injury stage I: Monitor creatinine and urine output with crystalloid resuscitation. Avoid nephrotoxins. #. Carbuncle of face, buttock and testicle: Initiating IV vancomycin. Monitor for improvement. #. Uncontrolled zas-wtqvogy-tohfveaio diabetes mellitus with hyperglycemia: Initiating basal plus insulin regimen. Obtaining A1c #. Pseudo hyponatremia due to hyperglycemia #. Hypertension: Hold lisinopril in the setting of YEISON #. Opioid use disorder on methadone #. Chronic pancreatic insufficiency: Continue pancreatic enzyme supplementation Med rec pending DVT prophylaxis: Lovenox Full code Admit as inpatient and will require two night minimum hospital stay for monitoring of kidney function, IV antibiotics (as above), which is not possible in a lesser acute setting. Quality Stroke Does the patient have a stroke diagnosis?: No VTE Prior VTE?: No VTE Risk Level:: Medical - moderate - high VTE Device Contraindication: Treatment Not Indicated VTE Drug Contraindication: N/A - Med Ordered
[2023-12-14] MEDS: Insulin Lispro 100 UNIT/ML 3 ML VIAL 10 UNIT SUBCUT (00:36)
[2023-12-14] MEDS: 0.9 % Sodium Chloride 1,000 ML 999 ML IV (00:43)
[2023-12-14] MEDS: 0.9 % Sodium Chloride 500 ML IV (00:45)
[2023-12-14 00:52] VITALS: BP 119/73; PULSE 72; RESP 16; TEMP 36.9; O2SAT 100
[2023-12-14] MEDS: Insulin Regular, Human 100 UNIT/ML 10 ML VIAL IVPUSH (00:55)
[2023-12-14] MEDS: Insulin Glargine,Hum.rec.anlog 100 UNIT/ML 10 ML VIAL 17 UNIT SUBCUT ×2 (01:20→20:34)
[2023-12-14 02:20] LABS: Glucose, Whole Blood 145 mg/dL (60-115)
[2023-12-14 03:12] LABS: Glucose, Whole Blood 120 mg/dL (60-115)
[2023-12-14 05:24] LABS: Estimated Average Glucose 283 mg/dL; Hemoglobin A1c % 11.5 % (<6.0)
[2023-12-14 05:42] VITALS: BP 112/62; PULSE 53; RESP 16; TEMP 36.9; O2SAT 97
[2023-12-14] MEDS: traMADoL HCL 50 MG TABLET PO (05:52)
[2023-12-14 06:42] LABS: MANUAL DIFF FLAG NO
[2023-12-14 06:47] LABS: Basophils Percent Auto 0.7 % (0-2); Eosinophils Absolute Auto 0.1 X10*3/uL (0.0-0.4); Hematocrit 30.9 % (42.0-52.0); Hemoglobin 10.2 g/dl (14.0-18.0); Imm Gran Abs Auto 0.02 X10*3/uL (0.00-0.03); Imm Gran Pct Auto 0.3 % (0.0-0.4); Lymphocytes Absolute Auto 1.2 X10*3/uL (1.2-4.9); Lymphocytes Percent Auto 18.9 % (20-40); Mean Corpuscular Hemoglobin 30.2 pg (27.0-33.0); Mean Corpuscular Volume 91.4 fL (80.0-98.0); Mean Platelet Volume 9.8 fL (9.4-12.4); Monocytes Absolute Auto 0.7 X10*3/uL (0.1-1.2); Monocytes Percent Auto 10.7 % (2-11); Neutrophils Absolute Auto 4.2 x10*3/uL (2.0-8.3); Neutrophils Percent Auto 68.4 % (45-73); Platelet Count 174 X10*3/uL (160-400); Red Blood Count 3.38 X10*6/uL (4.60-5.80); Red Cell Distribution Width 13.5 % (11.0-16.0); White Blood Count 6.1 X10*3/uL (4.8-10.8)
--- NOTE | 2023-12-14 07:05 | PHA.PROG ---
Admission Date/Time: December 14, 2023 00:33 Indication: SKIN INFECTION Weight in k.183 kg Adjusted body weight in Kg: [place] body weight in Kg: Obesity Dosing Indication % IBW: Serum Creatinine - Last 168 Hours 12/13/23 23:09 Creatinine 1.70 H Estimated CrCl and GFR - Last 168 Hours 12/13/23 23:09 Estim Creat Clear Calc 54.6 Estimated GFR 42 Vancomycin Loading Dose: 2000 MG Current Vancomycin Dosing Regimen: 1250 MG Q24H Vancomycin Monitoring using AUC goal of 400 - 600 range with trough as surrogate marker: ROZ=304 TROUGH=14.3 Date and Time for next Vancomycin Level to be drawn: 12/15/2023 @2100 Pharmacist Comments on Vancomycin Plan: Due to sCr being a little high, dosing is on the cautious side with trough being taken after 2 doses (@2100 so we can adjust dose in time instead of the true trough time of 2300). Vancomycin dosing will take advantage of Telepath as a clinical decision support tool that uses Bayesian modeling to calculate individual patient's pharmacokinetic parameters and forecast the patient's drug concentration time course with the target goal AUC 24 range of 400 - 600 mg/L/hr.
[2023-12-14 07:06] LABS: Anion Gap 14 (12-20); Blood Urea Nitrogen 13 mg/dL (9-16); Calcium 8.7 mg/dL (8.4-10.2); Carbon Dioxide 27 mmol/L (22-29); Chloride 103 mmol/L (96-108); Creatinine Clr Calc Pharmacy 85.2; Estimated Glomerular Filt Rate > 60; Glucose Random 84 mg/dL (60-115); Potassium 3.5 mmol/L (3.3-5.1); Sodium 140 mmol/L (135-145)
[2023-12-14 07:16] VITALS: BP 119/65; PULSE 62; RESP 14; TEMP 37.2; O2SAT 100
[2023-12-14 07:26] LABS: Glucose, Whole Blood 74 mg/dL (60-115)
[2023-12-14] MEDS: 0.9 % Sodium Chloride Flush 3 ML SYRINGE IVFLUSH ×3 (09:00→20:36)
[2023-12-14] MEDS: Enoxaparin Sodium 40 MG/0.4 ML SYRINGE SUBCUT (09:03)
--- NOTE | 2023-12-14 09:21 | PM.EVENT ---
Event Note Date of Service: 12/14/23 Event Note: Day Team follow up S Pt seen and examined feels the same is quiet tender in the buttock region denies visual changes O vitals -- last documented Face -- R cindy-orbital swelling; +ttp; erythema -- several open areas of draining abscess, no significant erythema or tenderness appreciated L buttock -- 3cm induration with extreme TTP A/P 53 yo M with DM presenting with multiple absecess, also found to be hyperglycemic + YEISON YEISON resolved, sugars improved continue antibiotics -- will ask surgical input to see if I&D may benefit remainder per H&P Time Spent With Patient Time: Total time managing care of this patient today ____ minutes.
[2023-12-14 09:40] VITALS: BP 136/71; PULSE 73; RESP 16; TEMP 37.4; O2SAT 100
--- NOTE | 2023-12-14 09:48 | HE.PHANOTE ---
RE: METHADONE DOSING Last dose of methadone 120 mg (with 6 take home bottles) was given on 12/13/23 @0939 at [facility] per Wendy ALEXANDRA.
[2023-12-14 09:52] LABS: Glucose, Whole Blood 235 mg/dL (60-115)
[2023-12-14] MEDS: methADONE HCl 20 MG/2 ML ORAL.CONC 120 MG PO (10:21)
[2023-12-14] MEDS: Morphine Sulfate 4 MG/ML CARTRIDGE IVPUSH ×3 (10:22→20:48)
[2023-12-14] MEDS: Acetaminophen 325 MG TABLET 650 MG PO ×2 (10:22→16:46)
--- NOTE | 2023-12-14 10:33 | PHA.MEDREC ---
Addendum entered by Axel Herrera RPh 12/14/23 10:48: Reviewed by [facility] Original Note: Pharmacy Consult ? Medication Reconciliation Pharmacy has completed the medication reconciliation. Confirmed medications with patient. Patient states he took all his meds yesterday.
[2023-12-14 11:08] LABS: Glucose, Whole Blood 233 mg/dL (60-115)
[2023-12-14] MEDS: Insulin Lispro 100 UNIT/ML 3 ML VIAL SUBCUT ×3 (12:03→20:35)
[2023-12-14] MEDS: Lidocaine HCl 1 % 20 ML VIAL INFILTRATI (12:48)
[2023-12-14] MEDS: HYDROmorphone HCl 0.5 MG/0.5 ML SYRINGE IVPUSH (12:49)
--- NOTE | 2023-12-14 13:17 | P.CONGS_ITS ---
History of Present Illness Consult details Consult date: 12/14/23 Requesting physician: [place] Wesley Narrative: 53-year-old male with PMH significant for chronic pancreatic insufficiency, alcohol use disorder, hypertension, opioid use disorder on methadone, [id number]-fquutluvf diabetes mellitus who presented to the ED for right cheek/eye swelling and concern for skin infections. Patient states he had a pimple on his right cheek 3 days ago which has progressively increased in size and now complains of severe pain. He also reports pain/swelling at his left buttock area and testicles. The lesions on his testicles however are open and now draining. He denies fever, chills, nausea, vomiting, diarrhea, bites or trauma to the area. He was recently diagnosed with diabetes and started on Jardiance. He was admitted to the medical service for further treatment of the right cheek and left buttock carbuncle and cellulitis, YEISON. He was started on IV vancomycin. General surgery was consulted for possible I&D. Review of Systems 2 Constitutional: Constitutional: Denies chills and Denies fever(s) Eyes: Eyes: Denies change in vision and Denies other visual disturbances ENT: Denies dizziness Cardiovascular: Cardiovascular: Denies chest pain and Denies dyspnea Respiratory: Respiratory: Denies cough and Denies dyspnea Gastrointestinal: Gastrointestinal: Denies diarrhea, Denies nausea and Denies vomiting Integumentary/Breasts: Skin/Breast: Reports as per HPI Neurologic: Denies dizziness PMFSH Past Medical History Medical History YEISON (acute kidney injury) Alcohol abuse with withdrawal Alcohol abuse Pancreatitis Asthma HTN (hypertension) Family History Family History Other Parkinsons disease Surgical History Surgical History H/O neck surgery H/O knee surgery Social History Social History Household Members: Significant Other Housing: Apartment Do you presently have visiting nurse or other home services: No Alcohol intake: never Comment: PT REfused bed alarm Patient Tobacco Use Status: Never used Tobacco Tobacco use type: Cigarette Cigarette Packs Per Day: 0.5 Cigarettes Per Day: 10.0 e-Cigarette/Vaping Use: Never Used Second Hand Smoke Exposure: No Substance Use Type: Marijuana service: No Current occupational status: employed Meds Allergies Allergy/AdvReac Type Severity Reaction Status Date / Time codeine [CODEINE] AdvReac Unknown STOMACH Verified 12/13/23 21:18 UPSET From [facility] AdvReac Severe Confusion Uncoded 03/09/20 07:18 Active Medications: Current Medications Acetaminophen (Acetaminophen 325 Mg Tablet) 650 mg PO Q6H PRN PRN Reason: Pain, Mild (Pain Scale 1-3), fever or headache Last Admin: 12/14/23 10:22 Dose: 650 mg Calcium Carbonate (Calcium Carbonate 750 Mg Tab.Chew) 750 mg PO Q4H PRN PRN Reason: Heartburn Enoxaparin Sodium (Enoxaparin Sodium 40 Mg/0.4 Ml Syringe) 40 mg SUBCUT Q24H [facility] Last Admin: 12/14/23 09:03 Dose: 40 mg Glucose (Glucose Gel 15 Gm Gel..Gram.) 15 gm PO Q15M PRN; Protocol PRN Reason: per Hypoglycemia Standing Ord. Dextrose (D10) 250 mls @ 750 mls/hr IV Q15M PRN; Protocol PRN Reason: per Hypoglycemia Standing Ord. Vancomycin HCl 1,250 mg/ (Sodium Chloride) 250 mls @ 166.667 mls/hr IV Q24H [facility] Insulin Glargine (Insulin Glargine,Hum.Rec.Anlog 100 Unit/Ml 10 Ml Vial) 17 unit SUBCUT BEDTIME [facility] Last Admin: 12/14/23 01:20 Dose: 17 unit Insulin Human Lispro (Insulin Lispro 100 Unit/Ml 3 Ml Vial) 0 unit SUBCUT QIDACHS [facility]; Protocol Last Admin: 12/14/23 12:03 Dose: 4 unit Magnesium Hydroxide (Milk Of Magnesia 30 Ml Oral.Susp) 30 ml PO DAILY PRN PRN Reason: Constipation Melatonin (Melatonin 3 Mg Tablet) 6 mg PO BEDTIME PRN PRN Reason: Insomnia Morphine Sulfate (Morphine Sulfate 4 Mg/Ml Cartridge) 4 mg IVPUSH Q4H PRN; Protocol PRN Reason: Pain, Severe (Pain Scale 7-10) Last Admin: 12/14/23 10:22 Dose: 4 mg Ondansetron HCl (Ondansetron Hcl 4 Mg/2 Ml Vial) 4 mg IVPUSH Q8H PRN PRN Reason: Nausea and Vomiting Pharmacy Consult (Consult Rx Vancomycin Dosing) 1 each MISCELLANE DAILY PRN PRN Reason: Consult order Sodium Chloride (0.9 % Sodium Chloride Flush 3 Ml Syringe) [facility] Last Admin: 12/14/23 09:00 Dose: 3 ml Home Medications ?Medication ?Instructions ?Recorded ?Confirmed ?Last Taken ?Type diphenhydramine HCl 25 mg capsule 75 mg PO BEDTIME PRN insomnia 12/14/23 12/14/23 Unknown History (Benadryl) empagliflozin 10 mg tablet 10 mg PO DAILY 12/14/23 12/14/23 12/13/23 History (Jardiance) gabapentin 400 mg capsule 400 mg PO TID 12/14/23 12/14/23 12/13/23 History hydroxyzine HCl 25 mg tablet 25 - 50 mg PO BID PRN anxiety 12/14/23 12/14/23 Unknown History gjdtuk-bymjshjn-mdeaigr 1 cap PO TIDWM 12/14/23 12/14/23 12/13/23 History 24,000-76,000-120,000 unit capsule,delayed rel (Creon) methadone 10 mg/mL oral 120 mg PO DAILY 12/14/23 12/14/23 12/13/23 09:39 History concentrate (Methadose) ondansetron HCl 4 mg tablet 4 mg PO Q8H PRN nausea/vomiting 12/14/23 12/14/23 Unknown History pantoprazole 40 mg tablet,delayed 40 mg PO BID@0630,1630 12/14/23 12/14/23 12/13/23 History release Physical Exam 2 Vital Signs: Vital Signs: Last Vital Signs Temp 99.4 F 12/14/23 09:40 Pulse 73 12/14/23 09:40 Resp 16 12/14/23 09:40 BP 136/71 12/14/23 09:40 Pulse Ox 100 12/14/23 09:40 O2 Del Method Room Air 12/14/23 09:40 BMI result Body Mass Index 28.1 Const: General: comfortable, no acute distress and alert O rientation/consciousness: patient oriented x3 Resp: Effort & Inspection: normal respiratory effort Cardio: Rate: regular rate Skin: Other: area of erythema and large 5cm fluctuance just lateral to right eye overlying hoahaoism, small opening with purulent drainage, mild surrounding edema left buttock with small ~3cm area of erythema and fluctuance scrotum with a few open wounds on left that are open and draining, no surrounding erythema Neuro: General: patient oriented x3 and moves all extremities Results Labs 12/14/23 05:36 12/14/23 05:36 Labs: Abnormal lab results 12/13/23 12/14/23 12/14/23 Range/Units 23:09 02:16 03:07 RBC 3.22 L D (4.60-5.80) X10*6/uL Hgb 10.0 L D (14.0-18.0) g/dl Hct 29.0 L D (42.0-52.0) % Plt Count 154 L D (160-400) X10*3/uL MPV 9.1 L (9.4-12.4) fL Neut % (Auto) 80.6 H (45-73) % Lymph % (Auto) 9.6 L (20-40) % Lymph # (Auto) 0.7 L (1.2-4.9) X10*3/uL ESR 63 H (0-15) MM/HR Sodium 129 L (135-145) mmol/L Chloride 94 L (96-108) mmol/L BUN 17 H (9-16) mg/dL Creatinine 1.70 H (0.5-1.4) mg/dL POC Glucose 145 H 120 H (60-115) mg/dL Random Glucose 557 H* (60-115) mg/dL Hemoglobin A1c % 11.5 H (<6.0) % C-Reactive Protein 14.30 H (< or = 0.50) mg/dL 12/14/23 12/14/23 12/14/23 Range/Units 05:36 09:48 11:01 RBC 3.38 L (4.60-5.80) X10*6/uL Hgb 10.2 L (14.0-18.0) g/dl Hct 30.9 L (42.0-52.0) % Plt Count (160-400) X10*3/uL MPV (9.4-12.4) fL Neut % (Auto) (45-73) % Lymph % (Auto) 18.9 L (20-40) % Lymph # (Auto) (1.2-4.9) X10*3/uL ESR (0-15) MM/HR Sodium (135-145) mmol/L Chloride (96-108) mmol/L BUN (9-16) mg/dL Creatinine (0.5-1.4) mg/dL POC Glucose 235 H 233 H (60-115) mg/dL Random Glucose (60-115) mg/dL Hemoglobin A1c % (<6.0) % C-Reactive Protein (< or = 0.50) mg/dL Short CBC 12/13/23 12/14/23 Range/Units 23:09 05:36 WBC 7.2 6.1 (4.8-10.8) X10*3/uL Hgb 10.0 L D 10.2 L (14.0-18.0) g/dl Hct 29.0 L D 30.9 L (42.0-52.0) % Plt Count 154 L D 174 (160-400) X10*3/uL BMP 12/13/23 12/14/23 23:09 05:36 Sodium 129 L 140 Potassium 4.5 3.5 D Chloride 94 L 103 Carbon Dioxide 27 27 BUN 17 H 13 Creatinine 1.70 H 1.09 Calcium 9.2 D 8.7 Cardiac Enzymes 12/13/23 Range/Units 23:09 Total Creatine Kinase 61 (38-174) U/L Liver Function 12/13/23 Range/Units 23:09 Total Bilirubin 0.3 (0.0-1.0) mg/dL AST 12 (5-37) U/L ALT 9 (0-40) U/L Alkaline Phosphatase 82 (39-117) U/L Albumin 3.8 (3.5-5.0) g/dL All other labs normal. Assessment and Plan (1) Carbuncle: Status: Acute Plan 53-year-old male with PMH significant for chronic pancreatic insufficiency, alcohol use disorder, hypertension, opioid use disorder on methadone, kfn-xfbxbda-qbidjwluw diabetes mellitus admitted with carbuncle, cellulitis and YEISON. He has a large abscess and cellulitis of right upper cheek and smaller abscess of left buttock. Recommended I&D of these areas which was performed at bedside. See procedure note. There are a few scattered scrotal wounds that are open and draining without significant cellulitis and no further surgical intervention is needed. Cont IV abx and local wound care. Procedures Date of Service Date of Service: 12/14/23
--- NOTE | 2023-12-14 14:31 | PM.PROC ---
Brief Operative Note Date of procedure: 12/14/23 Pre-op diagnosis: right facial abscess, left buttock abscess Post-op diagnosis: same Procedure: Patient was placed in supine position with his head tilted toward the left. The site of procedure was confirmed by the patient (right face, left buttock). After assuring informed consent, the right upper cheek was prepped with Betadine. 1% lidocaine local anesthesia was then infiltrated over the central portion of the fluctuance and surrounding area. An incision was made with an 11 blade measuring approximately 2-3 cm in the same location. This was deepened into the subcutaneous tissue. A pocket was identified with moderate amount of purulent fluid was evacuated. The area was then probed with a snap to ensure any loculations were broken up and the entire collection was drained. No further fluctuance was appreciated. Pressure was held with sterile gauze until hemostasis ensured. The wound was packed with iodoform packing and dry fluff dressing was applied. The patient was then positioned in left lateral. The left buttock was prepped with Betadine. 1% lidocaine local anesthesia was then infiltrated over the central portion of the fluctuance and surrounding area. An incision was made with an 11 blade measuring approximately 1 cm in the same location. This was deepened into the subcutaneous tissue and a pocket was identified with small amount of purulent fluid was evacuated. The area was then probed with a snap to ensure any loculations were broken up and the entire collection was drained. No further fluctuance was appreciated. Pressure was held with sterile gauze until hemostasis ensured. The wound was packed with iodoform packing and dry fluff dressing was applied. The patient tolerated the procedure very well. Anesthesia: local Surgeon: Joanna Enrique Estimated blood loss (mL): 5 Condition: stable Disposition: no change
[2023-12-14] MEDS: Gabapentin 400 MG CAPSULE PO ×2 (14:44→20:34)
[2023-12-14 15:16] VITALS: BP 118/64; PULSE 55; RESP 16; TEMP 36.6; O2SAT 98
[2023-12-14 16:21] LABS: Glucose, Whole Blood 248 mg/dL (60-115)
[2023-12-14] MEDS: Omeprazole 20 MG CAPSULE.DR PO (16:42)
[2023-12-14] MEDS: Lipase/Prot/Amylase 24/76/120K 1 CAP CAPSULE.DR PO (16:42)
[2023-12-14 18:53] VITALS: BP 127/60; PULSE 68; RESP 18; TEMP 36.6; O2SAT 95
[2023-12-14 20:16] LABS: Glucose, Whole Blood 231 mg/dL (60-115)
[2023-12-15] MEDS: vancomycin HCL 1,250 MG in 0.9 % Sodium Chloride 250 ML 166.67 MG IV (01:08)
[2023-12-15] MEDS: Morphine Sulfate 4 MG/ML CARTRIDGE IVPUSH ×6 (01:17→23:11)
[2023-12-15] MEDS: Acetaminophen 325 MG TABLET 650 MG PO (01:17)
[2023-12-15 04:00] VITALS: BP 119/65; PULSE 51; RESP 16; TEMP 36.1; O2SAT 99
[2023-12-15] MEDS: Omeprazole 20 MG CAPSULE.DR PO ×2 (05:18→16:57)
[2023-12-15 06:01] LABS: Creatinine Clr Calc Pharmacy 93.8; Estimated Glomerular Filt Rate > 60
[2023-12-15 07:38] LABS: Glucose, Whole Blood 151 mg/dL (60-115)
[2023-12-15 08:00] VITALS: BP 117/62; PULSE 59; RESP 16; TEMP 36.4; O2SAT 97
--- NOTE | 2023-12-15 08:11 | HO.PM.IMPN ---
Subjective Subjective Date of Service: 12/15/23 Interval History: f/u on carbuncle of buttock and face s/p I&D yesterday, culture Staph Physical Exam Vital Signs: Vital Signs: Last Vital Signs Temp 97.0 F 12/15/23 04:00 Pulse 51 12/15/23 04:00 Resp 16 12/15/23 04:00 BP 119/65 12/15/23 04:00 Pulse Ox 99 12/15/23 04:00 O2 Del Method Room Air 12/15/23 04:00 BMI result Body Mass Index 28.1 General: AO X 3, no acute distress Resp: CTA bilateral CVS: S1,S2,RRR GI: +BS, NT, no distention Skin: facail and buttock dressing in place Neuro: motor grossly intact Psych: appropriate affect Objective Data Active Medications Acetaminophen (Acetaminophen 325 Mg Tablet) 650 mg PO Q6H PRN PRN Reason: Pain, Mild (Pain Scale 1-3), fever or headache Last Admin: 12/15/23 01:17 Dose: 650 mg Documented By: VERO Lipase/Protease/Amylase (Lipase/Prot/Amylase 24/76/120k 1 Cap Capsule.Dr) 1 cap PO TIDWM [facility] Last Admin: 12/14/23 16:42 Dose: 1 cap Documented By: ELYSE Calcium Carbonate (Calcium Carbonate 750 Mg Tab.Chew) 750 mg PO Q4H PRN PRN Reason: Heartburn Diphenhydramine HCl (Diphenhydramine Hcl 25 Mg Capsule) 75 mg PO BEDTIME PRN PRN Reason: insomnia Enoxaparin Sodium (Enoxaparin Sodium 40 Mg/0.4 Ml Syringe) 40 mg SUBCUT Q24H [facility] Last Admin: 12/14/23 09:03 Dose: 40 mg Documented By: RUBIA Gabapentin (Gabapentin 400 Mg Capsule) 400 mg PO TID [facility] Last Admin: 12/14/23 20:34 Dose: 400 mg Documented By: VERO Glucose (Glucose Gel 15 Gm Gel..Gram.) 15 gm PO Q15M PRN; Protocol PRN Reason: per Hypoglycemia Standing Ord. Dextrose (D10) 250 mls @ 750 mls/hr IV Q15M PRN; Protocol PRN Reason: per Hypoglycemia Standing Ord. Vancomycin HCl 1,250 mg/ (Sodium Chloride) 250 mls @ 166.667 mls/hr IV Q24H [facility] Last Infusion: 12/15/23 03:00 Dose: Infused Documented By: VERO Insulin Glargine (Insulin Glargine,Hum.Rec.Anlog 100 Unit/Ml 10 Ml Vial) 17 unit SUBCUT BEDTIME [facility] Last Admin: 12/14/23 20:34 Dose: 17 unit Documented By: VERO Insulin Human Lispro (Insulin Lispro 100 Unit/Ml 3 Ml Vial) 0 unit SUBCUT QIDACHS [facility]; Protocol Last Admin: 12/14/23 20:35 Dose: 4 unit Documented By: VERO Lisinopril (Lisinopril 10 Mg Tablet) 30 mg PO DAILY [facility]; Protocol Magnesium Hydroxide (Milk Of Magnesia 30 Ml Oral.Susp) 30 ml PO DAILY PRN PRN Reason: Constipation Melatonin (Melatonin 3 Mg Tablet) 6 mg PO BEDTIME PRN PRN Reason: Insomnia Methadone HCl (Methadone Hcl 20 Mg/2 Ml Oral.Conc) 120 mg PO DAILY [facility] Morphine Sulfate (Morphine Sulfate 4 Mg/Ml Cartridge) 4 mg IVPUSH Q4H PRN; Protocol PRN Reason: Pain, Severe (Pain Scale 7-10) Last Admin: 12/15/23 05:11 Dose: 4 mg Documented By: VERO Omeprazole (Omeprazole 20 Mg Capsule.) 20 mg PO BID@0630,1630 [facility] Last Admin: 12/15/23 05:18 Dose: 20 mg Documented By: VERO Ondansetron HCl (Ondansetron Hcl 4 Mg/2 Ml Vial) 4 mg IVPUSH Q8H PRN PRN Reason: Nausea and Vomiting Pharmacy Consult (Consult Rx Vancomycin Dosing) 1 each MISCELLANE DAILY PRN PRN Reason: Consult order Sodium Chloride (0.9 % Sodium Chloride Flush 3 Ml Syringe) 3 ml IVFLUSH QSHIFT [facility] Last Admin: 12/14/23 20:36 Dose: 3 ml Documented By: VERO Labs 12/14/23 05:36 12/15/23 05:09 Labs: Laboratory Results - last 24 hr 12/14/23 12/14/23 12/14/23 09:48 11:01 16:15 Estim Creat Clear Calc Estimated GFR POC Glucose 235 H 233 H 248 H 12/14/23 12/15/2312/14/24 20:11 05:09 07:25 Estim Creat Clear Calc 93.8 Estimated GFR > 60 POC Glucose 231 H 151 H Microbiology Microbiology Results: Microbiology 12/14/23 05:45 Gram Stain - Final Face Assessment and Plan (1) Carbuncle: Status: Acute (2) YEISON (acute kidney injury): Status: Acute Plan 53-year-old male with pertinent history of chronic pancreatic insufficiency, alcohol use disorder, hypertension, opioid use disorder on methadone, wjo-wfumfcv-ankigvlmc diabetes mellitus YEISON, pre-renal, resolved with IVF Carbuncle of face, buttock and testicle d/t uncontrolled dm -culture = staph aureus,sensitivity pending -s/p I&/D 12/13 -cultures pendin -continue IV vanco, follow sensitivity, PO doxy if MRSA and Keflex if MSSA Uncontrolled DM with, hyperglycemia. A1c 11 -BS better -continue lantus, SSI and diabetic diet Pseudo hyponatremia due to hyperglycemia--resolved HTN-controlled -Lisinopril Opioid -Methadone Chronic pancreatic insufficiency -continue Creon DVT prophylaxis: Lovenox Full code need for inpt: buttock abscess s/p I and D Quality Stroke Does the patient have a stroke diagnosis?: No VTE Prior VTE?: No VTE Risk Level:: Medical - moderate - high VTE Device Contraindication: Treatment Not Indicated VTE Drug Contraindication: N/A - Med Ordered
[2023-12-15] MEDS: lisinopriL 10 MG TABLET 30 MG PO (08:18)
[2023-12-15] MEDS: Enoxaparin Sodium 40 MG/0.4 ML SYRINGE SUBCUT (08:18)
[2023-12-15] MEDS: Lipase/Prot/Amylase 24/76/120K 1 CAP CAPSULE.DR PO ×3 (08:18→16:48)
[2023-12-15] MEDS: Gabapentin 400 MG CAPSULE PO ×3 (08:18→20:53)
[2023-12-15] MEDS: Insulin Lispro 100 UNIT/ML 3 ML VIAL SUBCUT ×4 (08:19→20:55)
[2023-12-15] MEDS: 0.9 % Sodium Chloride Flush 3 ML SYRINGE IVFLUSH ×3 (08:22→20:55)
[2023-12-15 08:27] LABS: Anion Gap 15 (12-20)
[2023-12-15] MEDS: methADONE HCl 20 MG/2 ML ORAL.CONC 120 MG PO (08:41)
[2023-12-15 08:57] LABS: Blood Urea Nitrogen 8 mg/dL (9-16); Calcium 9.3 mg/dL (8.4-10.2); Carbon Dioxide 27 mmol/L (22-29); Chloride 105 mmol/L (96-108); Glucose Random 206 mg/dL (60-115); Sodium 140 mmol/L (135-145)
[2023-12-15 11:10] LABS: Glucose, Whole Blood 250 mg/dL (60-115)
[2023-12-15 16:00] VITALS: BP 121/70; PULSE 62; RESP 16; TEMP 36.3; O2SAT 96
--- NOTE | 2023-12-15 16:03 | PM.PNGS ---
Subjective Subjective Date of Service: 12/15/23 Interval history: feeling better but still with pain especially buttock wound Physical Exam Vital Signs: Vital Signs: Last Vital Signs Temp 97.6 F 12/15/23 08:00 Pulse 59 12/15/23 08:00 Resp 16 12/15/23 08:00 BP 117/62 12/15/23 08:00 Pulse Ox 97 12/15/23 08:00 O2 Del Method Room Air 12/15/23 08:00 BMI result Body Mass Index 28.1 Skin: Other: right face - less edema and erythema especially at the eye area the wound is wide open and clean although still with induration and erythema buttock wound with still induration and erythema Objective Data Active Medications Acetaminophen (Acetaminophen 325 Mg Tablet) 650 mg PO Q6H PRN PRN Reason: Pain, Mild (Pain Scale 1-3), fever or headache Last Admin: 12/15/23 01:17 Dose: 650 mg Documented By: VERO Lipase/Protease/Amylase (Lipase/Prot/Amylase 24/76/120k 1 Cap Capsule.Dr) 1 cap PO TIDWM [facility] Last Admin: 12/15/23 11:46 Dose: 1 cap Documented By: SAMANTHA Calcium Carbonate (Calcium Carbonate 750 Mg Tab.Chew) 750 mg PO Q4H PRN PRN Reason: Heartburn Diphenhydramine HCl (Diphenhydramine Hcl 25 Mg Capsule) 75 mg PO BEDTIME PRN PRN Reason: insomnia Enoxaparin Sodium (Enoxaparin Sodium 40 Mg/0.4 Ml Syringe) 40 mg SUBCUT Q24H [facility] Last Admin: 12/15/23 08:18 Dose: 40 mg Documented By: SAMANTHA Gabapentin (Gabapentin 400 Mg Capsule) 400 mg PO TID [facility] Last Admin: 12/15/23 14:28 Dose: 400 mg Documented By: SAMANTHA Glucose (Glucose Gel 15 Gm Gel..Gram.) 15 gm PO Q15M PRN; Protocol PRN Reason: per Hypoglycemia Standing Ord. Dextrose (D10) 250 mls @ 750 mls/hr IV Q15M PRN; Protocol PRN Reason: per Hypoglycemia Standing Ord. Vancomycin HCl 1,250 mg/ (Sodium Chloride) 250 mls @ 166.667 mls/hr IV Q24H [facility] Last Infusion: 12/15/23 03:00 Dose: Infused Documented By: VERO Insulin Glargine (Insulin Glargine,Hum.Rec.Anlog 100 Unit/Ml 10 Ml Vial) 17 unit SUBCUT BEDTIME [facility] Last Admin: 12/14/23 20:34 Dose: 17 unit Documented By: VERO Insulin Human Lispro (Insulin Lispro 100 Unit/Ml 3 Ml Vial) 0 unit SUBCUT QIDACHS [facility]; Protocol Last Admin: 12/15/23 11:46 Dose: 4 unit Documented By: SAMANTHA Lisinopril (Lisinopril 10 Mg Tablet) 30 mg PO DAILY [facility]; Protocol Last Admin: 12/15/23 08:18 Dose: 30 mg Documented By: SAMANTHA Magnesium Hydroxide (Milk Of Magnesia 30 Ml Oral.Susp) 30 ml PO DAILY PRN PRN Reason: Constipation Melatonin (Melatonin 3 Mg Tablet) 6 mg PO BEDTIME PRN PRN Reason: Insomnia Methadone HCl (Methadone Hcl 20 Mg/2 Ml Oral.Conc) 120 mg PO DAILY [facility] Last Admin: 12/15/23 08:41 Dose: 120 mg Documented By: SAMANTHA Co-signed By: AROLDO Morphine Sulfate (Morphine Sulfate 4 Mg/Ml Cartridge) 4 mg IVPUSH Q4H PRN; Protocol PRN Reason: Pain, Severe (Pain Scale 7-10) Last Admin: 12/15/23 14:30 Dose: 4 mg Documented By: SAMANTHA Nystatin (Nystatin Powder 15 Gm Bottle) 1 appl TOPICAL Q12H [facility]; Protocol Omeprazole (Omeprazole 20 Mg Capsule.) 20 mg PO BID@0630,1630 [facility] Last Admin: 12/15/23 05:18 Dose: 20 mg Documented By: VERO Ondansetron HCl (Ondansetron Hcl 4 Mg/2 Ml Vial) 4 mg IVPUSH Q8H PRN PRN Reason: Nausea and Vomiting Pharmacy Consult (Consult Rx Vancomycin Dosing) 1 each MISCELLANE DAILY PRN PRN Reason: Consult order Sodium Chloride (0.9 % Sodium Chloride Flush 3 Ml Syringe) 3 ml IVFLUSH QSHIFT [facility] Last Admin: 12/15/23 08:22 Dose: 3 ml Documented By: SAMANTHA Labs 12/14/23 05:36 12/15/23 05:09 Labs: Laboratory Results - last 24 hr 12/14/23 12/14/23 12/15/23 16:15 20:11 05:09 Anion Gap 15 Estim Creat Clear Calc 93.8 Estimated GFR > 60 POC Glucose 248 H 231 H Random Glucose 206 H Calcium 9.3 D 12/15/23 12/15/23 07:25 11:06 Anion Gap Estim Creat Clear Calc Estimated GFR POC Glucose 151 H 250 H Random Glucose Calcium Microbiology Microbiology Results: Microbiology 12/14/23 05:45 Gram Stain - Final Face Routine Culture - Preliminary Staphylococcus aureus Procedures Date of Service Date of Service: 12/15/23 Progress Note: A&P Assessment and plan (1) Carbuncle: Status: Acute Plan pt with facial and buttock area abscess - i and d seems adequate at this point - cont with iv antibx and dressing changes. fu cultures Time Spent With Patient Time: Total time managing care of this patient today ____ minutes. Quality Stroke Does the patient have a stroke diagnosis?: No VTE Prior VTE?: No VTE Risk Level:: Medical - moderate - high VTE Device Contraindication: Treatment Not Indicated VTE Drug Contraindication: N/A - Med Ordered
--- NOTE | 2023-12-15 16:17 | MHC.CM.PN ---
CM ATTEMPTED TO MEET WITH PT WHO WAS WITH PROVIDER CM TO RETURN
[2023-12-15 16:45] LABS: Glucose, Whole Blood 254 mg/dL (60-115)
[2023-12-15] MEDS: Nystatin Powder 15 GM BOTTLE 1 APPL TOPICAL (16:47)
[2023-12-15 19:16] VITALS: BP 106/51; PULSE 66; RESP 18; TEMP 36.7; O2SAT 97
[2023-12-15 20:45] LABS: Glucose, Whole Blood 266 mg/dL (60-115)
[2023-12-15] MEDS: Insulin Glargine,Hum.rec.anlog 100 UNIT/ML 10 ML VIAL 17 UNIT SUBCUT (20:53)
[2023-12-15 21:36] LABS: Vancomycin Random 6.9 mcg/mL (15-20)
--- NOTE | 2023-12-15 21:46 | HE.PHANOTE ---
HUMBLE Changing dose to 1000mg Q12H per subtherapeutic trough. Pt renal function fluctuating so don't want to go too high and be too aggressive. Next trough to be pulled 12/15 @2100. Predicted trough 12.3. Trying to get patient up to see how he does to adjust based on renal function and trough on 12/15.
[2023-12-15] MEDS: vancomycin HCL 1,000 MG in 0.9 % Sodium Chloride 250 ML 270 MG IV (22:59)
[2023-12-16 04:00] VITALS: BP 131/64; PULSE 51; RESP 18; TEMP 36.7; O2SAT 98
[2023-12-16] MEDS: Omeprazole 20 MG CAPSULE.DR PO ×2 (05:45→17:00)
[2023-12-16] MEDS: Morphine Sulfate 4 MG/ML CARTRIDGE IVPUSH ×4 (05:45→20:43)
[2023-12-16 07:07] LABS: Estimated Glomerular Filt Rate > 60
[2023-12-16 07:21] LABS: Glucose, Whole Blood 193 mg/dL (60-115)
[2023-12-16 07:53] VITALS: BP 130/71; PULSE 50; RESP 14; TEMP 36.2; O2SAT 100
[2023-12-16] MEDS: 0.9 % Sodium Chloride Flush 3 ML SYRINGE IVFLUSH ×2 (08:27→17:03)
[2023-12-16] MEDS: Insulin Lispro 100 UNIT/ML 3 ML VIAL SUBCUT ×4 (08:28→20:42)
[2023-12-16] MEDS: methADONE HCl 20 MG/2 ML ORAL.CONC 120 MG PO (08:30)
[2023-12-16] MEDS: Gabapentin 400 MG CAPSULE PO ×3 (08:33→20:30)
[2023-12-16] MEDS: lisinopriL 10 MG TABLET 30 MG PO (08:34)
[2023-12-16] MEDS: Lipase/Prot/Amylase 24/76/120K 1 CAP CAPSULE.DR PO ×3 (08:34→17:00)
[2023-12-16] MEDS: Enoxaparin Sodium 40 MG/0.4 ML SYRINGE SUBCUT (08:40)
--- NOTE | 2023-12-16 09:08 | HO.PM.IMPN ---
Subjective Subjective Date of Service: 12/16/23 Interval History: f/u on carbuncle of buttock and face s/p I&D 12/13, MRSA, pain better Physical Exam Vital Signs: Vital Signs: Last Vital Signs Temp 97.2 F 12/16/23 07:53 Pulse 50 12/16/23 07:53 Resp 14 12/16/23 07:53 BP 130/71 12/16/23 07:53 Pulse Ox 100 12/16/23 07:53 O2 Del Method Room Air 12/16/23 07:53 BMI result Body Mass Index 28.1 General: AO X 3, no acute distress Resp: CTA bilateral CVS: S1,S2,RRR GI: +BS, NT, no distention Neuro: motor grossly intac Psych: appropriate affect Face--12/15 buttock 12/15-- Objective Data Active Medications Acetaminophen (Acetaminophen 325 Mg Tablet) 650 mg PO Q6H PRN PRN Reason: Pain, Mild (Pain Scale 1-3), fever or headache Last Admin: 12/15/23 01:17 Dose: 650 mg Documented By: VERO Lipase/Protease/Amylase (Lipase/Prot/Amylase /120k 1 Cap Capsule.Dr) 1 cap PO TIDWM [facility] Last Admin: 12/16/23 08:34 Dose: 1 cap Documented By: SAMANTHA Calcium Carbonate (Calcium Carbonate 750 Mg Tab.Chew) 750 mg PO Q4H PRN PRN Reason: Heartburn Diphenhydramine HCl (Diphenhydramine Hcl 25 Mg Capsule) 75 mg PO BEDTIME PRN PRN Reason: insomnia Enoxaparin Sodium (Enoxaparin Sodium 40 Mg/0.4 Ml Syringe) 40 mg SUBCUT Q24H [facility] Last Admin: 12/16/23 08:40 Dose: 40 mg Documented By: SAMANTHA Gabapentin (Gabapentin 400 Mg Capsule) 400 mg PO TID [facility] Last Admin: 12/16/23 08:33 Dose: 400 mg Documented By: SAMANTHA Glucose (Glucose Gel 15 Gm Gel..Gram.) 15 gm PO Q15M PRN; Protocol PRN Reason: per Hypoglycemia Standing Ord. Dextrose (D10) 250 mls @ 750 mls/hr IV Q15M PRN; Protocol PRN Reason: per Hypoglycemia Standing Ord. Vancomycin HCl 1,000 mg/ (Sodium Chloride) 270 mls @ 270 mls/hr IV Q12H [facility] Last Infusion: 12/16/23 00:10 Dose: Infused Documented By: VERO Insulin Glargine (Insulin Glargine,Hum.Rec.Anlog 100 Unit/Ml 10 Ml Vial) 17 unit SUBCUT BEDTIME [facility] Last Admin: 12/15/23 20:53 Dose: 17 unit Documented By: VERO Insulin Human Lispro (Insulin Lispro 100 Unit/Ml 3 Ml Vial) 0 unit SUBCUT QIDACHS [facility]; Protocol Last Admin: 12/16/23 08:28 Dose: 2 unit Documented By: SAMANTHA Lisinopril (Lisinopril 10 Mg Tablet) 30 mg PO DAILY [facility]; Protocol Last Admin: 12/16/23 08:34 Dose: 30 mg Documented By: SAMANTHA Magnesium Hydroxide (Milk Of Magnesia 30 Ml Oral.Susp) 30 ml PO DAILY PRN PRN Reason: Constipation Melatonin (Melatonin 3 Mg Tablet) 6 mg PO BEDTIME PRN PRN Reason: Insomnia Methadone HCl (Methadone Hcl 20 Mg/2 Ml Oral.Conc) 120 mg PO DAILY [facility] Last Admin: 12/16/23 08:30 Dose: 120 mg Documented By: SAMANTHA Co-signed By: AROLDO Morphine Sulfate (Morphine Sulfate 4 Mg/Ml Cartridge) 4 mg IVPUSH Q4H PRN; Protocol PRN Reason: Pain, Severe (Pain Scale 7-10) Last Admin: 12/16/23 05:45 Dose: 4 mg Documented By: VERO Nystatin (Nystatin Powder 15 Gm Bottle) 1 appl TOPICAL Q12H [facility]; Protocol Last Admin: 12/16/23 03:49 Dose: Not Given Documented By: VERO Non-Admin Reason: Patient Asleep Omeprazole (Omeprazole 20 Mg Capsule.Dr) 20 mg PO BID@0630,1630 [facility] Last Admin: 12/16/23 05:45 Dose: 20 mg Documented By: VERO Ondansetron HCl (Ondansetron Hcl 4 Mg/2 Ml Vial) 4 mg IVPUSH Q8H PRN PRN Reason: Nausea and Vomiting Pharmacy Consult (Consult Rx Vancomycin Dosing) 1 each MISCELLANE DAILY PRN PRN Reason: Consult order Sodium Chloride (0.9 % Sodium Chloride Flush 3 Ml Syringe) 3 ml IVFLUSH QSHIFT [facility] Last Admin: 12/16/23 08:27 Dose: 3 ml Documented By: SAMANTHA Labs 12/14/23 05:36 12/16/23 05:42 Labs: Laboratory Results - last 24 hr 12/15/23 12/15/23 12/15/23 11:06 16:32 20:18 Estim Creat Clear Calc Estimated GFR POC Glucose 250 H 254 H 266 H Random Vancomycin 12/15/23 12/16/23 12/16/23 21:09 05:42 07:15 Estim Creat Clear Calc 86.0 Estimated GFR > 60 POC Glucose 193 H Random Vancomycin 6.9 L Microbiology Microbiology Results: Microbiology 12/14/23 05:45 Gram Stain - Final Face Routine Culture - Final Methicillin Res Staph Aureus Assessment and Plan (1) Carbuncle: Status: Acute (2) YEISON (acute kidney injury): Status: Acute Plan 53-year-old male with pertinent history of chronic pancreatic insufficiency, alcohol use disorder, hypertension, opioid use disorder on methadone, [id number] diabetes mellitus Carbuncle of face, buttock and testicle d/t uncontrolled dm -culture = MRSA, low vanco level -change vanco to Doxy -s/p I&/D 12/13 Uncontrolled DM with, hyperglycemia. A1c 11 -BS better -continue lantus increase by 5 to 22, SSI and diabetic diet Pseudo hyponatremia due to hyperglycemia--resolved HTN-controlled -Lisinopril Opioid -Methadone Chronic pancreatic insufficiency -continue Creon DVT prophylaxis: Lovenox Full code need for inpt: buttock abscess s/p I and D DC later today if ok with surgery Quality Stroke Does the patient have a stroke diagnosis?: No VTE Prior VTE?: No VTE Risk Level:: Medical - moderate - high VTE Device Contraindication: Treatment Not Indicated VTE Drug Contraindication: N/A - Med Ordered
[2023-12-16] MEDS: Doxycycline Hyclate 100 MG in 0.9 % Sodium Chloride 250 ML 166.67 MG IV ×2 (10:15→20:30)
[2023-12-16 11:25] LABS: Glucose, Whole Blood 216 mg/dL (60-115)
[2023-12-16] MEDS: Acetaminophen 325 MG TABLET 650 MG PO (13:10)
[2023-12-16] MEDS: Nystatin Powder 15 GM BOTTLE 1 APPL TOPICAL (14:53)
[2023-12-16 15:48] VITALS: BP 110/60; PULSE 52; RESP 18; TEMP 37.1; O2SAT 98
[2023-12-16 16:11] LABS: Glucose, Whole Blood 174 mg/dL (60-115)
--- NOTE | 2023-12-16 16:20 | MHC.CM.PN ---
PT REPORTS HE LIVES WITH HIS S/O AND IS INDEPENDENT WITH CARE COPY OF HCP REQUESTED PCP: CLARISSE MCGILL DCP: HOME NO SERVICES PRIVATE TRANSPORT
--- NOTE | 2023-12-16 17:56 | P.DS_ITS ---
DS: Providers Provider Date of Service: 12/16/23 Date of admission: 12/14/23 00:33 Date of discharge: 12/16/23 Primary care physician: Ernie Guy MD Consults: 12/14/23 09:14 Consult to General Surgery Routine Consulting Provider: [facility] [place] General Surgeons Reason for consultation: multiple abscess, ? benefit from I&D Attending physician on discharge: Ashleigh Hernandez DS: Diagnosis Discharge Diagnosis (1) Carbuncle: Status: Acute (2) YEISON (acute kidney injury): Status: Acute DS: Summary Hospital Course Hospital Course: pt admitted with MRSA carbuncle infection on face and buttock - i and d and responded well with dressing and packing changes and iv vanco and doxy. going to ar home on po doxy and dressing changes daily he understands and agrees with the plan Status at Discharge Functional status at discharge: independent ambulation Overall status at discharge: patient is progressing back to baseline Time Attestation Total time managing care of this patient today: 40 mintues. Discharge Coordination Time (in mins): 30 Quality: Safe Use of Opioids Does Pt have an Active Cancer Diagnosis on the Problem List?: No Quality: Stroke Does the patient have a stroke diagnosis?: No Physical Exam Vital Signs: Vital Signs: Last Vital Signs Temp 98.7 F 12/16/23 15:48 Pulse 52 12/16/23 15:48 Resp 18 12/16/23 15:48 BP 110/60 12/16/23 15:48 Pulse Ox 98 12/16/23 15:48 O2 Del Method Room Air 12/16/23 15:48 BMI result Body Mass Index 28.1 Skin: Other: face wound - less swelling and erythema the buttock wound less swelling no purulent drainage DS: Data Data Completed and Pending Completed studies during hospitalization [Text1]: Procedures Detoxification Services for Substance Abuse Treatment (04/06/22) Insertion of Endotracheal Airway into Trachea, Via Natural or Artificial Opening Endoscopic (03/07/20) Respiratory Ventilation, Greater than 96 Consecutive Hours (03/07/20) Labs on day of discharge: Laboratory Results - last 24 hr 12/15/23 12/15/23 12/16/23 20:18 21:09 05:42 Creatinine 1.08 Estim Creat Clear Calc 86.0 Estimated GFR > 60 POC Glucose 266 H Random Vancomycin 6.9 L 12/16/23 12/16/23 12/16/23 07:15 11:13 16:07 Creatinine Estim Creat Clear Calc Estimated GFR POC Glucose 193 H 216 H 174 H Random Vancomycin Discharge Plan Discharge Anticipated Discharge Date/Time: 12/16/23 21:10 Patient Disposition: Home, Self-Care Discharge Diagnosis: mrsa infection Referrals: Ernie Guy MD [Primary Care Provider] - 1 Week Discharge Medications: New oxycodone 5 mg tablet 5 mg PO Q8H PRN (Reason: pain) Qty: 10 0RF Rx Instructions: Partial Fill upon patient request. take before dressing changes and as needed doxycycline monohydrate 100 mg capsule 100 mg PO BID Qty: 20 0RF Rx Instructions: please give tablets or capsule whichever is more cost effective oxycodone 5 mg tablet 5 mg PO Q8H PRN (Reason: pain) Qty: 10 0RF Rx Instructions: Partial Fill upon patient request. Continued acetaminophen 325 mg Tablet 650 mg PO Q6H PRN (Reason: Pain, Mild (Pain Scale 1-3)) Qty: 1 0RF lisinopril 10 mg Tablet 30 mg PO DAILY Qty: 1 0RF Protocol: Hold for SBP< HOLD for SBP < : 90 gabapentin 400 mg capsule 400 mg PO TID diphenhydramine HCl [Benadryl] 25 mg capsule 75 mg PO BEDTIME PRN (Reason: insomnia) hydroxyzine HCl 25 mg tablet 25 - 50 mg PO BID PRN (Reason: anxiety) Creon 24,000-76,000 -120,000 unit capsule,delayed release(DR/EC) 1 cap PO TIDWM Jardiance 10 mg tablet 10 mg PO DAILY pantoprazole 40 mg tablet,delayed release (DR/EC) 40 mg PO BID@0630,1630 methadone [Methadose] 10 mg/mL concentrate 120 mg PO DAILY Rx Instructions: Partial Fill upon patient request. ondansetron HCl 4 mg tablet 4 mg PO Q8H PRN (Reason: nausea/vomiting) Discharge Orders: Discharge Order (Routine); Ordered 12/16/23 Ordered By: Ashleigh Hernandez Diet: Regular diet Activity on Discharge: As tolerated Stand Alone Forms: Patient Portal Discharge page Print Language: Luxembourgish Care Plan Goals: pt to take doxycycline as prescribed until completed pt to remove face packing tomorrow and just place gauxe dressing on face and change daily and as needed. can get his face and the wound wet. pt to soak in tub tomorrow and remove buttock packing and then just cover with gauze and tape and change daily and as needed. can shower regularly and rinse off soapy water and then cover the buttock wound call surgical office on sunday for a fu appointment this week Health Concerns: call for increased pain and drainage and fever chills Plan of Treatment: antibiotics pain meds and dressing changes. Assessment: pt doing well Discharge Date/Time: 12/16/23 22:40
[2023-12-16 19:23] VITALS: BP 111/58; PULSE 50; RESP 16; TEMP 36.9; O2SAT 97
[2023-12-16 20:26] LABS: Glucose, Whole Blood 329 mg/dL (60-115)
[2023-12-16] MEDS: Insulin Glargine,Hum.rec.anlog 100 UNIT/ML 10 ML VIAL 22 UNIT SUBCUT (20:41)
== END 2023-12-16 22:40 | disposition home or self-care (01) | DRG 364 ==
LOC: HO.ED 23:36 → HO.EDOVER 12-14 00:36 → HO.S3 12-14 07:58
PROVIDERS: Family Medicine; Physician Assistant; Admitting Provider Student in an Organized Health Care Education/Training Program; Emergency Provider Internal Medicine; PCP Internal Medicine; Visit Provider Internal Medicine
DX: L02.03 Carbuncle of face (principal); N17.9 Acute kidney failure, unspecified; K86.89 Other specified diseases of pancreas; N45.4 Abscess of epididymis or testis; L02.33 Carbuncle of buttock; E11.628 Type 2 diabetes mellitus with other skin complications; B95.62 Methicillin resistant Staphylococcus aureus infection as the cause of diseases classified elsewhere; E11.65 Type 2 diabetes mellitus with hyperglycemia; I10 Essential (primary) hypertension; F11.20 Opioid dependence, uncomplicated; L03.211 Cellulitis of face; Z79.899 Other long term (current) drug therapy
CPT/HCPCS: 36415; 80048; 80053; 80202; 82550; 82565; 82947; 83036; 85025; 85652; 86140; 87070; 87077; 87186; 87205; 99221; 99285; J1170; J1650; J2270; J2543; J3370; J3371

== ENCOUNTER → 2023-12-14 00:33 | Outpatient (BNV) | payer MEDICAID, SELFPAY | PROVIDERS: Admitting Provider Student in an Organized Health Care Education/Training Program; Emergency Provider Internal Medicine; PCP Internal Medicine; Visit Provider Physician Assistant Surgical | DX: L02.93 Carbuncle, unspecified (principal); N17.9 Acute kidney failure, unspecified | CPT/HCPCS: 10061; 99024; 99222 ==

== ENCOUNTER → 2023-12-14 00:33 | Outpatient (BNV) | payer MEDICAID, SELFPAY | PROVIDERS: Admitting Provider Student in an Organized Health Care Education/Training Program; Emergency Provider Internal Medicine; PCP Internal Medicine; Visit Provider Student in an Organized Health Care Education/Training Program | DX: N17.9 Acute kidney failure, unspecified (principal); L02.93 Carbuncle, unspecified | CPT/HCPCS: 99223; 99232; 99499 ==

== ENCOUNTER 2023-12-25 11:35 | Outpatient (AMB) | payer MEDICAID, SELFPAY ==
--- NOTE | 2023-12-25 11:36 | MHC.OFFVIS ---
Vital Signs 12/25/23 11:41 Weight 182 lb BP 107/65 Blood Pressure Location Lt brachial Position Sitting Pulse 99 Intake Visit Reasons: s/p I&D buttock Intake Note: Patient here s/p I&D Lt buttock and rt face. Patient c/o: reports rt cheek healing well. Lt buttock slowly healing. Almost finished with Doxycycline course. 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 Presents here for follow-up. He has had marked improvement /resolution of these to infective processes [facility] Medical History YEISON (acute kidney injury) Alcohol abuse with withdrawal Alcohol abuse Pancreatitis Asthma HTN (hypertension) Surgical History H/O neck surgery H/O knee surgery Family History Other Parkinsons disease Social History Household Members: Significant Other Housing: Apartment Do you presently have visiting nurse or other home services: No Alcohol intake: never Comment: PT REfused bed alarm Patient Tobacco Use Status: Never used Tobacco Tobacco use type: Cigarette Cigarette Packs Per Day: 0.5 Cigarettes Per Day: 10.0 e-Cigarette/Vaping Use: Never Used Second Hand Smoke Exposure: No Substance Use Type: Marijuana service: No Current occupational status: employed Physical Exam Vital Signs: Last Vital Signs Pulse 99 12/25/23 11:41 BP 107/65 12/25/23 11:41 HEENT Other: Complete resolution of the face/right eye edema and cellulitis. I&D wound is nearly healed. Extrem Other: Left thigh wound completely healed. Assessment & Plan Assessment & Plan (1) Status post incision and drainage: Code(s): Z98.890 - Other specified postprocedural states Category: Medical Plan Patient was doing well. He has been given local instructions and will otherwise follow-up p.r.n.. All questions answered. Medications: Discontinued oxycodone Partial Fill upon patient request. Discontinued Reason: Patient no longer taking 5 mg PO Q8H PRN 10 tabs 0RF pain oxycodone Partial Fill upon patient request. take before dressing changes and as needed Discontinued Reason: Patient no longer taking 5 mg PO Q8H PRN 10 tabs 0RF pain Coding Level of Care Code Global (66884) Diagnoses Status post incision and drainage Z98.890
[2023-12-25 11:41] VITALS: BP 107/65; PULSE 99
== END 2023-12-25 12:10 | disposition home or self-care (01) ==
PROVIDERS: PCP Internal Medicine; Visit Provider Surgery
DX: L08.9 Local infection of the skin and subcutaneous tissue, unspecified (principal); Z09 Encounter for follow-up examination after completed treatment for conditions other than malignant neoplasm
CPT/HCPCS: 99212

== ENCOUNTER → 2023-12-25 11:35 | Outpatient (BNVA) | payer MEDICAID, SELFPAY | PROVIDERS: PCP Internal Medicine; Visit Provider Surgery | DX: Z09 Encounter for follow-up examination after completed treatment for conditions other than malignant neoplasm (principal); Z98.890 Other specified postprocedural states | CPT/HCPCS: 99212 ==

== ENCOUNTER 2024-06-13 19:09 | Emergency (ER) | payer MEDICAID, SELFPAY ==
[2024-06-13 19:33] VITALS: BP 141/93; PULSE 88; RESP 16; TEMP 36.6; O2SAT 97; BMI 22.1
--- NOTE | 2024-06-13 19:35 | ED_ITS ---
HPI - General Adult General Chief complaint: General Medical Stated complaint: new diabetic & cdiv/ rash on back of head Time Seen by Provider: 06/13/24 23:46 Source: patient Mode of arrival: ambulatory Limitations: no limitations History of Present Illness ED Provider: Dr. Emily Damico HPI narrative: Patient comes to the emergency room complaining of bilateral lower extremity edema, redness, pain. Also complaining of high blood sugar. Patient also noticed pimples in the back of his neck. Patient admits that he has been drinking recently, states that he is very ashamed and embarrassed because he is well aware that he is not supposed to be drinking. Patient states that he is known to be diabetic. However, for the last 3 weeks, he has been using insulin for the 1st time and he is still trying to figure out which dose of Lantus and Humalog work for him. Patient states that the worse part is the pain in his lower extremities. Patient states that he has been diagnosed with MRSA in the past, has had abscesses drained. Patient denies any fever or chills. Related Data Home Medications ?Medication ?Instructions ?Recorded ?Confirmed diphenhydramine HCl 25 mg capsule 75 mg PO BEDTIME PRN insomnia 12/14/23 12/25/23 (Benadryl) empagliflozin 10 mg tablet 10 mg PO DAILY 12/14/23 12/25/23 (Jardiance) gabapentin 400 mg capsule 400 mg PO TID 12/14/23 12/25/23 hydroxyzine HCl 25 mg tablet 25 - 50 mg PO BID PRN anxiety 12/14/23 12/25/23 [id number] 1 cap PO TIDWM 12/14/23 12/25/23 24,000-76,000-120,000 unit capsule,delayed rel (Creon) methadone 10 mg/mL oral 120 mg PO DAILY 12/14/23 12/25/23 concentrate (Methadose) ondansetron HCl 4 mg tablet 4 mg PO Q8H PRN nausea/vomiting 12/14/23 12/25/23 pantoprazole 40 mg tablet,delayed 40 mg PO BID@0630,1630 12/14/23 12/25/23 release Previous Rx's ?Medication ?Instructions ?Recorded acetaminophen 325 mg tablet 650 mg (2 x 325 mg) PO Q6H PRN 04/09/22 Pain, Mild (Pain Scale 1-3) #1 tab lisinopril 10 mg tablet 30 mg PO DAILY #1 tab 04/09/22 doxycycline monohydrate 100 mg 100 mg PO BID #20 caps 12/16/23 capsule cephalexin 500 mg capsule 500 mg PO BID #20 caps 06/14/24 doxycycline monohydrate 100 mg 100 mg PO BID #20 caps 06/14/24 capsule furosemide 20 mg tablet (Lasix) 20 mg PO QAM #7 tabs 06/14/24 ketorolac 10 mg tablet 10 mg PO Q8H PRN pain #12 tabs 06/14/24 tramadol 50 mg tablet 50 mg PO BID PRN pain #6 tabs 06/14/24 Allergies Allergy/AdvReac Type Severity Reaction Status Date / Time codeine [CODEINE] AdvReac Unknown STOMACH Verified 06/13/24 19:38 UPSET From FLEXERIL AdvReac Severe Confusion Uncoded 06/13/24 19:38 Review of Systems 2 Review of Systems: Constitutional : No Weight loss, No Fever, No Chills, No Night Sweats, No Fatigue, No Malaise ENT/Mouth : No Hearing loss, No Ear Pain, No Nasal Congestion, No Sinus Pain, No Hoarseness, No sore throat, No Rhinorrhea, No Swallowing Difficulty Eyes: No Eye Pain, No Swelling, No Redness, No Foreign Body, No Discharge, No Vision Changes Cardiovascular : No Chest Pain, No SOB, No Dyspnea on Exertion, No Orthopnea, complaining of lower extremity edema for several days Respiratory : No Cough, No Sputum, No Wheezing, No Smoke Exposure, No Dyspnea Gastrointestinal : No Nausea, No Vomiting, No Diarrhea, No Constipation, No abdominal Pain, No Hematochezia, No Melena Genitourinary : no irregular bleeding, No Dysuria, No Urinary Frequency, No Hematuria, No Urinary Incontinence, No Urgency, No Flank Pain, No Urinary Flow Changes, No Hesitancy Musculoskeletal : No joint pain, No Myalgias, No Joint Swelling Skin : Complaining of lower extremity redness and burning sensation, pain Neuro : No Weakness, No Numbness, No Paresthesias, No Loss of Consciousness, No Dizziness, No Headache Psych : No Anxiety/Panic, No Depression, No SI/HI/AH/VH, admits to ETOH relapse Heme/Lymph: No Bruising, No Bleeding,No Lymphadenopathy Endocrine : No Polyuria, No Polydipsia, No Temperature Intolerance [facility] Past Medical History Medical History YEISON (acute kidney injury) Alcohol abuse with withdrawal Alcohol abuse Pancreatitis Asthma HTN (hypertension) Surgical History H/O neck surgery H/O knee surgery Family History Family History Other Parkinsons disease Social History Social History Household Members: Significant Other Housing: Apartment Do you presently have visiting nurse or other home services: No Alcohol intake: current Alcohol intake frequency: 3 or more drinks per day Alcohol type: hard liquor Comment: PT REfused bed alarm Patient Tobacco Use Status: Never used Tobacco Tobacco use type: Cigarette Cigarette Packs Per Day: 0.5 Cigarettes Per Day: 10.0 e-Cigarette/Vaping Use: Never Used Second Hand Smoke Exposure: No Substance Use Type: Marijuana service: No Current occupational status: employed Physical Exam ED Vital Signs: Vital Signs - 24 hr 06/13/24 19:33 06/14/24 00:46 Temperature 97.9 F 98.3 F Pulse Rate 88 81 Respiratory Rate 16 17 Blood Pressure 141/93 H 123/70 Pulse Oximetry 97 96 Oxygen Delivery Method Room Air Room Air BMI result Body Mass Index 22.1 Const Other: Appearance: Alert. Oriented X3. No acute distress. Eyes: Pupils equal, round and reactive to light. ENT: Pharynx normal. Neck: Normal inspection. Neck supple. No lymph nodes noted. No crepitus CVS: Normal heart rate and rhythm. Pulses normal. Normal S1 and S2 Respiratory: No respiratory distress. Breath sounds normal. No Wheezing. No rales Abdomen: Soft and nontender. No rigidity. No distention. Skin: Warm to touch and erythema in lower extremities from the toes up to below the knees bilaterally Extremities: Patient has +2 pitting edema bilaterally No Lacerations. No Rash see skin above, Neuro: Oriented X 3. No motor deficit. No sensory deficit. Moving all extremities. No slurred speech. CN 2 through 12 grossly intact Psych: calm, cooperative, normal affect Course Course Course Narrative: RME, this is a rapid medical exam performed by Chaparro Garcia please refer to primary provider for complete H&P- 53 year old male presents for evaluation of multiple complaints including leg swelling, acne on the back of my head patient also reports that he has been drinking about a pt of vodka daily his last drink being today. He believes this is contributing to some of his symptoms. Plan for medical workup including BNP Medications Administered Discontinued Medications Generic Name Dose Route Start Last Admin Trade Name Darrin PRN Reason Stop Dose Admin Cephalexin HCl 500 mg 06/14/24 00:27 06/14/24 00:42 Cephalexin 500 Mg Capsule PO 06/14/24 00:28 500 mg ONCE ONE Administration Doxycycline Monohydrate 100 mg 06/14/24 00:27 06/14/24 00:42 Doxycycline Monohydrate 100 Mg Capsule PO 06/14/24 00:28 100 mg ONCE ONE Administration Sodium Chloride 1,000 mls @ 999 mls/hr 06/14/24 00:27 06/14/24 00:44 Ns IVCONT 06/14/24 01:27 999 mls/hr .Q1H1M ONE Administration Insulin Human Regular 10 unit 06/14/24 00:27 06/14/24 00:44 Insulin Regular, Human 100 Unit/Ml 10 Ml Vial IVPUSH 06/14/24 00:28 10 unit ONCE ONE Administration Ketorolac Tromethamine 30 mg 06/14/24 00:27 06/14/24 00:42 Ketorolac Tromethamine 15 Mg/Ml Vial IVPUSH 06/14/24 00:28 30 mg ONCE ONE Administration Medical Decision Making Medical Decision Making MDM Narrative: On arrival, patient was given fluids and insulin to help with a glucose of 525. Eventually, with 10 units of insulin and fluids, glucose improved to 279. Patient instructed to increase his sliding scale by 1 unit with every dose. Patient states that when he wakes up in the morning, his glucose is within normal limits, therefore we will not increase his dose of Lantus. My interpretation of labs: Patient's white blood cell count 3.2, no significant chemistry abnormality other than a glucose of 525. Anion gap is closed , troponin negative, BNP 208. Also, patient received the 1st dose of cephalexin and doxycycline. Discussed with the patient that if the erythema keeps spreading or if he develops any fever chills, he needs to return immediately to the hospital on plan for admission for at patient failure of antibiotics. Patient instructed that his BNP was a bit elevated, it is possible that his lower extremities are swollen secondary to new onset CHF. At this time, patient has no shortness of breath. Discussed with the patient that we will start Lasix in the morning. At this time of night, there is no need to start Lasix emergently. Discussed with the patient to mentioned this new finding to his PCP, patient may need a referral for an echocardiogram to rule out new onset CHF. Patient has a follow-up appointment next week with his PCP. Differential Diagnosis Differential Diagnoses: The differential diagnosis associated with the presentation includes Lab Data MDM Lab Attestation statement: I reviewed the patient's lab results. 06/13/24 20:20 06/13/24 20:20 Labs: Lab Results 06/13/24 06/14/24 06/14/24 Range/Units 20:20 00:43 01:39 WBC 3.2 L (4.8-10.8) X10*3/uL RBC 4.01 L (4.60-5.80) X10*6/uL Hgb 12.3 L D (14.0-18.0) g/dl Hct 36.5 L (42.0-52.0) % MCV 91.0 (80.0-98.0) fL MCH 30.7 (27.0-33.0) pg MCHC 33.7 (31.0-36.0) g/dl RDW 14.8 (11.0-16.0) % Plt Count 107 L D (160-400) X10*3/uL MPV 9.1 L (9.4-12.4) fL Immature Gran % (Auto) 0.3 (0.0-0.4) % Neut % (Auto) 72.6 (45-73) % Lymph % (Auto) 22.1 (20-40) % [place] % (Auto) 3.1 (2-11) % Eos % (Auto) 1.6 (0-4) % Baso % (Auto) 0.3 (0-2) % Lymph # (Auto) 0.7 L (1.2-4.9) X10*3/uL [place] # (Auto) 0.1 (0.1-1.2) X10*3/uL Eos # (Auto) 0.1 (0.0-0.4) X10*3/uL Baso # (Auto) 0.0 (0.0-0.2) X10*3/uL Abs Immat Gran (auto) 0.01 (0.00-0.03) X10*3/uL Absolute Neuts (auto) 2.3 (2.0-8.3) x10*3/uL Absolute Nucleated RBC 0.000 (0.0-0.012) X10*3/uL Nucleated RBC % (auto) 0.0 (0.0-0.2) /100WBC Sodium 136 (135-145) mmol/L Potassium 4.3 (3.3-5.1) mmol/L Chloride 98 (96-108) mmol/L Carbon Dioxide 24 (22-29) mmol/L Anion Gap 18 (12-20) BUN 11 (9-16) mg/dL Creatinine 1.08 (0.5-1.4) mg/dL Estim Creat Clear Calc 76.1 Estimated GFR > 60 POC Glucose 419 H* 279 H (60-115) mg/dL Random Glucose 525 H* (60-115) mg/dL Calcium 9.2 (8.4-10.2) mg/dL Total Bilirubin 0.2 (0.0-1.0) mg/dL AST 26 (5-37) U/L ALT 23 (0-40) U/L Alkaline Phosphatase 107 (39-117) U/L Troponin I High Sens < 2.7 (<3.5-35.0) ng/L B-Natriuretic Peptide 208 H (<100) pg/mL Total Protein 8.4 H (6.5-8.0) g/dL Albumin 4.3 (3.5-5.0) g/dL Lipase < 4 L (8-78) U/L Ethyl Alcohol 247 mg/dL Independent Interpretation I performed an independent interpretation of an: EKG Interpretation: My interpretation of EKG, normal sinus rhythm, heart rate 81, no ST segment depression or elevation, no T-wave inversion, QTC 462 Critical Care Time Critical Care Time Critical Care Time: Yes Total Critical Care Time: 60 Attestation: I have personally provided critical care time. Time includes review of lab data, radiology results, discussion with consultants, and monitoring for potential decompensation. Intervention performed as documented. Discharge Plan Discharge Clinical Impression: Hyperglycemia, Bilateral lower leg cellulitis, Edema of both lower legs Patient Disposition: Home, Self-Care Instructions: Cellulitis (ED), Leg Edema (ED), Diabetic Hyperglycemia (ED) Additional Instructions: Please follow-up with your primary care physician. It is possible that you may need a referral for an echocardiogram (ultrasound of your heart) to determine how effective your heart pumps. Please stay at your current dose of Lantus. Only increase your dose and your sliding scale by 1 unit of what you currently have. Please keep a log of your blood sugars. If the redness your legs starts spreading, or if you develop any fever chills, you need to return immediately to the emergency room, likely for an admission. When you sleep, tried to keep your legs elevated above heart level to decrease the lower extremity swelling. Also, once the skin infection resolves, please try to use compression stockings as long as possible throughout the day, and continue elevating your legs when UR at rest Prescriptions: New doxycycline monohydrate 100 mg capsule 100 mg PO BID Qty: 20 0RF cephalexin 500 mg capsule 500 mg PO BID Qty: 20 0RF ketorolac 10 mg tablet 10 mg PO Q8H PRN (Reason: pain) Qty: 12 0RF Rx Instructions: Do not use any other NSAIDs with this medication tramadol 50 mg tablet 50 mg PO BID PRN (Reason: pain) Qty: 6 0RF Rx Instructions: Use only if ketorolac does not alleviate the pain furosemide [Lasix] 20 mg tablet 20 mg PO QAM Qty: 7 0RF No Action acetaminophen 325 mg Tablet 650 mg PO Q6H PRN (Reason: Pain, Mild (Pain Scale 1-3)) Qty: 1 0RF lisinopril 10 mg Tablet 30 mg PO DAILY Qty: 1 0RF Protocol: Hold for SBP< HOLD for SBP < : 90 gabapentin 400 mg capsule 400 mg PO TID diphenhydramine HCl [Benadryl] 25 mg capsule 75 mg PO BEDTIME PRN (Reason: insomnia) hydroxyzine HCl 25 mg tablet 25 - 50 mg PO BID PRN (Reason: anxiety) Creon 24,000-76,000 -120,000 unit capsule,delayed release(DR/EC) 1 cap PO TIDWM Jardiance 10 mg tablet 10 mg PO DAILY pantoprazole 40 mg tablet,delayed release (DR/EC) 40 mg PO BID@0630,1630 methadone [Methadose] 10 mg/mL concentrate 120 mg PO DAILY Rx Instructions: Partial Fill upon patient request. ondansetron HCl 4 mg tablet 4 mg PO Q8H PRN (Reason: nausea/vomiting) doxycycline monohydrate 100 mg capsule 100 mg PO BID Qty: 20 0RF Rx Instructions: please give tablets or capsule whichever is more cost effective Print Language: German
--- NOTE | 2024-06-13 19:36 | ECG_ITS ---
Test Reason : PAIN Blood Pressure : */* mmHG Vent. Rate : 83 BPM Atrial Rate : 83 BPM P-R Int : 170 ms QRS Dur : 84 ms QT Int : 390 ms P-R-T Axes : 36 34 28 degrees QTcB Int : 458 ms Normal sinus rhythm Normal ECG When compared with ECG of 06-Apr-2022 20:06, [place] interval has increased QT has shortened Referred By: Kevin Garcia Electronically Signed By: NICHOLAS ESTEBAN MD
[2024-06-13 20:24] LABS: MANUAL DIFF FLAG NO
[2024-06-13 20:45] LABS: Ethanol 247 mg/dL
[2024-06-13 20:51] LABS: Basophils Percent Auto 0.3 % (0-2); Eosinophils Absolute Auto 0.1 X10*3/uL (0.0-0.4); Eosinophils Percent Auto 1.6 % (0-4); Hematocrit 36.5 % (42.0-52.0); Hemoglobin 12.3 g/dl (14.0-18.0); Imm Gran Abs Auto 0.01 X10*3/uL (0.00-0.03); Imm Gran Pct Auto 0.3 % (0.0-0.4); Lymphocytes Absolute Auto 0.7 X10*3/uL (1.2-4.9); Lymphocytes Percent Auto 22.1 % (20-40); Mean Corpuscular HGB Conc 33.7 g/dl (31.0-36.0); Mean Corpuscular Hemoglobin 30.7 pg (27.0-33.0); Mean Platelet Volume 9.1 fL (9.4-12.4); Monocytes Absolute Auto 0.1 X10*3/uL (0.1-1.2); Monocytes Percent Auto 3.1 % (2-11); Neutrophils Absolute Auto 2.3 x10*3/uL (2.0-8.3); Neutrophils Percent Auto 72.6 % (45-73); Platelet Count 107 X10*3/uL (160-400); Red Blood Count 4.01 X10*6/uL (4.60-5.80); Red Cell Distribution Width 14.8 % (11.0-16.0); White Blood Count 3.2 X10*3/uL (4.8-10.8)
[2024-06-13 20:52] LABS: B Type Natriuretic Peptide 208 pg/mL (<100)
[2024-06-13 20:56] LABS: Alanine Aminotransferase 23 U/L (0-40); Albumin Level 4.3 g/dL (3.5-5.0); Alkaline Phosphatase 107 U/L (39-117); Anion Gap 18 (12-20); Aspartate Amino Transferase 26 U/L (5-37); Bilirubin Total 0.2 mg/dL (0.0-1.0); Blood Urea Nitrogen 11 mg/dL (9-16); Calcium 9.2 mg/dL (8.4-10.2); Carbon Dioxide 24 mmol/L (22-29); Chloride 98 mmol/L (96-108); Creatinine Clr Calc Pharmacy 76.1; Estimated Glomerular Filt Rate > 60; Glucose Random 525 mg/dL (60-115); Lipase < 4 U/L (8-78); Potassium 4.3 mmol/L (3.3-5.1); Sodium 136 mmol/L (135-145); Total Protein 8.4 g/dL (6.5-8.0)
[2024-06-13 20:58] LABS: Troponin-I High Sensitivity < 2.7 ng/L (<3.5-35.0)
--- OUTSIDE RECORDS SUMMARY | 2024-06-13 23:43 | XMS_ITS | Clinical Summary ---
Author Organization [email or web address] Address [address] [facility] [address] [place] [address] Care Team Providers Care Underwriting Technician Name Role Phone Ernie Hong MD Primary Care Provide r Paco Watson RN Unavailable Allergies Active Allergy Reactions Criticality Noted Date Comments Codeine GI intolerance,Nause a And Vomiting Low 07/30/2013 Other reaction(s): GI Upset Cyclobenzaprine Medium 07/30/2013 Other reaction(s): Other (See Comments) LETHARGIC TOO LETHARGIC TOO LETHARGIC TOO LETHARGIC TOO Ibuprofen GI intolerance,Nause a And Vomiting Low 11/12/2013 Other reaction(s): GI Upset Medications metFORMIN (Glucophage) 500 MG tablet Take 1 tablet by mouth with breakfast. Active Alcohol Swabs (Alcohol Prep) padsIndications :Type 2 diabetes mellitus with hyperglycemia, without long-term current use of insulin ([facility]) Use one pad each to prep skin prior to injection as directed 100 each 11 024 Active Lancets 33G miscIndications :Type 2 diabetes mellitus with hyperglycemia, without long-term current use of insulin ([facility]) Use as directed to check blood sugar four times daily 100 each 3 024 Active glucose blood test stripIndication s:Type 2 diabetes mellitus with hyperglycemia, without long-term current use of insulin ([facility]) Use as directed to check blood sugar four times daily 100 each 12 024 Active lisinopril 10 MG tabletIndicatio ns:Essential hypertension TAKE 1 TABLET (10 MG) BY MOUTH ONCE PER DAY. 90 tablet Active Blood Glucose Monitoring Suppl (FreeStyle Lite) w/Device kit USE DIRECTED TO TEST BLOOD SUGAR THREE TIMES A DAY Active methadone (Dolophine) 10 MG/ML solution Take 120 mg by mouth Once per day. Active acetaminophen (Tylenol) 325 MG tablet Take 2 tablets by mouth if needed in the morning, at noon, and at bedtime (pain). Active Banophen 25 MG capsule TAKE 1-2 CAPSULES BY MOUTH EVERY NIGHT AT BEDTIME NEEDED FOR SLEEP Active gabapentin (Neurontin) 600 MG tablet Take 1 tablet by mouth every 6 (six) hours if needed. Active hydrOXYzine HCl (Atarax) 25 MG tablet TAKE 1 TO 2 TABLETS BY MOUTH TWICE A DAY NEEDED FOR ANXIETY FOR 30 DAYS Active Lantus SoloStar 100 UNIT/ML pen Inject 40 Units under the skin Once per day. Active insulin lispro (HumaLOG) 100 UNIT/ML injection INJECT 11 TO 21 UNITS SUBCUTANEOUSLY THREE TIMES A DAY BEFORE MEALS PER SLIDING SCALE Active BD Pen Needle Viviana 2nd Gen 32G X 4 MM misc USE DIRECTED FOUR TIMES A DAY TO INJECT INSULIN Active naloxone (Narcan) 4 mg/0.1 mL nasal spray Use as directed Active ondansetron (Zofran) 4 MG tablet Take 1 tablet by mouth if needed in the morning and at bedtime for nausea. Active Creon 83046-16667 units capsule Take 1 capsule by mouth every 6 (six) hours. Active pantoprazole (ProtoNix) 20 MG EC tablet Take 1 tablet by mouth if needed each day for heartburn. Active sertraline (Zoloft) 50 MG tablet Take 1 tablet by mouth Once per day. Active topiramate 50 MG tablet TAKE 1 TABLET DAILY X1 WEEK, THEN 1 TAB 2X PER DAY DIRECTED Active gabapentin (Neurontin) 300 MG capsule Take 300 mg by mouth 3 times daily. 2024 Discontinued(M ed list cleanup (will not trigger notification to Pharmacy)) Creon [id number] units capsuleIndicati ons:Hemorrhagic pancreatitis TAKE 1 CAPSULE BY MOUTH 3 TIMES A DAY WITH MEALS. DOSE IS IN UNITS OF LIPASE. 90 capsule 3 023 2024 Discontinued(M ed list cleanup (will not trigger notification to Pharmacy)) methadone (Dolophine) 5 MG/5ML solution Take 40 mg by mouth in the morning. 023 2024 Discontinued(M ed list cleanup (will not trigger notification to Pharmacy)) empagliflozin (Jardiance) 10 MG Take 1 tablet by mouth in the morning. 2024 Discontinued(M ed list cleanup (will not trigger notification to Pharmacy)) acetaminophen (Tylenol) 500 MG tablet Take 500 mg by mouth every 6 (six) hours if needed for moderate pain. OTC 2024 Discontinued(M ed list cleanup (will not trigger notification to Pharmacy)) Blood Glucose Monitoring Suppl (GNP Easy Touch Glucose Meter) deviceIndicatio ns:Type 2 diabetes mellitus with hyperglycemia, without long-term current use of insulin ([facility]) Use as directed to check blood sugar four times daily 1 each 024 2024 Discontinued(M ed list cleanup (will not trigger notification to Pharmacy)) lisinopril 10 MG tabletIndicatio ns:Essential hypertension TAKE 1 TABLET (10 MG) BY MOUTH ONCE PER DAY. 90 tablet 024 2024 Discontinued Active Problems Problem Noted Date Diagnosed Date Prolonged Q-T interval on ECG 08/03/2022 Assessment & Plan (08/03/2022 10:03 AM EDT): Pt's QTc 472 ms on EKG, Pt on High dose Methadone, No Hx of arrhythmia. Plan: Cardiology consult Chronic neck pain 08/02/2022 Assessment & Plan (08/03/2022 7:39 AM EDT): Today not complaining Patient has a Hx of C4-C7 spinal stenosis/myeloradiculopathy for which he had been taking narcotics to treat pain for years. He is s/p Anterior Cervical discectomy with spinal canal decompression C4-C5, C5-C6 and C6-C7. Anterior cervical interbody fusion C4-C5 and C6-C7. Anterior cervical interbody Arleen AVS cage instrumentation with 7 mm x 14 x 16 mm lordotic interbody implant C4-C5, C5-C6 and C6-C7 by Dr. Titi Sultana. Essential hypertension 08/02/2022 Assessment & Plan (08/03/2022 9:45 AM EDT): Blood pressure today stable Patient with Hypertension currently on a regimen of: Lisinopril 30 mg po daily. Most recent BMP: 06/18/2022 normal No changes to his medical regimen for now Patient advised to adhere to a low sodium diet, encouraged about medication compliance. Alcohol-related disorder 08/02/2022 Assessment & Plan (08/03/2022 9:52 AM EDT): 51 yr old male with hx of polysubstance use, including AUD and OUD Pt has gone to detox in the past. Admitted to Hospital last March, there is mention in the DC summary that he was placed on a CIWA protocol although patient states he was NOT drinking prior to that admission and he is now 260 days sober. 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 Seen back in [address] Madrigal. It seems that at some point there was some consideration to treat with Testosterone but it was never done and pt did not follow up. Preventative health care 08/02/2022 Assessment & Plan (08/03/2022 9:52 AM EDT): 1 month follow up Next visit will refer for Colorectal Cancer screening Hospital discharge follow-up 08/02/2022 Assessment & Plan (08/03/2022 9:54 AM EDT): Patient is here for A HDF: 51 year old male with a PMhx significant for HTN, JOSLYN on Methadone, AUD and previous bouts of alcoholic pancreatitis. Pt has had 2 recent Hospitalizations 1st one on 04/07/2022 Admitted to [facility] [place] intractable abdominal pain, HPI mentions this occurred after drinking vodka, but pt denies , he states he was NOT drinking, an inability to take PO food. Pt was diagnosed with Pancreatitis, despite aggressive IV fluids and pain management pt remained with intractable abdominal pain, CT of abdomen and Pelvis with IV contrast showed worsening pancreatitis with possible necrosis and hemorrhage. On 04/09/2022 Pt was subsequently transferred to [facility] in [facility] for further management [facility] Course: Patient was seen by interventional radiology and general surgery, they recommended no need for intervention at that time as patient did not have a localized collection, or cyst formation. Patient did not have any signs of acute infection. Patient however did have significant pain, which was complicated by with his underlying opiate abuse history. Patient on methadone, pain management consulted, patient was placed on p.o. morphine with IV breakthrough, eventually the IV medication were discontinued, Pt was discharged on 04/19/2022 on p.o. morphine and was also started on pancrelipase.. Patient was advised to follow-up with GI in his local area and he was strongly advised to abstain from alcohol. 2nd Hospitalization: Pt again presented to [facility] ER on 06/18/2022 with c/o diffuse abdominal pain radiating to his back. Initial CT showed evolving necrotic process in the pancreas. Pt was evaluated by Surgeon Dr. Chris Banda who recommended patient to be transferred to a tertiary Hospital. He was transferred to [facility] where he had a relatively uneventful Hospital course. And subsequently discharged on Pain medications once he was able to eat without any issues. On 07/25/2022 after Hospitalization pt was seen by Dr. Sameer Sunshine (General surgery, [facility]) for persistent severe abdominal pain, who ordered a CT of his Abdomen done 07/21/2022 at [facility]. showed: a large fluid collection anterior to the pancrease consistent with a pseudo cyst lesion. Is larger than the peripancreatic fluid collection seen on outside imaging from 06/18/2022 and was much better demarcated. 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 He placed an urgent referral to Dr. Rodas at [facility]. He refilled the pain medications (Oxycodone 10 mg po q 6 hrs. #30) and asked that we continue to prescribe his narcotic regimen while needed. The hope is that as this process resolves he will be able to completely come off of narcotic pain meds. Further follow up will be dependent on treatment recommendations from GI. Surgeon stated he would see patient as needed. 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 Sameer Sunshine (General surgery, [facility]) for persistent severe abdominal pain, who ordered a CT of his Abdomen done 07/21/2022 at [facility]. showed: a large fluid collection anterior to the pancrease consistent with a pseudo cyst lesion. Is larger than the peripancreatic fluid collection seen on outside imaging from 06/18/2022 and was much better demarcated. 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 He placed an urgent referral to Dr. Rodas at [facility]. He refilled the pain medications (Oxycodone 10 mg po q 6 hrs. #30) and asked that we continue to prescribe his narcotic regimen while needed. The hope is that as this process resolves he will be able to completely come off of narcotic pain meds. He has appointment with Dr Rodas today at noon. Pt reports intolerance to NSAIDS. Given his level of pain Narcotics seem to be the only alternative that will provide some pain relief. Tramadol is usually first line in these cases but given his tolerance to narcotics ( Pt on Methadone ) this would not be sufficient. He seems to have had response to Oxycodone prescribed by surgeon. Pt advised to continue to abstain from alcohol. Discussed the risks of drinking including but not limited to recurrent pancreatitis, fulminant pancreatitis, pseudocyst infection, respiratory failure and even . I have had a detailed conversation with patient regarding the risks of opioid treatment in his case in particular. High risk of respiratory depression, and even failure that could lead to . The aim is to have a realistic expectation to make his pain manageable while Boat Loader Helper pursues drainage of pseudocyst. I suspect his pain is a combination of pain due to chronic pancreatitis and large pseudocyst. Pt will sign a Narcotic contract and he will see our COT RN weekly and I will see him for a follow up in 1 month. Hemorrhagic pancreatitis 04/10/2022 Assessment & Plan (08/03/2022 9:47 AM EDT): Pt with Hx of AUD Today he tells me he has been sober for >260 days. , previous bouts of Pancreatitis, admitted to [facility] 03/2022 with necrotizing pancreatitis. Pt has developed a pseudocyst as a result and continues to c/o moderate to severe abdominal pain. Evaluated by Surgeon and referred urgently to GI ( Dr. Rodas) for consideration of drainage of the pseudocyst once wall is mature In the short term he will require pain control. He has been taking Oxycodone 10 mg po q 6 hrs PRN for pain. Pt has appointment with Dr. Rodas today at noon. Pt reports intolerance to NSAIDS, Given his level of pain Narcotics seem to be the only alternative that will provide some pain relief. Tramadol is usually first line in these cases but given his tolerance to narcotics ( Pt on Methadone ) this would not be sufficient. He seems to have had response to Oxycodone prescribed by surgeon. Pt advised to continue to abstain from alcohol. Discussed the risks of drinking including but not limited to recurrent pancreatitis, fulminant pancreatitis, pseudocyst infection, respiratory failure and even . I have had a detailed conversation with patient regarding the risks of opioid treatment in his case in particular. High risk of respiratory depression, and even failure that could lead to . The aim is to have a realistic expectation to make his pain manageable while Boat Loader Helper pursues drainage of pseudocyst. I suspect his pain is a combination of pain due to chronic pancreatitis and large pseudocyst. Cervical radiculopathy 11/12/2013 Overview (08/02/2022): Cervical radiculopathy; Bilateral Opioid dependence 07/10/2013 Assessment & Plan (08/03/2022 10:05 AM EDT): Pt is on Methadone 120 mg. Pt tells me his Program knows he has been receiving Oxycodone 10 mg po q 6 hrs PRN for pain. EKG today: shows a prolonged QTc 472 ms . Will refer to cardiology for evaluation. COT contract signed 1 month follow up Encounters Date Type Department Care Team Description 06/11/2024 Telephone [facility] [place] [address] ArcolaAnitra FNP No Show 06/04/2024 Telephone [facility] [place] [address] Paco Watson RN Care Management (C3CM- initial assessment/ enrollment) 06/03/2024 Patient Outreach [facility] [place] [address] Ernie Hong MD Care Coordination (CM/CHW appt reminder) 05/28/2024 Patient Outreach [facility] [place] [address] Ernie Hong MD Transition Of Care (Tcm) ([facility] unscheduled) 05/26/2024 Patient Outreach [facility] [place] [address] Ernie Hong MD Transition Of Care (Tcm) (F unscheduled) 05/23/2024 Refill [facility] [place] [address] Ernie Hong MD Essential hypertension 05/23/2024 Patient Outreach [facility] [place] [address] Ernie Hong MD Care Coordination (CM/CHW outreach) 05/23/2024 Telephone [facility] [place] [address] Ernie Hong MD Hospital Follow-up 05/20/2024 Patient Outreach [facility] [address] [facility] [place] [address] Ernie Hong MD Care Coordination (CM/CHW outreach) 05/20/2024 Telephone [facility] [address] [facility] [place] [address] Paco Watson RN Care Management (C3CM- chart review) 04/11/2024 Refill [facility] [address] [place], [place] [phone] Ernie Hong MD Essential hypertension 03/22/2024 Refill [facility] [address] [facility] [place], [place] [phone] Ernie Hong MD Essential hypertension from Last 3 Months Immunizations Name Administration Dates Next Due Influenza injectable quadriv alent IIV4 with preservative 02/15/2016 Pneumococcal Polysaccharide PPSV23 03/29/2014 Social History Tobacco Use Types Packs/Day Years Used Date Smoking Tobacco: Never Passive Smoke Exposure: Never Smokeless Tobacco: Never Tobacco Cessation:Counseling Given: Not Answered Depression Answer Date Recorded Patient Health Questionnaire-9 Score 0 08/03/2022 Housing Stability Answer Date Recorded What is your housing situation today? I have cosmeromelia spears 08/07/[address] you li ve. Do you have problems with any of the following? None of the above 08/07/2023 Food Insecurity Answer Date Recorded Within the past 12 months, y ou worried that your food would run out before you got money to buy more: Never True 08/07/2023 Within the past 12 months,th e food you bought just didn't last and you didn't have enough money to get more: Never True 12/2023 Transportation Answer Date Recorded In the past 12 months, has l ack of transportation kept you from medical appts, meetings, work or from getting things needed for daily living? No 08/07/2023 Utilities Answer Date Recorded In the past 12 months, has t he electric, gas, oil or water company threatened to shut off services in your home? No 08/07/2023 Depression Answer Date Recorded Patient Health Questionnaire-2 Score 0 08/03/2022 Sex and Gender Information Value Date Recorded Sex Assigned at Male 02/27/2022 10:20 AM EDT Legal Sex Male 10:20 AM EDT Gender Identity Male 02/27/2022 10:20 AM EDT Sexual Orientation Straight 02/27/2022 10 :20 AM EDT Last Filed Vital Signs Vital Sign Reading Time Taken Comments Blood Pressure 136/82 08/17/2023 10:46 AM EDT Pulse 114 08/17/2023 10:46 AM EDT Temperature 37.8 ??C (100.1 ??F) 08/03/2022 9:03 AM E DT Respiratory Rate 21 08/17/2023 10:46 AM EDT Oxygen Saturation 98% 08/17/2023 10:46 AM EDT Inhaled Oxygen Concentration - - Weight 85.5 kg (188 lb 9.6 oz) 08/17/2023 10:46 AM EDT Height 175.3 cm (5' 9 ) 08/17/2023 10:46 AM EDT Body Mass Index 27.85 08/17/2023 10:46 AM EDT Plan of Treatment Health Maintenance Due Date Last Done Comments CT Colonography 1970 Colonoscopy 1970 Colorectal Cancer Screening 1970 Diabetes: Hemoglobin A1C 1970 FIT DNA/Cologuard 1970 FIT 1970 FOBT 1970 HIV Screening 1970 Lipid Panel 1970 Sigmoidoscopy 1970 Diabetes: Foot Exam 1980 Eye Exam 1980 Alcohol/Substance Use Screening 1982 Hepatitis C Screening 1988 DTaP/Tdap/Td Vaccines (1 - Tdap) 1989 Diabetes: Urine Protein Screening 1989 Hepatitis B Vaccines (1 of 3 - + 3-dose series) 1989 Pneumococcal Vaccine: 50+ Years (2 of 2 - PCV) 03/29/2015 03/29/2014 Zoster Vaccines (1 of 2) 2020 Depression Screening 08/04/2023 08/03/2022, 08/03/2022 COVID-19 Vaccine (2 - 2023-2 5 season) 2023 05/05/2021 Influenza Vaccine (#1) 2023 02/15/2016 SDOH Screening 08/06/2024 08/07/2023 Tobacco Screening 08/19/2024 08/20/2023 RSV Patients and Patients Aged 60 years or older (1 - 1-dose 75+ series) 2045 HIB Vaccines Aged Out No longer eligi ble based on patient's age to complete this topic HPV Vaccines Aged Out No longer eligi ble based on patient's age to complete this topic Hepatitis A Vaccines Aged Out No long er eligible based on patient's age to complete this topic IPV Vaccines Aged Out No longer eligi ble based on patient's age to complete this topic Meningococcal Vaccine Aged Out No loy trevon eligible based on patient's age to complete this topic RSV under 20 months Aged Out No longe r eligible based on patient's age to complete this topic Rotavirus Vaccines Aged Out No longer eligible based on patient's age to complete this topic Procedures Procedure Name Priority Date/Time Associated Diagnosis Comments HIGH SENSITIVITY TROPONIN I Routine 06/13/2024 8:20 PM EST Necrotizing pancreatitis LIPASE Routine 06/13/2024 8:20 PM EST Necrotizing pancreatitis COMPREHENSIVE METABOLIC PANEL Routine 06/13/2024 8:20 PM EST Necrotizing pancreatitis CBC WITH AUTO DIFFERENTIAL Routine 06/13/2024 8:20 PM EST Necrotizing pancreatitis B TYPE NATRIURETIC PEPTIDE (BNP) Routine 06/13/2024 8:20 PM EST Necrotizing pancreatitis ETHANOL Routine 06/13/2024 8:20 PM EST Necrotizing pancreatitis from Last 3 Months Results * High Sensitivity Troponin I (06/13/2024 8:20 PM EST) TROPONIN I HIGH SENSITIVITY <2.7 <3.5 - 35.0 ng/L [facility] Comment:The [place] high sens itivity Troponin-I results should beused in conjunction with other diagnostic information suchas ECG, clinical observations and information, and patientsymptoms to aid in the diagnosis of GA. 06/13/2024 8:20 PM EST 06/13/2024 8:23 PM EST us Generic External Data Provider LAB BLOOD ORDERAB LES Final Result Performing Organization Address City/[facility]/ZIP Co de Phone Number [facility] [address] [place] [address] [phone] * Ethanol (06/13/2024 8:20 PM EST) ETHANOL (MG/DL) IN SER/PLAS 247 mg/dL [facility] Comment:Serum/plasma ethanol results are to be used formedical/treatment purposes only. 06/13/2024 8:20 PM EST 06/13/2024 8:23 PM EST Generic External Data Provider LAB BLOOD ORDERAB LES Final Result Performing Organization Address [facility] de Phone Number [facility] [address] [place] [phone] * (ABNORMAL) CBC auto differential (06/13/2024 8:20 PM EST) White Blood Count 3.2(L) 4.8 - 10.8 X10*3/uL [facility] Red Blood Count 4.01(L) 4.60 - 5.80 X10*6/uL [facility] Hemoglobin 12.3(L) 14.0 - 18.0 g/dl [facility] Hematocrit 36.5(L) 42.0 - 52.0 % [facility] Mean Corpuscular Volume 91.0 80.0 - 98.0 fL [facility] Mean Corpuscular Hemoglobin 30.7 27.0 - 33.0 pg [facility] Mean Corpuscular HGB Conc 33.7 31.0 - 36.0 g/dl [facility] Red Cell Distribution Width 14.8 11.0 - 16.0 % [facility] Platelet Count 107(L) 160 - 400 X10*3/uL [facility] Mean Platelet Volume 9.1(L) 9.4 - 12.4 fL [facility] Neutrophils Percent Auto 72.6 45 - 73 % [facility] Imm Gran Pct Auto 0.3 0.0 - 0.4 % [facility] Lymphocytes Percent Auto 22.1 20 - 40 % [facility] Monocytes Percent Auto 3.1 2 - 11 % [facility] Eosinophils Percent Auto 1.6 0 - 4 % [facility] Basophils Percent Auto 0.3 0 - 2 % [facility] NRBC Pct Auto 0.0 0.0 - 0.2 /100WBC [facility] Neutrophils Absolute Auto 2.3 2.0 - 8.3 x10*3/uL [facility] Imm Gran Abs Auto 0.01 0.00 - 0.03 X10*3/uL [facility] Lymphocytes Absolute Auto 0.7(L) 1.2 - 4.9 X10*3/uL [facility] Monocytes Absolute Auto 0.1 0.1 - 1.2 X10*3/uL [facility] Eosinophils Absolute Auto 0.1 0.0 - 0.4 X10*3/uL [facility] Basophils Absolute Auto 0.0 0.0 - 0.2 X10*3/uL [facility] NRBC Abs Auto 0.000 0.0 - 0.012 X10*3/uL [facility] 06/13/2024 8:20 PM EST 06/13/2024 8:23 PM EST us Generic External Data Provider LAB BLOOD ORDERAB LES Final Result [facility] [address] [place] [address] [phone] * (ABNORMAL) B Type Natriuretic Peptide (BNP) (06/13/2024 8:20 PM EST) B Type Natriuretic Peptide 208(H) <100 pg/mL [facility] Comment:For those patients w ho are being treated with Natrecor(nesiritide, recombinant BNP), BNP testing should beperformed at least two hours post treatment in order toensure that only endogenous levels of BNP are detected. 06/13/2024 8:20 PM EST 06/13/2024 8:23 PM EST us Generic External Data Provider LAB BLOOD ORDERAB LES Final Result Performing Organization Address City/[facility]/ZIP Co de Phone Number [facility] [address] [place] [phone] * (ABNORMAL) Lipase (06/13/2024 8:20 PM EST) Lipase <4(L) 8 - 78 U/L [facility] 06/13/2024 8:20 PM EST 06/13/2024 8:23 PM EST Generic External Data Provider LAB BLOOD ORDERAB LES Final Result Performing Organization Address [facility] Co de Phone Number [facility] [address] [place] [address] [phone] * (ABNORMAL) Comprehensive Metabolic Panel (06/13/2024 8:20 PM EST) Sodium 136 135 - 145 mmol/L [facility] Potassium 4.3 3.3 - 5.1 mmol/L [facility] Chloride 98 96 - 108 mmol/L [facility] Carbon Dioxide 24 22 - 29 mmol/L [facility] Anion Gap 18 12 - 20 [facility] Urea Nitrogen (BUN) 11 9 - 16 mg/dL [facility] Creatinine, Serum 1.08 0.5 - 1.4 mg/dL [facility] Creatinine Clr Calc Pharmacy 76.1 [facility] Comment:eGFR (calculated fro m the MDRD study equation) and eCrCl(calculated from the Cockcroft-Gault equation) are based ondifferent parameters and may not yield comparable results.If eCrCl result is absurd, please check patient'sheight/weight. Estimated Glomerular Filt Rate >60 [facility] Comment:Chronic Kidney Disea se: Estimated GFR < 60 mL/min/1.21s8Akyymm Kidney Disease: Estimated GFR < 15 mL/min/1.73m2 Glucose 525(HH) 60 - 115 mg/dL [facility] Comment:Critical value for t est(s): GLU Results called to and readback by: LE Person calling: ANNA Date: 06/13/24 Time:2055 Calcium 9.2 8.4 - 10.2 mg/dL [facility] Bilirubin, Total 0.2 0.0 - 1.0 mg/dL [facility] Aspartate Amino Transferase 26 5 - 37 U/L [facility] Alanine Aminotransferase 23 0 - 40 U/L [facility] Total Protein 8.4(H) 6.5 - 8.0 g/dL [facility] Albumin Level 4.3 3.5 - 5.0 g/dL [facility] Alkaline Phosphatase 107 39 - 117 U/L [facility] 06/13/2024 8:20 PM EST 06/13/2024 8:23 PM EST us Generic External Data Provider LAB BLOOD ORDERAB LES Final Result [facility] [address] [place] [address] [phone] from Last 3 Months Insurance [address] [place] [id number] [facility] [address] [place] [address] * Guarantor: Jonathan Luis Account Type Relation to Patient Date of Phone Billing Address Personal/Family Self [address] Care Teams Underwriting Technician Relationship Specialty Start Date End Date Ernie Hong MD [address] [place] [address] PCP - General Internal Medicine 01/03/19 Paco Watson RN [address] [place] [address] Bookbinder ChiefCase Therapist 06/04/24
--- OUTSIDE RECORDS SUMMARY | 2024-06-13 23:43 | XMS_ITS | Clinical Summary ---
Author Organization [employer] [facility] it Address [address] [place] [address] Care Team Providers Care Bread Jockey Name Role Phone Eugenio Camara MD Primary Care Provider [phone] Surgical History Surgery Date Site/Laterality Comments NECK SURGERY 02/2014 PROCEDURE: HISTORICAL NECK SURGERY; COMMENT: C4-C7 anterior cervical discectomy and fusion Medical History Medical History Date Comments HTN (hypertension) 01/02/2012 DX:HTN (hyper tension) Obese 10/01/2012 DX:Obese H/O drug abuse (CMS/HCC) DX:H/O drug abuse (HCC); COMMENT: opioid pain medication Family History Medical History Relation Name Comments Blindness Neg Hx Cataracts Neg Hx Glaucoma Neg Hx Macular degeneration Neg Hx Strabismus Neg Hx Social History Tobacco Use Types Packs/Day Years Used Date Smoking Tobacco: Never Smokeless Tobacco: Never Alcohol Use Standard Drinks/Week Comments Not Asked 0 (1 standard drink = 0.6 oz pur e alcohol) Sex and Gender Information Value Date Recorded Sex Assigned at Not on file Legal Sex Male 10:42 PM EST Gender Identity Not on file Sexual Orientation Not on file Obstetrics History Last Filed Vital Signs Vital Sign Reading Time Taken Comments Blood Pressure 153/100 07/25/2022 2:34 PM EDT Pulse 95 07/25/2022 2:34 PM EDT Temperature - - Respiratory Rate - - Oxygen Saturation - - Inhaled Oxygen Concentration - - Weight 102 kg (225 lb) 07/25/2022 2:34 PM EDT Height 175.3 cm (5' 9 ) 07/25/2022 2:34 PM EDT Body Mass Index 33.23 07/25/2022 2:34 PM EDT Plan of Treatment Health Maintenance Due Date Last Done Comments DTaP,Tdap,and Td Vaccines (1 - Tdap) 1989 Hepatitis B Vaccines (1 of 3 - 19+ 3-dose series) 1989 Pneumococcal Vaccine: 50+ Ye ars (1 of 1 - PCV) 2020 Zoster Vaccines (1 of 2) 2020 Cholesterol Screening (Lipid Panel) 04/02/2022 Colorectal Cancer Screening: Colonoscopy 04/02/2022 Depression Screening 04/02/2022 HIV Screening 04/02/2022 Hepatitis C Screening 04/02/2022 Social Influencers of Health Screening 04/02/2022 Hypertension/CHF/CAD Annual BMP Blood Test 04/06/2022 COVID-19 Vaccine ( - 2023-2 5 season) 2023 Influenza Vaccine (#1) 2023 HIB Vaccines Aged Out No longer eligi [...] on patient's age to complete this topic MMR Vaccines Aged Out No longer eligi ble based on patient's age to complete this topic Meningococcal ACWY Vaccine Aged Out N o longer eligible based on patient's age to complete this topic Meningococcal B Vacine Aged Out No lo nger eligible based on patient's age to complete this topic Pneumococcal Vaccine: Pediat rics (0 to 5 Years) and At-Risk Patients (6 to 64 Years) Aged Out No longer eligible b ased on patient's age to complete this topic RSV Immunization Patients Un tatyana 20 months Aged Out No longer eligible b ased on patient's age to complete this topic Varicella Vaccines Aged Out No longer eligible based on patient's age to complete this topic Care Teams Bread Jockey Relationship Specialty [place] [address] [place] [address] PCP - General Internal Medicine 04/07/14
--- OUTSIDE RECORDS SUMMARY | 2024-06-13 23:43 | XMS_ITS | Encounter Summary ---
Author Organization [employer] Address [address] [facility] 7t [place] [address] Care Team Providers Care Material Handling Crew Supervisor Name Role Phone Ernie Hong MD Primary Care Provide r Paco Watson RN Unavailable [phone] Reason for Visit * Reason Comments Med Refill Encounter Details Date Type Department Care Team ([facility] st Contact Info) Description 04/11/2024 Refill [facility]INE [address] [place], [place] [phone] Ernie Hong MD [address] [place], [place] [phone] Essential hypertension Social History Tobacco Use Types Packs/Day Years Used Date Smoking Tobacco: Never Passive Smoke Exposure: Never Smokeless Tobacco: Never Depression Answer Date Recorded Patient Health Questionnaire-9 Score 0 08/03/2022 Housing Stability Answer Date Recorded What is your housing situation today? I have cosme spears 08/07/[address] you [...] Orientation Straight 02/27/2022 10 :20 AM EDT documented as of this encounter Plan of Treatment Not on file documented as of this encounter Visit Diagnoses Diagnosis Essential hypertension Unspecified essential hypertension documented in this encounter Additional Health Concerns Assessment Noted Time PHQ-9 Depression Total Score: 0 08/04/19 23 9:07 AM EDT documented as of this encounter Care Teams Material Handling Crew Supervisor Relationship Specialty Start Date End Date Ernie Hong MD [address] [place] [address] PCP - General Internal Medicine 01/03/19 Paco Watson RN [address] [place] [address] Commercial HousekeeperVice President Of News 06/04/24 documented as of this encounter
--- OUTSIDE RECORDS SUMMARY | 2024-06-13 23:43 | XMS_ITS | Encounter Summary ---
Author Organization [employer] Address [address] [facility] 7t [place] [address] Care Team Providers Care Sailing Master Name Role Phone Ernie Hong MD Primary Care Provide r Paco Watson RN Unavailable [phone] Reason for Visit * Reason Onset Date Comments No Show 06/11/2024 Encounter Details Date Type Department Care Team ([facility] st Contact Info) Description 06/11/2024 Telephone [facility] MEDICINE [address] [place] [address] [facility] [address] [place], [place] [phone] No Show Social History Tobacco Use Types Packs/Day Years [...] AM EDT documented as of this encounter Miscellaneous Notes * Telephone Encounter - Dalia Whitfield RN - 06/11/2024 2:56 PM EST Telephone call placed to pt to R/S missed HDF. No answer, left v/m. * Telephone Encounter - Shaila Simpson - 06/11/2024 1:54 PM EST Pt no showed to appt on 06/11/24 documented in this encounter Plan of Treatment Not on file documented as of this encounter Visit Diagnoses Not on filedocumented in this encounter Additional Health Concerns Assessment Noted Time PHQ-9 Depression Total Score: 0 08/04/19 23 9:07 AM EDT documented as of this encounter Care Teams Sailing Master Relationship Specialty Start Date End Date Ernie Hong MD [address] [place] [address] PCP - General Internal Medicine 01/03/19 Paco Watson RN [address] [place] [address] Efficiency AnalystSenior Wind Energy Consultant 06/04/24 documented as of this encounter
--- OUTSIDE RECORDS SUMMARY | 2024-06-13 23:43 | XMS_ITS | Encounter Summary ---
Author Organization [employer] Address [address] [facility] 7t [place] [address] Care Team Providers Care Ice Handler Name Role Phone Ernie Hong MD Primary Care Provide r Reason for Visit * Reason Comments Care Coordination CM/CHW appt reminder Encounter Details Date Type Department Care Team (Latest Contact Info) Description 06/03/2024 Patient Outreach [facility] MED[facility]INE 230 [place] [address] Ernie Hong MD 230 [place] [address] Care Coordination (CM/CHW appt reminder) Social History Tobacco Use Types Packs/Day Years [...] AM EDT documented as of this encounter Progress Notes * Monik Dennis - 06/03/2024 11:49 AM EST CHW Monik Dennis placed outbound call to patient. No answer at this time. LVM [facility], reminding patient of initial assessment appt via telephone on 06/04/24 @ 10AM tele with Adult Complex Care program services. Requested call back to , as well as for any additional questions or concerns. documented in this encounter Plan of Treatment Not on file documented as of this encounter Visit Diagnoses Not on filedocumented in this encounter Additional Health Concerns Assessment Noted Time PHQ-9 Depression Total Score: 0 08/04/19 23 9:07 AM EDT documented as of this encounter Care Teams Ice Handler Relationship Specialty Start Date End Date Erine Hong MD [address] [place] [address] PCP - General Internal Medicine 01/03/19 documented as of this encounter
--- OUTSIDE RECORDS SUMMARY | 2024-06-13 23:43 | XMS_ITS | Encounter Summary ---
Author Organization [employer] Address [address] [facility] [address]t [place] [address] Care Team Providers Care Acid Filler Name Role Phone Ernie Hong MD Primary Care Provide r Paco Watson RN Unavailable [phone] Reason for Visit * Reason Comments Med Refill Encounter Details Date Type Department Care Team ([facility] st Contact Info) Description 03/22/2024 Refill [facility] MEDICINE 230 [place], [place] [phone] Ernie Hong MD 230 [place], [place] [phone] Essential hypertension Social History Tobacco Use Types [...] documented as of this encounter Care Teams Acid Filler Relationship Specialty Start Date End Date Ernie Hong MD [address] [place] [address] PCP - General Internal Medicine 01/03/19 Paco Watson RN [address] [place] [address] Rubber Belt SplicerManufacturing Operations Manager 06/04/24 documented as of this encounter
--- OUTSIDE RECORDS SUMMARY | 2024-06-13 23:43 | XMS_ITS | Encounter Summary ---
Author Organization [employer] Address [address] [facility] 7t [place] [address] Care Team Providers Care Brass Cutter Name Role Phone Ernie Hong MD Primary Care Provide r Reason for Visit * Reason Onset Date Comments Care Management 05/20/2024 C3- chart revi ew Encounter Details Date Type Department Care Team ([facility] st Contact Info) Description 05/20/2024 Telephone [facility] MEDICINE 230 [place] [address] Paco Watson RN [address] [place] [address] Care Management (C3CM- chart review) Social History Tobacco Use Types Packs/Day Years [...] encounter Miscellaneous Notes * Telephone Encounter - Paco Watson RN - 05/20/2024 8:50 AM EST HSABBIR Watson RN, performed chart review, in anticipation of initial assessment with patient, as patient has stratified for Adult Complex Care through the ADT feed. History significant for chronic neck pain, cervical radiculopathy, HTN, prolonged Q-T interval on ECG, hemorrhagic pancreatitis, pseudocyst of pancreas due to chronic pancreatitis, opioid dependence, alcohol related disorder, anxiety, and low testosterone. Specialists include Nutrition, Pharmacy [facility], [facility] General Surgeons, Cardiology, and Pain Medicine. ED visits/ Hospitalizations within the last 12 months include [facility] 05/19/24, [facility] 12/14/23- 12/16/23, [facility] 10/16/23- 10/18/23, and [facility] 10/10/23- 10/18/23. Patient admitted to [facility] on 05/19/24. Discharge pending. Last appointment in PCP office on 08/17/23. Multiple no shows and cancellations noted on file. No future appointments scheduled at this time. documented in this encounter Plan of Treatment Not on file documented as of this encounter Visit Diagnoses Not on filedocumented in this encounter Additional Health Concerns Assessment Noted Time PHQ-9 Depression Total Score: 0 08/04/19 23 9:07 AM EDT documented as of this encounter Care Teams Brass Cutter Relationship Specialty Start Date End Date Ernie Hong MD [address] [place] [phone] PCP - General Internal Medicine 01/03/19 documented as of this encounter
--- OUTSIDE RECORDS SUMMARY | 2024-06-13 23:43 | XMS_ITS | Clinical Summary ---
Author Organization [facility] Address [address] [place] [address] [place] [address] Phone Care Team Providers Care Aviation Technician Aircraft Name Role Phone Unavailable Primary Care Provider Unavailabl e Allergies Active Allergy Reactions Criticality Noted Date Comments Codeine GI intolerance 11/12/2013 Cyclobenzaprine Other (see comments) Medium 02/26/2014 LETHARGIC TOO Ibuprofen GI intolerance 11/12/2013 Medications diphenhydrAMINE (SOMINEX) 25 MG tablet Dose: 50 MG; Form: Take 2 TABLET; Route: PO; Frequency: Q6H; Directions: Not available; Details: Dispense: Tablet(s); Date: 11/12/2013 11/12/2013 Active lisinopril-hydr oCHLOROthiazide (PRINZIDE,ZESTO RETIC) 20-12.5 MG per tablet Dose: 1 TAB; Form: Not available; Route: PO; Frequency: QD; Directions: Not available; Details: Not available; Date: 11/12/2013 11/12/2013 Active acetaminophen (TYLENOL) 325 MG tablet Take by mouth every 6 (six) hours if needed for mild pain Active docusate sodium (COLACE) 100 MG capsule Take 100 mg by mouth 2 (two) times a day Active folic acid (FOLVITE) 1 MG tablet Take 1 mg by mouth 1 (one) time each day Active lisinopril 10 MG tablet Take 10 mg by mouth 1 (one) time each day Active B complex-vitamin C-folic acid (NEPHROCAPS) 1 MG capsule Take 1 capsule by mouth 1 (one) time each day Active ondansetron (ZOFRAN) 4 MG tablet Take 4 mg by mouth every 8 (eight) hours if needed for nausea or vomiting Active thiamine (VITAMIN B-1) 100 MG tablet Take 100 mg by mouth 1 (one) time each day Active ibuprofen (ADVIL,MOTRIN) 800 MG tablet Take 800 mg by mouth every 6 (six) hours if needed for mild pain Active METHADONE HCL PO Take 10 mg by mouth 1 (one) time each day Active amLODIPine (NORVASC) 10 MG tablet 03/09/2021 Active amoxicillin-cla vulanate (AUGMENTIN) 875-125 MG per tablet 03/09/2021 Active baclofen (LIORESAL) 10 MG tablet 03/09/2021 Active cephalexin (KEFLEX) 500 MG capsule 03/04/2021 Active doxycycline (VIBRAMYCIN) 100 MG capsule 03/04/2021 Acti ve doxycycline (ADOXA) 100 MG tablet 03/09/2021 Active furosemide (LASIX) 40 MG tablet 03/21/2021 Active lisinopril (PRINIVIL,ZESTR IL) 30 MG tablet 03/24/2021 Active Multiple Vitamins-Minera ls (Cerovite Senior) tablet 03/11/2021 Acti ve naproxen (NAPROSYN) 500 MG tablet 03/04/2021 Active nicotine polacrilex (NICORETTE) 4 MG gum 03/09/2021 Active oxyCODONE (ROXICODONE) 5 MG immediate release tablet 03/09/2021 Acti ve Active Problems Problem Noted Date Diagnosed Date Acute nontraumatic kidney injury 05/09/2021 Resolved Problems Problem Noted Date Diagnosed Date Resolved Date Cervical radiculopathy 11/12/201305/09 Overview (03/31/2021): Cervical radiculopathy; Bilateral Herniation of nucleus pulposus 11/12/2013 05/09/2021 Overview (03/31/2021): Herniation of nucleus pulposus; Central C4-5, right C5-6/C6-7 with cord impingement but without abnormal cord signal Social History Tobacco Use Types Packs/Day Years Used Date Smoking Tobacco: Every Day Smokeless Tobacco: Never Alcohol Use Standard Drinks/Week Comments Yes 0 (1 standard drink = 0.6 oz pur e alcohol) Sex and Gender Information Value Date Recorded Sex Assigned at Not on file Legal Sex Male 11:08 AM EST Gender Identity Not on file Sexual Orientation Not on file Plan of Treatment Health Maintenance Due Date Last Done Comments Pneumococcal Vaccine: Pediat rics (0 to 5 Years) and At-Risk Patients (6 to 64 Years) (1 of 2 - PCV) 1976 Hepatitis B Vaccine (1 of 3 - 19+ 3-dose series) 11/15 Colorectal Cancer Screening: Annual FOBT 11/16/2019 Colorectal Cancer Screening: Colonoscopy 11/16/2019 Colorectal Cancer Screening: Sigmoidoscopy 11/16/2019 Influenza Vaccine (#1) 2023 [place]
--- OUTSIDE RECORDS SUMMARY | 2024-06-13 23:43 | XMS_ITS | Encounter Summary ---
Author Organization [employer] Address [address] [facility] 7t [place] [address] Care Team Providers Care Hot Billet Shear Operator Name Role Phone Ernie Hong MD Primary Care Provide r Paco Watson RN Unavailable [phone] Reason for Visit * Reason Onset Date Comments Hospital Follow-up 05/23/2024 Encounter Details Date Type Department Care Team ([facility] st Contact Info) Description 05/23/2024 Telephone [facility] MEDICINE 230 [place], [place] [phone] Ernie Hong MD 230 [place], [place] [phone] Hospital Follow-up Social History Tobacco Use Types Packs/Day Years [...] documented as of this encounter Care Teams Hot Billet Shear Operator Relationship Specialty Start Date End Date Ernie Hong MD [address] [place] [address] PCP - General Internal Medicine 01/03/19 Paco Watson RN [address] [place] [address] Motion Picture ProjectionistFur Dry Cleaner 06/04/24 documented as of this encounter
--- OUTSIDE RECORDS SUMMARY | 2024-06-13 23:43 | XMS_ITS | Encounter Summary ---
Author Organization [email or web address] Address [address] [facility] 7t [place] [address] Care Team Providers Care Solar Mechanical Engineer Name Role Phone Ernie Hong MD Primary Care Provide r Paco Watson RN Unavailable [phone] Reason for Visit * Reason Comments Med Refill Encounter Details Date Type Department Care Team ([facility] st Contact Info) Description 02/21/2024 Refill [facility] MEDICINE [address] [place], [place] [phone] Ernie Hong MD 230 [place], [place] [phone] Essential hypertension Social History Tobacco Use Types [...] documented as of this encounter Care Teams Solar Mechanical Engineer Relationship Specialty Start Date End Date Ernie Hong MD [address] [place] [address] PCP - General Internal Medicine 01/03/19 Paco Watson RN [address] [place] [address] Air Route Traffic ControllerCloud Developer 06/04/24 documented as of this encounter
--- OUTSIDE RECORDS SUMMARY | 2024-06-13 23:43 | XMS_ITS ---
Author Name [employer] Organization Unknown History of Medication Use Medication Directions Dispensed Refills Start Date End Date Stat folic acid (FOLVITE) 1 MG tablet Take 1 tablet (1,000 mcg total) by mouth daily. 01/16/2022 active vitamin b complex-vitamin C-folic acid (NEPHROCAPS) 1 MG capsule Take 1 capsule by mouth daily. active ondansetron (ZOFRAN) 4 MG tablet Take 1 tablet (4 mg total) by mouth 3 times daily (every 8 hours) as needed. active Problems Problem Status Onset Date Problem Type Date of Resoluti on Source Hemorrhagic pancreatitis active 2022-04-10 ProblemAct [facility] Herniation of nucleus pulposus active 2013-11-12 ProblemAct [facility] Spinal stenosis of cervical region active 2013-11-12 ProblemAct [facility] Acute kidney injury active 2021-05-09 ProblemAct [facility]
--- OUTSIDE RECORDS SUMMARY | 2024-06-13 23:43 | XMS_ITS | Encounter Summary ---
Author Organization [employer] Address [address] [facility] 7t [place] [address] Care Team Providers Care Padder Name Role Phone Ernie Hong MD Primary Care Provide r Reason for Visit * Reason Comments Transition Of Care (Tcm) HDF unscheduled Encounter Details Date Type Department Care Team ([facility] st Contact Info) Description 05/26/2024 Patient Outreach [facility] MEDICINE 230 [place] [address] Ernie Hong MD [address] [place], [place] [phone] Transition Of Care (Tcm) (HDF unscheduled) Social History Tobacco Use Types Packs/Day Years [...] as of this encounter Miscellaneous Notes * Significant Event - Airam Ruggiero - 05/26/2024 8:50 AM EST 05/26/24 0849 Hospital Discharges and Admission for [facility] Type of Visit Hospital Admission Date of Admission/Visit 05/20/24 Date of Discharge 05/23/24 Facility [facility] Diagnosis Chronic conditions Disposition Discharged Home Follow-Up Actions Follow-Up Needed Provider appointment Follow-Up Outcome Left Voicemail Initial Contact Date 05/26/24 CC Airam placed outbound call to patient for HDF outreach. CC placing call to offer patient with an HDF appointment with provider. No answer at this time. Patient's name and were not confirmed. CC left detailed message educating patient on importance of following up with provider following an inpatient admission. Provided contact information requesting a call back in order to schedule the HDF appointment. Patient educated via voicemail on extended clinic hours on Mondays and Wednesdays, and Walk-In Urgent Care Located in [facility]. Patient provided with after-hours line for [facility], , which offer night time triage service and option to transfer to convertible power shovel operator provider if needed. [facility] discharge summary has been scanned into chart for review, CC will place additional outreach call within 2-5 business days. documented in this encounter Plan of Treatment Not on file documented as of this encounter Visit Diagnoses Not on filedocumented in this encounter Additional Health Concerns Assessment Noted Time PHQ-9 Depression Total Score: 0 08/04/19 23 9:07 AM EDT documented as of this encounter Care Teams Padder Relationship Specialty Start Date End Date Ernie Hong MD [address] [place] [address] PCP - General Internal Medicine 01/03/19 documented as of this encounter
--- OUTSIDE RECORDS SUMMARY | 2024-06-13 23:43 | XMS_ITS | Encounter Summary ---
Author Organization [employer] Address [address] [facility] 7t [place] [address] Care Team Providers Care Media Associate Name Role Phone Ernie Hong MD Primary Care Provide r Reason for Visit * Reason Comments Transition Of Care (Tcm) HDF unscheduled Encounter Details Date Type Department Care Team ([facility] st Contact Info) Description 05/28/2024 Patient Outreach [facility] MEDICINE [address] [place] [address] Ernie Hong MD [address] [place], [place] [phone] Transition Of Care (Tcm) (HDF unscheduled) Social [...] * Significant Event - Airam Ruggiero - 05/28/2024 8:45 AM EST 05/28/24 0844 Hospital Discharges and Admission for PCM Type of Visit Hospital Admission Date of Admission/Visit 05/20/24 Date of Discharge 05/23/24 Facility [facility] Diagnosis Chonic Condition Disposition Discharged Home Follow-Up Actions Follow-Up Needed Provider appointment Follow-Up Outcome Left Voicemail Initial Contact Date 05/28/24 CC Airam placed outbound call to patient for HDF outreach. CC placed second outreach call to offerpatient with an HDF appointment with provider. No answer at this time. Patient's name and were not confirmed. CC left detailed message educating patient on importance of following up with provider following an inpatient admission. Provided contact information requesting a call back in order to schedule the HDF appointment. Patient educated via voicemail on extended clinic hours on Mondays andWednesdays, and Walk-In Urgent Care Located in [facility]. Patient provided with after-hours linefor [facility], , which offer night time triage service and option to transfer to oncology physician assistant provider if needed. CC will await return call from the patient. documented in this encounter Plan of Treatment Not on file documented as of this encounter Visit Diagnoses Not on filedocumented in this encounter Additional Health Concerns Assessment Noted Time PHQ-9 Depression Total Score: 0 08/04/19 23 9:07 AM EDT documented as of this encounter Care Teams Media Associate Relationship Specialty Start Date End Date Ernie Hong MD [address] [place] [address] PCP - General Internal Medicine 01/03/19 documented as of this encounter
--- OUTSIDE RECORDS SUMMARY | 2024-06-13 23:43 | XMS_ITS | Encounter Summary ---
Author Organization [email or web address] Address [address] [facility] 7t [place] [address] Care Team Providers Care Stripper And Taper Name Role Phone Ernie Hong MD Primary Care Provide r Reason for Visit * Reason Comments Care Coordination CM/CHW outreach Encounter Details Date Type Department Care Team (Latest Contact Info) Description 05/20/2024 Patient Outreach [facility] MEDICINE [address] [place] [address] Ernie Hong MD [address] [place] [address] Care Coordination (CM/CHW outreach) Social History Tobacco Use Types Packs/Day Years [...] of this encounter Progress Notes * Monik Dennsi - 05/20/2024 9:43 AM EST CHW Monik Dennis placed outbound call to [facility] for discharge coordination as patient was admitted on 05/19/2024. CHW was connect to front maker lockstitch, spoke to radhika who stated patient is currently admitted but is still in the ED awaiting a bed. Patient's name, and confirmed. CHW to follow up within the next 2 days. CHW also placed call to patient with no answer LVM with details. documented in this encounter Plan of Treatment Not on file documented as of this encounter Visit Diagnoses Not on filedocumented in this encounter Additional Health Concerns Assessment Noted Time PHQ-9 Depression Total Score: 0 08/04/19 23 9:07 AM EDT documented as of this encounter Care Teams Stripper And Taper Relationship Specialty Start Date End Date Ernie Hong MD [address] [place] [id number] PCP - General Internal Medicine 01/03/19 documented as of this encounter
--- OUTSIDE RECORDS SUMMARY | 2024-06-13 23:43 | XMS_ITS | Encounter Summary ---
Author Organization [employer] Address [address] [facility] 7t [place] [address] Care Team Providers Care Bus Info Consultant Name Role Phone Ernie Hong MD Primary Care Provide r Paco Watson RN Unavailable [phone] Reason for Visit * Reason Onset Date Comments Care Management 06/04/2024 C3CM- initial as sessment/ enrollment Encounter Details Date Type Department Care Team (Late st Contact Info) Description 06/04/2024 Telephone [facility] MEDICINE [address] [place] [address] Paco Watson, RN [address] [place], [place] [phone] Care Management (C3- initial assessment/ enrollment) Social History Tobacco Use Types Packs/Day Years [...] Telephone Encounter - Paco Watson RN - 06/04/2024 2:50 PM EST SHABBIR Watson RN, provided notification to PCP Dr. Almendarez of patient's enrollment into C3 Complex Care Program. SHABBIR Watson RN, completed care plan and sent to HIM to be scanned into the medical record. PCP notified and awaiting review from provider. SHABBIR plan: -assist with appt scheduling and provide patient with appt reminders as needed -provide education on disease processes and management - provide resources based on positive SDOH needs * Telephone Encounter - Paco Watson RN - 06/04/2024 2:49 PM EST SHABBIR Watson RN placed outbound call to patient for agreed upon time for initial assessment for enrollment into Adult Care Management Program. Patient's name, , and address were verified. 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 Patient states he was discharged from [facility]24 and Dx with C.Diff. Per patient, took the antibiotics as prescribed. Patient reports bilateral lower leg edema and leg pain. He states he noted the symptoms x2 days ago. Per patient, leg swelling did go down somewhat but is still present. He denies any redness or warmth to the legs. He denies CP, SOB, fever, chills, or other symptoms. CM educated patient on the walk in center and hours of availability. He verbalizes understanding and states he will most likely go to [facility] ED today for eval. Patient states he is following a diet that is low in carbs/sugars/ and salt. He states he would like to be referred to DM educator and linen controller. CM will send request for referral to PCP to review. Per patient, Jardiance was discontinued following his hospitalization. He states he was started on Lantus and Humalog (sliding scale) which he reports taking as prescribed. He denies any difficulties with insulin admin. He states his sugars have been better controlled since he was started on Rx. Per patient, checking sugars BID or TID as needed. Patient reports fasting glucose of 117mg/dL this morning. Patient also reports Hx HTN. He states he does not have a BP monitor. CM will send request to PCP to review. Per patient, established with [facility]. He reports having a therapist and counselor. He states he is compliant with visits and is able to communicate with his therapist as needed. Per patient, currently on suboxone. Hestates he was struggling with alcohol use but has it more under control now. Per patient, has not had alcohol in about 6 months. He declines referral to AUD program at this time stating he has connect ion to resources through both [facility] and his current job. Patient in need of HDF. Advised next available with PCP is on 06/26. Patient requesting sooner available with covering provider. He is agreeable to HDF on 06/11/24 at 9:15am with [facility]. Care management program explained and contact information given. Patient verbalizes understanding, and able to repeat back to property underwriter. A follow up call will be placed within 10 days, patient agrees with plan. documented in this encounter Plan of Treatment Not on file documented as of this encounter Visit Diagnoses Not on filedocumented in this encounter Additional Health Concerns Assessment Noted Time PHQ-9 Depression Total Score: 0 08/04/19 23 9:07 AM EDT documented as of this encounter Care Teams Bus Info Consultant Relationship Specialty Start Date End Date Ernie Hong MD [address] [place] [address] PCP - General Internal Medicine 01/03/19 Paco Watson RN [address] [place] [phone] Inspector Paper ProductsProgram Manager 06/04/24 documented as of this encounter
--- OUTSIDE RECORDS SUMMARY | 2024-06-13 23:43 | XMS_ITS | Encounter Summary ---
Author Organization [employer] Address [address] [facility] 7t [place] [address] Care Team Providers Care Cloth Colors Examiner Name Role Phone Ernie Hong MD Primary Care Provide r Reason for Visit * Reason Comments Med Refill Encounter Details Date Type Department Care Team ([facility] st Contact Info) Description 05/23/2024 Refill [facility] MEDICINE [address] [place], [place] [phone] Ernie Hong MD [address] [place], [place] [phone] Essential hypertension Social History Tobacco Use Types [...] documented as of this encounter Care Teams Cloth Colors Examiner Relationship Specialty Start Date End Date Ernie Hong MD [address] [place] [address] PCP - General Internal Medicine 01/03/19 documented as of this encounter
--- OUTSIDE RECORDS SUMMARY | 2024-06-13 23:43 | XMS_ITS | Encounter Summary ---
Author Organization [employer] Address [address] [facility] 7t [place] [address] Care Team Providers Care Machine Lacer Name Role Phone Ernie Hong MD Primary Care Provide r Paco Watson RN Unavailable [phone] Reason for Visit * Reason Onset Date Comments Appointment Request 08/29/2022 Encounter Details Date Type Department Care Team ([facility] st Contact Info) Description 08/29/2022 Telephone [facility] MEDICINE [address] [place] [address] Ernie Hong MD [address] [place], [place] [phone] Appointment Request Social History Tobacco Use Types Packs/Day Years Used Date Smoking Tobacco: Never Passive Smoke Exposure: Never Smokeless Tobacco: Never Depression Answer Date Recorded Patient Health Questionnaire-9 Score 0 08/03/2022 Depression Answer Date Recorded Patient Health Questionnaire-2 Score 0 08/03/2022 Sex and Gender Information Value Date Recorded Sex Assigned at Male 02/27/2022 10:20 AM EDT Legal Sex Male 10:20 AM EDT Gender Identity Male 02/27/2022 10:20 AM EDT Sexual Orientation Straight 02/27/2022 10 :20 AM EDT COVID-19 Exposure Response Date Recorded In the last 10 days, have yo u been in contact with someone who was confirmed or suspected to have Coronavirus/COVID-19? No / Unsure 08/03/2022 8:46 AM EDT documented as of this encounter Miscellaneous Notes * Telephone Encounter - Yohana Hartman - 09/01/2022 3:25 PM EDT Tc from pt stating he will be in town by Sunday09/04/22 * Telephone Encounter - Jonathan Jose G - 08/29/2022 4:30 PM EDT Tc from pt requesting to r/s appt on 08/17/22 documented in this encounter Plan of Treatment Not on file documented as of this encounter Visit Diagnoses Not on filedocumented in this encounter Additional Health Concerns Assessment Noted Time PHQ-9 Depression Total Score: 0 08/04/19 9:07 AM EDT documented as of this encounter Care Teams Machine Lacer Relationship Specialty Start Date End Date Ernie Hong MD [address] [place] [id number] PCP - General Internal Medicine 01/03/19 Paco Watson RN [address] [place] [address] Oven AttendantParty Coordinator 06/04/24 documented as of this encounter
--- OUTSIDE RECORDS SUMMARY | 2024-06-13 23:43 | XMS_ITS | Encounter Summary ---
Author Organization [employer] Address [address] [facility] 7t [place] [address] Care Team Providers Care Construction Tech Name Role Phone Ernie Hong MD Primary Care Provide r Reason for Visit * Reason Comments Care Coordination CM/CHW outreach Encounter Details Date Type Department Care Team (Latest Contact Info) Description 05/23/2024 Patient Outreach [facility] MEDICINE [address] [place] [address] Erine Hong MD [address] [place] [address] Care Coordination (CM/CHW outreach) Social History Tobacco [...] encounter Progress Notes * Monik Dennis - 05/23/2024 11:11 AM EST CHW Monik Dennis, placed outbound call to patient introducing herself from [facility] CM Department, in regard to offering services. Patient's name and was confirmed. Patient agrees to participate in program. Appt. for initial assessment scheduled for 06/04/24 @ 10AM tele with SHABBIR Watson RN. CHW reinforced direct contact information or for any additional questions or concerns and extended clinic hours on Mondays and Wednesdays, and Walk-In Urgent Care Located in [facility]. Patient provided with after-hours line for [facility], ,which offer night time triage service and option to transfer to library circulation clerk provider if needed. Patient verbalizes understanding, and able to repeat back to comic writer. documented in this encounter Plan of Treatment Not on file documented as of this encounter Visit Diagnoses Not on filedocumented in this encounter Additional Health Concerns Assessment Noted Time PHQ-9 Depression Total Score: 0 08/04/19 23 9:07 AM EDT documented as of this encounter Care Teams Construction Tech Relationship Specialty Start Date End Date Ernie Hong MD [address] [place] [address] PCP - General Internal Medicine 01/03/19 documented as of this encounter
[2024-06-14] MEDS: Doxycycline Monohydrate 100 MG CAPSULE PO (00:42)
[2024-06-14] MEDS: Ketorolac Tromethamine 15 MG/ML VIAL 30 MG IVPUSH (00:42)
[2024-06-14] MEDS: cephALEXin 500 MG CAPSULE PO (00:42)
[2024-06-14] MEDS: Insulin Regular, Human 100 UNIT/ML 10 ML VIAL 10 UNIT IVPUSH (00:44)
[2024-06-14] MEDS: 0.9 % Sodium Chloride 1,000 ML 999 ML IVCONT (00:44)
[2024-06-14 00:46] VITALS: BP 123/70; PULSE 81; RESP 17; TEMP 36.8; O2SAT 96
[2024-06-14 00:51] LABS: Glucose, Whole Blood 419 mg/dL (60-115)
[2024-06-14 01:43] LABS: Glucose, Whole Blood 279 mg/dL (60-115)
--- NOTE | 2024-06-14 01:56 | PC.NURSE ---
pt from home, a&ox4, respirations even and labored. pt reports x3 days of bilateral lower leg swelling and redness. pt denies fever and chills. pt legs noted to be swollen but without pitting edema. pt also reports pimples to the back of head at this time. vss. 18G placed in right forearm, pt medicated per jun.
[2024-06-14 02:47] VITALS: BP 122/74; PULSE 77; RESP 17; TEMP 36.9; O2SAT 98
== END 2024-06-14 02:50 | disposition home or self-care (01) ==
PROVIDERS: Physician Assistant; Emergency Provider Emergency Medicine; PCP Internal Medicine
DX: E11.65 Type 2 diabetes mellitus with hyperglycemia (principal); L03.116 Cellulitis of left lower limb; L03.115 Cellulitis of right lower limb; R79.89 Other specified abnormal findings of blood chemistry; R60.0 Localized edema; R11.2 Nausea with vomiting, unspecified; R07.89 Other chest pain; F17.210 Nicotine dependence, cigarettes, uncomplicated; Z79.899 Other long term (current) drug therapy; Z79.4 Long term (current) use of insulin
CPT/HCPCS: 36415; 80053; 80307; 82947; 83690; 83880; 84484; 85025; 93005; 96361; 96374; 96375; 99285; J1885

== ENCOUNTER → 2024-06-13 19:36 | Outpatient (BNV) | payer MEDICAID, SELFPAY | PROVIDERS: Emergency Provider Emergency Medicine; PCP Internal Medicine; Visit Provider Internal Medicine Cardiovascular Disease | DX: R52 Pain, unspecified (principal) | CPT/HCPCS: 93010 ==